=== PATIENT | female | born 1935 | race Caucasian/White ===

== ENCOUNTER → 2020-10-09 12:20 | Outpatient (BNVA) | payer MEDICARE, OTHER, SELFPAY | PROVIDERS: PCP Family Medicine; Visit Provider Family Medicine | DX: I48.0 Paroxysmal atrial fibrillation (principal) | CPT/HCPCS: 85610 ==

== ENCOUNTER → 2020-10-30 08:30 | Outpatient (BNVA) | payer MEDICARE, OTHER, SELFPAY | PROVIDERS: PCP Family Medicine; Visit Provider Family Medicine | DX: I48.0 Paroxysmal atrial fibrillation (principal) | CPT/HCPCS: 85610 ==

== ENCOUNTER → 2020-11-08 11:16 | Outpatient (BNVA) | payer MEDICARE, OTHER, SELFPAY | PROVIDERS: PCP Family Medicine; Visit Provider Family Medicine | DX: Z47.89 Encounter for other orthopedic aftercare (principal); S52.502D Unspecified fracture of the lower end of left radius, subsequent encounter for closed fracture with routine healing; X58.XXXD Exposure to other specified factors, subsequent encounter | CPT/HCPCS: 73110 ==

== ENCOUNTER → 2020-11-13 13:02 | Outpatient (BNVA) | payer MEDICARE, OTHER, SELFPAY | PROVIDERS: PCP Family Medicine; Referring Provider Family Medicine; Visit Provider Orthopaedic Surgery | DX: Z47.89 Encounter for other orthopedic aftercare (principal); Z87.81 Personal history of (healed) traumatic fracture | CPT/HCPCS: 73502 ==

== ENCOUNTER 2021-01-16 10:40 | Inpatient (IN) | payer MEDICARE, SELFPAY ==
[2021-01-16] VITALS (9 sets, daily range): BP systolic 91–119; BP diastolic 51–64; PULSE 60–73; RESP 16–18; TEMP 36.5–37.3; O2SAT 93–97; BMI 24.4
--- NOTE | 2021-01-16 10:59 | XRR_ITS ---
PROCEDURE INFORMATION: Exam: XR Abdomen Exam date and time: 01/16/2021 11:06 AM Age: 85 years old Clinical indication: Abdominal pain; Localized; Right lower quadrant (rlq); Prior surgery; Surgery type: Appendix; Patient HX: Lrq pain x 2.5 days; Additional info: Abd pain TECHNIQUE: Imaging protocol: XR of the abdomen. Views: Frontal supine view of the abdomen. 1 View. COMPARISON: No relevant prior studies available. FINDINGS: Gastrointestinal tract: Normal. No bowel dilation. Organs: Cholecystectomy. Bones/joints: Left hip prosthesis. Scoliosis. XR/XR KUB portable [id number] IMPRESSION: No acute findings.
--- NOTE | 2021-01-16 11:02 | CT_ITS ---
WS: [id number] CT ABDOMEN PELVIS TECHNIQUE: Contrast-enhanced CT of the abdomen and pelvis with coronal and sagittal reformatted image s. CLINICAL INFORMATION: abd pain COMPARISON: None. DLP: 1291.[address] scans at [facility] use at least one of these dose optimization techniques: automat ed exposure control; mA and/or kV adjustment per patient size (includes targeted exams where dose is matched to clinical indication); or iterative reconstruction. FINDINGS:Air-fluid levels in the fluid-filled transverse colon. Peripheral wall enhancement involving the right colon and transverse colon suspicious for colitis. Dilated loops of fluid-filled small bow el in the midabdomen with mucosal enhancement. Mucosal enhancement involving the distal ileum which i s decompressed. Findings suspicious for enterocolitis and/or developing partial small bowel obstructi on. Swirling in the central mesentery which is nonspecific but can be seen with internal hernia or vo lvulus. No free air. Inflammatory stranding and edema within the central mesentery and right upper qu adrant. Fluid and edema about the pancreatic head. Recommend correlation with pancreatic enzymes. Nor mal pancreatic parenchymal enhancement. SMV is patent. Proximal celiac and SMA are patent. Mild diffuse fatty infiltration of the liver. Prior cholecystectomy. Normal portal veins and splenic vein. Dilated common bile duct likely physiologic postcholecystectomy. Subsegmental atelectasis right lower lobe. Trace right pleural fluid. Normal caliber abdominal aorta. Aortic calcification. Adrenal glands are normal. No hydronephrosis. B ilateral renal cysts. Normal renal parenchymal enhancement. Left AMELIA degrades images in the pelvis. S mall amount of free fluid in the pelvis. .. CT/CT abdomen pelvis w con* [id number] IMPRESSION: 1. Findings suspicious for enterocolitis and/or developing partial small bowel obstruction. Persistent air within the colon. 2. Inflammatory stranding and edema central mesentery and right upper quadrant with some swirling in the central mesentery is nonspecific but can be seen wit h volvulus or internal hernia. 3. Fluid and edema about the pancreatic head. Recommend correlation with pancr eatic enzymes to exclude pancreatitis. 4. A few air-fluid levels in the transverse colon and a few loops of distended small bowel in the midabdomen and pelvis 5. Small amount of free fluid in the pelvis. 6. Prior cholecystectomy. Notified Anson Camarillo DO at 01/16/2021 1:09 PM.
[2021-01-16 11:48] LABS: Basophils # 0.1 10^3/uL (0.0-0.1); Basophils % 0.5 %; Hematocrit 41.5 % (37.0-47.0); Hemoglobin 13.7 g/dL (11.5-15.3); Lymphocytes # 1.2 10^3/uL (0.8-4.8); Lymphocytes % 8.2 %; Mean Corpuscular Hemoglobin 29.8 pg (28.0-34.0); Mean Corpuscular Volume 90.2 fL (81-99); Mean Platelet Volume 9.7 fL (7.4-10.4); Monocytes # 0.3 10^3/uL (0.2-0.9); Monocytes % 2.3 %; Neutrophils # 12.69 10^3/uL (1.8-7.7); Neutrophils % 88.5 %; Nucleated Red Blood Cells % 0 %; Platelet Count 325 10^3/cmm (130-400); Red Cell Distribution Width 14.9 % (12.1-15.1); White Blood Count 14.3 10^3/uL (4.0-10.0)
--- NOTE | 2021-01-16 11:52 | ED_ITS ---
HPI - Abdominal Pain General: Chief Complaint: Abdominal Pain Stated Complaint: AB PAIN, SENT FROM URGENT CARE Time Seen by Provider: 01/16/21 10:48 History of Present Illness: HPI narrative: 85-year-old female presents to the emergency room complaining of abdominal discomfort. She had been having significant amount of diarrhea and even noticed a little bit of blood in her stool mostly after she wiped. She took some Imodium to alleviate the diarrhea and now has not been able to have a bowel movement. She denies dysuria but she states she is only been going in very small amounts lately. She has felt very very bloated. She not had any vomiting. She has been able to eat and drink okay. She is on warfarin for atrial fibrillation. She checks her INR weekly with a home monitoring. She did miss a dose earlier this week and doubled up the next day she is supposed to have her INR checked today. Denies any chest pain or shortness of breath or any recent illness. MD elicited complaint: abdominal pain Pertinent past history: constipation Onset (ago): day(s) Pain Consistency: intermittent Location: Diffuse Severity: mild Quality: cramping Radiation: none Exacerbating factors: nothing Relieving factors: nothing Associated Symptoms: Denies anorexia, belching, bloating, change in bowel habits, change in stool character, chills, coffee ground emesis, constipation, GI cramping, diarrhea, dyspepsia, dysuria, excessive flatus, fever(s), heartburn, hematochezia, hematuria, hematemesis, fecal incontinence, loose stoo ls, nausea, poor appetite, syncope and vomiting Review of Systems Const: Denies: fever(s) or chills Card: Denies: syncope GI: Denies: nausea, vomiting, hematemesis, coffee ground emesis, heartburn, diarrhea, constipation, bloating, GI cramping, belching, excessive flatus, fecal incontinence, change in bowel habits, change in stool character or hematochezia : Denies: dysuria or hematuria [facility] ED PFSH: Medical History Hiatal hernia History of 2019 novel coronavirus disease (COVID-19) HTN (hypertension) Paroxysmal A-fib Surgical History H/O cataract extraction H/O knee surgery H/O wrist surgery H/O: hysterectomy History of appendectomy History of bladder suspension procedure History of left hip replacement Family History (Updated 01/16/21 @ 15:13 by Jimime Garcia MD) Brother Cancer Father CAD (coronary artery disease) Mother No problems noted. Social History Smoking and tobacco status: former smoker Alcohol intake: former Former alcohol use details: socially Physical Exam Const: COMMON NORMALS: no acute distress GENERAL APPEARANCE: cooperative and comfortable HENMT: COMMON NORMALS: normocephalic, atraumatic and hearing grossly normal bilaterally HEAD & SCALP: normocephalic and atraumatic Neck/C-Spine: COMMON NORMALS: no JVD Resp: COMMON NORMALS: normal respiratory effort, No retractions, No use of accessory muscles and clear to auscultation bilaterally AUSCULTATION: clear to auscultation bilaterally Cardio: COMMON NORMALS: no JVD, regular rate, regular rhythm and No murmurs present (Cardio) RATE: regular rate RHYTHM: regular rhythm GI: COMMON NORMALS: No hepatosplenomegaly present AUSCULTATION: Yes Hypoactive bowel sounds present PALPATION: Yes Tenderness to palpation present (GI) (diffuse), No Guarding due to palpation present (GI) and Yes No hepatosplenomegaly present Extremity: COMMON NORMALS: normal to inspection, capillary refill normal, no clubbing, cyanosis or edema, no calf tenderness and no pedal edema Skin: COMMON NORMALS: no rashes or lesions noted GENERAL SKIN EXAM: no rashes or lesions noted Course Vital Signs: Vital signs: Vital Signs Temperature 99.1 F 01/17/21 07:05 Pulse Rate 60 01/17/21 07:05 Respiratory Rate 15 01/17/21 07:05 Blood Pressure 104/62 01/17/21 07:05 Pulse Oximetry 96 01/17/21 07:05 MDM - Abdominal Pain MDM Narrative: Medical decision making narrative: Lipase elevated there is evidence of colitis and early bowel obstruction on advanced imaging. Given her age and the fact that she has diminished bowel sounds hyponatremia recommend admission for bowel rest antibiotics antiemetics. She will also need correction of her electrolytes. Discussed with Dr. Garcia. Additionally her over anticoagulation warrants close observation if her colitis is not improved in short order she could have significant bleeding issues. Lab Data: Labs: Lab Results 01/16/21 01/16/21 01/16/21 Range/Units 11:15 11:42 11:42 WBC 14.3 H (4.0-10.0) 10^3/ uL RBC 4.60 (4.1-5.3) 10^6/u L Hgb 13.7 (11.5-15.3) g/dL Hct 41.5 (37.0-47.0) % MCV 90.2 (81-99) fL MCH 29.8 (28.0-34.0) pg MCHC 33.0 (30.0-36.0) g/dL RDW 14.9 (12.1-15.1) % Plt Count 325 (130-400) 10^3/c mm MPV 9.7 (7.4-10.4) fL Neut % (Auto) 88.5 % Lymph % (Auto) 8.2 % Calloway % (Auto) 2.3 % Eos % (Auto) 0.0 % Baso % (Auto) 0.5 % Neut # (Auto) 12.69 H (1.8-7.7) 10^3/u L Lymph # (Auto) 1.2 (0.8-4.8) 10^3/u L Calloway # (Auto) 0.3 (0.2-0.9) 10^3/u L Eos # (Auto) 0.0 (0.0-0.8) 10^3/u L Baso # (Auto) 0.1 (0.0-0.1) 10^3/u L Nucleated RBC % (a uto) 0 % Nucleated RBCs # 0.0 /100WBC PT 44.60 H (12.1-14.9) SECO NDS INR 4.51 H (0.8-1.2) Sodium (136-145) mmol/L Potassium (3.5-5.1) mmol/L Chloride (98-107) mmol/L Carbon Dioxide (22-29) mmol/L Anion Gap (5-19) BUN (8-23) mg/dL Creatinine (0.5-0.9) mg/dL GFR Calculation Glucose (65-115) mg/dL Calculated Osmolal ity (285-295) mOsm/k g Lactic Acid (0.5-2.2) mmol/L Calcium (8.5-10.5) mg/dL Total Bilirubin (0.15-1.2) mg/dL AST (0-32) U/L ALT (0-33) U/L Alkaline Phosphata se (35-105) IU/L Total Protein (6.6-8.7) g/dL Albumin (3.5-5.2) g/dL Globulin (1.3-4.6) g/dL Lipase (13-60) U/L Urine Color Yellow (Yellow) Urine Appearance Clear (CLEAR) Urine pH 5 (5-7) Ur Specific Gravit y 1.020 (1.005-1.030) Urine Protein Neg (Negative) Urine Glucose (UA) Norm (Normal) Urine Ketones Negative (Negative) Urine Blood 2+ H (Negative) Urine Nitrate Negative (Negative) Urine Bilirubin 1+ H (Negative) Urine Urobilinogen Norm (Negative) mg/dL Ur Leukocyte Carmelita ase Negative (Negative) Urine RBC 5-10 H (0-2) /hpf Urine WBC 0-4 H (0-5) /hpf Ur Squamous Epith Cells 0-4 H (0-5) /hpf Ur Transition Epit h Cell 0-4 /hpf Amorphous Sediment 1+ /hpf Urine Bacteria 3+ H (NONE) /hpf Hyaline Casts 25-40 H /lpf Urine Mucus 1+ /hpf 01/16/21 01/16/21 01/16/21 Range/Units 11:42 11:42 13:51 WBC (4.0-10.0) 10^3/ uL RBC (4.1-5.3) 10^6/u L Hgb (11.5-15.3) g/dL Hct (37.0-47.0) % MCV (81-99) fL MCH (28.0-34.0) pg MCHC (30.0-36.0) g/dL RDW (12.1-15.1) % Plt Count (130-400) 10^3/c mm MPV (7.4-10.4) fL Neut % (Auto) % Lymph % (Auto) % Calloway % (Auto) % Eos % (Auto) % Baso % (Auto) % Neut # (Auto) (1.8-7.7) 10^3/u L Lymph # (Auto) (0.8-4.8) 10^3/u L Calloway # (Auto) (0.2-0.9) 10^3/u L Eos # (Auto) (0.0-0.8) 10^3/u L Baso # (Auto) (0.0-0.1) 10^3/u L Nucleated RBC % (a uto) % Nucleated RBCs # /100WBC PT (12.1-14.9) SECO NDS INR (0.8-1.2) Sodium 123 L (136-145) mmol/L Potassium 4.1 (3.5-5.1) mmol/L Chloride 86 L (98-107) mmol/L Carbon Dioxide 25 (22-29) mmol/L Anion Gap 16.1 (5-19) BUN 30 H (8-23) mg/dL Creatinine 1.3 H (0.5-0.9) mg/dL GFR Calculation Not Reportable Glucose 73 (65-115) mg/dL Calculated Osmolal ity 261 L (285-295) mOsm/k g Lactic Acid 1.7 (0.5-2.2) mmol/L Calcium 8.9 (8.5-10.5) mg/dL Total Bilirubin 0.8 (0.15-1.2) mg/dL AST 15 (0-32) U/L ALT 10 (0-33) U/L Alkaline Phosphata se 37 (35-105) IU/L Total Protein 6.5 L (6.6-8.7) g/dL Albumin 3.5 (3.5-5.2) g/dL Globulin 3.0 (1.3-4.6) g/dL Lipase 333 H (13-60) U/L Urine Color (Yellow) Urine Appearance (CLEAR) Urine pH (5-7) Ur Specific Gravit y (1.005-1.030) Urine Protein (Negative) Urine Glucose (UA) (Normal) Urine Ketones (Negative) Urine Blood (Negative) Urine Nitrate (Negative) Urine Bilirubin (Negative) Urine Urobilinogen (Negative) mg/dL Ur Leukocyte Carmelita ase (Negative) Urine RBC (0-2) /hpf Urine WBC (0-5) /hpf Ur Squamous Epith Cells (0-5) /hpf Ur Transition Epit h Cell /hpf Amorphous Sediment /hpf Urine Bacteria (NONE) /hpf Hyaline Casts /lpf Urine Mucus /hpf Discharge Plan Discharge Patient Disposition: Admitted As Inpatient Admit Provider: Jimmie Garcia Clinical Impression: Small bowel obstruction, Dehydration with hyponatremia, Warfarin-induced coagulopathy, Paroxysmal A-fib, HTN (hypertension), Acute kidney injury, Enterocolitis, Mild aortic regurgitation Condition: Stable Coding Level of Care Code ED Product Safety Compliance Leader for Callie [facility]ue[facility]
[2021-01-16 12:10] LABS: INR 4.51 (0.8-1.2)
[2021-01-16 12:16] LABS: Alanine Aminotransferase 10 U/L (0-33); Albumin Level 3.5 g/dL (3.5-5.2); Alkaline Phosphatase 37 IU/L (35-105); Anion Gap 16.1 (5-19); Aspartate Amino Transferase 15 U/L (0-32); Blood Urea Nitrogen 30 mg/dL (8-23); Calcium 8.9 mg/dL (8.5-10.5); Carbon Dioxide 25 mmol/L (22-29); Chloride 86 mmol/L (98-107); Glucose 73 mg/dL (65-115); Osmolality Calculated 261 mOsm/kg (285-295); Potassium 4.1 mmol/L (3.5-5.1); Sodium 123 mmol/L (136-145); Total Bilirubin 0.8 mg/dL (0.15-1.2); Total Protein 6.5 g/dL (6.6-8.7)
[2021-01-16 12:18] LABS: Slide Review Slide Review Perform
[2021-01-16] MEDS: iodixanol 320 mg/mL 100mL Btl IV (12:44)
[2021-01-16 13:44] LABS: Lipase 333 U/L (13-60)
--- NOTE | 2021-01-16 13:54 | ECG_ITS ---
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 Measurements Intervals [place] Rate: 66 P: -89 [place]: 224 QRS: 34 QRSD: 86 T: 52 QT: 377 QTc: 396 Interpretive Statements ELECTRONIC ATRIAL PACEMAKER LOW QRS VOLTAGE IN PRECORDIAL LEADS [QRS DEFLECTION < 1.0 mV IN CHEST LEADS] ABNORMAL RHYTHM ECG No previous ECG available for comparison Electronically Signed On 01-17-2021 0:01:05 BRICK LOADER by Tracey Meza M.D. [id number]
[2021-01-16] MEDS: metroNIDAZOLE IV 500 MG/100 ML PREMIX 100 MG IV ×2 (14:06→21:10)
[2021-01-16] MEDS: ciprofloxacin 400 MG/200 ML PREMIX 200 MG IV (14:07)
[2021-01-16 14:08] LABS: Glucose Urine UA Norm (Normal); Ketones Urine Negative (Negative); Protein Urine Neg (Negative); Urine Appearance Clear (CLEAR); Urine Color Yellow (Yellow); pH Urine 5 (5-7)
[2021-01-16 14:09] LABS: Add Urine Microscopic? YES; Bilirubin Urine 1+ (Negative); Blood Urine 2+ (Negative); Leukocyte Esterase Urine Negative (Negative); Nitrate Urine Negative (Negative); Urobilinogen Urine Norm (Negative)
[2021-01-16 14:25] LABS: Lactic Sepsis W/Reflex 1.7 mmol/L (0.5-2.2)
--- NOTE | 2021-01-16 15:04 | P.HP_ITS ---
Providers/Chief Complaint Primary Care Provider: Rosemary Joshua DO Chief Complaint: AB PAIN, SENT FROM URGENT CARE History of Present Illness Esthela Billings is a 85 year old female presents to emergency department with gradually worsening periumbilical abdominal pain which initially started somewhere in epigastric area and then down to her right and lower quadrants but more on the right side. Reports that pain is 6 out of 10 and laying straight on her back alleviates her pain and moving to either side exacerbates. She did pa ss gas yesterday but not today. Reports that she has IBS constipation type for long period of time. Reports that approximately 3 weeks ago when her abdominal pain started she noticed several diarrheal bowel movements. She took Imodium multiple times and apparently had no good bowel movement in the last several days. Had minimal diarrhea yesterday. Denies any melena or hematochezia but does report occasionally bright red blood on toilet paper secondary to hemorrhoids. Reports that she vomited several times in the last 3 weeks with last 1 was yesterday. She describes it as white-colored vomitus. 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 She moved to the area from [place] in October. Reports that September she had left hip surgery and possibly received antibiotic at that time but denies any antibiotic use since then. They just moved into a new house in November and patient reports drinking well water. No one else in the family ill. She had previous abdominal surgeries. She had laparoscopic cholecystectomy and open appendectomy. She had bladder prolapse surgery and had hysterectomy at that time. She denies being diabetic and denies having coronary stents. She does have previous history of atrial fibrillation. She has a pacemaker and anticoagulated with warfarin. Her INR was supratherapeutic. She denies previous history of stroke and on her baseline reports being very active up until last September when she had her hip surgery and after that she has been not as active as she used to. On review of systems she was trying to describe some discoloration on her foot and described as light-colored blood . She could not really elaborate and her daughter at bedside also could not understand what she meant by that. She l ooked at her feet and says that is not there anymore. Denies lower extremity swelling. In emergency department patient was found to be very dehydrated. CT scan of the abdomen pelvis showed findings suspicious for small bowel obstruction. There was also concern for possible volvulus but patient's lactic acid within normal limits. Review of Systems Const: Denies: fever(s) or chills Eyes: Denies: change in vision ENMT: Denies: throat pain or change in hearing Card: Denies: chest pain, edema or lightheadedness Resp: Reports: productive cough (Reports clear productive cough for many years which is unchanged.. Quit sm); Denies: dyspnea GI: Reports: abdominal pain, nausea, vomiting, diarrhea and constipation; Denies: dysphagia, hematochezia or melena : Denies: difficulty voiding (But reports that she did not urinate much.) Musc: Denies: joint pain or joint swelling Skin/Breast: Denies: rash or erythema Neuro: Denies: headache(s) or weakness in extremities Psych: Denies: depression Endo: Denies: excessive sweating Darryn/Lymph: Denies: easy bleeding or tender lymph nodes All/Imm: Denies: throat swelling Medications/Allergies Home Medications Medication Instructions Recorded Confirmed Last Taken Type dronedarone 400 mg tablet 400 mg PO BID #180 tab 11/22/20 01/16/21 01/16/21 07:00 Rx Vitamin C 1 tab PO DAILY 01/16/21 01/16/21 Unknown History magnesium oxide 1,200 mg PO BID 01/16/21 01/16/21 Unknown History metoprolol tartrate 12.5 mg PO BID 01/16/21 01/16/21 01/16/21 07:00 History warfarin See Rx Instructions .ROUTE .COMPLEX 01/16/21 01/16/21 Unknown History Allergies Allergy/AdvReac Type Severity Reaction Status Date / Time No Known Allergies Allergy Verified 01/16/21 11:12 PFSH Acute PFSH: Medical History Hiatal hernia History of 2019 novel coronavirus disease (COVID-19) HTN (hypertension) Paroxysmal A-fib Surgical History H/O cataract extraction H/O knee surgery H/O wrist surgery H/O: hysterectomy History of appendectomy History of bladder suspension procedure History of left hip replacement Family History Brother Cancer Father CAD (coronary artery disease) Mother No problems noted. Social History Smoking and tobacco status: former smoker Alcohol intake: former Former alcohol use details: socially Vitals/I&O/Wt Last Vital Signs Temp 97.7 F 01/16/21 10:51 Pulse 60 01/16/21 14:36 Resp 18 01/16/21 14:36 BP 91/51 01/16/21 14:36 Pulse Ox 94 01/16/21 14:36 Weight last 48 hrs Weight 66.678 kg Physical Exam Const: COMMON NORMALS: no acute distress, patient oriented x3 and alert HENMT: COMMON NORMALS: normocephalic and atraumatic HEAD & SCALP: normocephalic and atraumatic Eye: COMMON NORMALS: EOMs intact bilaterally, conjunctivae normal and no scl eral icterus CONJUNCTIVA: Yes conjunctivae normal Neck/C-Spine: COMMON NORMALS: no lymphadenopathy and no meningeal signs Lymph: LYMPHATIC: no lymphadenopathy noted Chest: COMMONS NORMALS: normal palpation of entire chest wall Resp: COMMON NORMALS: No use of accessory muscles and clear to auscultation bilaterally AUSCULTATION: clear to auscultation bilaterally Cardio: COMMON NORMALS: regular rate, regular rhythm and No murmurs present (Cardio) RATE: regular rate RHYTHM: regular rhythm OTHER: No lower extremity edema GI: COMMON NORMALS: Soft to palpation PALPATION: Yes Soft to palpation RECTAL EXAM: deferred OTHER: Nondistended but tender to palpation mostly at the right lower quadrant. No guarding or rebound tenderness. : COMMON NORMALS: Yes no CVA tenderness BLADDER/KIDNEY EXAM: Yes no CVA tenderness Back/Pelvis: COMMON NORMALS: no CVA tenderness and thoracic and lumbar spine normal to inspection Extremity: COMMON NORMALS: normal to inspection and capillary refill normal Neuro: COMMON NORMALS: patient oriented x3 and no focal motor deficits S ENSORIUM/ORIENTATION: Yes alert MENINGEAL SIGNS: Yes no meningeal signs Psych: COMMON NORMALS: mental status grossly normal, Normal thought process present and cooperative THOUGHT PROCESS: Normal thought process present Skin: COMMON NORMALS: no rashes or lesions noted GENERAL SKIN EXAM: no rashes or lesions noted Data : 01/16/21 11:42 01/16/21 11:42 A&P Assessment and plan (1) Small bowel obstruction: Most likely secondary to adhesions Status: Acute (2) Dehydration with hyponatremia: Status: Acute (3) Acute kidney injury: Status: Acute (4) Hypotension due to hypovolemia: Status: Acute (5) History of atrial fibrillation: Status: Acute (6) Warfarin-induced coagulopathy: Status: Acute (7) Enterocolitis: Status: Acute Additional A&P Information PLAN: We will treat patient with fluids and closely monitor urine output and cardiorespiratory status. I will request NG tube placement as patient is at risk for vomiting. Low intermittent wall suction. We will treat patient with MiraLAX and give one enema. Hopefully patient will improve with time but if not better will consult surgery. Hold warfarin and monitor INR. I will continue ciprofloxacin and Flagyl to cover intra-abdominal esperanza given the findings somewhat suggestive of enterocolitis. Check stool for C. difficile infection and for enteric pathogens although clinically this does not appear to be C. difficile colitis. Consider placing Garcias catheter. Frequent ambulation's. Patient's lipase appears to be intestinal in origin. Doubt true pancreatitis. Attestations Medical Necessity Statement*: With small bowel obstruction requires close inpatient monitoring and treatment. I expect patient will require more than 2 midnights. Time Spent in Patient Care: Greater than 35 minutes Coding Level of Care Code Acute Continuing Education Director for [facility] Diagnoses Small bowel obstruction K56.609 Dehydration with hyponatremia E86.0; E87.1 Acute kidney injury N17.9 Hypotension due to hypovolemia I95.89; E86.1 History of atrial fibrillation Z86.79 Warfarin-induced coagulopathy D68.32; T45.515A Enterocolitis K52.9
[2021-01-16 15:11] LABS: Hyaline Casts Urine 25-40 /lpf
[2021-01-16 15:13] LABS: Add Urine Culture? Yes; Amorphous Sediment Urine 1+ /hpf; Bacteria Urine 3+ /hpf; Mucus Urine 1+ /hpf; Squamous Epithelial Cell Urine 0-4 /hpf (0-5); Transitional Epi Cells Urine 0-4 /hpf; WBC Urine 0-4 /hpf (0-5)
[2021-01-16] MEDS: sodium chloride 0.9% 1,000 ML 999 ML IV (15:15)
[2021-01-16] MEDS: mineral oil ENEMA 133 mL PR (17:13)
[2021-01-16] MEDS: lactated ringers 1,000 ML 100 ML IV (17:14)
[2021-01-16] MEDS: metoprolol tartrate 25 mg Tablet 12.5 MG PO ×2 (17:15→21:09)
[2021-01-16] MEDS: polyethylene glycol 3350 Pkt 17 gm PO (17:19)
[2021-01-16] MEDS: sodium chloride 0.9% 1,000 ML 125 ML IV ×2 (18:49→21:13)
[2021-01-16] MEDS: famotidine 20 mg/2 mL INJ IVP (21:09)
[2021-01-17] VITALS (9 sets, daily range): BP systolic 103–113; BP diastolic 50–82; PULSE 59–126; RESP 15–18; TEMP 36.3–37.3; O2SAT 93–96
[2021-01-17] MEDS: ciprofloxacin 400 MG/200 ML PREMIX 200 MG IV ×2 (01:51→12:50)
[2021-01-17] MEDS: lactated ringers 1,000 ML 100 ML IV ×2 (02:33→16:57)
[2021-01-17 05:05] LABS: Basophils # 0.1 10^3/uL (0.0-0.1); Basophils % 0.4 %; Eosinophils % 0.1 %; Hematocrit 36.4 % (37.0-47.0); Lymphocytes # 0.7 10^3/uL (0.8-4.8); Lymphocytes % 6.1 %; Mean Corpuscular Hemoglobin 30.2 pg (28.0-34.0); Mean Corpuscular Volume 91.7 fL (81-99); Monocytes # 0.3 10^3/uL (0.2-0.9); Monocytes % 2.3 %; Neutrophils # 10.46 10^3/uL (1.8-7.7); Neutrophils % 90.8 %; Nucleated Red Blood Cells % 0 %; Platelet Count 272 10^3/cmm (130-400); Red Blood Count 3.97 10^6/uL (4.1-5.3); Red Cell Distribution Width 14.9 % (12.1-15.1); White Blood Count 11.5 10^3/uL (4.0-10.0)
[2021-01-17] MEDS: metroNIDAZOLE IV 500 MG/100 ML PREMIX 100 MG IV ×3 (05:44→21:28)
[2021-01-17 05:47] LABS: Alanine Aminotransferase 7 U/L (0-33); Albumin Level 2.7 g/dL (3.5-5.2); Alkaline Phosphatase 36 IU/L (35-105); Anion Gap 11.9 (5-19); Aspartate Amino Transferase 11 U/L (0-32); Blood Urea Nitrogen 23 mg/dL (8-23); Calcium 8.6 mg/dL (8.5-10.5); Carbon Dioxide 26 mmol/L (22-29); Chloride 93 mmol/L (98-107); Globulin 2.8 g/dL (1.3-4.6); Glucose 68 mg/dL (65-115); Lipase 83 U/L (13-60); Osmolality Calculated 266 mOsm/kg (285-295); Potassium 3.9 mmol/L (3.5-5.1); Sodium 127 mmol/L (136-145); Total Bilirubin 0.7 mg/dL (0.15-1.2); Total Protein 5.5 g/dL (6.6-8.7)
[2021-01-17 05:53] LABS: Slide Review Slide Review Perform
[2021-01-17 05:56] LABS: Procalcitonin 4.15 ng/mL (0-0.5)
[2021-01-17 05:57] LABS: Thyroid Stimulating Hormone 0.95 uIU/mL (0.27-4.20)
[2021-01-17 06:32] LABS: INR 4.84 (0.8-1.2)
[2021-01-17] MEDS: famotidine 20 mg/2 mL INJ IVP ×2 (08:11→21:28)
[2021-01-17] MEDS: polyethylene glycol 3350 Pkt 17 gm PO ×2 (08:11→16:58)
--- NOTE | 2021-01-17 08:24 | PM.PN ---
Subjective Subjective: Interval history: Patient reports feeling much better. Reports that she had explosive bowel movement yesterday and felt much better after that. Denies chest pain. Reports minimal generalized abdominal discomfort but otherwise much better compared to her initial presentation. She denies being nauseous but reports that her appetite is poor. She did not want to have NG tube placed yesterday. Vitals/I&O/Wt Last Vital Signs Temp 99.1 F 01/17/21 07:05 Pulse 60 01/17/21 07:05 Resp 15 01/17/21 07:05 BP 104/62 01/17/21 07:05 Pulse Ox 96 01/17/21 07:05 01/16/21 01/17/21 01/17/21 22:59 06:59 14:59 Intake Total 2400 / 2400 2300.000 / 4700.000 Output Total 600 / 600 Balance 2400 / 2400 1700.000 / 4100.000 Weight last 48 hrs Weight 66.678 kg Physical Exam Narrative: EXAM NARRATIVE: Heart is regular and lungs are clear. Abdomen is soft and slightly tender throughout. No lower extremity edema. Data : 01/17/21 04:15 01/17/21 04:15 Micro: Microbiology 01/16/21 17:48 C.difficile Toxin B Gene (PCR) - Final Stool A&P Assessment and plan (1) Small bowel obstruction: Most likely secondary to adhesions Status: Acute (2) Dehydration with hyponatremia: Status: Acute (3) Acute kidney injury: Status: Acute (4) Hypotension due to hypovolemia: Status: Acute (5) History of atrial fibrillation: Status: Acute (6) Warfarin-induced coagulopathy: Status: Acute (7) Enterocolitis: Status: Acute Additional A&P Information PLAN: Continue holding warfarin. Continue antibiotics. Decrease IV fluids to 50 mL/h and start patient on clear liquid diet Encouraged ambulation. Consider adding senna/Colace if patient continues to improve. Attestations Medical Necessity Statement*: Patient with small bowel obstruction requires close inpatient monitoring and treatment. Coding Level of Care Code Acute Musculoskeletal Physiotherapist for [facility] Fwd Diagnoses Small bowel obstruction K56.609 Dehydration with hyponatremia E86.0; E87.1 Acute kidney injury N17.9 Hypotension due to hypovolemia I95.89; E86.1 History of atrial fibrillation Z86.79 Warfarin-induced coagulopathy D68.32; T45.515A Enterocolitis K52.9
--- NOTE | 2021-01-17 09:32 | PC.CHAP ---
Pastoral Care Encounter/Spiritual Assessment Type of Contact [] Declined strategic advisor visit [] Patient/Family/Request visit [] Outpatient visit [] Follow-up visit [] Physician referral [] Code/Alert [x] Routine visit [] Staff referral [] Actively dying [x] Patient sleeping [] Family support [] [] Out of room [] Palliative care [] [] Receiving care in room [] Pre-surgical visit [] Trauma [] Long length of stay [] ICU visit [] Other: Relational/Emotional Strength [] Patient feels connected with others/family/visitors/staff [] Distress [] Loneliness/isolation [] Abandonment Spirituality of Patient [] Person of Sarah [] Attends Congregational of their Sarah [] Believes in Prayer [] Reads Bible or Worship materials [] There are Spiritual issues to be addressed Fixed Capital Clerk Interventions [] Prayer [] Active listening [] Non-anxious presence [] Spiritual/emotional support [] Crisis/trauma care [] Spiritual counseling [] Bereavement support [] Provided bereavement packet [] Provided Bible/devotional materials [] Provided toy/stuffed animal, coloring book to patient or family member [] Provided Communion [] Anointing/Spangle [] Salvation [] Completed spiritual assessment [] Other: Impact on Illness or Injury [] Angry [] Fearful [] Anxious [] Often cries [] Exhaustion [] Unable to work [] Unable to attend nondenominational [] Unable to walk/stand [] Unable to read [] Unable to drive [] Unable to eat/drink [] Unable to sleep [] Unable to be with family [] Patient intubated [] Other: Summary Time spent with patient
--- NOTE | 2021-01-17 14:04 | PC.NURSE ---
TELEMETRY NOTED PT TO HAVE RUN OF V-TACH - PT DENIES NO CHEST PAIN OR SHORTNESS OF BREATH AT PRESENT TIME - CURRENT RN CHARGE AT SR 65 - WILL MONITOR - DR FISH NOTIFIED PER BK FRAGA
--- NOTE | 2021-01-17 16:01 | PC.NURSE ---
PHYSICAL THERAPY PT REFUSED PHYSICAL THERAPY - STATED SHE WANTED TO SLEEP
--- NOTE | 2021-01-17 17:19 | PC.PT ---
Patient declined attempted PT evaluation, stated has been walking with her daughters, was later viewed walking with daughter, provided walker for increased gait stability, patient has one at home as well, patient states she will continue to walk 4 times a day with nursing staff or her daughters; no further PT attempts to be made, unless new orders received; did provide written home exercise program for patient use as well.
--- NOTE | 2021-01-17 18:37 | PC.NURSE ---
V TACH PT HAD 21 BEAT RUN OF V TACH - ASYMPOTAMTIC - BP 111/63 - DR FISH NOTIFIED - WILL REVIEW MEDICATIONS - PT IS TO REMAIN ON TELE MONITOR
[2021-01-17] MEDS: metoprolol tartrate 25 mg Tablet 12.5 MG PO (19:33)
[2021-01-17] MEDS: cefTRIAXone 1,000 MG in sodium chloride 0.9% (plus) 50 ML 100 MG IV (19:33)
[2021-01-17] MEDS: dilTIAZem 30 mg Tablet PO (22:57)
[2021-01-18 02:40] LABS: Basophils % 0.3 %; Eosinophils # 0.1 10^3/uL (0.0-0.8); Eosinophils % 0.6 %; Hematocrit 36.8 % (37.0-47.0); Lymphocytes # 0.7 10^3/uL (0.8-4.8); Lymphocytes % 5.8 %; Mean Corpuscular HGB Conc 32.6 g/dL (30.0-36.0); Mean Corpuscular Hemoglobin 29.6 pg (28.0-34.0); Mean Corpuscular Volume 90.6 fL (81-99); Monocytes # 0.4 10^3/uL (0.2-0.9); Monocytes % 3.4 %; Neutrophils # 10.41 10^3/uL (1.8-7.7); Neutrophils % 89.5 %; Nucleated Red Blood Cells % 0 %; Platelet Count 281 10^3/cmm (130-400); Red Blood Count 4.06 10^6/uL (4.1-5.3); Red Cell Distribution Width 14.8 % (12.1-15.1); White Blood Count 11.6 10^3/uL (4.0-10.0)
[2021-01-18 03:01] LABS: Alanine Aminotransferase 8 U/L (0-33); Albumin Level 2.7 g/dL (3.5-5.2); Alkaline Phosphatase 59 IU/L (35-105); Anion Gap 12.4 (5-19); Aspartate Amino Transferase 12 U/L (0-32); Blood Urea Nitrogen 13 mg/dL (8-23); Calcium 8.3 mg/dL (8.5-10.5); Carbon Dioxide 23 mmol/L (22-29); Chloride 97 mmol/L (98-107); Creatinine Clr Calc Pharmacy 50.3033; Globulin 2.8 g/dL (1.3-4.6); Glucose 75 mg/dL (65-115); Magnesium 1.8 mg/dL (1.7-2.3); Osmolality Calculated 267 mOsm/kg (285-295); Potassium 3.4 mmol/L (3.5-5.1); Sodium 129 mmol/L (136-145); Total Bilirubin 0.5 mg/dL (0.15-1.2); Total Protein 5.5 g/dL (6.6-8.7)
[2021-01-18 03:07] LABS: Slide Review Slide Review Perform
[2021-01-18 04:00] VITALS: BP 98/66; PULSE 104; RESP 18; TEMP 36.6; O2SAT 92
[2021-01-18] MEDS: metroNIDAZOLE IV 500 MG/100 ML PREMIX 100 MG IV (05:26)
[2021-01-18 06:00] VITALS: PULSE 117
[2021-01-18] MEDS: metoprolol tartrate 25 mg Tablet PO (06:35)
--- NOTE | 2021-01-18 06:59 | PC.NURSE ---
Report to Laverne BOURGEOIS at this time.
--- NOTE | 2021-01-18 07:00 | XR_ITS ---
WS: [id number] KUB, AP view, 01/18/2021 Clinical Data: Small bowel obstruction Comparison: KUB, 01/16/2021 Findings: No abnormal intraabdominal masses or calcifications are seen. There is no dilatated small bowel or ev idence of obstruction. There are clips in the right upper quadrant from a cholecystectomy. There is air in the small bowel a nd the colon with no dilatation. There is a levoscoliosis. There is calcification in the wall of the abdominal aorta but no aneurysm. The bladder is full. There is a left femoral head prosthesis in good position. Pacemaker wires are visualized. XR/XR KUB [id number] Impression: 1. Mild generalized ileus. 2. Levoscoliosis.
[2021-01-18 07:24] VITALS: BP 100/67; PULSE 102; RESP 16; TEMP 36.7; O2SAT 95
[2021-01-18] MEDS: famotidine 20 mg/2 mL INJ IVP (08:37)
[2021-01-18 10:38] VITALS: PULSE 70; O2SAT 95
--- NOTE | 2021-01-18 10:39 | P.DS_ITS ---
Discharge Providers Date of Admission: 01/16/21 16:01 Date of Discharge: January 18, 2021 Attending Provider at Admission: Jimmie Garcia MD Attending Provider at Discharge: Jimmie Garcia MD Primary Care Provider: Rosemary Joshua DO Diagnoses at Discharge Discharge Diagnosis (1) Small bowel obstruction: Status: Acute (2) Dehydration with hyponatremia: Status: Acute (3) Acute kidney injury: Status: Acute (4) Hypotension due to hypovolemia: Status: Acute (5) History of atrial fibrillation: Status: Acute (6) Warfarin-induced coagulopathy: Status: Acute (7) Enterocolitis: Status: Acute Reason for Visit Reason for Visit: AB PAIN, SENT FROM URGENT CARE Hospital Course Hospital Course Patient presented with signs and symptoms of small bowel obstruction which appears to be related to adhesions. There was a concern for enterocolitis and patient was treated with antibiotics. She was treated with bowel regimen and had good bowel movements. She has IBS of constipation type. She was taking very large amount of magnesium and end up having diarrhea followed by Imodium. This resulted in significant constipation and functional obstruction. She was given enema as well as MiraLAX and this morning reports feeling much better and strong enough to be dismissed home. She passes gas and denies any nausea. She is tolerating oral intake well. Her dronabinol was not started as we do not arango ve it on formulary. Her heart rate increased 200s and patient had short run of nonsustained V. tach. Dronedarone was restarted this morning and patient's heart rate is back to 70. Given clinical improvement we will go ahead and dismiss patient home. I will request outpatient follow-up with surgery. This morning patient denies shortness of breath or chest pain. She has very minimal abdominal discomfort but it does not change with food intake. Patient will benefit from outpatient colonoscopy. I will decrease magnesium to 400 twice daily. We will add senna/Colace to be used as needed in addition to MiraLAX. Patient will continue with warfarin. She checks it at home and send report to her physician for medication adjustment. At this point I will not continue antibiotics. Physical Exam Narrative: EXAM NARRATIVE: Lungs are clear and the heart is regular. No lower extremity edema. Abdomen is soft minimally tender to palpation. Discharge Data Data Completed and Pending: Completed Studies During Hospitalization Category Date Time Status CT abdomen pelvis w con* [id number] Stat Cat Scan 01/16/21 11:02 Completed XR KUB [id number] Rout ine Exams 01/18/21 07:00 Completed XR KUB portable [id number] Stat Exams 01/16/21 10:59 Completed Pending at discharge Category Date Time Status Complete Blood Co unt w/Auto AM LABS Lab 01/19/21 04:00 Ordered Complete Blood Co unt w/Auto AM LABS Lab 01/20/21 04:00 Ordered Comprehensive Met abolic Panel AM LA BS Lab 01/19/21 04:00 Ordered Comprehensive Met abolic Panel AM LA BS Lab 01/20/21 04:00 Ordered Magnesium AM LABS Lab 01/19/21 04:00 Ordered Magnesium AM LABS Lab 01/20/21 04:00 Ordered Prothrombin Time INR AM LABS Lab 01/19/21 04:00 Ordered Urine Culture Sta t Lab 01/16/21 11:15 Results Labs from last 24 hours 01/18/21 01/18/21 01/18/21 02:08 02:08 02:08 WBC 11.6 H RBC 4.06 L Hgb 12.0 Hct 36.8 L MCV 90.6 MCH 29.6 MCHC 32.6 RDW 14.8 Plt Count 281 MPV 10.0 Neut % (Auto) 89.5 Lymph % (Auto) 5.8 [place] % (Auto) 3.4 Eos % (Auto) 0.6 Baso % (Auto) 0.3 Neut # (Auto) 10.41 H Lymph # (Auto) 0.7 L [place] # (Auto) 0.4 Eos # (Auto) 0.1 Baso # (Auto) 0.0 Nucleated RBC % (a uto) 0 Nucleated RBCs # 0.0 PT 36.50 H INR 3.50 H Sodium 129 L Potassium 3.4 L Chloride 97 L Carbon Dioxide 23 Anion Gap 12.4 BUN 13 Creatinine 0.7 GFR Calculation Not Reportable Glucose 75 Calculated Osmolal ity 267 L Calcium 8.3 L Magnesium 1.8 Total Bilirubin 0.5 AST 12 ALT 8 Alkaline Phosphata se 59 Total Protein 5.5 L Albumin 2.7 L Globulin 2.8 Vitals: Last Vital Signs Temp 98.1 F 01/18/21 07:24 Pulse 70 01/18/21 10:38 Resp 16 01/18/21 07:24 BP 100/67 01/18/21 07:24 Pulse Ox 95 01/18/21 10:38 Discharge Plan Discharge Patient Disposition: Home Condition: Stable Prescriptions: New polyethylene glycol 3350 17 gram Powder In Packet 17 g PO DAILY PRN (Reason: Constipation) Qty: 14 RF: 0 sennosides-docusate sodium [Senna with Docusate Sodium] 8.6-50 mg tablet 1 tab-cap PO DAILY PRN (Reason: constipation) Qty: 30 RF: 0 Continued Multaq 400 mg tablet 400 mg PO BID Qty: 180 RF: 3 metoprolol tartrate 25 mg tablet 12.5 mg PO BID RF: 0 warfarin 5 mg tablet See Rx Instructions mg .ROUTE .COMPLEX RF: 0 Changed magnesium oxide 400 mg magnesium Tablet 400 mg PO BID Qty: 60 RF: 0 Discontinued Vitamin C 1 tab PO DAILY RF: 0 Discharge Orders: Discharge Order (Routine); Ordered 01/18/21 Ordered By: Jimmie Garcia Referrals: Olvin Dixon MD [Physician] - 1 week Rosemary Joshua DO [Primary Care Provider] - 4-7 days Discharge Diet: Advance as tolerated Discharge Activity: Increase activity as tolerated Activity Restrictions/Additional Instructions: Please call your doctor or present to emergency department if your condition worsens or you develop diarrhea, lightheadedness, fatigue or see blood in your stool or black stool. Please keep blood pressure and heart rate log 3 times daily to present to Dr. Mendoza in the next visit for medication adjustment. Discharge Attestations Time Spent in Discharge Care*: greater than 30 min Quality Metrics Clinical Quality Measures During this hospital stay, did patient experience: None
[2021-01-18 11:07] VITALS: BP 103/57; PULSE 116; RESP 16; TEMP 36.7; O2SAT 95
[2021-01-18 13:56] VITALS: BP 103/57; PULSE 116; RESP 16; TEMP 36.7; O2SAT 95
== END 2021-01-18 13:57 | disposition home or self-care (01) | DRG 389 ==
LOC: ER 11:55 → MEDSURG 01-17 07:14
PROVIDERS: Admitting Provider Internal Medicine; Emergency Provider Family Medicine; PCP Family Medicine; Visit Provider Internal Medicine
DX: K56.50 Intestinal adhesions [bands], unspecified as to partial versus complete obstruction (principal); E87.1 Hypo-osmolality and hyponatremia; N17.9 Acute kidney failure, unspecified; D68.318 Other hemorrhagic disorder due to intrinsic circulating anticoagulants, antibodies, or inhibitors; I47.2 Ventricular tachycardia; K52.9 Noninfective gastroenteritis and colitis, unspecified; K58.1 Irritable bowel syndrome with constipation; F03.90 Unspecified dementia, unspecified severity, without behavioral disturbance, psychotic disturbance, mood disturbance, and anxiety; Z95.0 Presence of cardiac pacemaker; K44.9 Diaphragmatic hernia without obstruction or gangrene; Z86.16 Personal history of COVID-19; I10 Essential (primary) hypertension; I48.0 Paroxysmal atrial fibrillation; Z96.642 Presence of left artificial hip joint; Z87.891 Personal history of nicotine dependence; E86.0 Dehydration; I95.9 Hypotension, unspecified; E86.1 Hypovolemia; T45.515A Adverse effect of anticoagulants, initial encounter
CPT/HCPCS: 36415; 74018; 74177; 80053; 81001; 83605; 83690; 83735; 84145; 84443; 85025; 85610; 87086; 87493; 87506; 93005; 96365; 96367; 99285; J0696; J0744; J3490; J7030; Q9967; S0030

== ENCOUNTER → 2021-02-08 09:03 | Outpatient (BNVA) | payer MEDICARE, SELFPAY | PROVIDERS: PCP Family Medicine; Visit Provider Surgery | DX: Z20.822 Contact with and (suspected) exposure to COVID-19 (principal); Z11.52 Encounter for screening for COVID-19; Z86.010 Personal history of colon polyps | CPT/HCPCS: 87635 ==

== ENCOUNTER 2021-02-13 08:13 | Day surgery (SDC) | payer MEDICARE, SELFPAY ==
[2021-02-12 11:29] VITALS: BMI 22.1
--- NOTE | 2021-02-13 08:35 | ANES.PREANE2 ---
Pre-Anesthetic Assessment Pre-Anesthetic Assessment: Height/Weight: Height 1.65 m Weight 60.328 kg Preop Diagnosis: Screening Proposed Procedure: Operation Date: 02/13/21 10:00 Proposed Procedures p Colonoscopy 29773 Z86.010(Not Applicable) - Olvin Dixon MD Familial anesthetic complications: None Was Beta Kemal taken within 24 hours: Yes Was Clonidine taken within 24 hours: N/A Last intake: npo > 8 hrs Social: Social History: No alcohol and No tobacco Exam: Pre-Anes Outpt Exam: alert, oriented x 3, clear to auscultation bilaterally and regular rate & rhythm Airway: Cervical ROM: WNL MP: 3 Dentition: False CV/HEM: CV/HEM: Afib (pacemaker on warfarin - holding warfarin) and HTN GI: GI: GERD Anesthetic Plan: ASA status: 3 Anesthesia: MAC Risk of > 500 ml blood loss (7ml/kg in children): No PFSH Anesthesia PFSH: Medical History (Updated 01/29/21 @ 16:56 by Olvin Dixon MD) Chronic constipation Hiatal hernia History of 2019 novel coronavirus disease (COVID-19) History of colon polyps HTN (hypertension) Paroxysmal A-fib Surgical History (Updated 01/29/21 @ 16:56 by Olvin Dixon MD) H/O cataract extraction H/O knee surgery H/O wrist surgery H/O: hysterectomy History of amputation of finger History of appendectomy History of bladder suspension procedure History of colonoscopy with polypectomy (~2018) History of left hip replacement History of tonsillectomy and adenoidectomy Family History Brother Cancer Father CAD (coronary artery disease) Mother No problems noted. Social History Smoking and tobacco status: former smoker Alcohol intake: former Former alcohol use details: socially Data Anesthesia Cardiac Studies: No Data to Display
[2021-02-13 09:17] VITALS: BP 121/71; PULSE 75; RESP 16; TEMP 37.3; O2SAT 97
[2021-02-13] MEDS: sodium chloride 0.9% 1,000 ML 30 ML IV (09:43)
[2021-02-13 10:50] VITALS: BP 98/57; PULSE 66; RESP 16; TEMP 36.7; O2SAT 98
--- NOTE | 2021-02-13 10:51 | W.PM.OPSUD ---
Surgery/Procedure H&P Update DATE OF PROCEDURE: February 13, 2021 DATE H&P PERFORMED: 01/29/21 H&P UPDATE INFORMATION: I have reviewed H&P completed within last 30 days, I have examined patient prior to procedure and No changes to prior documentation PREOP DIAGNOSIS: Screening PLANNED PROCEDURE: Operation Date: 02/13/21 10:00 Proposed Procedures p Colonoscopy 88929 Z86.010(Not Applicable) - Olvin Dixon MD
[2021-02-13 11:15] VITALS: BP 105/66; PULSE 64; RESP 16; TEMP 36.8; O2SAT 99
--- NOTE | 2021-02-13 12:26 | ANE.PACU2 ---
Inpatient post-anesthesia follow up: Airway intact: Yes Vital signs: Temperature 98.3 F Pulse Rate 64 Respiratory Rate 16 Blood Pressure 105/66 Pulse Oximetry 99 Oxygen Delivery Me thod Room Air Oxygen Flow Rate 2 Fraction of Inspir ed Oxygen Hydration adequate: Yes Nausea and vomiting: No Pain level: 2 Mental status: Baseline
== END 2021-02-13 11:25 | disposition home or self-care (01) ==
PROVIDERS: PCP Family Medicine; Visit Provider Surgery
PROC: 0DJD8ZZ Inspection of Lower Intestinal Tract, Via Natural or Artificial Opening Endoscopic (ICD-10-PCS; CPT 45378; principal; 2021-02-13 10:00)
DX: Z12.11 Encounter for screening for malignant neoplasm of colon (principal); Z86.010 Personal history of colon polyps; K57.30 Diverticulosis of large intestine without perforation or abscess without bleeding; K64.8 Other hemorrhoids; I48.91 Unspecified atrial fibrillation; Z95.0 Presence of cardiac pacemaker; Z79.01 Long term (current) use of anticoagulants; I10 Essential (primary) hypertension; I48.0 Paroxysmal atrial fibrillation; Z87.891 Personal history of nicotine dependence
CPT/HCPCS: 45378; 96360; 96361; J2704; J7030

== ENCOUNTER → 2021-03-16 11:15 | Outpatient (BNVA) | payer MEDICARE, SELFPAY | PROVIDERS: PCP Family Medicine; Visit Provider Family Medicine | DX: R25.2 Cramp and spasm (principal); I73.9 Peripheral vascular disease, unspecified | CPT/HCPCS: 80048 ==

== ENCOUNTER → 2021-03-28 13:33 | Outpatient (BNVA) | payer MEDICARE, SELFPAY | PROVIDERS: PCP Family Medicine; Visit Provider Thoracic Surgery (Cardiothoracic Vascular Surgery) | DX: Z86.79 Personal history of other diseases of the circulatory system (principal) | CPT/HCPCS: 87635 ==

== ENCOUNTER 2021-04-02 08:23 | Day surgery (SDC) | payer MEDICARE, SELFPAY ==
[2021-03-28 12:29] VITALS: BMI 23.1
[2021-03-28 12:56] LABS: Add Urine Microscopic? NO; Charge for UA Resulting for Rev
[2021-03-28 12:57] LABS: Basophils # 0.1 10^3/uL (0.0-0.1); Basophils % 0.8 %; Eosinophils # 0.2 10^3/uL (0.0-0.8); Eosinophils % 2.4 %; Hematocrit 36.9 % (37.0-47.0); Hemoglobin 11.7 g/dL (11.5-15.3); Lymphocytes # 2.1 10^3/uL (0.8-4.8); Lymphocytes % 28.8 %; Mean Corpuscular HGB Conc 31.7 g/dL (30.0-36.0); Mean Corpuscular Hemoglobin 30.2 pg (28.0-34.0); Mean Corpuscular Volume 95.3 fL (81-99); Mean Platelet Volume 9.7 fL (7.4-10.4); Monocytes # 0.6 10^3/uL (0.2-0.9); Monocytes % 7.6 %; Neutrophils # 4.43 10^3/uL (1.8-7.7); Neutrophils % 60.1 %; Nucleated Red Blood Cells % 0 %; Platelet Count 315 10^3/cmm (130-400); Red Blood Count 3.87 10^6/uL (4.1-5.3); Red Cell Distribution Width 16.1 % (12.1-15.1); White Blood Count 7.4 10^3/uL (4.0-10.0)
[2021-03-28 13:01] LABS: Bilirubin Urine Neg (Negative); Blood Urine Neg (Negative); Glucose Urine UA Norm (Normal); Ketones Urine Negative (Negative); Leukocyte Esterase Urine Negative (Negative); Nitrate Urine Negative (Negative); Protein Urine Neg (Negative); Specific Gravity, Urine 1.005 (1.005-1.030); Urine Appearance Clear (CLEAR); Urine Color Yellow (Yellow); Urobilinogen Urine Norm (Negative); pH Urine 7 (5-7)
--- NOTE | 2021-03-28 13:14 | ANES.PREANE2 ---
Pre-Anesthetic Assessment Pre-Anesthetic Assessment: Height/Weight: Height 1.65 m Weight 63.049 kg Preop Diagnosis: Screening Proposed Procedure: Operation Date: 04/02/21 09:40 Proposed Procedures p Pacemaker Exchange(Not Applicable) - Krish Macias MD Was Beta Kemal taken within 24 hours: N/A Was Clonidine taken within 24 hours: N/A Social: Social History: No alcohol and No tobacco Exam: Pre-Anes Outpt Exam: alert, oriented x 3, clear to auscultation bilaterally and regular rate & rhythm Airway: Submandibular: WNL Cervical ROM: WNL MP: 2 Dentition: False CV/HEM: CV/HEM: Afib, HTN, Murmur (mild AI) and PVD Comments: Pacemaker Anesthetic Plan: ASA status: 3 Anesthesia: MAC Risk of > 500 ml blood loss (7ml/kg in children): No PFSH Anesthesia PFSH: Medical History Chronic constipation Hiatal hernia History of 2019 novel coronavirus disease (COVID-19) History of colon polyps HTN (hypertension) Paroxysmal A-fib Surgical History H/O cataract extraction H/O knee surgery H/O wrist surgery H/O: hysterectomy History of amputation of finger History of appendectomy History of bladder suspension procedure History of colonoscopy with polypectomy (02/13/21) diverticulosis History of left hip replacement History of tonsillectomy and adenoidectomy Family History Brother Cancer Father CAD (coronary artery disease) Mother No problems noted. Social History Smoking and tobacco status: former smoker Alcohol intake: former Former alcohol use details: socially Data Anesthesia CBC & Chem 7: 03/28/21 12:45 03/28/21 12:45 Other Labs: Laboratory Results - last 48 hr 03/28/21 03/28/21 12:45 12:45 WBC 7.4 RBC 3.87 L Hgb 11.7 Hct 36.9 L MCV 95.3 MCH 30.2 MCHC 31.7 RDW 16.1 H Plt Count 315 MPV 9.7 Neut % (Auto) 60.1 Lymph % (Auto) 28.8 [place] % (Auto) 7.6 Eos % (Auto) 2.4 Baso % (Auto) 0.8 Neut # (Auto) 4.43 Lymph # (Auto) 2.1 [place] # (Auto) 0.6 Eos # (Auto) 0.2 Baso # (Auto) 0.1 Nucleated RBC % (auto) 0 Nucleated RBCs # 0.0 Urine Color Yellow Urine Appearance Clear Urine pH 7 Ur Specific [place] 1.005 Urine Protein Neg Urine Glucose (UA) Norm Urine Ketones Negative Urine Blood Neg Urine Nitrate Negative Urine Bilirubin Neg Urine Urobilinogen Norm Ur Leukocyte Esterase Negative Cardiac Studies: No Data to Display
[2021-03-28 13:25] LABS: Anion Gap 13.1 (5-19); Blood Urea Nitrogen 19 mg/dL (8-23); Calcium 8.7 mg/dL (8.5-10.5); Carbon Dioxide 28 mmol/L (22-29); Chloride 102 mmol/L (98-107); Glucose 88 mg/dL (65-115); Osmolality Calculated 288 mOsm/kg (285-295); Potassium 5.1 mmol/L (3.5-5.1); Sodium 138 mmol/L (136-145)
[2021-04-02] VITALS (8 sets, daily range): BP systolic 82–172; BP diastolic 47–145; PULSE 60–68; RESP 16–21; TEMP 36.3–36.8; O2SAT 94–98
[2021-04-02] MEDS: sodium chloride 0.9% 1,000 ML 30 ML IV (08:46)
--- NOTE | 2021-04-02 08:55 | PM.HP ---
Providers/Chief Complaint Primary Care Provider: Rosemary Joshua DO Chief Complaint: pacemaker generator change History of Present Illness Esthela Billings is an 85 year old female who presents today for planned dual-chamber pacemaker generator exchange with the generator now at end of service. 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 She has recently moved to the [facility] and currently being followed by Dr. Rosemary Joshua from [facility]. She has been evaluated by Dr. Weinstein back on January 29. She has paroxysmal atrial fibrillation and takes Coumadin. Her last dose was 5 days ago. Review of Systems Const: Denies: fever(s), chills, change in appetite, change in weight, fatigue or night sweats Eyes: Denies: change in vision or blurry vision ENMT: Denies: odynophagia or hoarseness Card: Denies: chest pain, palpitations, irregular heart rhythm or edema Resp: Denies: dyspnea or productive cough GI: Denies: abdominal pain, nausea, vomiting, dysphagia, heartburn or change in bowel habits : Denies: dysuria, urinary frequency, urinary urgency or urinary hesitancy Musc: Denies: extremity pain or extremity swelling Skin/Breast: Denies: rash Neuro: Denies: headache(s), numbness in extremities, weakness in extremities or sensory changes Psych: Denies: anxiety, depression or change in appetite Endo: Denies: polyuria, polydipsia or cold intolerance Darryn/Lymph: Denies: easy bruising, easy bleeding, petechiae or enlarged lymph nodes Medications/Allergies Home Medications Medication Instructions Recorded Confirmed Last Taken Type metoprolol tartrate 12.5 mg PO BID 01/16/21 04/02/21 04/02/21 06:00 History magnesium oxide 400 mg PO BID #60 tab 01/18/21 04/02/21 04/01/21 Rx dronedarone 400 mg tablet 400 mg PO BID #180 tab 01/29/21 04/02/21 04/01/21 Rx warfarin 5 mg PO DAILY 02/12/21 03/28/21 03/28/21 History Allergies Allergy/AdvReac Type Severity Reaction Status Date / Time No Known Allergies Allergy Verified 03/28/21 12:26 PFSH Acute PFSH: Medical History (Updated 04/02/21 @ 08:59 by Krish Macias MD) Chronic constipation Encounter for servicing of pacemaker at end of battery life Hiatal hernia History of 2019 novel coronavirus disease (COVID-19) History of colon polyps HTN (hypertension) Paroxysmal A-fib Surgical History H/O cataract extraction H/O knee surgery H/O wrist surgery H/O: hysterectomy History of amputation of finger History of appendectomy History of bladder suspension procedure History of colonoscopy with polypectomy (02/13/21) diverticulosis History of left hip replacement History of tonsillectomy and adenoidectomy Family History Brother Cancer Father CAD (coronary artery disease) Mother No problems noted. Social History Smoking and tobacco status: former smoker Alcohol intake: former Former alcohol use details: socially Vitals/I&O/Wt Last Vital Signs Temp 97.4 F L 04/02/21 08:29 Pulse 63 04/02/21 08:29 Resp 18 04/02/21 08:29 BP 118/78 04/02/21 08:29 Pulse Ox 98 04/02/21 08:29 Physical Exam Const: COMMON NORMALS: patient oriented x3 and alert ORIENTATION/CONSCIOUSNESS: Yes oriented to person, Yes oriented to place and Yes oriented to time HENMT: COMMON NORMALS: normocephalic HEAD & SCALP: normocephalic; no cranial bruits Neck/C-Spine: COMMON NORMALS: full ROM, supple, no JVD and No carotid bruits GENERAL: Yes trachea midline CERVICAL SPINE: Yes cervical ROM normal Chest: COMMONS NORMALS: normal inspection of the chest and normal palpation of entire chest wall OTHER: Easily palpable pacemaker generator in left subclavicular region. Resp: COMMON NORMALS: normal respiratory effort, No use of accessory muscles, clear to auscultation bilaterally and percussion normal EFFORT & INSPECTION: Yes able to speak in complete sentences and Yes symmetric chest movement AUSCULTATION: clear to auscultation bilaterally PERCUSSION: percussion normal Cardio: COMMON NORMALS: no JVD, regular rate, regular rhythm, S1 normal heart sound present, S2 normal heart sound present, No gallops present (Cardio), No rub (Cardio) and Peripheral pulses 2+ throughout JUGULAR VENOUS DISTENTION: no JVD RATE: regular rate RHYTHM: regular rhythm HEART SOUNDS: S1 normal heart sound present, S2 normal heart sound present and Murmur heart sound present systolic Location: right sternal border Intensity: II/ Timing: mid PERIPHERAL PULSES: radial pulses present positive bilateral 2+ Neuro: COMMON NORMALS: patient oriented x3, no focal motor deficits and no sensory deficits noted SENSORIUM/ORIENTATION: Yes alert, Yes oriented to person, Yes oriented to place and Yes oriented to time GAIT: Yes Normal gait present Data : 03/28/21 12:45 03/28/21 12:45 A&P Assessment and plan (1) Encounter for servicing of pacemaker at end of battery life: We will plan for pacemaker generator exchange. Rationale for this was carefully discussed with Ms. Billings and her daughter. Potential risk for injury to the leads, infection, bleeding, postop pain, and continued need for long-term surveillance were frankly discussed. Appropriate consents have been provided for review and signature. Status: Acute Attestations Medical Necessity Statement*: Pacemaker generator end of service Time Spent in Patient Care: 16 - 35 minutes Coding Level of Care Code Acute Yard Assistant for Chg Fwd Diagnoses Encounter for servicing of pacemaker at end of battery life Z45.010
--- NOTE | 2021-04-02 08:56 | P.ANESUD_ITS ---
Pre-Anesthetic Update Pre-Anesthetic Assessment: Date of Surgery/Procedure: 04/02/21 Preop Jacinta gnosis: Screening Proposed Procedure: Operation Date: 04/02/21 09:40 Proposed Procedures p Pacemaker Exchange(Not Applicable) - Krish Macias MD Any changes to Pre-Anesthetic Assessment?: No Last Intake: Intake Last Liquid Date 04/01/21 Last Liquid Time 17:00 Last Solid Date 04/01/21 Last Solid Time 16:30 Vitals: Temperature 97.4 F L 04/02/21 08:29 Temperature Source Temporal Artery S can 04/02/21 08:29 Pulse Rate 63 04/02/21 08:29 Respiratory Rate 18 04/02/21 08:29 Blood Pressure 118/78 04/02/21 08:29 Blood Pressure Gila n 91 04/02/21 08:29 Pulse Oximetry 98 04/02/21 08:29 Oxygen Delivery Me thod 04/02/21 08:43 Exam: Pre-Anes Outpt Exam: alert, oriented x 3, clear to auscultation bilaterally and regular rate & rhythm Cardiac Studies: No Data to Display
[2021-04-02] MEDS: lidocaine 1% INJ 20 mL INJECTION (09:22)
[2021-04-02] MEDS: ceFAZolin 1,000 mg SDV 1000 MG IRRIGATION (09:29)
--- NOTE | 2021-04-02 09:51 | PM.OP ---
Operative Report Date of procedure: April 02, 2021 Pre-op Diagnosis: Pacemaker generator end of service Post-op diagnosis: same Procedure Done: Pacemaker generator exchange Specimens removed/disposition: Old pacemaker generator returned to [employer] technical account representative Pathology: none sent Surgeon: Krish Macias Anesthesia: MAC and Local Complications: None Condition: stable Disposition: same day Brief History: 85-year-old female presents for planned pacemaker generator exchange with current pacemaker now at end of service. 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 She does have paroxysmal atrial fibrillation and her Coumadin dosing was discontinued 5 days previously. Preop interrogation reveals current atrial and ventricular leads are functioning appropriately. Details risk of surgery were carefully and frankly discussed. Proper consents have been reviewed and signed. Procedure: Ms. Billings was appropriately positioned and sterilely prepped and draped. IV consicious sedation was given with anesthesia monitoring. 1% lidocaine was infiltrated through the prior insertion incision site. # 15 scalpel blade was used to incise the skin down to subcutaneous layer. Subsequently, using sharp and blunt dissection the pseudocapsule to the old generator was reached and opened with a scalpel blade. This area was then enhanced utilizing Metzenbaum scissors with care taken not to injure the pacing leads. Once the pocket was adequate opened, hemostats were utilized to deliver the old generator. Set screws were released and the leads were removed and inserted properly into the new generator with set screws then secured. The old generator was removed from the field. The incision was irrigated with antibiotic solution. Hemostasis was confirmed. The new generator was placed back into the old subcutaneous pocket. The wound was then closed in 2 layers of 3-0 Vicryl suture. Skin was closed in a subcuticular manner with 4-0 undyed Vicryl suture. A 2 layer pressure dressing was then applied. The entire system was interrogated and appropriate parameters obtained. Patient tolerated procedure well and was taken to the recovery room in stable condition. I did spiritual counselor with her daughter at the completion of the procedure. [employer] generator model number [id number] Serial number:[id number] Right atrial sensing 1.0 mV with an impedance of 361 ohms and a threshold of 0.75 V Right ventricular sensing 5.9 mV with an impedance of 499 ohms and a threshold of 1.5 V.
--- NOTE | 2021-04-02 17:46 | ANE.PACU2 ---
Inpatient post-anesthesia follow up: Airway intact: Yes Vital signs: Temperature 98 F Pulse Rate 60 Respiratory Rate 18 Blood Pressure 103/62 Pulse Oximetry 98 Oxygen Delivery Me thod Room Air Oxygen Flow Rate Fraction of Inspir ed Oxygen Hydration adequate: Yes Nausea and vomiting: No Pain level: 2 Mental status: Baseline
== END 2021-04-02 11:02 | disposition home or self-care (01) ==
LOC: CCL 08:24 → OPS 08:24
PROVIDERS: PCP Family Medicine; Visit Provider Thoracic Surgery (Cardiothoracic Vascular Surgery)
PROC: 0JPT0PZ Removal of Cardiac Rhythm Related Device from Trunk Subcutaneous Tissue and Fascia, Open Approach (ICD-10-PCS; CPT 33228; principal; 2021-04-02 09:30)
DX: Z45.010 Encounter for checking and testing of cardiac pacemaker pulse generator [battery] (principal); I48.91 Unspecified atrial fibrillation; I10 Essential (primary) hypertension; I48.0 Paroxysmal atrial fibrillation; Z87.891 Personal history of nicotine dependence; Z86.16 Personal history of COVID-19
CPT/HCPCS: 33228; 36415; 80048; 81003; 85025; 96361; 96365; C1786; J0690; J2704; J7030

== ENCOUNTER 2021-04-13 14:00 | Outpatient (CLI) | payer MEDICARE, SELFPAY ==
--- NOTE | 2021-04-13 14:14 | USCV_ITS ---
Manuelito Esthela Age: 85 Gender: F : 1935 Exam Date: 04/13/2021 14:08 Ordering Phys: Rosemary Joshua DO Technologist: Exam [place] [facility] [place] Indication: PAD RIGHT LEFT Brachial 138.00 mmHg Brachial 127.00 mmHg Pressure (mmHg) Waveform Pressure (mmHg) Waveform 150.00 Above Knee 159.00 172.00 Below Knee 164.00 148.00 AOC AADC OPERATIONS STAFF OFFICER 131.00 161.00 DPA 147.00 1.17 Ankle/Brachial Index 1.07 113.00 Pre-Exercise Toe Pressure 125.00 0.82 Pre-Exercise Toe/Brachial Index 0.91 FINDINGS Normal resting ABIs bilaterally Normal resting TBIs bilaterally. Near normal PVR waveforms CONCLUSIONS No significant arterial obstruction, based on the above findings Dr Tracey Meza MD [facility] (Electronically Signed) Final Date: 16 April 2021 09:32 S
== END 2021-04-13 14:01 | disposition home or self-care (01) ==
LOC: RAD 14:08
PROVIDERS: PCP Family Medicine; Visit Provider Family Medicine
DX: I73.9 Peripheral vascular disease, unspecified (principal)
CPT/HCPCS: 93923

== ENCOUNTER → 2021-07-31 10:54 | Outpatient (BNVA) | payer MEDICARE, SELFPAY | PROVIDERS: PCP Family Medicine; Visit Provider Internal Medicine Cardiovascular Disease | DX: I48.0 Paroxysmal atrial fibrillation (principal); Z79.01 Long term (current) use of anticoagulants; T45.515A Adverse effect of anticoagulants, initial encounter | CPT/HCPCS: 85610 ==

== ENCOUNTER → 2021-09-04 09:38 | Outpatient (BNVA) | payer MEDICARE, SELFPAY | PROVIDERS: PCP Family Medicine; Visit Provider Internal Medicine Cardiovascular Disease | DX: I48.0 Paroxysmal atrial fibrillation (principal); I49.5 Sick sinus syndrome; I73.9 Peripheral vascular disease, unspecified; R60.0 Localized edema; D68.32 Hemorrhagic disorder due to extrinsic circulating anticoagulants; T45.515A Adverse effect of anticoagulants, initial encounter | CPT/HCPCS: 80048; 84443; 85025; 85610 ==

== ENCOUNTER → 2022-01-02 10:15 | Outpatient (BNVA) | payer MEDICARE, SELFPAY | PROVIDERS: PCP Family Medicine; Visit Provider Registered Nurse Neonatal Intensive Care | DX: N39.0 Urinary tract infection, site not specified (principal) | CPT/HCPCS: 81000 ==

== ENCOUNTER → 2022-02-01 09:29 | Outpatient (BNVA) | payer MEDICARE, SELFPAY | PROVIDERS: PCP Family Medicine; Visit Provider Internal Medicine Cardiovascular Disease | DX: Z79.01 Long term (current) use of anticoagulants (principal) ==

== ENCOUNTER → 2022-02-06 10:15 | Outpatient (BNVA) | payer MEDICARE, SELFPAY | PROVIDERS: PCP Family Medicine; Visit Provider Internal Medicine Cardiovascular Disease | DX: I48.0 Paroxysmal atrial fibrillation (principal); Z79.01 Long term (current) use of anticoagulants ==

== ENCOUNTER → 2022-02-15 12:26 | Outpatient (BNVA) | payer MEDICARE, SELFPAY | PROVIDERS: PCP Family Medicine; Visit Provider Internal Medicine Cardiovascular Disease | DX: Z79.01 Long term (current) use of anticoagulants (principal) ==

== ENCOUNTER → 2022-02-22 10:48 | Outpatient (BNVA) | payer MEDICARE, SELFPAY | PROVIDERS: PCP Family Medicine; Visit Provider Internal Medicine Cardiovascular Disease | DX: Z79.01 Long term (current) use of anticoagulants (principal) ==

== ENCOUNTER → 2022-02-27 10:29 | Outpatient (BNVA) | payer MEDICARE, SELFPAY | PROVIDERS: PCP Family Medicine; Visit Provider Internal Medicine Cardiovascular Disease | DX: Z79.01 Long term (current) use of anticoagulants (principal) ==

== ENCOUNTER → 2022-03-05 12:31 | Outpatient (BNVA) | payer MEDICARE, SELFPAY | PROVIDERS: PCP Family Medicine; Visit Provider Internal Medicine Cardiovascular Disease | DX: Z79.01 Long term (current) use of anticoagulants (principal) ==

== ENCOUNTER → 2022-03-15 09:34 | Outpatient (BNVA) | payer MEDICARE, SELFPAY | PROVIDERS: PCP Family Medicine; Visit Provider Internal Medicine Cardiovascular Disease | DX: Z79.01 Long term (current) use of anticoagulants (principal) ==

== ENCOUNTER → 2022-03-22 08:44 | Outpatient (BNVA) | payer MEDICARE, SELFPAY | PROVIDERS: PCP Family Medicine; Visit Provider Internal Medicine Cardiovascular Disease | DX: Z79.01 Long term (current) use of anticoagulants (principal) ==

== ENCOUNTER → 2022-03-26 12:41 | Outpatient (BNVA) | payer MEDICARE, SELFPAY | PROVIDERS: PCP Family Medicine; Visit Provider Internal Medicine Cardiovascular Disease | DX: Z79.01 Long term (current) use of anticoagulants (principal) ==

== ENCOUNTER → 2022-04-04 10:08 | Outpatient (BNVA) | payer MEDICARE, SELFPAY | PROVIDERS: PCP Family Medicine; Visit Provider Internal Medicine Cardiovascular Disease | DX: Z79.01 Long term (current) use of anticoagulants (principal) ==

== ENCOUNTER → 2022-04-09 12:08 | Outpatient (BNVA) | payer MEDICARE, SELFPAY | PROVIDERS: PCP Family Medicine; Visit Provider Internal Medicine Cardiovascular Disease | DX: I48.0 Paroxysmal atrial fibrillation (principal); Z87.891 Personal history of nicotine dependence; I10 Essential (primary) hypertension; I49.5 Sick sinus syndrome; Z95.0 Presence of cardiac pacemaker | CPT/HCPCS: 99213; 99214 ==

== ENCOUNTER → 2022-04-12 10:15 | Outpatient (BNVA) | payer MEDICARE, SELFPAY | PROVIDERS: PCP Family Medicine; Visit Provider Internal Medicine Cardiovascular Disease | DX: Z79.01 Long term (current) use of anticoagulants (principal) ==

== ENCOUNTER → 2022-04-17 10:58 | Outpatient (BNVA) | payer MEDICARE, SELFPAY | PROVIDERS: PCP Family Medicine; Visit Provider Internal Medicine Cardiovascular Disease | DX: Z79.01 Long term (current) use of anticoagulants (principal) ==

== ENCOUNTER → 2022-04-25 08:11 | Outpatient (BNVA) | payer MEDICARE, SELFPAY | PROVIDERS: PCP Family Medicine; Visit Provider Internal Medicine Cardiovascular Disease | DX: Z79.01 Long term (current) use of anticoagulants (principal) ==

== ENCOUNTER → 2022-05-01 16:58 | Outpatient (BNVA) | payer MEDICARE, SELFPAY | PROVIDERS: PCP Family Medicine; Visit Provider Internal Medicine Cardiovascular Disease | DX: Z79.01 Long term (current) use of anticoagulants (principal) ==

== ENCOUNTER → 2022-05-10 10:20 | Outpatient (BNVA) | payer MEDICARE, SELFPAY | PROVIDERS: PCP Family Medicine; Visit Provider Internal Medicine Cardiovascular Disease | DX: Z45.010 Encounter for checking and testing of cardiac pacemaker pulse generator [battery] (principal) ==

== ENCOUNTER → 2022-05-16 08:21 | Outpatient (BNVA) | payer MEDICARE, SELFPAY | PROVIDERS: PCP Family Medicine; Visit Provider Internal Medicine Cardiovascular Disease | DX: Z79.01 Long term (current) use of anticoagulants (principal) ==

== ENCOUNTER → 2022-05-24 09:11 | Outpatient (BNVA) | payer MEDICARE, SELFPAY | PROVIDERS: PCP Family Medicine; Visit Provider Internal Medicine Cardiovascular Disease | DX: Z79.01 Long term (current) use of anticoagulants (principal) ==

== ENCOUNTER → 2022-05-29 09:48 | Outpatient (BNVA) | payer MEDICARE, SELFPAY | PROVIDERS: PCP Family Medicine; Visit Provider Internal Medicine Cardiovascular Disease | DX: Z79.01 Long term (current) use of anticoagulants (principal) ==

== ENCOUNTER → 2022-06-04 11:21 | Outpatient (BNVA) | payer MEDICARE, SELFPAY | PROVIDERS: PCP Family Medicine; Visit Provider Internal Medicine Cardiovascular Disease | DX: Z79.01 Long term (current) use of anticoagulants (principal) ==

== ENCOUNTER → 2022-06-28 08:22 | Outpatient (BNVA) | payer MEDICARE, SELFPAY | PROVIDERS: PCP Family Medicine; Visit Provider Internal Medicine Cardiovascular Disease | DX: Z45.010 Encounter for checking and testing of cardiac pacemaker pulse generator [battery] (principal) | CPT/HCPCS: 93280 ==

== ENCOUNTER → 2022-10-21 12:03 | Outpatient (BNVA) | payer MEDICARE, SELFPAY | PROVIDERS: PCP Family Medicine; Visit Provider Internal Medicine Cardiovascular Disease | DX: I73.9 Peripheral vascular disease, unspecified (principal); I10 Essential (primary) hypertension; I35.1 Nonrheumatic aortic (valve) insufficiency; I48.0 Paroxysmal atrial fibrillation; Z95.0 Presence of cardiac pacemaker; I49.5 Sick sinus syndrome; Z87.891 Personal history of nicotine dependence | CPT/HCPCS: 36415; 80053; 84443; 85025; 99214 ==

== ENCOUNTER → 2022-12-24 13:52 | Outpatient (BNVA) | payer MEDICARE, SELFPAY | PROVIDERS: PCP Family Medicine; Visit Provider Internal Medicine Cardiovascular Disease | DX: Z45.010 Encounter for checking and testing of cardiac pacemaker pulse generator [battery] (principal) | CPT/HCPCS: 93296 ==

== ENCOUNTER → 2023-01-14 08:45 | Outpatient (BNVA) | payer MEDICARE, SELFPAY | PROVIDERS: PCP Family Medicine; Visit Provider Internal Medicine Cardiovascular Disease | DX: I48.0 Paroxysmal atrial fibrillation (principal) | CPT/HCPCS: 85610 ==

== ENCOUNTER → 2023-06-13 10:47 | Outpatient (BNVA) | payer MEDICARE, SELFPAY | PROVIDERS: Visit Provider Internal Medicine Cardiovascular Disease | DX: Z95.0 Presence of cardiac pacemaker (principal); I48.0 Paroxysmal atrial fibrillation; I73.9 Peripheral vascular disease, unspecified | CPT/HCPCS: 36415; 80053; 84443; 85025; 93005; 99214 ==

== ENCOUNTER 2023-06-17 12:15 | Outpatient (RCR) | payer MEDICARE, SELFPAY | END 2023-07-10 23:59 | disposition home or self-care (01) | LOC: SPT 12:15 | PROVIDERS: Visit Provider Family Medicine | DX: K62.3 Rectal prolapse (principal); R32 Unspecified urinary incontinence | CPT/HCPCS: 97110; 97161; 97530 ==

== ENCOUNTER 2023-07-11 06:00 | Outpatient (RCR) | payer MEDICARE, SELFPAY | END 2023-08-09 23:59 | disposition home or self-care (01) | LOC: SPT 06:00 | PROVIDERS: Visit Provider Family Medicine | DX: K62.3 Rectal prolapse (principal); R32 Unspecified urinary incontinence | CPT/HCPCS: 97110; 97530 ==

== ENCOUNTER 2023-08-10 06:00 | Outpatient (RCR) | payer MEDICARE, SELFPAY | END 2023-09-09 23:59 | disposition home or self-care (01) | LOC: SPT 06:00 | PROVIDERS: PCP Family Medicine; Visit Provider Family Medicine | DX: K62.3 Rectal prolapse (principal); R32 Unspecified urinary incontinence | CPT/HCPCS: 97110; 97530 ==

== ENCOUNTER 2023-10-15 18:58 | Emergency (ER) | payer MEDICARE, SELFPAY ==
[2023-10-15 19:05] VITALS: BP 157/95; PULSE 90; RESP 16; TEMP 36.7; O2SAT 98; BMI 24.8
--- NOTE | 2023-10-15 20:03 | W.ED.WOUNDLC ---
HPI - Wound/Laceration General: Chief Complaint: Wound/Laceration Stated Complaint: Left hand injury, bleeding wont stop Time Seen by Provider: 10/15/23 19:01 History of Present Illness: 87-year-old female presents emergency department with complaints of left hand injury that occurred earlier this morning. She states she was seen by her primary care provider because of a skin tear and continued bleeding. She states that she was seen at approximately 2:00 today at the primary care provider's office and was treated. She states the bleeding is continued since that time which prompted her to come to the emergency department. She states she accidentally hit her hand and had a skin tear as her skin is extremely thin. She denies numbness or tingling to the extremity. She states there is no significant pain at present. She states she is on anticoagulation and has not been able to slow her bleeding of her skin tear of the dorsal aspect of her left hand as well as lateral left dorsal wrist area. She denies dizziness or lightheaded feeling. She denies nausea or vomiting. 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 History of amputation of finger History of appendectomy History of bladder suspension procedure History of colonoscopy with polypectomy (02/13/21) diverticulosis History of left hip replacement History of tonsillectomy and adenoidectomy Family History Brother Cancer Father CAD (coronary artery disease) Mother No problems noted. Social History Smoking and tobacco/nicotine status: former use of tobacco/nicotine Alcohol intake: former Former alcohol use details: socially Substance/Drug Use: never Physical Exam Narrative: EXAM NARRATIVE: Constitutional: the patient appears well nourished and of normal development. Vital signs as documented. No acute distress at present. Alert and oriented-to person, place, time and situation. Head, eyes, ears, nose, mouth, throat: Normocephalic, atraumatic. Pupils-equal, round, reactive to light. No scleral icterus. Normal-appearing external ears. Normal appearing nasal turbinates, no drainage. No obvious oral lesions, Neck: Supple, trachea is midline, no lymphadenopathy, no jugular venous distension, thyromegaly, or carotid bruits. Carotid upstrokes are brisk bilaterally. Lungs: clear to auscultation to all lung aguila. Symmetrical rise and fall of chest, no obvious signs of increased work of breathing at present. Cardiac: Regular rate and rhythm, positive S1, S2. No murmurs, rubs or gallops that I can appreciate Abdomen: Soft, non-tender to palpation, normal active bowel sounds to all quadrants. No palpable masses, no organomegaly and abdominal bruits. Extremities: 2+ pulses in the upper extremities that are equal bilaterally, 2+ pulses in the lower extremities that are equal bilaterally. Non-edematous. Moves all extremities well, sensation to all extremities are noted. Skin: Warm, dry, intact. 5 cm superficial dorsal aspect of the left hand skin avulsion with active bleeding. Procedures Laceration Laceration 1: Site: upper extremity (Dorsal aspect left hand) Side (If applicable): left Size (cm): 5 Description: clean and other (Skin avulsion) Depth: simple, single layer Pre-repair: irrigated extensively Skin layer closed with: other (Surgical skin adhesive) Course Vital Signs: Vital signs: Vital Signs Temperature 98.0 F 10/15/23 19:05 Pulse Rate 90 10/15/23 19:05 Respiratory Rate 16 10/15/23 19:05 Blood Pressure 157/95 10/15/23 19:05 Pulse Oximetry 98 10/15/23 19:05 MDM - Wound/Laceration Medical Decision Making Physical exam completed and documented I reviewed the patient's previous medical record and documentation from her office visit at her primary care provider's office. We did clean the wound and apply direct pressure as well as surgical skin adhesive as noted. The bleeding was well-controlled. Patient had full use of her hand at the time of discharge. I did recommend precautions as well as return precautions and she verbalized understanding all information provided was discharged home in stable condition in no acute distress Medical Records I reviewed the patient's medical records. No radiology studies performed this visit Discharge Plan Discharge Patient Disposition: Home Clinical Impression: Avulsion of skin of left hand Condition: Stable Prescriptions: No Action ascorbic acid (vitamin C) 1,000 mg tablet 1,000 mg PO DAILY vitamin B complex [B Complex-Vitamin B12] Tablet 1 tab PO DAILY warfarin 5 mg tablet 5 mg PO DAILY Qty: 90 3RF Protocol: Dose Management Condition: Friday Dose/Route: 4 mg Instruction: 1 x 4 mg tablet Condition: Friday Dose/Route: 3 mg Instruction: 1 x 3 mg tablet Condition: Friday Dose/Route: 4 mg Instruction: 1 x 4 mg tablet Condition: Friday Dose/Route: 3 mg Instruction: 1 x 3 mg tablet Condition: Dose/Route: 4 mg Instruction: 1 x 4 mg tablet Condition: Friday Dose/Route: 3 mg Instruction: 1 x 3 mg tablet Condition: Friday Dose/Route: 4 mg Instruction: 1 x 4 mg tablet Protocol Text: Adjustment Start Date: Friday10/13/23 INR Value: 2.8 INR Date: 10/13/23 Recheck Date: 10/20/23 amiodarone 200 mg tablet 200 mg PO DAILY Qty: 90 3RF warfarin 4 mg tablet 4 mg PO DIRECTED Qty: 90 3RF Protocol: Dose Management Condition: Friday Dose/Route: 4 mg Instruction: 1 x 4 mg tablet Condition: Friday Dose/Route: 3 mg Instruction: 1 x 3 mg tablet Condition: Friday Dose/Route: 4 mg Instruction: 1 x 4 mg tablet Condition: Friday Dose/Route: 3 mg Instruction: 1 x 3 mg tablet Condition: Dose/Route: 4 mg Instruction: 1 x 4 mg tablet Condition: Friday Dose/Route: 3 mg Instruction: 1 x 3 mg tablet Condition: Friday Dose/Route: 4 mg Instruction: 1 x 4 mg tablet Protocol Text: Adjustment Start Date: Friday10/13/23 INR Value: 2.8 INR Date: 10/13/23 Recheck Date: 10/20/23 warfarin 3 mg tablet 3 mg PO DIRECTED Qty: 90 2RF Protocol: Dose Management Condition: Friday Dose/Route: 4 mg Instruction: 1 x 4 mg tablet Condition: Friday Dose/Route: 3 mg Instruction: 1 x 3 mg tablet Condition: Friday Dose/Route: 4 mg Instruction: 1 x 4 mg tablet Condition: Friday Dose/Route: 3 mg Instruction: 1 x 3 mg tablet Condition: Dose/Route: 4 mg Instruction: 1 x 4 mg tablet Condition: Friday Dose/Route: 3 mg Instruction: 1 x 3 mg tablet Condition: Friday Dose/Route: 4 mg Instruction: 1 x 4 mg tablet Protocol Text: Adjustment Start Date: Friday10/13/23 INR Value: 2.8 INR Date: 10/13/23 Recheck Date: 10/20/23 metoprolol tartrate 50 mg tablet 50 mg PO BID Qty: 180 3RF Discharge Orders: Discharge ED (Routine); Ordered 10/15/23 Ordered By: Charles Lewis Referrals: Rosemary Joshua DO [Primary Care Provider] - Discharge Diet: Advance as tolerated Discharge Activity: Resume usual activity Patient Instructions: Opioid Safety, Pain Management Activity Restrictions/Additional Instructions: Activity Restrictions/Additional Instructions: Thank you for choosing [facility] for your healthcare needs today. Please realize that you were seen in the Emergency Department and that we are providing you with an emergency medical screening exam and this may not be a complete and all inclusive of all the testing and or medical work-up that you may need to determine your ailment or severity of your illness. It is very important that you follow-up as instructed with your Primary care provider or Specialist for additional evaluation and to discuss your medical treatment plan. You may return to the Emergency Department should you have concerns or if your condition changes or worsens in any way. Coding Level of Care Code ED National Investigative Producer for Callie Guevara
== END 2023-10-15 20:58 | disposition home or self-care (01) ==
PROVIDERS: Emergency Provider Internal Medicine; PCP Family Medicine
DX: S61.402A Unspecified open wound of left hand, initial encounter (principal); Z79.01 Long term (current) use of anticoagulants; Z87.891 Personal history of nicotine dependence; I10 Essential (primary) hypertension; X58.XXXA Exposure to other specified factors, initial encounter
CPT/HCPCS: 99282

== ENCOUNTER → 2023-10-24 15:32 | Outpatient (BNVA) | payer MEDICARE, SELFPAY | PROVIDERS: PCP Family Medicine; Visit Provider Family Medicine | DX: E53.8 Deficiency of other specified B group vitamins (principal); R41.3 Other amnesia | CPT/HCPCS: 82607; 84443 ==

== ENCOUNTER 2023-11-07 09:42 | Outpatient (CLI) | payer MEDICARE, SELFPAY ==
[2023-11-07 10:19] LABS: INR 2.03 (0.8-1.2)
== END 2023-11-07 09:43 | disposition home or self-care (01) ==
LOC: LAB 09:44
PROVIDERS: PCP Family Medicine; Visit Provider Nurse Practitioner Family
DX: I48.0 Paroxysmal atrial fibrillation (principal)
CPT/HCPCS: 36415; 85610

== ENCOUNTER 2023-11-11 16:03 | Outpatient (CLI) | payer MEDICARE, SELFPAY ==
--- NOTE | 2023-11-11 16:30 | CT_ITS ---
WS: [id number] CT HEAD TECHNIQUE: Noncontrast CT of the head obtained from the skullbase to the vertex. CLINICAL INFORMATION: short term memory loss COMPARISON: None. DLP: 1024.[address] scans at [facility] use at least one of these dose optimization techniques: automated e xposure control; mA and/or kV adjustment per patient size (includes targeted exams where dose is matc hed to clinical indication); or iterative reconstruction. FINDINGS: No evidence of intracranial hemorrhage or mass effect. Ventricular system and basal cisterns are fernando nt. Moderate small vessel changes with mild to moderate parenchymal volume loss. No extra-axial fluid collections. No evidence of mass or mass effect. Intracranial vascular calcification. 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 Paranasal sinuses and mastoid air cells are well aerated. .Normal visualized soft tissues. Incidental slightly low-lying cerebellar tonsils. Postoperative changes LEFT globe. IMPRESSION: 1. No evidence of intracranial hemorrhage or mass effect. 2. Moderate small vessel changes. Mild to moderate parenchymal volume loss. 3. Intracranial vascular calcification. 4. No acute intracranial findings.
== END 2023-11-11 16:04 | disposition home or self-care (01) ==
LOC: RAD 16:05
PROVIDERS: PCP Family Medicine; Visit Provider Family Medicine
DX: R41.3 Other amnesia (principal); I67.89 Other cerebrovascular disease; I67.2 Cerebral atherosclerosis
CPT/HCPCS: 70450

== ENCOUNTER → 2023-12-12 09:51 | Outpatient (BNVA) | payer MEDICARE, SELFPAY | PROVIDERS: PCP Family Medicine; Visit Provider Nurse Practitioner Family | DX: I48.0 Paroxysmal atrial fibrillation (principal); Z95.0 Presence of cardiac pacemaker; I10 Essential (primary) hypertension; Z87.891 Personal history of nicotine dependence; Z79.01 Long term (current) use of anticoagulants | CPT/HCPCS: 99214 ==

== ENCOUNTER → 2024-02-19 17:08 | Outpatient (BNVA) | payer MEDICARE, SELFPAY | PROVIDERS: PCP Family Medicine; Visit Provider Internal Medicine Cardiovascular Disease | DX: Z45.010 Encounter for checking and testing of cardiac pacemaker pulse generator [battery] (principal) | CPT/HCPCS: 93296 ==

== ENCOUNTER 2024-02-26 09:56 | Emergency (ER) | payer MEDICARE, SELFPAY ==
--- NOTE | 2024-02-26 10:01 | XR_ITS ---
WS: [id number] Exam: XR hip LT 2-3V wo/w pel* [id number] Date/Time of Exam: 02/26/2024 10:26 AM Reason For Exam: pain Comparison 11/13/2020. LEFT hip prosthesis is in place in satisfactory position. No fracture noted. Normal soft tissues. Evangelista ent interface noted about the femoral component of the prosthesis that might indicate loosening. IMPRESSION: 1. No fracture or positional change noted. 2. Lucent interface seen along the femoral component of the prosthesis that could be seen with loosen ing.
[2024-02-26 10:07] VITALS: BP 156/88; PULSE 84; RESP 17; TEMP 36.7; O2SAT 99; BMI 22.8
--- NOTE | 2024-02-26 10:30 | ED_ITS ---
HPI - Extremity Problem General: Chief complaint: Extremity Injury, Lower Stated complaint: L hip pain Time Seen by Provider: 02/26/24 10:26 Source: patient Mode of arrival: ambulatory Limitations: no limitations History of Present Illness: 88-year-old female states been having le ft hip pain for the last 3 days she states that she is had some intermittent pain for years she had a hip replacement roughly 5 years ago. She states the pain now is sharp in that hip some radiation feels electric states it is worse with movement time denies any injury she is able to ambulate. Associated symptoms: Deny chest pain, fever(s) or rash Review of Systems Const: Denies: fever(s), chills, body aches or change in appetite ENMT: Denies: throat pain or dental pain Card: Denies: chest pain Resp: Denies: dyspnea GI: Denies: abdominal pain, nausea, vomiting or diarrhea Musc: Reports: extremity pain; Denies: neck pain or back pain Skin/Breast: Denies: rash Neuro: Denies: headache(s) PFSH ED PFSH: Medical History Encounter for servicing of pacemaker at end of battery life Chronic constipation History of colon polyps HTN (hypertension) Paroxysmal A-fib Hiatal hernia History of 2019 novel coronavirus disease (COVID-19) Surgical History History of amputation of finger History of tonsillectomy and adenoidectomy History of colonoscopy with polypectomy (02/13/21) diverticulosis History of left hip replacement H/O wrist surgery H/O knee surgery H/O cataract extraction History of appendectomy H/O: hysterectomy 20 years ago. History of bladder suspension procedure Family History Brother Cancer Father CAD (coronary artery disease) Mother No problems noted. Social History Smoking and tobacco/nicotine status: former use of tobacco/nicotine Alcohol intake: former Former alcohol use details: socially Substance/Drug Use: never Physical Exam Const: COMMON NORMALS: no acute distress, patient oriented x3 and healthy appearing HENMT: COMMON NORMALS: normocephalic and atraumatic HEAD & SCALP: normocephalic and atraumatic Eye: COMMON NORMALS: conjunctivae normal CONJUNCTIVA: Yes conjunctivae normal Neck/C-Spine: COMMON NORMALS: full ROM and supple Chest: COMMONS NORMALS: normal inspection of the chest Resp: COMMON NORMALS: normal respiratory effort Extremity: COMMON NORMALS: normal to inspection and full ROM NARRATIVE EXTREMITY EXAM: Minimal tenderness to left hip she has full range of motion able ambulate distal pulses sensation intact Neuro: COMMON NORMALS: patient oriented x3, moves all extremities and no focal motor deficits Psych: COMMON NORMALS: mental status grossly normal, Normal thought process present and cooperative THOUGHT PROCESS: Normal thought process present Skin: COMMON NORMALS: no rashes or lesions noted and no wounds GENERAL SKIN EXAM: no rashes or lesions noted Course Vital Signs: Vital signs: Vital Signs Temperature 98.0 F 02/26/24 10:07 Pulse Rate 84 02/26/24 10:07 Respiratory Rate 17 02/26/24 10:07 Blood Pressure 156/88 02/26/24 10:07 Pulse Oximetry 99 02/26/24 10:07 Oxygen Delivery Me thod Room Air 02/26/24 10:07 MDM - Extremity (Nontraumatic) Medical Decision Making Patient presents for left hip pain x-ray shows no fracture she has no signs of septic joint we will place her on Naprosyn we will get her follow-up orthopedics she is return if worsening she understands agrees to plan. Medical Records I reviewed the patient's medical records. XR interpretation done by ED provider, pending radiology final review ED provider radiology interpretation(s): xr l hip: no acute abnormality Discharge Plan Discharge Patient Disposition: Home Clinical Impression: Hip pain, left Condition: Stable Prescriptions: New Naprosyn 500 mg tablet 500 mg PO BID PRN (Reason: pain) Qty: 20 0RF No Action ascorbic acid (vitamin C) 1,000 mg tablet 1,000 mg PO DAILY amiodarone 200 mg tablet 200 mg PO DAILY mupirocin 2 % ointment 1 applic topical TID Qty: 22 0RF metoprolol tartrate 50 mg tablet 50 mg PO BID Qty: 180 3RF warfarin 3 mg tablet 3 mg PO DAILY Protocol: Dose Management Condition: Friday Dose/Route: 3 mg Instruction: 1 x 3 mg tablet Condition: Friday Dose/Route: 3 mg Instruction: 1 x 3 mg tablet Condition: Friday Dose/Route: 3 mg Instruction: 1 x 3 mg tablet Condition: Friday Dose/Route: 3 mg Instruction: 1 x 3 mg tablet Condition: Dose/Route: 3 mg Instruction: 1 x 3 mg tablet Condition: Friday Dose/Route: 3 mg Instruction: 1 x 3 mg tablet Condition: Friday Dose/Route: 3 mg Instruction: 1 x 3 mg tablet Protocol Text: Adjustment Start Date: Friday02/20/24 INR Value: 3.0 INR Date: 02/16/24 Recheck Date: 02/27/24 Discharge Orders: Discharge ED (Routine); Ordered 02/26/24 Ordered By: Dwaine Vargas Referrals: Poonam Aldana MD [Physician] - 1-3 days Rosemary Joshua DO [Primary Care Provider] - Discharge Diet: Advance as tolerated Discharge Activity: Resume usual activity Patient Instructions: Hip Pain (ED) Coding Level of Care Code ED Seismograph Operator for Callie Guevara
[2024-02-26] MEDS: naproxen 500 mg Tablet PO (10:44)
[2024-02-26] MEDS: dexamethasone 10 mg/mL INJ IM (10:45)
== END 2024-02-26 11:02 | disposition home or self-care (01) ==
PROVIDERS: Emergency Provider Emergency Medicine; PCP Family Medicine
DX: M25.552 Pain in left hip (principal); Z79.01 Long term (current) use of anticoagulants; Z87.891 Personal history of nicotine dependence; I10 Essential (primary) hypertension; Z96.642 Presence of left artificial hip joint
CPT/HCPCS: 73502; 96372; 99284; J1100

== ENCOUNTER → 2024-05-19 15:58 | Outpatient (BNVA) | payer MEDICARE, SELFPAY | PROVIDERS: PCP Family Medicine; Visit Provider Internal Medicine Cardiovascular Disease | DX: E78.5 Hyperlipidemia, unspecified (principal); Z79.899 Other long term (current) drug therapy; N18.9 Chronic kidney disease, unspecified | CPT/HCPCS: 36415; 80076; 84443 ==

== ENCOUNTER 2024-06-02 06:45 | Emergency (ER) | payer MEDICARE, SELFPAY ==
[2024-06-02 06:46] VITALS: BP 158/125; PULSE 86; RESP 18; TEMP 36.7; O2SAT 98; BMI 22.3
[2024-06-02 07:20] VITALS: BP 158/122; PULSE 90; RESP 22; O2SAT 91
[2024-06-02 07:51] LABS: Basophils # 0.1 10^3/uL (0.0-0.1); Basophils % 0.7 %; Eosinophils # 0.2 10^3/uL (0.0-0.8); Eosinophils % 1.7 %; Hematocrit 38.2 % (36-47); Lymphocytes # 2.5 10^3/uL (0.8-4.8); Lymphocytes % 26.1 %; Mean Corpuscular HGB Conc 32.5 g/dL (30-55); Mean Corpuscular Hemoglobin 31.2 pg (27-33); Mean Corpuscular Volume 96.2 fl (85-98); Mean Platelet Volume 10.3 fL (7.4-10.4); Monocytes # 0.6 10^3/uL (0.2-0.9); Monocytes % 6.6 %; Neutrophils # 6.18 10^3/uL (1.8-7.7); Neutrophils % 64.4 %; Nucleated Red Blood Cells % 0 %; Platelet Count 332 10^3/cmm (157-399); Red Blood Count 3.97 10^6/uL (3.85-5.65)
[2024-06-02 08:01] LABS: INR 4.46 (0.8-1.2); Partial Thromboplastin Time 48.9 SECONDS (23.9-36.7)
[2024-06-02 08:02] LABS: Anion Gap 14.4 (5-19); Blood Urea Nitrogen 16 mg/dL (8-23); Calcium 8.8 mg/dL (8.5-10.5); Carbon Dioxide 25 mmol/L (22-29); Chloride 102 mmol/L (98-107); Creatinine Clr Calc Pharmacy 35.2934; Glucose 127 mg/dL (65-115); Osmolality Calculated 287 mOsm/kg (285-295); Potassium 4.4 mmol/L (3.5-5.1); Sodium 137 mmol/L (136-145)
--- NOTE | 2024-06-02 08:14 | ED_ITS ---
HPI - Wound/Laceration 2 General: Chief Complaint: Wound/Laceration Stated Complaint: fall, left hand lac Time Seen by Provider: 06/02/24 06:49 History of Present Illness: 88-year-old female with a history of atr ial fibrillation who is on Coumadin who presents the emergency room after she fell this morning. She lost her balance and was holding a cup in her left hand. She has multiple lacerations on her left hand. Apparently she has copious bleeding on the scene. And has a tourniquet applied to her arm upon arrival with controlled bleeding. Upon my removing bandage and the tourniquet she began to bleed copiously. She did not hit her head. No loss of consciousness. No altered mental status. No focal motor deficits. No chest pain. No shortness of breath. No abdominal pain. No nausea or vomiting. She says she did hold her Coumadin last night because her INR was measured at over 4 yesterday. Review of Systems 2 Narrative: Constitutional symptoms: Negative except as documented in HPI. Skin symptoms: Negative except as documented in HPI. Eye symptoms: Negative except as documented in HPI. ENMT symptoms: Negative except as documented in HPI. Respiratory symptoms: Negative except as documented in HPI. Cardiovascular symptoms: Negative except as documented in HPI. Gastrointestinal symptoms: Negative except as documented in HPI. Genitourinary symptoms: Negative except as documented in HPI. Musculoskeletal symptoms: Negative except as documented in HPI. Neurologic symptoms: Negative except as documented in HPI. Psychiatric symptoms: Negative except as documented in HPI. Endocrine symptoms: Negative except as documented in HPI. PFSH ED 2 PFSH: Medical History Encounter for servicing of pacemaker at end of battery life Chronic constipation History of colon polyps HTN (hypertension) Paroxysmal A-fib Hiatal hernia History of 2019 novel coronavirus disease (COVID-19) Surgical History History of amputation of finger History of tonsillectomy and adenoidectomy History of colonoscopy with polypectomy (02/13/21) diverticulosis History of left hip replacement H/O wrist surgery H/O knee surgery H/O cataract extraction History of appendectomy H/O: hysterectomy 20 years ago. History of bladder suspension procedure Family History Brother Cancer Father CAD (coronary artery disease) Mother No problems noted. Social History Smoking and tobacco/nicotine status: never used tobacco/nicotine Alcohol intake: former Former alcohol use details: socially Substance/Drug Use: never Physical Exam 2 Narrative: EXAM NARRATIVE: General: Alert, no acute distress. Skin: Warm, dry. There are multiple lacerations to her left hand. 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 At the stump of her fourth digit there are two 1 cm lacerations on the posterior of the hand. Between the third and fourth digit there is a laceration running from the dorsum to the palmar aspect of the hand at the base of the fingers. On the hypothenar area of her palm there are two 7 to 8 cm linear lacerations running about 2 to 3 mm apart from each other. The medial laceration is much larger and has exposed fascia below Head: Normocephalic, atraumatic. Neck: Supple, trachea midline. Eye: Extraocular movements are intact. Ears, nose, mouth and throat: mucosa moist. Cardiovascular: Regular, Normal peripheral perfusion. Respiratory: Lungs are clear to auscultation, respirations are non-labored, breath sounds are equal, Symmetrical chest wall expansion. Gastrointestinal: Soft, Nontender, Non distended Musculoskeletal: Normal ROM, no deformity. Neurological: Alert and oriented, No focal neurological deficit observed. Psychiatric: Cooperative, appropriate mood & affect. Course 2 Vital Signs: Vital signs: Vital Signs Temperature 98.0 F 06/02/24 06:46 Pulse Rate 90 06/02/24 07:20 Respiratory Rate 22 H 06/02/24 07:20 Blood Pressure 158/122 06/02/24 07:20 Pulse Oximetry 91 06/02/24 07:20 Oxygen Delivery Me thod Room Air 06/02/24 06:46 MDM - Wound/Laceration Medical Decision Making Medical decision making: Differential diagnosis including but not limited to and based on the above HPI, review of systems and physical exam: Would have concern for anemia given the amount of blood loss so a CBC and a BMP were ordered. Also coags were ordered as she is on Coumadin and reports coagulopathy recently. Orders placed to evaluate differential diagnosis based on the above differential, HPI and physical exam Lab Review: Laboratory results were reviewed and interpreted by myself the emergency room physician. Patient has a hemoglobin 12. No renal failure. INR is up to 4.8 today. We discussed holding her Coumadin. I reviewed the patient's medical record. Laceration repair procedure: Time: 7:30 AM Confirmed patient, procedure, side, and site. Time out performed prior to procedure. Verbal consent was obtained by patient and/or responsible democrat. Indication: Laceration Laceration #1: Location stump of fourth digit. Length of 1 cm. Description: Linear subcutaneous. #2 , 4-0 sutures were utilized, simple, interrupted technique. Laceration #2: Location dorsal base of the fourth digit. Length of 1 cm. Description: Linear subcutaneous. #2 , 4-0 sutures were utilized, simple, interrupted technique. Laceration #3: Stretching from the dorsum to the palmar side of the hand going between the third and fourth digits. Length of 3 cm. Description: Linear subcutaneous. #6 , 4-0 sutures were utilized, simple, interrupted technique. There was some brief arterial bleeding that after suturing and pressure has stopped. Laceration #4: Location hypothenar palm. Length of 8 cm. Description: Linear subcutaneous. #8 , 4-0 sutures were utilized, simple, interrupted technique. Laceration #5: Location hypothenar palm running next to laceration #4. Length of 8 cm. Description: Linear subcutaneous. #7 , 4-0 sutures were utilized, simple, interrupted technique. Anesthesia: 10 mL 1% lidocaine with epinephrine Area prepared by sterile field with Betadine. A total of 25 sutures were applied to the left hand. Post procedure examination: Circulation, motor, sensory intact. Patient tolerated the procedure well. No complications, bleeding. Total time: 15 min. Pt advised to keep the area clean and dry, wash twice per day with antibacterial soap and water. Return to the ED or PCP in 7-10 days for suture removal. Reexamination: Pressure dressing was applied to the hand. She has minimal oozing at this point. She has good feeling in her thumb and 2 remaining fingers. No altered mental status. No focal motor deficits. No increased work of breathing. Assessment and plan: Hand laceration Hypercoagulability on Coumadin -Life-saving tetanus was administered ? IV Ancef was administered ? Discharged home - Discussed plan with patient. Answered any questions. - Evaluation and treatment of this problem were appropriate in the emergency setting. Lab Data 06/02/24 07:08 06/02/24 07:08 Laboratory Results WBC 9.60 10^3/uL (3.29-11.43) 06/02/24 07:08 RBC 3.97 10^6/uL (3.85-5.65) 06/02/24 07:08 Hgb 12.40 g/dL (11.27-16.99) 06/02/24 07:08 Hct 38.2 % (36-47) 06/02/24 07:08 MCV 96.2 fl (85-98) 06/02/24 07:08 MCH 31.2 pg (27-33) 06/02/24 07:08 MCHC 32.5 g/dL (30-55) 06/02/24 07:08 RDW 14.0 % (12.1-15.1) 06/02/24 07:08 Plt Count 332 10^3/cmm (157-399) 06/02/24 07:08 Plt Count 332 10^3/cmm (157-399) 06/02/24 07:08 MPV 10.3 fL (7.4-10.4) 06/02/24 07:08 Neut % (Auto) 64.4 % 06/02/24 07:08 Lymph % (Auto) 26.1 % 06/02/24 07:08 Gonzales % (Auto) 6.6 % 06/02/24 07:08 Eos % (Auto) 1.7 % 06/02/24 07:08 Baso % (Auto) 0.7 % 06/02/24 07:08 Neut # (Auto) 6.18 10^3/uL (1.8-7.7) 06/02/24 07:08 Lymph # (Auto) 2.5 10^3/uL (0.8-4.8) 06/02/24 07:08 Gonzales # (Auto) 0.6 10^3/uL (0.2-0.9) 06/02/24 07:08 Eos # (Auto) 0.2 10^3/uL (0.0-0.8) 06/02/24 07:08 Baso # (Auto) 0.1 10^3/uL (0.0-0.1) 06/02/24 07:08 Nucleated RBC % (auto) 0 % 06/02/24 07:08 Nucleated RBCs # 0.0 /100WBC 06/02/24 07:08 PT 44.30 SECONDS (12.1-14.9) H 06/02/24 07:08 INR 4.46 (0.8-1.2) H 06/02/24 07:08 APTT 48.9 SECONDS (23.9-36.7) H 06/02/24 07:08 Fibrinogen 320 mg/dL (174-498) 06/02/24 07:08 Sodium 137 mmol/L (136-145) 06/02/24 07:08 Potassium 4.4 mmol/L (3.5-5.1) 06/02/24 07:08 Chloride 102 mmol/L (98-107) 06/02/24 07:08 Carbon Dioxide 25 mmol/L (22-29) 06/02/24 07:08 Anion Gap 14.4 (5-19) 06/02/24 07:08 BUN 16 mg/dL (8-23) 06/02/24 07:08 Creatinine 1.0 mg/dL (0.5-0.9) H 06/02/24 07:08 GFR Calculation Not Reportable 06/02/24 07:08 Glucose 127 mg/dL (65-115) H 06/02/24 07:08 Calculated Osmolality 287 mOsm/kg (285-295) 06/02/24 07:08 Calcium 8.8 mg/dL (8.5-10.5) 06/02/24 07:08 No radiology studies performed this visit Discharge Plan Discharge Patient Disposition: Home Clinical Impression: Laceration, Coumadin toxicity Condition: Stable Prescriptions: New cephalexin 500 mg capsule 500 mg PO BID 7 Days Qty: 14 0RF No Action ascorbic acid (vitamin C) 1,000 mg tablet 1,000 mg PO DAILY warfarin 4 mg tablet 4 mg PO DAILY Qty: 90 0RF Protocol: Dose Management Condition: Friday Dose/Route: 4 mg Instruction: 1 x 4 mg tablet Condition: Friday Dose/Route: 0 mg Instruction: 0 tablets Condition: Friday Dose/Route: 3 mg Instruction: 1 x 3 mg tablet Condition: Friday Dose/Route: 4 mg Instruction: 1 x 4 mg tablet Condition: Dose/Route: 3 mg Instruction: 1 x 3 mg tablet Condition: Friday Dose/Route: 4 mg Instruction: 1 x 4 mg tablet Condition: Friday Dose/Route: 4 mg Instruction: 1 x 4 mg tablet Protocol Text: Adjustment Start Date: Friday06/01/24 INR Value: 4.4 INR Date: 05/31/24 Recheck Date: 06/08/24 mupirocin 2 % ointment 1 applic topical TID Qty: 22 0RF amiodarone 200 mg tablet 200 mg PO DAILY Qty: 90 3RF metoprolol tartrate 50 mg tablet 50 mg PO BID Qty: 180 3RF warfarin 3 mg tablet 3 mg PO DAILY Protocol: Dose Management Condition: Friday Dose/Route: 4 mg Instruction: 1 x 4 mg tablet Condition: Friday Dose/Route: 0 mg Instruction: 0 tablets Condition: Friday Dose/Route: 3 mg Instruction: 1 x 3 mg tablet Condition: Friday Dose/Route: 4 mg Instruction: 1 x 4 mg tablet Condition: Dose/Route: 3 mg Instruction: 1 x 3 mg tablet Condition: Friday Dose/Route: 4 mg Instruction: 1 x 4 mg tablet Condition: Friday Dose/Route: 4 mg Instruction: 1 x 4 mg tablet Protocol Text: Adjustment Start Date: Friday06/01/24 INR Value: 4.4 INR Date: 05/31/24 Recheck Date: 06/08/24 Naprosyn 500 mg tablet 500 mg PO BID PRN (Reason: pain) Qty: 20 0RF Discharge Orders: Discharge ED (Routine); Ordered 06/02/24 Ordered By: Kesha Deal Referrals: Rosemary Joshua DO [Primary Care Provider] - Discharge Diet: Usual diet Discharge Activity: Increase activity as tolerated Patient Instructions: Care For Your Stitches (ED), Laceration (ED) Activity Restrictions/Additional Instructions: Hold your Coumadin for at least the next 3 days. To the best if you have your levels checked prior to resumption. Please discuss this with your primary care Keep the area clean and dry, wash twice per day with antibacterial soap and water. Return to the ED or PCP in 10 days for suture removal. No submersion in water. No ponds. No lakes. No Creeks. Thank you for choosing [facility] for your healthcare needs today. Please realize this is an emergency room and that we are providing you with a medical screening exam and this may not be complete and all inclusive of all the testing and or work up that you may need to determine your ailment or severity of your illness. You have been screened and evaluated and felt safe for discharge. Health conditions do change or evolve sometimes and as such it is important that you follow up with your Primary Doctor to be re checked, 3-5 days is a general good time frame for follow up. You are always welcome to return to the ED for re assessment if your symptoms are worsening or you have new concerns Coding Level of Care Code ED Panel Machine Tender for Callie Guevara
[2024-06-02] MEDS: lidocaine-epi 1% 20 mL INJ INJECTION (08:17)
[2024-06-02 08:29] LABS: Fibrinogen 320 mg/dL (174-498)
[2024-06-02 08:51] LABS: Platelet Count 332 10^3/cmm (157-399)
[2024-06-02] MEDS: ceFAZolin 2,000 mg SDV 2000 MG IVP (08:58)
[2024-06-02] MEDS: tetanus-dipt-pertussis 0.5 mL SDV IM (08:58)
[2024-06-02 09:03] VITALS: BP 125/105; PULSE 88; O2SAT 91
[2024-06-02 09:32] VITALS: BP 112/79; O2SAT 98
== END 2024-06-02 09:53 | disposition home or self-care (01) ==
PROVIDERS: Emergency Provider Emergency Medicine; PCP Family Medicine
DX: S61.412A Laceration without foreign body of left hand, initial encounter (principal); W01.0XXA Fall on same level from slipping, tripping and stumbling without subsequent striking against object, initial encounter; T45.515A Adverse effect of anticoagulants, initial encounter; Z79.01 Long term (current) use of anticoagulants; I10 Essential (primary) hypertension; Z89.022 Acquired absence of left finger(s); Z23 Encounter for immunization
CPT/HCPCS: 12006; 80048; 85025; 85049; 85384; 85610; 85730; 90715; 96374; 99284; 99291; J0690

== ENCOUNTER 2024-06-02 16:12 | Emergency (ER) | payer MEDICARE, SELFPAY ==
[2024-06-02] VITALS (15 sets, daily range): BP systolic 77–114; BP diastolic 43–73; PULSE 59–119; RESP 15–27; O2SAT 89–100
[2024-06-02] MEDS: tranexamic acid 1,000 MG/100 ML PREMIX 600 MG IV (16:38)
[2024-06-02] MEDS: sodium chloride 0.9% 1,000 ML 999 ML IV (16:38)
--- NOTE | 2024-06-02 16:45 | ED_ITS ---
HPI - Weakness 2 General: Chief complaint: Weakness Stated complaint: hand lac Time Seen by Provider: 06/02/24 16:12 History of Present Illness: 88-year-old female whom I saw in the [facility] room earlier today. She had fallen while holding a glass and had very complex laceration to her left hand. She had a small arterial bleed. She is on Coumadin and her INR was almost 5. We had to very tightly wrapped her hand to achieve hemostasis. However this had become painful and one of her fingers look like it was not getting good circulation so she came back to the emergency room. I initially was just going to change the dressing to a looser dressing but when I undressed her hand initially there was no bleeding whatsoever but within about 30 to 60 seconds she started pouring blood. Soon after this she said she had developed a little bit of headache and then became very lightheaded. We rechecked her blood pressure and she was hypotensive. Initially I was not going to check her in it which is can change the dressing but since she become hypotensive I was concerned she might be having worsening anemia so we checked her in and repeated lab work. Review of Systems 2 Narrative: Constitutional symptoms: Negative except as documented in HPI. Skin symptoms: Negative except as documented in HPI. Eye symptoms: Negative except as documented in HPI. ENMT symptoms: Negative except as documented in HPI. Respiratory symptoms: Negative except as documented in HPI. Cardiovascular symptoms: Negative except as documented in HPI. Gastrointestinal symptoms: Negative except as documented in HPI. Genitourinary symptoms: Negative except as documented in HPI. Musculoskeletal symptoms: Negative except as documented in HPI. Neurologic symptoms: Negative except as documented in HPI. Psychiatric symptoms: Negative except as documented in HPI. Endocrine symptoms: Negative except as documented in HPI. PFSH ED 2 PFSH: Medical History Encounter for servicing of pacemaker at end of battery life Chronic constipation History of colon polyps HTN (hypertension) Paroxysmal A-fib Hiatal hernia History of 2019 novel coronavirus disease (COVID-19) Surgical History History of amputation of finger History of tonsillectomy and adenoidectomy History of colonoscopy with polypectomy (02/13/21) diverticulosis History of left hip replacement H/O wrist surgery H/O knee surgery H/O cataract extraction History of appendectomy H/O: hysterectomy 20 years ago. History of bladder suspension procedure Family History Brother Cancer Father CAD (coronary artery disease) Mother No problems noted. Social History Smoking and tobacco/nicotine status: never used tobacco/nicotine Alcohol intake: former Former alcohol use details: socially Substance/Drug Use: never Physical Exam 2 Narrative: EXAM NARRATIVE: General: Alert, no acute distress. Patient has become very pale and lightheaded not unresponsive but did appear ill. Blood pressure was low. She was checked in and brought back to the trauma bay. Skin: warm and dry. On the palmar hand there was an avulsion of the top layer of skin. This continues to bleed. Also she starts having bleeding again from the wound that is in between her third and fourth digit. No arterial bleeding at this time but very brisk oozing. Head: Normocephalic Neck: Trachea midline Eye: Extraocular movements are intact. Ears, nose, mouth and throat: Oral mucosa moist Respiratory: Respirations are non-labored Musculoskeletal: Normal ROM Neurological: Alert and oriented, No focal neurological deficit observed. Psychiatric: Cooperative, appropriate mood & affect. Course 2 Vital Signs: Vital signs: Vital Signs Pulse Rate 71 06/02/24 16:50 Respiratory Rate 27 H 06/02/24 16:50 Blood Pressure 77/43 06/02/24 16:50 Pulse Oximetry 98 06/02/24 16:50 Oxygen Delivery Me thod Room Air 06/02/24 16:50 MDM - Weakness Medical Decision Making CBC and a BMP were repeated. Her hemoglobin has dropped slightly but likely not enough to have caused her symptoms. She had had a bit of a headache and a family member was rubbing her neck when this happened. Also she was having some bleeding. Perhaps she had some sort of vagal response. However given her continued bleeding without extreme pressure to wounds I have reversed her Coumadin. Have given 10 of IV vitamin K. And at 1000 mg of TXA. Also gave a liter of fluids for her hypotension. On discharge her blood pressure has improved. Bleeding is stopped. A dressing is being placed again. With much less pressure. Color feeling of return to her third digit. The second digit is now less red and puffy and less painful. Assessment and plan: Hand laceration Coumadin toxicity Continue bleeding Near syncope Hypotension ?Normal saline bolus, TXA and IV vitamin K given - Discharged home - Discussed plan with patient. Answered any questions. - Evaluation and treatment of this problem were appropriate in the emergency setting. Lab Data 06/02/24 16:28 06/02/24 16: Laboratory Results WBC 14.96 10^3/uL (3.29-11.43) H 06/02/24 16: RBC 3.52 10^6/uL (3.85-5.65) L 06/02/24 16: Hgb 11.10 g/dL (11.27-16.99) L 06/02/24 16: Hct 33.7 % (36-47) L 06/02/24 16: MCV 95.7 fl (85-98) 06/02/24 16: MCH 31.5 pg (27-33) 06/02/24 16: MCHC 32.9 g/dL (30-55) 06/02/24 16: RDW 14.5 % (12.1-15.1) 06/02/24 16: Plt Count 334 10^3/cmm (157-399) 06/02/24 16:28 MPV 10.1 fL (7.4-10.4) 06/02/24 16: Neut % (Auto) 76.5 % 06/02/24 16: Lymph % (Auto) 17.1 % 06/02/24 16:28 Hartley % (Auto) 5.4 % 06/02/24 16:28 Eos % (Auto) 0.1 % 06/02/24 16: Baso % (Auto) 0.4 % 06/02/24 16: Neut # (Auto) 11.44 10^3/uL (1.8-7.7) H 06/02/24 16:28 Lymph # (Auto) 2.6 10^3/uL (0.8-4.8) 06/02/24 16:28 Hartley # (Auto) 0.8 10^3/uL (0.2-0.9) 06/02/24 16:28 Eos # (Auto) 0.0 10^3/uL (0.0-0.8) 06/02/24 16:28 Baso # (Auto) 0.1 10^3/uL (0.0-0.1) 06/02/24 16:28 Nucleated RBC % (auto) 0 % 06/02/24 16:28 Nucleated RBCs # 0.0 /100WBC 06/02/24 16:28 Sodium 136 mmol/L (136-145) 06/02/24 16:28 Potassium 4.2 mmol/L (3.5-5.1) 06/02/24 16:28 Chloride 99 mmol/L (98-107) 06/02/24 16:28 Carbon Dioxide 26 mmol/L (22-29) 06/02/24 16:28 Anion Gap 15.2 (5-19) 06/02/24 16:28 BUN 17 mg/dL (8-23) 06/02/24 16:28 GFR Calculation Not Reportable 06/02/24 16:28 Calculated Osmolality 287 mOsm/kg (285-295) 06/02/24 16:28 Calcium 8.7 mg/dL (8.5-10.5) 06/02/24 16:28 No radiology studies performed this visit Discharge Plan Discharge Patient Disposition: Home Clinical Impression: Encounter for assessment of wound, Hand laceration, Near syncope, Acute hypotension Condition: Stable Prescriptions: No Action ascorbic acid (vitamin C) 1,000 mg tablet 1,000 mg PO DAILY warfarin 4 mg tablet 4 mg PO DAILY Qty: 90 0RF Protocol: Dose Management Condition: Friday Dose/Route: 4 mg Instruction: 1 x 4 mg tablet Condition: Friday Dose/Route: 0 mg Instruction: 0 tablets Condition: Friday Dose/Route: 3 mg Instruction: 1 x 3 mg tablet Condition: Friday Dose/Route: 4 mg Instruction: 1 x 4 mg tablet Condition: Dose/Route: 3 mg Instruction: 1 x 3 mg tablet Condition: Friday Dose/Route: 4 mg Instruction: 1 x 4 mg tablet Condition: Friday Dose/Route: 4 mg Instruction: 1 x 4 mg tablet Protocol Text: Adjustment Start Date: Friday06/01/24 INR Value: 4.4 INR Date: 05/31/24 Recheck Date: 06/08/24 mupirocin 2 % ointment 1 applic topical TID Qty: 22 0RF amiodarone 200 mg tablet 200 mg PO DAILY Qty: 90 3RF metoprolol tartrate 50 mg tablet 50 mg PO BID Qty: 180 3RF cephalexin 500 mg capsule 500 mg PO BID 7 Days Qty: 14 0RF warfarin 3 mg tablet 3 mg PO DAILY Protocol: Dose Management Condition: Friday Dose/Route: 4 mg Instruction: 1 x 4 mg tablet Condition: Friday Dose/Route: 0 mg Instruction: 0 tablets Condition: Friday Dose/Route: 3 mg Instruction: 1 x 3 mg tablet Condition: Friday Dose/Route: 4 mg Instruction: 1 x 4 mg tablet Condition: Dose/Route: 3 mg Instruction: 1 x 3 mg tablet Condition: Friday Dose/Route: 4 mg Instruction: 1 x 4 mg tablet Condition: Friday Dose/Route: 4 mg Instruction: 1 x 4 mg tablet Protocol Text: Adjustment Start Date: Friday06/01/24 INR Value: 4.4 INR Date: 05/31/24 Recheck Date: 06/08/24 Naprosyn 500 mg tablet 500 mg PO BID PRN (Reason: pain) Qty: 20 0RF Discharge Orders: Discharge ED (Routine); Ordered 06/02/24 Ordered By: Kesha Deal Referrals: Rosemary Joshua DO [Primary Care Provider] - Discharge Diet: Usual diet Discharge Activity: Increase activity as tolerated Patient Instructions: Care For Your Stitches (ED) Activity Restrictions/Additional Instructions: Please do not resume Coumadin for at least 3 days. If you can follow with your primary provider in the next 3 to 5 days or just get an INR check that would be preferable. If not I think 3 days would be okay to restart. Keep the area clean and dry, wash twice per day with antibacterial soap and water. Return to the ED or PCP in 7-10 days for suture removal. Thank you for choosing [facility] for your healthcare needs today. Please realize this is an emergency room and that we are providing you with a medical screening exam and this may not be complete and all inclusive of all the testing and or work up that you may need to determine your ailment or severity of your illness. You have been screened and evaluated and felt safe for discharge. Health conditions do change or evolve sometimes and as such it is important that you follow up with your Primary Doctor to be re checked, 3-5 days is a general good time frame for follow up. You are always welcome to return to the ED for re assessment if your symptoms are worsening or you have new concerns Coding Level of Care Code ED Research Anthropologist for Callie Guevara
[2024-06-02] MEDS: phytonadione (ADULT) 10 MG in sodium chloride 0.9% 50 ML 153 MG IV (16:48)
[2024-06-02 17:17] LABS: Basophils # 0.1 10^3/uL (0.0-0.1); Basophils % 0.4 %; Eosinophils % 0.1 %; Hematocrit 33.7 % (36-47); Lymphocytes # 2.6 10^3/uL (0.8-4.8); Lymphocytes % 17.1 %; Mean Corpuscular HGB Conc 32.9 g/dL (30-55); Mean Corpuscular Hemoglobin 31.5 pg (27-33); Mean Corpuscular Volume 95.7 fl (85-98); Mean Platelet Volume 10.1 fL (7.4-10.4); Monocytes # 0.8 10^3/uL (0.2-0.9); Monocytes % 5.4 %; Neutrophils # 11.44 10^3/uL (1.8-7.7); Neutrophils % 76.5 %; Nucleated Red Blood Cells % 0 %; Platelet Count 334 10^3/cmm (157-399); Red Blood Count 3.52 10^6/uL (3.85-5.65); Red Cell Distribution Width 14.5 % (12.1-15.1); White Blood Count 14.96 10^3/uL (3.29-11.43)
[2024-06-02 17:30] LABS: Anion Gap 15.2 (5-19); Blood Urea Nitrogen 17 mg/dL (8-23); Calcium 8.7 mg/dL (8.5-10.5); Carbon Dioxide 26 mmol/L (22-29); Chloride 99 mmol/L (98-107); Glucose 166 mg/dL (65-115); Osmolality Calculated 287 mOsm/kg (285-295); Potassium 4.2 mmol/L (3.5-5.1); Sodium 136 mmol/L (136-145)
== END 2024-06-02 18:16 | disposition home or self-care (01) ==
PROVIDERS: Emergency Provider Emergency Medicine; PCP Family Medicine
DX: R55 Syncope and collapse (principal); I95.9 Hypotension, unspecified; S61.412A Laceration without foreign body of left hand, initial encounter; W01.110A Fall on same level from slipping, tripping and stumbling with subsequent striking against sharp glass, initial encounter; I10 Essential (primary) hypertension; Z79.01 Long term (current) use of anticoagulants
CPT/HCPCS: 80048; 85025; 86850; 86900; 96374; 96375; 99284; J3430; J7030

== ENCOUNTER 2024-07-22 09:18 | Outpatient (CLI) | payer MEDICARE, SELFPAY ==
--- NOTE | 2024-07-22 09:23 | XR_ITS ---
WS: [id number] XR chest 2V* [id number] REASON FOR EXAM: Check lead placement FINDINGS: No previous examination for comparison. Cardiac device over the left chest with trans left subclavian vein leads to the region of the right a trium and right ventricular apex. The heart is at the upper limits of normal in size. Moderate tortuosity and ectasia of the thoracic aorta. Calcified granulomatous disease in both hemithoraces. No acute pulmonary parenchymal or pleural abnormality. Flattening of the left hemidiaphragm and blunting of the costophrenic angle which could be scarring h owever a small left pleural effusion cannot be excluded. XR/XR chest 2V* [id number] IMPRESSION: Possible left pleural effusion otherwise no acute or subacute abnormality. Pacemaker lead positions appear appropriate. The presumed right ventricular ape x lead is somewhat distal and inferior. Comparison with the previous examination would be helpful.
== END 2024-07-22 09:19 | disposition home or self-care (01) ==
LOC: RAD 09:18
PROVIDERS: PCP Family Medicine Adult Medicine; Visit Provider Internal Medicine Cardiovascular Disease
DX: Z95.0 Presence of cardiac pacemaker (principal); I77.810 Thoracic aortic ectasia; I77.1 Stricture of artery; D71 Functional disorders of polymorphonuclear neutrophils
CPT/HCPCS: 71046

== ENCOUNTER 2024-10-27 10:38 | Outpatient (CLI) | payer MEDICARE, SELFPAY ==
[2024-10-27 11:33] LABS: Prothrombin Time > 120.00 SECONDS (12.1-14.9)
[2024-10-27 13:15] LABS: INR > 20.00 (0.8-1.2)
== END 2024-10-27 10:39 | disposition home or self-care (01) ==
LOC: LAB 10:39
PROVIDERS: PCP Family Medicine Adult Medicine; Visit Provider Emergency Medicine
DX: I48.0 Paroxysmal atrial fibrillation (principal)
CPT/HCPCS: 36415; 85610

== ENCOUNTER 2024-10-27 13:46 | Observation (INO) | payer MEDICARE, SELFPAY ==
[2024-10-27] VITALS (21 sets, daily range): BP systolic 98–169; BP diastolic 67–115; PULSE 72–104; RESP 16–25; TEMP 36.3–37.1; O2SAT 92–100; BMI 21.6; BMI 21.9
[2024-10-27 15:27] LABS: Basophils % 0.4 %; Eosinophils # 0.1 10^3/uL (0.0-0.8); Eosinophils % 0.5 %; Hematocrit 45.1 % (36-47); Lymphocytes # 1.7 10^3/uL (0.8-4.8); Lymphocytes % 17.4 %; Mean Corpuscular HGB Conc 32.4 g/dL (30-55); Mean Corpuscular Volume 92.6 fl (85-98); Mean Platelet Volume 9.4 fL (7.4-10.4); Monocytes # 0.7 10^3/uL (0.2-0.9); Monocytes % 7.8 %; Neutrophils # 6.95 10^3/uL (1.8-7.7); Neutrophils % 73.5 %; Nucleated Red Blood Cells % 0 %; Platelet Count 375 10^3/cmm (157-399); Red Blood Count 4.87 10^6/uL (3.85-5.65); White Blood Count 9.47 10^3/uL (3.29-11.43)
--- NOTE | 2024-10-27 15:36 | ED_ITS ---
Documented by User: Anson Camarillo DO 10/29/24 21:48 HPI - Recheck/Abnormal Lab/Rx 2 General: Chief Complaint: Recheck/Abnormal Lab/Rx Stated Complaint: blood levels are high(walk in client reff) Time Seen by Provider: 10/27/24 15:22 History of Present Illness: 88-year-old female presents to the emerg ency room from urgent care. Had an INR done today was reported at greater than 20. Was directed to the emergency room. No obvious sources of bleeding no recent trauma. Patient has a history of atrial fibrillation and is on warfarin as well as amiodarone. Related Data Home Medications Medication Instructions Recorded Confirmed ascorbic acid (vitamin C) 1,000 mg 1,000 mg PO DAILY 10/21/22 10/28/24 tablet Previous Rx's Medication Instructions Recorded naproxen 500 mg tablet (Naprosyn) 500 mg PO BID PRN pain #20 tabs 02/26/24 amiodarone 200 mg tablet 200 mg PO DAILY #90 tabs 04/06/24 metoprolol tartrate 50 mg tablet 50 mg PO BID #180 tabs 09/01/24 Allergies Allergy/AdvReac Type Severity Reaction Status Date / Time adhesive tape Allergy Unknown Verified 10/27/24 14:04 Review of Systems 2 Const: Denies: fever(s) or chills Card: Denies: chest pain Resp: Denies: dyspnea GI: Denies: abdominal pain : Denies: dysuria, urinary frequency or urinary urgency Musc: Denies: neck pain or back pain Skin/Breast: Denies: rash PFSH ED 2 PFSH: Medical History History of colon polyps colonoscopy 01/29/2021 Dr. Dixon Encounter for servicing of pacemaker at end of battery life HTN (hypertension) Paroxysmal A-fib Hiatal hernia History of 2019 novel coronavirus disease (COVID-19) Surgical History H/O wrist surgery History of amputation of finger History of tonsillectomy and adenoidectomy History of colonoscopy with polypectomy (02/13/21) diverticulosis, last colonoscopy 02/13/2021 and there was no polyps and so no future colonoscopy scheduled unless additional problems History of left hip replacement H/O knee surgery H/O cataract extraction History of appendectomy H/O: hysterectomy 20 years ago. History of bladder suspension procedure Family History Brother Cancer Father CAD (coronary artery disease) Mother No problems noted. Social History Smoking and tobacco/nicotine status: unknown if used tobacco/nicotine Alcohol intake: former Former alcohol use details: socially Substance/Drug Use: never Physical Exam 2 Const: GENERAL APPEARANCE: cooperative ORIENTATION/CONSCIOUSNESS: Yes awake HENMT: COMMON NORMALS: normocephalic, atraumatic and hearing grossly normal bilaterally HEAD & SCALP: normocephalic and atraumatic Resp: COMMON NORMALS: normal respiratory effort, No retractions, No use of accessory muscles and clear to auscultation bilaterally AUSCULTATION: clear to auscultation bilaterally Cardio: COMMON NORMALS: regular rate, regular rhythm and No murmurs present (Cardio) RATE: regular rate RHYTHM: regular rhythm GI: COMMON NORMALS: Soft to palpation and No hepatosplenomegaly present A USCULTATION: Yes normoactive bowel sounds PALPATION: Yes Soft to palpation, No Tenderness to palpation present (GI), No Guarding due to palpation present (GI) and Yes No hepatosplenomegaly present Extremity: COMMON NORMALS: normal to inspection, capillary refill normal, no clubbing, cyanosis or edema, no calf tenderness and no pedal edema Skin: COMMON NORMALS: no rashes or lesions noted GENERAL SKIN EXAM: no rashes or lesions noted Course 2 Vital Signs: Vital signs: Vital Signs Temperature 98.3 F 10/28/24 13:57 Pulse Rate 90 10/28/24 13:57 Respiratory Rate 15 10/28/24 13:57 Blood Pressure 136/88 10/28/24 13:57 Pulse Oximetry 98 10/28/24 13:57 Oxygen Delivery Or thod Room Air 10/28/24 11:38 [facility] - Recheck/Abnormal Lab/Rx Medical Decision Making Care signed out to Dr. Deal at change of shift. See final notes for diagnosis and disposition. Patient care transitioned to mt at shift change. Being observed for Coumadin toxicity. Lab Data 10/28/24 05:52 10/28/24 05:[address] 10/27/24 15:56 IMPRESSION: No acute intracranial abnormality. Laboratory Results WBC 9.47 10^3/uL (3.29-11.43) 10/27/24 15:15 RBC 4.87 10^6/uL (3.85-5.65) 10/27/24 15:15 Hgb 14.60 g/dL (11.27-16.99) 10/27/24 15:15 Hct 45.1 % (36-47) 10/27/24 15:15 MCV 92.6 fl (85-98) 10/27/24 15:15 MCH 30.0 pg (27-33) 10/27/24 15:15 MCHC 32.4 g/dL (30-55) 10/27/24 15:15 RDW 16.0 % (12.1-15.1) H 10/27/24 15:15 Plt Count 375 10^3/cmm (157-399) 10/27/24 15:15 MPV 9.4 fL (7.4-10.4) 10/27/24 15:15 Neut % (Auto) 73.5 % 10/27/24 15:15 Lymph % (Auto) 17.4 % 10/27/24 15:15 [place] % (Auto) 7.8 % 10/27/24 15:15 Eos % (Auto) 0.5 % 10/27/24 15:15 Baso % (Auto) 0.4 % 10/27/24 15:15 Neut # (Auto) 6.95 10^3/uL (1.8-7.7) 10/27/24 15:15 Lymph # (Auto) 1.7 10^3/uL (0.8-4.8) 10/27/24 15:15 [place] # (Auto) 0.7 10^3/uL (0.2-0.9) 10/27/24 15:15 Eos # (Auto) 0.1 10^3/uL (0.0-0.8) 10/27/24 15:15 Baso # (Auto) 0.0 10^3/uL (0.0-0.1) 10/27/24 15:15 Nucleated RBC % (auto) 0 % 10/27/24 15:15 Nucleated RBCs # 0.0 /100WBC 10/27/24 15:15 PT > 120.00 SECONDS (12.1-14.9) H 10/27/24 15:15 INR > 20.00 (0.8-1.2) H* 10/27/24 15:15 Sodium 136 mmol/L (136-145) 10/27/24 15:15 Potassium 4.6 mmol/L (3.5-5.1) 10/27/24 15:15 Chloride 98 mmol/L (98-107) 10/27/24 15:15 Carbon Dioxide 27 mmol/L (22-29) 10/27/24 15:15 Anion Gap 15.6 (5-19) 10/27/24 15:15 BUN 17 mg/dL (8-23) 10/27/24 15:15 Creatinine 0.9 mg/dL (0.5-0.9) 10/27/24 15:15 GFR Calculation Not Reportable 10/27/24 15:15 Glucose 106 mg/dL (65-115) 10/27/24 15:15 Calculated Osmolality 284 mOsm/kg (285-295) L 10/27/24 15:15 Calcium 9.5 mg/dL (8.5-10.5) 10/27/24 15:15 Total Bilirubin 0.3 mg/dL (0.15-1.2) 10/27/24 15:15 AST 26 U/L (0-32) 10/27/24 15:15 ALT 21 U/L (0-33) 10/27/24 15:15 Alkaline Phosphatase 71 U/L (35-105) 10/27/24 15:15 Total Protein 7.0 g/dL (6.6-8.7) 10/27/24 15:15 Albumin 4.2 g/dL (3.5-5.2) 10/27/24 15:15 Globulin 2.8 g/dL (1.3-4.6) 10/27/24 15:15 TSH 1.64 uIU/mL (0.27-4.20) 10/27/24 15:15 Blood Type O Positive 10/27/24 15:15 Rho(D) Type Rh positive 10/27/24 15:15 Discharge Plan Discharge Patient Disposition: Placed in Observation Admit Provider: Arlyn,Javan Clinical Impression: Warfarin-induced coagulopathy Coding Level of Care Code ED Manager Secondary for Chg Fwd Documented by User: Kesha Deal MD 10/27/24 19:24 HPI - Recheck/Abnormal Lab/Rx 2 General: Chief Complaint: Recheck/Abnormal Lab/Rx Stated Complaint: blood levels are high(walk in client reff) Time Seen by Provider: 10/27/24 15:22 Related Data Home Medications Medication Instructions Recorded Confirmed ascorbic acid (vitamin C) 1,000 mg 1,000 mg PO DAILY 10/21/22 10/28/24 tablet Previous Rx's Medication Instructions Recorded naproxen 500 mg tablet (Naprosyn) 500 mg PO BID PRN pain #20 tabs 02/26/24 amiodarone 200 mg tablet 200 mg PO DAILY #90 tabs 04/06/24 metoprolol tartrate 50 mg tablet 50 mg PO BID #180 tabs 09/01/24 Allergies Allergy/AdvReac Type Severity Reaction Status Date / Time adhesive tape Allergy Unknown Verified 10/27/24 14:04 PFSH ED 2 PFSH: Medical History History of colon polyps colonoscopy 01/29/2021 Dr. Dixon Encounter for servicing of pacemaker at end of battery life HTN (hypertension) Paroxysmal A-fib Hiatal hernia History of 2019 novel coronavirus disease (COVID-19) Surgical History H/O wrist surgery History of amputation of finger History of tonsillectomy and adenoidectomy History of colonoscopy with polypectomy (02/13/21) diverticulosis, last colonoscopy 02/13/2021 and there was no polyps and so no future colonoscopy scheduled unless additional problems History of left hip replacement H/O knee surgery H/O cataract extraction History of appendectomy H/O: hysterectomy 20 years ago. History of bladder suspension procedure Family History Brother Cancer Father CAD (coronary artery disease) Mother No problems noted. Social History Smoking and tobacco/nicotine status: unknown if used tobacco/nicotine Alcohol intake: former Former alcohol use details: socially Substance/Drug Use: never Course 2 Vital Signs: Vital signs: Vital Signs Temperature 98.3 F 10/28/24 13:57 Pulse Rate 90 10/28/24 13:57 Respiratory Rate 15 10/28/24 13:57 Blood Pressure 136/88 10/28/24 13:57 Pulse Oximetry 98 10/28/24 13:57 Oxygen Delivery Or thod Room Air 10/28/24 11:38 MDM - Recheck/Abnormal Lab/Rx Medical Decision Making Patient care transitioned to mt at shift change. Being observed for Coumadin toxicity. Lab Data 10/28/24 05:52 10/28/24 05:[address] 10/27/24 15:56 IMPRESSION: No acute intracranial abnormality. Laboratory Results WBC 9.47 10^3/uL (3.29-11.43) 10/27/24 15:15 RBC 4.87 10^6/uL (3.85-5.65) 10/27/24 15:15 Hgb 14.60 g/dL (11.27-16.99) 10/27/24 15:15 Hct 45.1 % (36-47) 10/27/24 15:15 MCV 92.6 fl (85-98) 10/27/24 15:15 MCH 30.0 pg (27-33) 10/27/24 15:15 MCHC 32.4 g/dL (30-55) 10/27/24 15:15 RDW 16.0 % (12.1-15.1) H 10/27/24 15:15 Plt Count 375 10^3/cmm (157-399) 10/27/24 15:15 MPV 9.4 fL (7.4-10.4) 10/27/24 15:15 Neut % (Auto) 73.5 % 10/27/24 15:15 Lymph % (Auto) 17.4 % 10/27/24 15:15 [place] % (Auto) 7.8 % 10/27/24 15:15 Eos % (Auto) 0.5 % 10/27/24 15:15 Baso % (Auto) 0.4 % 10/27/24 15:15 Neut # (Auto) 6.95 10^3/uL (1.8-7.7) 10/27/24 15:15 Lymph # (Auto) 1.7 10^3/uL (0.8-4.8) 10/27/24 15:15 [place] # (Auto) 0.7 10^3/uL (0.2-0.9) 10/27/24 15:15 Eos # (Auto) 0.1 10^3/uL (0.0-0.8) 10/27/24 15:15 Baso # (Auto) 0.0 10^3/uL (0.0-0.1) 10/27/24 15:15 Nucleated RBC % (auto) 0 % 10/27/24 15:15 Nucleated RBCs # 0.0 /100WBC 10/27/24 15:15 PT > 120.00 SECONDS (12.1-14.9) H 10/27/24 15:15 INR > 20.00 (0.8-1.2) H* 10/27/24 15:15 Sodium 136 mmol/L (136-145) 10/27/24 15:15 Potassium 4.6 mmol/L (3.5-5.1) 10/27/24 15:15 Chloride 98 mmol/L (98-107) 10/27/24 15:15 Carbon Dioxide 27 mmol/L (22-29) 10/27/24 15:15 Anion Gap 15.6 (5-19) 10/27/24 15:15 BUN 17 mg/dL (8-23) 10/27/24 15:15 Creatinine 0.9 mg/dL (0.5-0.9) 10/27/24 15:15 GFR Calculation Not Reportable 10/27/24 15:15 Glucose 106 mg/dL (65-115) 10/27/24 15:15 Calculated Osmolality 284 mOsm/kg (285-295) L 10/27/24 15:15 Calcium 9.5 mg/dL (8.5-10.5) 10/27/24 15:15 Total Bilirubin 0.3 mg/dL (0.15-1.2) 10/27/24 15:15 AST 26 U/L (0-32) 10/27/24 15:15 ALT 21 U/L (0-33) 10/27/24 15:15 Alkaline Phosphatase 71 U/L (35-105) 10/27/24 15:15 Total Protein 7.0 g/dL (6.6-8.7) 10/27/24 15:15 Albumin 4.2 g/dL (3.5-5.2) 10/27/24 15:15 Globulin 2.8 g/dL (1.3-4.6) 10/27/24 15:15 TSH 1.64 uIU/mL (0.27-4.20) 10/27/24 15:15 Blood Type O Positive 10/27/24 15:15 Rho(D) Type Rh positive 10/27/24 15:15 All radiology interpretation(s) finalized by discharge Discharge Plan Discharge Patient Disposition: Placed in Observation Admit Provider: Javan Stoddard Clinical Impression: Warfarin-induced coagulopathy Coding Level of Care Code ED Manager Secondary for Callie Guevara
[2024-10-27 15:47] LABS: Alanine Aminotransferase 21 U/L (0-33); Albumin Level 4.2 g/dL (3.5-5.2); Alkaline Phosphatase 71 U/L (35-105); Anion Gap 15.6 (5-19); Aspartate Amino Transferase 26 U/L (0-32); Blood Urea Nitrogen 17 mg/dL (8-23); Calcium 9.5 mg/dL (8.5-10.5); Carbon Dioxide 27 mmol/L (22-29); Chloride 98 mmol/L (98-107); Creatinine Clr Calc Pharmacy 38.7105; Globulin 2.8 g/dL (1.3-4.6); Glucose 106 mg/dL (65-115); Osmolality Calculated 284 mOsm/kg (285-295); Potassium 4.6 mmol/L (3.5-5.1); Prothrombin Time > 120.00 SECONDS (12.1-14.9); Sodium 136 mmol/L (136-145); Total Bilirubin 0.3 mg/dL (0.15-1.2)
[2024-10-27 15:53] LABS: INR > 20.00 (0.8-1.2)
--- NOTE | 2024-10-27 15:56 | CTR_ITS ---
PROCEDURE INFORMATION: Exam: CT Head Without Contrast Exam date and time: 10/27/2024 4:54 PM Age: 88 years old Clinical indication: Altered mental status/memory loss; Confusion or disorientation; Additional info: Altered mental status elevated inr TECHNIQUE: Imaging protocol: Computed tomography of the head without contrast. Radiation optimization: All CT scans at this facility use at least one of these dose optimization techniques: automated exposure control; mA and/or kV adjustment per patient size (includes targeted exams where dose is matched to clinical indication); or iterative reconstruction. COMPARISON: CT head wo con* [id number] 11/11/2023 4:18 PM RADIATION DOSE METRICS: Total DLP (mGy-cm): 1032.58 FINDINGS: Brain: No hemorrhage. No edema. Moderate diffuse cerebral atrophy and sequela of chronic small vessel ischemic disease. No mass effect. Cerebral ventricles: No ventriculomegaly. Paranasal sinuses: Visualized sinuses are unremarkable. No fluid levels. Mastoid air cells: Visualized mastoid air cells are well aerated. Bones: Unremarkable. No acute fracture. Soft tissues: Unremarkable. CT/CT head wo con* [id number] IMPRESSION: No acute intracranial abnormality.
[2024-10-27] MEDS: phytonadione (ADULT) 10 mg/mL Ampule 1 mL PO (16:39)
[2024-10-27] MEDS: amiodarone 200 mg Tablet PO (16:43)
[2024-10-27] MEDS: metoprolol tartrate 50 mg Tablet PO (16:43)
[2024-10-27] MEDS: hyDRALAzine 20 mg/mL INJ 1 mL 10 MG IVP (16:44)
--- NOTE | 2024-10-27 19:59 | PM.HP ---
Providers/Chief Complaint Primary Care Provider: Michele Sanchez MD Chief Complaint: blood levels are high(walk in client reff) History of Present Illness Esthela Billings is a 88 year old female with a past medical history of atrial fibrillation, on Coumadin, history of memory loss, peripheral arterial disease, hypertension, who presents to [facility] from her primary care physician's office due to supratherapeutic INR. Patient denies any bleeding, no headache, no blurry vision, no nausea, no vomiting, no hematuria, no bloody or black stools, no bloody cough, no bloody vomit. She does tell me that she fell a few days ago, she does not really have any bruising, but she fell on her left shoulder and is not really bothering her. She takes Coumadin, she did not take Coumadin today but took she thinks 4 mg for the last 2 days, but she has forgotten how much Coumadin she is supposed to take, she had written down but somehow misplaced her Coumadin dosing, she thinks it is possible that she accidentally took too much Coumadin. She tells me that [facility] cardiology manages her Coumadin, and doses of her Coumadin based on her INR, her INR was checked about a week ago, does not remember her INR. She lives at home, with her daughter, Review of Systems Const: Denies: fever(s) Card: Denies: chest pain Resp: Denies: dyspnea GI: Denies: abdominal pain Medications/Allergies Home Medications Medication Instructions Recorded Confirmed Last Taken Type ascorbic acid (vitamin C) 1,000 mg 1,000 mg PO DAILY 10/21/22 10/27/24 02/25/24 History tablet naproxen 500 mg tablet (Naprosyn) 500 mg PO BID PRN pain #20 tabs 02/26/24 10/27/24 Unknown Rx warfarin 3 mg tablet 3 mg PO DAILY 02/26/24 10/27/24 02/25/24 History amiodarone 200 mg tablet 200 mg PO DAILY #90 tabs 04/06/24 10/27/24 Unknown Rx metoprolol tartrate 50 mg tablet 50 mg PO BID #180 tabs 09/01/24 10/27/24 Unknown Rx warfarin 4 mg tablet 4 mg PO DAILY #90 tabs 10/22/24 10/27/24 Unknown Rx Allergies Allergy/AdvReac Type Severity Reaction Status Date / Time adhesive tape Allergy Unknown Verified 10/27/24 14:04 PFSH Acute PFSH: Medical History History of colon polyps colonoscopy 01/29/2021 Dr. Zack Hood for servicing of pacemaker at end of battery life HTN (hypertension) Paroxysmal A-fib Hiatal hernia History of 2019 novel coronavirus disease (COVID-19) Surgical History H/O wrist surgery History of amputation of finger History of tonsillectomy and adenoidectomy History of colonoscopy with polypectomy (02/13/21) diverticulosis, last colonoscopy 02/13/2021 and there was no polyps and so no future colonoscopy scheduled unless additional problems History of left hip replacement H/O knee surgery H/O cataract extraction History of appendectomy H/O: hysterectomy 20 years ago. History of bladder suspension procedure Family History Brother Cancer Father CAD (coronary artery disease) Mother No problems noted. Social History Smoking and tobacco/nicotine status: unknown if used tobacco/nicotine Alcohol intake: former Former alcohol use details: socially Substance/Drug Use: never Vitals/I&O/Wt Last Vital Signs Temp 97.4 F L 10/27/24 14:03 Pulse 79 10/27/24 19:44 Resp 19 H 10/27/24 19:44 BP 122/90 10/27/24 19:44 Pulse Ox 94 10/27/24 19:44 O2 Del Method Room Air 10/27/24 17:00 10/27/24 10/27/24 10/27/24 06:59 14:59 22:59 Intake Total 0 / 0 Balance 0 / 0 Weight last 48 hrs Weight 57.153 kg Physical Exam Const: COMMON NORMALS: no acute distress and patient oriented x3 HENMT: COMMON NORMALS: normocephalic HEAD & SCALP: normocephalic Neck/C-Spine: COMMON NORMALS: no JVD Resp: COMMON NORMALS: normal respiratory effort, No retractions, No use of accessory muscles and clear to auscultation bilaterally AUSCULTATION: clear to auscultation bilaterally GI: COMMON NORMALS: Normal to inspection, nondistended, normoactive bowel sounds present, Soft to palpation and non-tender Extremity: COMMON NORMALS: no calf tenderness and no pedal edema Neuro: COMMON NORMALS: patient oriented x3, CN's II-XII intact bilaterally and moves all extremities Psych: COMMON NORMALS: mental status grossly normal Data 10/27/24 15:15 10/27/24 15:15 A&P Assessment and plan (1) Supratherapeutic INR: (2) Warfarin-induced coagulopathy: (3) Paroxysmal A-fib: Plan Warfarin induced coagulopathy, supratherapeutic INR -Patient believes that she might have accidentally taken too much Coumadin, as all she remembers is that she took 4 mg of Coumadin for the last 2 days, but might of taken more, does not remember her dosing beyond 2 days, had her dosing written down, but had misplaced it -INR is over 20 -Has received vitamin K -Given her age, her INR, concern for taking too much Coumadin, I am also going to give her 1 unit FFP -Recheck INR in the morning -Monitor overnight -Discussed with her monitoring for bleeding, if so let us know -Ambulate with care, risk of falls -Monitor hemoglobin -Potentially in the near future, we can switch her to Eliquis or Xarelto without be easier for her to take # Patient is DNR/DNI # SCDs for DVT prophylaxis, supratherapeutic INR Attestations Medical Necessity Statement*: Patient requires hospitalization, outpatient with observation, for warfarin induced coagulopathy, supratherapeutic INR Diagnoses Supratherapeutic INR R79.1 Warfarin-induced coagulopathy D68.32; T45.515A Paroxysmal A-fib I48.0
[2024-10-27 22:53] LABS: Thyroid Stimulating Hormone 1.64 uIU/mL (0.27-4.20)
[2024-10-27] MEDS: pantoprazole 40 mg SDV IVP (23:19)
[2024-10-28] VITALS: BP 113/69; PULSE 95; RESP 14; TEMP 36.7; O2SAT 91
[2024-10-28 04:00] VITALS: BP 126/76; PULSE 83; RESP 13; TEMP 36.7; O2SAT 96
[2024-10-28 06:12] LABS: Basophils # 0.1 10^3/uL (0.0-0.1); Basophils % 0.5 %; Eosinophils # 0.1 10^3/uL (0.0-0.8); Eosinophils % 0.9 %; Hematocrit 40.9 % (36-47); Lymphocytes # 1.7 10^3/uL (0.8-4.8); Lymphocytes % 17.1 %; Mean Corpuscular HGB Conc 32.8 g/dL (30-55); Mean Corpuscular Hemoglobin 30.7 pg (27-33); Mean Corpuscular Volume 93.6 fl (85-98); Mean Platelet Volume 9.4 fL (7.4-10.4); Monocytes # 0.9 10^3/uL (0.2-0.9); Monocytes % 8.5 %; Neutrophils # 7.27 10^3/uL (1.8-7.7); Neutrophils % 72.6 %; Nucleated Red Blood Cells % 0 %; Platelet Count 325 10^3/cmm (157-399); Red Blood Count 4.37 10^6/uL (3.85-5.65); Red Cell Distribution Width 15.8 % (12.1-15.1); White Blood Count 10.01 10^3/uL (3.29-11.43)
[2024-10-28 06:28] LABS: INR 4.12 (0.8-1.2)
[2024-10-28 06:36] LABS: Anion Gap 15.1 (5-19); Blood Urea Nitrogen 14 mg/dL (8-23); Calcium 8.9 mg/dL (8.5-10.5); Carbon Dioxide 24 mmol/L (22-29); Chloride 102 mmol/L (98-107); Creatinine Clr Calc Pharmacy 52.7729; Glucose 89 mg/dL (65-115); Osmolality Calculated 284 mOsm/kg (285-295); Potassium 4.1 mmol/L (3.5-5.1); Sodium 137 mmol/L (136-145)
--- NOTE | 2024-10-28 06:38 | PC.NURSE ---
FFP: Unable to give FFP due to scanning error. Says wrong product . Lab notified, first unit was send back to lab. Second unit was issued and it also would not scan saying same error message. Second unit sent back to lab, incident report filed and physician notified. No new orders.
[2024-10-28 07:06] VITALS: BP 129/80; PULSE 89; RESP 16; TEMP 36.5; O2SAT 97
--- NOTE | 2024-10-28 10:41 | PM.DCS ---
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 Patient denies any bleeding, no headache, no blurry vision, no nausea, no vomiting, no hematuria, no bloody or black stools, no bloody cough, no bloody vomit. She does tell me that she fell a few days ago, she does not really have any bruising, but she fell on her left shoulder and is not really bothering her. She takes Coumadin, she did not take Coumadin today but took she thinks 4 mg for the last 2 days, but she has forgotten how much Coumadin she is supposed to take, she had written down but somehow misplaced her Coumadin dosing, she thinks it is possible that she accidentally took too much Coumadin. She tells me that [facility] cardiology manages her Coumadin, and doses of her Coumadin based on her INR, her INR was checked about a week ago, does not remember her INR. She lives at home, with her daughter, Hospital Course Hospital Course After receiving vitamin K, FFP, INR rechecked in the morning, decreased down to 4. She did not experience any bleeding. She is otherwise doing well and would like to proceed with discharge home. She will discontinue warfarin. 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 She will recheck her INR again at home this evening with her machine. Physical Exam Const: COMMON NORMALS: patient oriented x3 and alert GENERAL APPEARANCE: cooperative ORIENTATION/CONSCIOUSNESS: Yes awake HENMT: COMMON NORMALS: oropharynx normal Neck/C-Spine: COMMON NORMALS: no JVD Resp: COMMON NORMALS: normal respiratory effort and clear to auscultation bilaterally AUSCULTATION: clear to auscultation bilaterally Cardio: COMMON NORMALS: no JVD, regular rhythm, S1 normal heart sound present, S2 normal heart sound present and No murmurs present (Cardio) RHYTHM: regular rhythm HEART SOUNDS: S1 normal heart sound present and S2 normal heart sound present GI: COMMON NORMALS: Normal to inspection, nondistended, normoactive bowel sounds present, Soft to palpation and non-tender PALPATION: Yes Soft to palpation Extremity: COMMON NORMALS: no joint enlargement and no pedal edema Neuro: COMMON NORMALS: patient oriented x3 and moves all extremities SENSORIUM/ORIENTATION: Yes alert Skin: COMMON NORMALS: no rashes or lesions noted GENERAL SKIN EXAM: no rashes or lesions noted Discharge Data Studies Completed and Pending Completed Studies During Hospitalization Category Date Time Status CT head wo con* [id number] Stat Cat Scan 10/27/24 15:56 Completed Pending at discharge Category Date Time Status ABO/Rh Type Routine Lab 10/27/24 15:15 Results Complete Crossmatch Routine Lab 10/27/24 15:15 Results FFP [Frozen Plasma FZ <24 1st Cont] Routine Lab 10/27/24 15:15 Results Urinalysis Stat Lab 10/28/24 17:20 Ordered Radiology Impressions Head CT 10/27/24 15:56 IMPRESSION: No acute intracranial abnormality. Laboratory Results WBC 10.01 10^3/uL (3.29-11.43) 10/28/24 05:52 RBC 4.37 10^6/uL (3.85-5.65) 10/28/24 05:52 Hgb 13.40 g/dL (11.27-16.99) 10/28/24 05:52 Hct 40.9 % (36-47) 10/28/24 05:52 MCV 93.6 fl (85-98) 10/28/24 05:52 MCH 30.7 pg (27-33) 10/28/24 05:52 MCHC 32.8 g/dL (30-55) 10/28/24 05:52 RDW 15.8 % (12.1-15.1) H 10/28/24 05:52 Plt Count 325 10^3/cmm (157-399) 10/28/24 05:52 MPV 9.4 fL (7.4-10.4) 10/28/24 05:52 Neut % (Auto) 72.6 % 10/28/24 05:52 Lymph % (Auto) 17.1 % 10/28/24 05:52 [place] % (Auto) 8.5 % 10/28/24 05:52 Eos % (Auto) 0.9 % 10/28/24 05:52 Baso % (Auto) 0.5 % 10/28/24 05:52 Neut # (Auto) 7.27 10^3/uL (1.8-7.7) 10/28/24 05:52 Lymph # (Auto) 1.7 10^3/uL (0.8-4.8) 10/28/24 05:52 [place] # (Auto) 0.9 10^3/uL (0.2-0.9) 10/28/24 05:52 Eos # (Auto) 0.1 10^3/uL (0.0-0.8) 10/28/24 05:52 Baso # (Auto) 0.1 10^3/uL (0.0-0.1) 10/28/24 05:52 Nucleated RBC % (auto) 0 % 10/28/24 05:52 Nucleated RBCs # 0.0 /100WBC 10/28/24 05:52 PT 41.50 SECONDS (12.1-14.9) H D 10/28/24 05:52 INR 4.12 (0.8-1.2) H 10/28/24 05:52 Sodium 137 mmol/L (136-145) 10/28/24 05:52 Potassium 4.1 mmol/L (3.5-5.1) 10/28/24 05:52 Chloride 102 mmol/L (98-107) 10/28/24 05:52 Carbon Dioxide 24 mmol/L (22-29) 10/28/24 05:52 Anion Gap 15.1 (5-19) 10/28/24 05:52 BUN 14 mg/dL (8-23) 10/28/24 05:52 Creatinine 0.8 mg/dL (0.5-0.9) 10/28/24 05:52 GFR Calculation Not Reportable 10/28/24 05:52 Glucose 89 mg/dL (65-115) 10/28/24 05:52 Calculated Osmolality 284 mOsm/kg (285-295) L 10/28/24 05:52 Calcium 8.9 mg/dL (8.5-10.5) 10/28/24 05:52 Total Bilirubin 0.3 mg/dL (0.15-1.2) 10/27/24 15:15 AST 26 U/L (0-32) 10/27/24 15:15 ALT 21 U/L (0-33) 10/27/24 15:15 Alkaline Phosphatase 71 U/L (35-105) 10/27/24 15:15 Total Protein 7.0 g/dL (6.6-8.7) 10/27/24 15:15 Albumin 4.2 g/dL (3.5-5.2) 10/27/24 15:15 Globulin 2.8 g/dL (1.3-4.6) 10/27/24 15:15 TSH 1.64 uIU/mL (0.27-4.20) 10/27/24 15:15 Blood Type O Positive 10/27/24 15:15 Rho(D) Type Rh positive 10/27/24 15:15 Vitals Last Vital Signs Temp 97.7 F 10/28/24 07:06 Pulse 89 10/28/24 07:06 Resp 16 10/28/24 07:06 BP 129/80 10/28/24 07:06 Pulse Ox 97 10/28/24 07:06 O2 Del Method Room Air 10/28/24 07:06 Discharge Plan Discharge Patient Disposition: Home Condition: Stable Prescriptions: Continued ascorbic acid (vitamin C) 1,000 mg tablet 1,000 mg PO DAILY amiodarone 200 mg tablet 200 mg PO DAILY Qty: 90 3RF metoprolol tartrate 50 mg tablet 50 mg PO BID Qty: 180 3RF naproxen [Naprosyn] 500 mg tablet 500 mg PO BID PRN (Reason: pain) Qty: 20 0RF Discontinued warfarin 4 mg tablet 4 mg PO DAILY Qty: 90 0RF Protocol: Dose Management Condition: Friday Dose/Route: 4 mg Instruction: 1 x 4 mg tablet Condition: Friday Dose/Route: 4 mg Instruction: 1 x 4 mg tablet Condition: Friday Dose/Route: 4 mg Instruction: 1 x 4 mg tablet Condition: Friday Dose/Route: 4 mg Instruction: 1 x 4 mg tablet Condition: Dose/Route: 4 mg Instruction: 1 x 4 mg tablet Condition: Friday Dose/Route: 4 mg Instruction: 1 x 4 mg tablet Condition: Friday Dose/Route: 4 mg Instruction: 1 x 4 mg tablet Protocol Text: Adjustment Start Date: 10/21/24 INR Value: 1.8 INR Date: 10/20/24 Recheck Date: 10/28/24 warfarin 3 mg tablet 3 mg PO DAILY Protocol: Dose Management Condition: Friday Dose/Route: 4 mg Instruction: 1 x 4 mg tablet Condition: Friday Dose/Route: 4 mg Instruction: 1 x 4 mg tablet Condition: Friday Dose/Route: 4 mg Instruction: 1 x 4 mg tablet Condition: Friday Dose/Route: 4 mg Instruction: 1 x 4 mg tablet Condition: Dose/Route: 4 mg Instruction: 1 x 4 mg tablet Condition: Friday Dose/Route: 4 mg Instruction: 1 x 4 mg tablet Condition: Friday Dose/Route: 4 mg Instruction: 1 x 4 mg tablet Protocol Text: Adjustment Start Date: 10/21/24 INR Value: 1.8 INR Date: 10/20/24 Recheck Date: 10/28/24 Discharge Orders: Discharge Order (Routine); Ordered 10/28/24 Ordered By: Chinedu Salinas Referrals: Tia Galdamez FNP [Nurse Practitioner] - 11/16/24 1:00 pm (with [facility]) Patient Instructions: Fall Prevention for Older Adults (GEN), Elevated INR (GEN) Activity Restrictions/Additional Instructions: As discussed, your INR has come down from over 20 down to 4. Please discontinue warfarin, follow-up with your primary doctor and with cardiology in office to further revisit regarding change of anticoagulation agent with consideration of Eliquis, Xarelto or other option as per our discussion. Seek medical attention in case of any worsening or new concerning symptoms. Discharge Attestations Time Spent in Discharge Care*: greater than 30 min Quality Metrics Clinical Quality Measures [ No reported AMI, CVA or VTE this stay] Coding Level of Care Code 71724 Total time (in minutes) for Discharge: 40 Diagnoses Supratherapeutic INR R79.1 Warfarin-induced coagulopathy D68.32; T45.515A Paroxysmal A-fib I48.0
[2024-10-28] MEDS: amiodarone 200 mg Tablet PO (11:02)
[2024-10-28] MEDS: metoprolol tartrate 50 mg Tablet PO (11:03)
[2024-10-28 11:38] VITALS: BP 136/88; PULSE 90; RESP 15; TEMP 36.8; O2SAT 98
[2024-10-28 13:57] VITALS: BP 136/88; PULSE 90; RESP 15; TEMP 36.8; O2SAT 98
== END 2024-10-28 13:25 | disposition home or self-care (01) ==
LOC: ER 19:20 → MEDSURG 20:08
PROVIDERS: Emergency Medicine; Admitting Provider Family Medicine; Emergency Provider Emergency Medicine; PCP Family Medicine Adult Medicine; Visit Provider Internal Medicine
DX: R79.1 Abnormal coagulation profile (principal); D68.32 Hemorrhagic disorder due to extrinsic circulating anticoagulants; T45.515A Adverse effect of anticoagulants, initial encounter; I48.0 Paroxysmal atrial fibrillation; Z79.01 Long term (current) use of anticoagulants; I10 Essential (primary) hypertension; R41.3 Other amnesia; Z91.81 History of falling; Z86.16 Personal history of COVID-19
CPT/HCPCS: 36415; 70450; 80048; 80053; 84443; 85025; 85610; 86900; 86927; 94664; 96374; 96375; 99285; G0378; J0360; J2470; J3430

== ENCOUNTER 2024-11-01 13:57 | Outpatient (CLI) | payer MEDICARE, SELFPAY ==
[2024-11-01 14:35] LABS: Prothrombin Time (Patient) 50.6 Seconds (12.0-15.1)
[2024-11-01 17:22] LABS: INR 5.29 (0.83-1.21)
== END 2024-11-01 13:58 | disposition home or self-care (01) ==
LOC: LAB 13:59
PROVIDERS: PCP Family Medicine Adult Medicine; Visit Provider Internal Medicine Cardiovascular Disease
DX: I48.0 Paroxysmal atrial fibrillation (principal)
CPT/HCPCS: 36415; 85610

== ENCOUNTER 2024-11-05 08:07 | Outpatient (CLI) | payer MEDICARE, SELFPAY ==
[2024-11-05 08:43] LABS: INR 3.03 (0.83-1.21); Prothrombin Time (Patient) 32.6 Seconds (12.0-15.1)
[2024-11-05 08:51] LABS: Alanine Aminotransferase 23 U/L (0-33); Albumin Level 3.8 g/dL (3.5-5.2); Alkaline Phosphatase 67 U/L (35-105); Aspartate Amino Transferase 19 U/L (0-32); Globulin 2.7 g/dL (1.3-4.6); Total Bilirubin 0.7 mg/dL (0.15-1.2); Total Protein 6.5 g/dL (6.6-8.7)
== END 2024-11-05 08:08 | disposition home or self-care (01) ==
PROVIDERS: Internal Medicine Cardiovascular Disease; PCP Family Medicine Adult Medicine; Visit Provider Family Medicine Adult Medicine
DX: R79.1 Abnormal coagulation profile (principal); I48.0 Paroxysmal atrial fibrillation; I10 Essential (primary) hypertension; I73.9 Peripheral vascular disease, unspecified
CPT/HCPCS: 36415; 80076; 85610

== ENCOUNTER 2024-11-12 07:59 | Outpatient (CLI) | payer MEDICARE, SELFPAY ==
[2024-11-12 08:35] LABS: INR 0.95 (0.8-1.2)
== END 2024-11-12 08:00 | disposition home or self-care (01) ==
LOC: LAB 08:00
PROVIDERS: PCP Family Medicine; Visit Provider Internal Medicine Cardiovascular Disease
DX: I48.0 Paroxysmal atrial fibrillation (principal)
CPT/HCPCS: 36415; 85610

== ENCOUNTER 2024-11-16 08:18 | Outpatient (CLI) | payer MEDICARE, SELFPAY ==
[2024-11-16 08:55] LABS: INR 1.24 (0.83-1.21); Prothrombin Time (Patient) 16.4 Seconds (12.0-15.1)
== END 2024-11-16 08:19 | disposition home or self-care (01) ==
LOC: LAB 08:19
PROVIDERS: PCP Family Medicine; Visit Provider Internal Medicine Cardiovascular Disease
DX: I48.0 Paroxysmal atrial fibrillation (principal); Z95.0 Presence of cardiac pacemaker; I10 Essential (primary) hypertension; Z87.891 Personal history of nicotine dependence
CPT/HCPCS: 36415; 85610; 99213

== ENCOUNTER 2024-12-23 19:05 | Emergency (ER) | payer MEDICARE, SELFPAY ==
[2024-12-23 19:08] VITALS: BP 177/107; PULSE 97; RESP 16; TEMP 36.4; O2SAT 97; BMI 20.9
--- NOTE | 2024-12-23 19:12 | CTR_ITS ---
PROCEDURE INFORMATION: Exam: CT Head Without Contrast Exam date and time: 12/23/2024 7:50 PM Age: 89 years old Clinical indication: Injury or trauma; Fall; Blunt trauma (contusions or hematomas); Additional info: Fell, hit head, headache, on anticoagulation TECHNIQUE: Imaging protocol: Computed tomography of the head without contrast. Radiation optimization: All CT scans at this facility use at least one of these dose optimization techniques: automated exposure control; mA and/or kV adjustment per patient size (includes targeted exams where dose is matched to clinical indication); or iterative reconstruction. COMPARISON: CT head wo con* [id number] 27/10/2024 16:54 RADIATION DOSE METRICS: Total DLP (mGy-cm): 1039.18 FINDINGS: Brain: There is no evidence of intracranial hemorrhage. No mass effect or midline shift. No territorial edema. There are moderate confluent periventricular hypodensities consistent with chronic microischemic changes of white matter. Cerebral ventricles: The ventricles and sulci are appropriate for the patient's age. Paranasal sinuses: There are no air-fluid levels. Mastoid air cells: The visualized mastoid air cells are well aerated. Orbital cavities: There is a scleral buckle on the left ocular globe. The postoperative changes of the ocular lenses. Bones: Unremarkable. No acute fracture. Soft tissues: A small left forehead scalp hematoma. CT/CT head wo con* [id number] IMPRESSION: 1. No acute intracranial findings. 2. Moderate cerebral small-vessel disease. 3. Age-appropriate involutional changes of brain. 4. A small left forehead scalp hematoma. 5. Postoperative changes of the ocular lenses and a left scleral buckle.
[2024-12-23 21:16] VITALS: BP 162/111; PULSE 92; O2SAT 98
--- NOTE | 2024-12-23 21:29 | CTR_ITS ---
PROCEDURE INFORMATION: Exam: CT Chest Without Contrast; Diagnostic Exam date and time: 12/23/2024 9:52 PM Age: 89 years old Clinical indication: Injury or trauma; Periumbilic; Blunt trauma (contusions or hematomas); Injury details: Fall landing on tailbone and hitting lower back; Additional info: Traumatic chest pain TECHNIQUE: Imaging protocol: Diagnostic computed tomography of the chest without contrast. Radiation optimization: All CT scans at this facility use at least one of these dose optimization techniques: automated exposure control; mA and/or kV adjustment per patient size (includes targeted exams where dose is matched to clinical indication); or iterative reconstruction. COMPARISON: CR XR chest 2V* [id number] 07/22/2024 9:56 AM RADIATION DOSE METRICS: Total DLP (mGy-cm): 0.01 FINDINGS: Lungs: Unremarkable. No consolidation. No masses. Pleural spaces: Unremarkable. No pneumothorax. No pleural effusion. Heart: Unremarkable. No cardiomegaly. No pericardial effusion. Coronary arteries: Coronary arterial atherosclerotic calcifications are present. Lymph nodes: Unremarkable. No enlarged lymph nodes. Vasculature: There is dilatation of the ascending thoracic aorta measuring to 4.1 cm from the 2 o'clock to 8 o'clock position on the axial plane at the level of the main pulmonary artery. Bones/joints: Dextroscoliosis of the thoracic spine. Moderate to severe anterior wedging of the T11 vertebral body. Soft tissues: Unremarkable. PROCEDURE INFORMATION: Exam: CT Abdomen And Pelvis Without Contrast Exam date and time: 12/23/2024 9:52 PM Age: 89 years old Clinical indication: Injury or trauma; Periumbilic; Blunt trauma (contusions or hematomas); Injury details: Fall landing on tailbone and hitting lower back; Additional info: Traumatic chest pain TECHNIQUE: Imaging protocol: Computed tomography of the abdomen and pelvis without contrast. Radiation optimization: All CT scans at this facility use at least one of these dose optimization techniques: automated exposure control; mA and/or kV adjustment per patient size (includes targeted exams where dose is matched to clinical indication); or iterative reconstruction. COMPARISON: CT abdomen pelvis w con* [id number] 01/16/2021 12:51 PM RADIATION DOSE METRICS: Total DLP (mGy-cm): 598.35 FINDINGS: Liver: Normal. No mass. Gallbladder and biliary ducts: The gallbladder is absent. Pancreas: Normal. No ductal dilation. Spleen: Normal. No splenomegaly. Adrenal glands: Normal. No mass. Kidneys and ureters: Bilateral simple appearing renal cysts are present which do not need further follow-up. Stomach and bowel: Small bowel feces sign which can be seen in the setting small intestinal bacterial overgrowth (SIBO). Appendix: The appendix is not visualized but there are no secondary signs of acute appendicitis. Intraperitoneal space: Unremarkable. No free air. No significant fluid collection. Vasculature: Severe atherosclerotic disease of the abdominal aorta and iliac arteries. Lymph nodes: Unremarkable. No enlarged lymph nodes. Urinary bladder: Unremarkable as visualized. Reproductive: Unremarkable as visualized. Bones/joints: Left hip arthroplasty. Severe multilevel degenerative disc disease throughout the lower thoracic and lumbar spine. Levoscoliosis of the lumbar spine. Partial sacralization of L5 on the left. Soft tissues: Unremarkable. CT/CT chest abdpel [id number] IMPRESSION: 1. No focal consolidation, pleural effusion or pneumothorax. 2. No traumatic injury to the thoracic aorta. 3. No acute fracture identified. 4. Old healed bilateral rib fractures. IMPRESSION: 1. Small bowel feces sign which can be seen in the setting small intestinal bacterial overgrowth (SIBO). 2. No solid organ injury in the abdomen or pelvis. 3. No secondary signs of bowel injury. No free air or significant free fluid in the abdomen or pelvis. 4. No acute fractures. COMMENTS: Consistent with the [employer]'s Incidental Findings Committee white paper (J Am Lyla Radiol 2018): Any incidental renal lesion less than 1 cm or classified as too small to characterize, or any incidental cystic renal lesion characterized as simple-appearing, is likely benign. No follow-up imaging is recommended for these lesions per consensus recommendations based on imaging criteria.
--- NOTE | 2024-12-23 21:29 | CTR_ITS ---
PROCEDURE INFORMATION: Exam: CT Maxillofacial Without Contrast Exam date and time: 12/23/2024 9:48 PM Age: 89 years old Clinical indication: Injury or trauma; Blunt trauma (contusions or hematomas); Eyelid and forehead and nose and maxilla; Upper left; Injury details: Fall hitting RT cheek, left eye, and nose; Additional info: Trauamatic facial pain TECHNIQUE: Imaging protocol: Computed tomography of the face without contrast. Radiation optimization: All CT scans at this facility use at least one of these dose optimization techniques: automated exposure control; mA and/or kV adjustment per patient size (includes targeted exams where dose is matched to clinical indication); or iterative reconstruction. COMPARISON: CT head wo con* [id number] 23/12/2024 19:50 RADIATION DOSE METRICS: Total DLP (mGy-cm): 559.08 FINDINGS: Paranasal sinuses: No air-fluid levels. Orbital cavities: Orbits are normal. Postoperative changes of the ocular lenses. A scleral buckle is present on the left ocular globe. Teeth: The patient is edentulous. Bones: No acute fracture. Soft tissues: Small left frontal scalp hematoma extending to the upper eyelid. CT/CT facial bones wo con* [id number] IMPRESSION: 1. No acute fracture. 2. Postoperative changes of the ocular lenses. 3. A scleral buckle is present on the left ocular globe. 4. Small left frontal scalp hematoma extending to the upper eyelid.
--- NOTE | 2024-12-23 22:05 | W.ED.FALL ---
HPI - Fall General: Chief Complaint: Fall Stated Complaint: Fell,really bad headache,hit head Time Seen by Provider: 12/23/24 20:26 History of Present Illness: 89-year-old female with a history of hypertension and atrial fibrillation with chronic anticoagulation on Xarelto who presents the emergency room after a fall. She had tripped and fell and ran into a wall and fell on the ground. She has some bruising around the left eye. No loss of consciousness. No altered mental status. No nausea or vomiting. She is alert and oriented. She is also complaining of some posterior rib pain, some flank pain and some right hip pain Related Data Previous Rx's ?Medication ?Instructions ?Recorded naproxen 500 mg tablet (Naprosyn) 500 mg PO BID PRN pain #20 tabs 02/26/24 amiodarone 200 mg tablet 200 mg PO DAILY #90 tabs 04/06/24 metoprolol tartrate 50 mg tablet 50 mg PO BID #180 tabs 09/01/24 rivaroxaban 15 mg tablet (Xarelto) 15 mg PO DAILY #90 tabs 11/16/24 Allergies Allergy/AdvReac Type Severity Reaction Status Date / Time adhesive tape Allergy Unknown Verified 12/23/24 10:25 Review of Systems Narrative: Constitutional symptoms: Negative except as documented in HPI. Skin symptoms: Negative except as documented in HPI. Eye symptoms: Negative except as documented in HPI. ENMT symptoms: Negative except as documented in HPI. Respiratory symptoms: Negative except as documented in HPI. Cardiovascular symptoms: Negative except as documented in HPI. Gastrointestinal symptoms: Negative except as documented in HPI. Genitourinary symptoms: Negative except as documented in HPI. Musculoskeletal symptoms: Negative except as documented in HPI. Neurologic symptoms: Negative except as documented in HPI. Psychiatric symptoms: Negative except as documented in HPI. Endocrine symptoms: Negative except as documented in HPI. PFS ED PFSH: Medical History History of colon polyps colonoscopy 01/29/2021 Dr. 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 Skin: Warm, dry. Head: Normocephalic, some bruising around the left eye. Neck: Supple, trachea midline. Eye: Extraocular movements are intact. Ears, nose, mouth and throat: mucosa moist. Cardiovascular: Regular, Normal peripheral perfusion. Respiratory: Lungs are clear to auscultation, respirations are non-labored, breath sounds are equal, Symmetrical chest wall expansion. Pain in right posterior ribs mild. Gastrointestinal: Soft, Nontender, Non distended Musculoskeletal: Normal ROM, no deformity. Some pain in the right posterior pelvic area. Neurological: Alert and oriented, No focal neurological deficit observed. Psychiatric: Cooperative, appropriate mood & affect. Course Vital Signs: Vital signs: Vital Signs Temperature 97.5 F L 12/23/24 19:08 Pulse Rate 92 12/23/24 21:16 Respiratory Rate 16 12/23/24 19:08 Blood Pressure 162/111 12/23/24 21:16 Pulse Oximetry 98 12/23/24 21:16 Oxygen Delivery Me thod Room Air 12/23/24 19:08 MDM - Fall Medical Decision Making CT head: No acute intracranial process. no intracranial hemorrhage, no evidence of infarct. no evidence of acute fracture.This was reviewed and interpreted by myself the ER physician. CT of the facial bones: No acute fractures. This was reviewed and interpreted by myself the emergency room physician. I also reviewed the radiology report. CT of the chest abdomen pelvis: No acute process. Multiple age-related changes. This was reviewed and interpreted by myself the emergency room physician. I also reviewed the radiology report. Assessment and plan: Fall Facial injury Periocular bruising Rib contusion Hip injury - Discharged home - Discussed plan with patient. Answered any questions. - Evaluation and treatment of this problem were appropriate in the emergency setting. Lab Data Radiology Impressions Head CT 12/23/24 19:12 IMPRESSION: 1. No acute intracranial findings. 2. Moderate cerebral small-vessel disease. 3. Age-appropriate involutional changes of brain. 4. A small left forehead scalp hematoma. 5. Postoperative changes of the ocular lenses and a left scleral buckle. Chest/Abdomen/Pelvis CT 12/23/24 21:29 IMPRESSION: 1. No focal consolidation, pleural effusion or pneumothorax. 2. No traumatic injury to the thoracic aorta. 3. No acute fracture identified. 4. Old healed bilateral rib fractures. IMPRESSION: 1. Small bowel feces sign which can be seen in the setting small intestinal bacterial overgrowth (SIBO). 2. No solid organ injury in the abdomen or pelvis. 3. No secondary signs of bowel injury. No free air or significant free fluid in the abdomen or pelvis. 4. No acute fractures. COMMENTS: Consistent with the [employer]'s Incidental Findings Committee white paper (J Am Lyla Radiol 2018): Any incidental renal lesion less than 1 cm or classified as too small to characterize, or any incidental cystic renal lesion characterized as simple-appearing, is likely benign. No follow-up imaging is recommended for these lesions per consensus recommendations based on imaging criteria. Face CT 12/23/24 21:29 IMPRESSION: 1. No acute fracture. 2. Postoperative changes of the ocular lenses. 3. A scleral buckle is present on the left ocular globe. 4. Small left frontal scalp hematoma extending to the upper eyelid. All radiology interpretation(s) finalized by discharge Discharge Plan Discharge Patient Disposition: Home Clinical Impression: Fall, Facial injury, Bruise of left periocular tissue, Contusion of rib, Hip injury Condition: Stable Prescriptions: No Action Xarelto 15 mg tablet 15 mg PO DAILY Qty: 90 0RF Rx Instructions: must administer with evening meal amiodarone 200 mg tablet 200 mg PO DAILY Qty: 90 3RF metoprolol tartrate 50 mg tablet 50 mg PO BID Qty: 180 3RF naproxen [Naprosyn] 500 mg tablet 500 mg PO BID PRN (Reason: pain) Qty: 20 0RF Discharge Orders: Discharge ED (Routine); Ordered 12/23/24 Ordered By: Kesha Deal Referrals: Nelly Robertson MD [Primary Care Provider] - Discharge Activity: Increase activity as tolerated Patient Instructions: Fall Prevention for Older Adults (ED), Opioid Safety, Pain Management Activity Restrictions/Additional Instructions: Thank you for choosing [facility] for your healthcare needs today. Please realize this is an emergency room and that we are providing you with a medical screening exam and this may not be complete and all inclusive of all the testing and or work up that you may need to determine your ailment or severity of your illness. You have been screened and evaluated and felt safe for discharge. Health conditions do change or evolve sometimes and as such it is important that you follow up with your Primary Doctor to be re checked, 3-5 days is a general good time frame for follow up. You are always welcome to return to the ED for re assessment if your symptoms are worsening or you have new concerns Print Language: Irish Coding Level of Care Code ED Director Credit Risk for Callie Guevara
[2024-12-23 23:40] VITALS: BP 150/94; PULSE 87; O2SAT 97
[2024-12-23 23:41] VITALS: BP 150/94; PULSE 87; O2SAT 97
== END 2024-12-23 23:42 | disposition home or self-care (01) ==
PROVIDERS: Emergency Provider Emergency Medicine; PCP Family Medicine
DX: S00.12XA Contusion of left eyelid and periocular area, initial encounter (principal); S20.20XA Contusion of thorax, unspecified, initial encounter; I10 Essential (primary) hypertension; Z87.891 Personal history of nicotine dependence; W19.XXXA Unspecified fall, initial encounter; S79.911A Unspecified injury of right hip, initial encounter
CPT/HCPCS: 70450; 70486; 71250; 74176; 99284

== ENCOUNTER → 2025-01-03 08:44 | Outpatient (BNVA) | payer MEDICARE, SELFPAY | PROVIDERS: PCP Family Medicine; Visit Provider Family Medicine Adult Medicine | DX: R39.9 Unspecified symptoms and signs involving the genitourinary system (principal) | CPT/HCPCS: 81000 ==

== ENCOUNTER 2025-01-13 07:21 | Outpatient (CLI) | payer MEDICARE, SELFPAY ==
--- NOTE | 2025-01-13 07:15 | US_ITS ---
WS: [id number] US pelvis lmt w transvag HISTORY: 1 wk postmenopausal bleeding COMPARISON: None available. No uterus identified. Patient did provide history of prior hysterectomy. There is no midline mass. No free fluid. Neither ovary is identified. Adnexa are visualized. Patient was unable to empty her urinary bladder. There is a large fluid collection in the pelvis which does appear to be the urinary bladder. The bladder is markedly distended. US/US pelvis lmt w transvag IMPRESSION: 1. Status post hysterectomy. 2. Neither uterus or ovaries are identified. 3. Mandan distended urinary bladder. Patient was unable to void prior to trans vaginal imaging. 4. Cause of patient's postmenopausal bleeding has not been identified.
== END 2025-01-13 07:22 | disposition home or self-care (01) ==
PROVIDERS: PCP Family Medicine; Visit Provider Family Medicine
DX: N95.0 Postmenopausal bleeding (principal); Z90.710 Acquired absence of both cervix and uterus; N32.89 Other specified disorders of bladder
CPT/HCPCS: 76830; 76857

== ENCOUNTER 2025-01-15 06:56 | Emergency (ER) | payer MEDICARE, SELFPAY ==
[2025-01-15 07:40] VITALS: BP 132/83; PULSE 109; RESP 18; TEMP 36.6; O2SAT 100; BMI 20.5
[2025-01-15 08:15] VITALS: BP 127/82; PULSE 95; RESP 17; O2SAT 96
[2025-01-15 08:17] LABS: Basophils % 0.2 %; Eosinophils % 0.3 %; Hematocrit 43.1 % (36-47); Lymphocytes # 0.9 10^3/uL (0.8-4.8); Lymphocytes % 7.4 %; Mean Corpuscular HGB Conc 32.5 g/dL (30-55); Mean Corpuscular Volume 95.6 fl (85-98); Mean Platelet Volume 9.3 fL (7.4-10.4); Monocytes # 0.9 10^3/uL (0.2-0.9); Monocytes % 7.1 %; Neutrophils # 10.13 10^3/uL (1.8-7.7); Neutrophils % 84.2 %; Nucleated Red Blood Cells % 0 %; Platelet Count 405 10^3/cmm (157-399); Red Blood Count 4.51 10^6/uL (3.85-5.65); Red Cell Distribution Width 14.2 % (12.1-15.1); White Blood Count 12.03 10^3/uL (3.29-11.43)
--- NOTE | 2025-01-15 08:22 | W.ED.WEAKNES ---
HPI - Weakness General: Chief complaint: Weakness Stated complaint: pain in lower back Time Seen by Provider: 01/15/25 07:25 History of Present Illness: 89-year-old female presents emergency room complaining of mild abdominal cramping pain in her lower back difficult time ambulating she can progressively weaker she has a history of small Gregg dementia. She fell about 3-4 weeks ago since then she has had a hard time getting up and around. Her symptoms began progressively worse over the last year she had no fractures at the time of the last fall. She has been having incontinence and discussing with her sounds like is overflow incontinence she does have a known cystocele.. Associated symptoms: Denies chest pain, chills, dysuria or fever(s) Review of Systems Const: Denies: fever(s) or chills Card: Denies: chest pain Resp: Denies: dyspnea GI: Denies: abdominal pain : Reports: difficulty voiding, urinary hesitancy and urinary incontinence; Denies: dysuria, urinary frequency or urinary urgency Musc: Reports: back pain; Denies: neck pain Skin/Breast: Denies: rash PFSH ED PFSH: Medical History Abnormal vaginal bleeding in postmenopausal patient History of colon polyps colonoscopy 01/29/2021 Dr. 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 Exam Const: GENERAL APPEARANCE: cooperative ORIENTATION/CONSCIOUSNESS: Yes awake HENMT: COMMON NORMALS: normocephalic, atraumatic and hearing grossly normal bilaterally HEAD & SCALP: normocephalic and atraumatic Resp: COMMON NORMALS: normal respiratory effort, No retractions, No use of accessory muscles and clear to auscultation bilaterally AUSCULTATION: clear to auscultation bilaterally Cardio: COMMON NORMALS: regular rate, regular rhythm and No murmurs present (Cardio) RATE: regular rate RHYTHM: regular rhythm GI: COMMON NORMALS: Soft to palpation and No hepatosplenomegaly present AUSCULTATION: Yes normoactive bowel sounds PALPATION: Yes Soft to palpation, No Tenderness to palpation present (GI), No Guarding due to palpation present (GI) and Yes No hepatosplenomegaly present Extremity: COMMON NORMALS: normal to inspection, capillary refill normal, no clubbing, cyanosis or edema, no calf tenderness and no pedal edema Skin: COMMON NORMALS: no rashes or lesions noted GENERAL SKIN EXAM: no rashes or lesions noted Course Vital Signs: Vital signs: Vital Signs Temperature 97.9 F 01/15/25 07:40 Pulse Rate 101 H 01/15/25 10:04 Respiratory Rate 15 01/15/25 09:54 Blood Pressure 127/87 01/15/25 10:04 Pulse Oximetry 98 01/15/25 10:04 Oxygen Delivery Me thod Room Air 01/15/25 07:40 MDM - Weakness Medical Decision Making CT did not show anything acute. We were able to get urine from her urine is normal is no sign infection there is some mild constipation on the CT. This likely worsened her incontinence issues particularly her cystocele recommend she use mag citrate to relieve the initial constipation and MiraLAX half a capful twice a day to prevent problems. She has follow-up with gynecology to look at treatment options for cystocele. As to her back pain suspect that is likely persistent from her fall she can talk to her primary care doctor about doing PT. She certainly could qualify for home health as she is essentially homebound except for doctors visits and yarsanism services. Medical Records I reviewed the patient's medical records. Lab Data I reviewed the patient's lab results. 01/15/25 08:03 01/15/25 08:03 Radiology Impressions Abdomen/Pelvis CT 01/15/25 08:36 IMPRESSION: 1. No acute findings within the abdomen or pelvis. 2. Large amount of stool throughout the colon likely reflecting some degree of constipation. 3. Moderate bladder distension presumed transient in nature. 4. Prior cholecystectomy with mild associated dilatation of the common bile duct redemonstrated. Likely reflecting some degree of constipation. Laboratory Results WBC 12.03 10^3/uL (3.29-11.43) H 01/15/25 08:03 RBC 4.51 10^6/uL (3.85-5.65) 01/15/25 08:03 Hgb 14.00 g/dL (11.27-16.99) 01/15/25 08:03 Hct 43.1 % (36-47) 01/15/25 08:03 MCV 95.6 fl (85-98) 01/15/25 08:03 MCH 31.0 pg (27-33) 01/15/25 08:03 MCHC 32.5 g/dL (30-55) 01/15/25 08:03 RDW 14.2 % (12.1-15.1) 01/15/25 08:03 Plt Count 405 10^3/cmm (157-399) H 01/15/25 08:03 MPV 9.3 fL (7.4-10.4) 01/15/25 08:03 Neut % (Auto) 84.2 % 01/15/25 08:03 Lymph % (Auto) 7.4 % 01/15/25 08:03 Greene % (Auto) 7.1 % 01/15/25 08:03 Eos % (Auto) 0.3 % 01/15/25 08:03 Baso % (Auto) 0.2 % 01/15/25 08:03 Neut # (Auto) 10.13 10^3/uL (1.8-7.7) H 01/15/25 08:03 Lymph # (Auto) 0.9 10^3/uL (0.8-4.8) 01/15/25 08:03 Greene # (Auto) 0.9 10^3/uL (0.2-0.9) 01/15/25 08:03 Eos # (Auto) 0.0 10^3/uL (0.0-0.8) 01/15/25 08:03 Baso # (Auto) 0.0 10^3/uL (0.0-0.1) 01/15/25 08:03 Nucleated RBC % (auto) 0 % 01/15/25 08:03 Nucleated RBCs # 0.0 /100WBC 01/15/25 08:03 Sodium 135 mmol/L (136-145) L 01/15/25 08:03 Potassium 3.5 mmol/L (3.5-5.1) 01/15/25 08:03 Chloride 97 mmol/L (98-107) L 01/15/25 08:03 Carbon Dioxide 27 mmol/L (22-29) 01/15/25 08:03 Anion Gap 14.5 (5-19) 01/15/25 08:03 BUN 17 mg/dL (8-23) 01/15/25 08:03 Creatinine 0.9 mg/dL (0.5-0.9) 01/15/25 08:03 GFR Calculation Not Reportable 01/15/25 08:03 Glucose 109 mg/dL (65-115) 01/15/25 08:03 Calculated Osmolality 282 mOsm/kg (285-295) L 01/15/25 08:03 Calcium 8.9 mg/dL (8.5-10.5) 01/15/25 08:03 Total Bilirubin 0.8 mg/dL (0.15-1.2) 01/15/25 08:03 AST 14 U/L (0-32) 01/15/25 08:03 ALT 16 U/L (0-33) 01/15/25 08:03 Alkaline Phosphatase 139 U/L (35-105) H 01/15/25 08:03 Total Protein 6.3 g/dL (6.6-8.7) L 01/15/25 08:03 Albumin 3.5 g/dL (3.5-5.2) 01/15/25 08:03 Globulin 2.8 g/dL (1.3-4.6) 01/15/25 08:03 Urine Color Yellow (Yellow) 01/15/25 09:32 Urine Appearance Clear (CLEAR) 01/15/25 09:32 Urine pH 6.0 (5-7) 01/15/25 09:32 Ur Specific Hayes 1.012 (1.005-1.030) 01/15/25 09:32 Urine Protein Negative (Negative) 01/15/25 09:32 Urine Glucose (UA) Negative (Normal) 01/15/25 09:32 Urine Ketones Negative (Negative) 01/15/25 09:32 Urine Blood Negative (Negative) 01/15/25 09:32 Urine Nitrate Negative (Negative) 01/15/25 09:32 Urine Bilirubin Negative (Negative) 01/15/25 09:32 Urine Urobilinogen 1.0 mg/dL (Negative) 01/15/25 09:32 Ur Leukocyte Esterase Negative (Negative) 01/15/25 09:32 Urine RBC 0-2 /hpf (0-2) 01/15/25 09:32 Urine WBC 0-5 /hpf (0-5) 01/15/25 09:32 Ur Squamous Epith Cells 0-5 /hpf (0-5) 01/15/25 09:32 Amorphous Sediment Not Reportable 01/15/25 09:32 Urine Bacteria None seen /hpf (NONE) 01/15/25 09:32 Hyaline Casts 0.40 /lpf 01/15/25 09:32 All radiology interpretation(s) finalized by discharge Discharge Plan Discharge Patient Disposition: Home Clinical Impression: Back pain, lumbosacral, Short-term memory loss, Constipation, Bladder cystocele Urinary incontinence Qualifiers: Urinary Incontinence type: urge incontinence Qualified Code(s): N39.41 - Urge incontinence Condition: Stable Prescriptions: New polyethylene glycol 3350 [Miralax] 17 gram/dose powder 8.5 g PO BID Qty: 850 0RF No Action amiodarone 200 mg tablet 200 mg PO DAILY Qty: 90 3RF metoprolol tartrate 50 mg tablet 50 mg PO BID Qty: 180 3RF Xarelto 15 mg tablet 15 mg PO QPM Rx Instructions: must administer with evening meal Discharge Orders: Discharge ED (Routine); Ordered 03/08/25 Ordered By: Anson Camarillo Referrals: Nelly Robertson MD [Primary Care Provider] - Discharge Diet: Usual diet Discharge Activity: Resume usual activity Patient Instructions: Opioid Safety, Pain Management Activity Restrictions/Additional Instructions: Thank you for choosing [facility] for your healthcare needs today. It is very important that you follow up as instructed or that you return to the Emergency Department should you have concerns or if your condition changes or worsens in any way. You were seen in the emergency room with complaints of back pain and urinary incontinence. CT scan and laboratory test did not show any acute problems there was some moderate constipation which will make emptying bladder more difficult. Recommend you start MiraLAX to improve the constipation. There is no sign of bladder infection kidney function was normal. There are no signs of any new compression fractures in the low back. Recommend following up with your primary care doctor regarding the chronic back pain. Recommend following up with the human resources associate regarding cystocele (bladder drop) for treatment options. Continue your other medications as previously prescribed. Print Language: Maltese Coding Level of Care Code ED Travelers' Aid Worker for Chg Fwd Related Data Home Medications ?Medication ?Instructions ?Recorded ?Confirmed rivaroxaban 15 mg tablet (Xarelto) 15 mg PO QPM 01/15/25 01/15/25 Previous Rx's ?Medication ?Instructions ?Recorded amiodarone 200 mg tablet 200 mg PO DAILY #90 tabs 04/06/24 metoprolol tartrate 50 mg tablet 50 mg PO BID #180 tabs 09/01/24 polyethylene glycol 3350 17 8.5 g PO BID #850 grams 01/15/25 gram/dose oral powder (Miralax) Allergies Allergy/AdvReac Type Severity Reaction Status Date / Time adhesive tape Allergy Unknown Verified 01/15/25 07:57
[2025-01-15 08:34] LABS: Alanine Aminotransferase 16 U/L (0-33); Albumin Level 3.5 g/dL (3.5-5.2); Alkaline Phosphatase 139 U/L (35-105); Anion Gap 14.5 (5-19); Aspartate Amino Transferase 14 U/L (0-32); Blood Urea Nitrogen 17 mg/dL (8-23); Calcium 8.9 mg/dL (8.5-10.5); Carbon Dioxide 27 mmol/L (22-29); Chloride 97 mmol/L (98-107); Creatinine Clr Calc Pharmacy 37.2374; Globulin 2.8 g/dL (1.3-4.6); Glucose 109 mg/dL (65-115); Osmolality Calculated 282 mOsm/kg (285-295); Potassium 3.5 mmol/L (3.5-5.1); Sodium 135 mmol/L (136-145); Total Bilirubin 0.8 mg/dL (0.15-1.2); Total Protein 6.3 g/dL (6.6-8.7)
--- NOTE | 2025-01-15 08:36 | CTR_ITS ---
PROCEDURE INFORMATION: Exam: CT Abdomen And Pelvis Without Contrast Exam date and time: 01/15/2025 8:44 AM Age: 89 years old Clinical indication: Abdominal pain and other: Back; Generalized; Additional info: Back pain abdominal pain TECHNIQUE: Imaging protocol: Computed tomography of the abdomen and pelvis without contrast. Radiation optimization: All CT scans at this facility use at least one of these dose optimization techniques: automated exposure control; mA and/or kV adjustment per patient size (includes targeted exams where dose is matched to clinical indication); or iterative reconstruction. COMPARISON: [place] [id number] 12/23/2024 9:52 PM RADIATION DOSE METRICS: Total DLP (mGy-cm): 401.81 FINDINGS: Lungs: Small left basilar pleural effusion developed from prior study. Liver: Normal. No mass. Gallbladder and biliary ducts: Gallbladder has been removed. Mild dilatation common bile duct unchanged. Pancreas: Normal. No ductal dilation. Spleen: Normal. No splenomegaly. Adrenal glands: Normal. No mass. Kidneys and ureters: Bilateral renal cysts redemonstrated. No calculi or hydronephrosis. Stomach and bowel: Large amount of stool throughout the colon increased in extent from prior study in Appendix: No evidence of appendicitis. Intraperitoneal space: Unremarkable. No free air. No significant fluid collection. Vasculature: Abdominal aorta and iliac vessels are diffusely calcified. There is no aortic aneurysm. Lymph nodes: Unremarkable. No enlarged lymph nodes. Urinary bladder: Urinary bladder is moderately distended which may be transient. There is mild prolapse of the bladder floor unchanged. Reproductive: Uterus has been removed. Bones/joints: Mild scoliosis with advanced asymmetric degenerative changes throughout the lumbar spine. Chronic wedge-shaped compression fractures of the thoracic spine, stable. Prior left hip replacement. No acute bony abnormalities. Soft tissues: Unremarkable. CT/CT abdomen pelvis wo con [id number] IMPRESSION: 1. No acute findings within the abdomen or pelvis. 2. Large amount of stool throughout the colon likely reflecting some degree of constipation. 3. Moderate bladder distension presumed transient in nature. 4. Prior cholecystectomy with mild associated dilatation of the common bile duct redemonstrated. Likely reflecting some degree of constipation.
[2025-01-15 09:43] LABS: Bilirubin Urine Negative (Negative); Blood Urine Negative (Negative); Glucose Urine UA Negative (Normal); Ketones Urine Negative (Negative); Leukocyte Esterase Urine Negative (Negative); Nitrate Urine Negative (Negative); Protein Urine Negative (Negative); Specific Gravity, Urine 1.012 (1.005-1.030); Urine Appearance Clear (CLEAR); Urine Color Yellow (Yellow)
[2025-01-15 09:48] LABS: Add Urine Microscopic? YES; Bacteria Urine None Seen /hpf; RBC Urine 0-2 /hpf (0-2); Squamous Epithelial Cell Urine 0-5 /hpf (0-5); WBC Urine 0-5 /hpf (0-5)
[2025-01-15 09:54] VITALS: BP 121/78; PULSE 90; RESP 15; O2SAT 96
[2025-01-15 10:04] VITALS: BP 127/87; PULSE 101; O2SAT 98
== END 2025-01-15 10:04 | disposition home or self-care (01) ==
PROVIDERS: Emergency Provider Family Medicine; PCP Family Medicine
DX: M54.50 Low back pain, unspecified (principal); R41.3 Other amnesia; K59.00 Constipation, unspecified; N81.10 Cystocele, unspecified; N39.41 Urge incontinence; Z87.891 Personal history of nicotine dependence; I10 Essential (primary) hypertension
CPT/HCPCS: 74176; 80053; 81001; 85025; 99284

== ENCOUNTER 2025-01-18 13:46 | Emergency (ER) | payer MEDICARE, SELFPAY ==
[2025-01-18 13:54] VITALS: BP 152/99; PULSE 91; RESP 16; TEMP 36.8; O2SAT 97; BMI 20.5
[2025-01-18 14:58] LABS: Basophils % 0.3 %; Eosinophils % 0.3 %; Hematocrit 42.7 % (36-47); Lymphocytes # 0.9 10^3/uL (0.8-4.8); Lymphocytes % 7.6 %; Mean Corpuscular HGB Conc 31.9 g/dL (30-55); Mean Corpuscular Hemoglobin 31.6 pg (27-33); Mean Corpuscular Volume 99.1 fl (85-98); Mean Platelet Volume 9.5 fL (7.4-10.4); Monocytes # 0.9 10^3/uL (0.2-0.9); Neutrophils # 9.35 10^3/uL (1.8-7.7); Neutrophils % 83.4 %; Nucleated Red Blood Cells % 0 %; Platelet Count 377 10^3/cmm (157-399); Red Blood Count 4.31 10^6/uL (3.85-5.65); Red Cell Distribution Width 14.1 % (12.1-15.1); White Blood Count 11.19 10^3/uL (3.29-11.43)
[2025-01-18 15:16] LABS: INR 2.37 (0.8-1.2)
[2025-01-18 15:20] LABS: Alanine Aminotransferase 14 U/L (0-33); Alkaline Phosphatase 137 U/L (35-105); Anion Gap 15.9 (5-19); Aspartate Amino Transferase 13 U/L (0-32); Blood Urea Nitrogen 17 mg/dL (8-23); Calcium 8.5 mg/dL (8.5-10.5); Carbon Dioxide 22 mmol/L (22-29); Chloride 98 mmol/L (98-107); Creatinine Clr Calc Pharmacy 41.8921; Globulin 2.8 g/dL (1.3-4.6); Glucose 103 mg/dL (65-115); Lipase 23 U/L (13-60); Osmolality Calculated 276 mOsm/kg (285-295); Potassium 3.9 mmol/L (3.5-5.1); Sodium 132 mmol/L (136-145); Total Bilirubin 0.7 mg/dL (0.15-1.2); Total Protein 5.8 g/dL (6.6-8.7)
[2025-01-18 15:27] VITALS: BP 129/88; PULSE 96; O2SAT 97
--- NOTE | 2025-01-18 15:36 | W.ED.GIBLEED ---
HPI - GI Bleed General: Chief complaint: GI Bleed Stated complaint: pain and bleeding from bottom, lower back pain Time Seen by Provider: 01/18/25 14:34 History of Present Illness: 89-year-old female presents emergency room with complaint of rectal bleeding we have seen her before she reported she had a cystocele that bulges when she went to urinate. At that time CT shows evidence of urinary retention but no significant residual was noted when cath was placed so she was discharged home without a Garcias. Patient has had some cognitive and physical decline over the last few months. Then ongoing she is in bed with her depends show COVID cognitive there was you go she stand up she will have significant loss of urine. Mom also noticed tissue protruding from the rectum. She is having some irritation and bleeding from there. She is on Xarelto for her A-fib. She denies any fever sweats chills or abdominal pain. Associated symptoms: Denies abdominal pain, chills, fever(s) or rash Related Data Home Medications ?Medication ?Instructions ?Recorded ?Confirmed rivaroxaban 15 mg tablet (Xarelto) 15 mg PO QPM 01/15/25 01/18/25 naproxen sodium 220 mg tablet 220 mg PO Q12H PRN Fever Or Pain 01/18/25 01/18/25 (Aleve) Previous Rx's ?Medication ?Instructions ?Recorded amiodarone 200 mg tablet 200 mg PO DAILY #90 tabs 04/06/24 metoprolol tartrate 50 mg tablet 50 mg PO BID #180 tabs 09/01/24 polyethylene glycol 3350 17 8.5 g PO BID #850 grams 01/15/25 gram/dose oral powder (Miralax) aspirin 325 mg tablet 325 mg PO DAILY #30 tabs 01/18/25 cephalexin 500 mg tablet 500 mg PO TID 7 days #21 tabs 01/18/25 tamsulosin 0.4 mg capsule (Flomax) 0.4 mg PO DAILY #30 caps 01/18/25 Allergies Allergy/AdvReac Type Severity Reaction Status Date / Time adhesive tape Allergy Unknown Verified 01/15/25 07:57 Review of Systems Const: Denies: fever(s) or chills Card: Denies: chest pain Resp: Denies: dyspnea GI: Reports: hematochezia; Denies: abdominal pain : Denies: dysuria, urinary frequency or urinary urgency Musc: Denies: neck pain or back pain Skin/Breast: Denies: rash PFSH ED PFSH: Medical History Abnormal vaginal bleeding in postmenopausal patient History of colon polyps colonoscopy 01/29/2021 Dr. 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 Exam Const: COMMON NORMALS: no acute distress GENERAL APPEARANCE: cooperative and comfortable ORIENTATION/CONSCIOUSNESS: Yes awake, Yes oriented to person, Yes oriented to place and Yes oriented to time HENMT: COMMON NORMALS: normocephalic, atraumatic and hearing grossly normal bilaterally HEAD & SCALP: normocephalic and atraumatic Resp: COMMON NORMALS: normal respiratory effort, No retractions, No use of accessory muscles and clear to auscultation bilaterally AUSCULTATION: clear to auscultation bilaterally Cardio: COMMON NORMALS: regular rate, regular rhythm and No murmurs present (Cardio) RATE: regular rate RHYTHM: regular rhythm GI: COMMON NORMALS: Soft to palpation and No hepatosplenomegaly present AUSCULTATION: Yes normoactive bowel sounds PALPATION: Yes Soft to palpation, No Tenderness to palpation present (GI), No Guarding due to palpation present (GI) and Yes No hepatosplenomegaly present OTHER: Examination rectal area with nurse present patient has a chronic rectal prolapse. There is no active bleeding there is some oozing from the rectal tissue that is prolapsing. It is not ischemic. Extremity: COMMON NORMALS: normal to inspection, capillary refill normal, no clubbing, cyanosis or edema, no calf tenderness and no pedal edema Neuro: SENSORIUM/ORIENTATION: Yes oriented to person, Yes oriented to place and Yes oriented to time Skin: COMMON NORMALS: no rashes or lesions noted GENERAL SKIN EXAM: no rashes or lesions noted Course Vital Signs: Vital signs: Vital Signs Temperature 98.2 F 01/18/25 13:54 Pulse Rate 97 01/18/25 17:34 Respiratory Rate 16 01/18/25 17:34 Blood Pressure 139/94 01/18/25 17:34 Pulse Oximetry 96 01/18/25 17:34 Oxygen Delivery Me thod Room Air 01/18/25 16:58 MDM - GI Bleed Medical Decision Making Hemoglobin stable. Patient does have pretty significant rectal prolapse it is nonischemic has been present for some time. It is reducible at home but then recurs almost immediately. Recommend having her hold her Xarelto we discussed risks versus benefits, and lieu of Xarelto take full-size aspirin. She did previously have hemorrhoids noted on a colonoscopy concerned that her INR today is 2.37 on Xarelto. If she begins to have more aggressive bleeding from rectal prolapse could be significant. At this point her hemoglobin is stable she does not have signs of active or significant bleeding. Will refer her to colorectal surgery. She can apply topical water-based lubricants to the prolapse to keep the tissue moist. Avoid straining. Last visit we would recommend starting her on MiraLAX she should continue that. Patient does have significant postvoid residual Garcias placed discharged with leg bag. Follow-up with her primary care. Case management to make arrangements for follow-up with colorectal surgery Medical Records I reviewed the patient's medical records. Lab Data I reviewed the patient's lab results. 01/18/25 14:50 01/18/25 14:50 Laboratory Results WBC 11.19 10^3/uL (3.29-11.43) 01/18/25 14:50 RBC 4.31 10^6/uL (3.85-5.65) 01/18/25 14:50 Hgb 13.60 g/dL (11.27-16.99) 01/18/25 14:50 Hct 42.7 % (36-47) 01/18/25 14:50 MCV 99.1 fl (85-98) H 01/18/25 14:50 MCH 31.6 pg (27-33) 01/18/25 14:50 MCHC 31.9 g/dL (30-55) 01/18/25 14:50 RDW 14.1 % (12.1-15.1) 01/18/25 14:50 Plt Count 377 10^3/cmm (157-399) 01/18/25 14:50 MPV 9.5 fL (7.4-10.4) 01/18/25 14:50 Neut % (Auto) 83.4 % 01/18/25 14:50 Lymph % (Auto) 7.6 % 01/18/25 14:50 [place] % (Auto) 8.0 % 01/18/25 14:50 Eos % (Auto) 0.3 % 01/18/25 14:50 Baso % (Auto) 0.3 % 01/18/25 14:50 Neut # (Auto) 9.35 10^3/uL (1.8-7.7) H 01/18/25 14:50 Lymph # (Auto) 0.9 10^3/uL (0.8-4.8) 01/18/25 14:50 [place] # (Auto) 0.9 10^3/uL (0.2-0.9) 01/18/25 14:50 Eos # (Auto) 0.0 10^3/uL (0.0-0.8) 01/18/25 14:50 Baso # (Auto) 0.0 10^3/uL (0.0-0.1) 01/18/25 14:50 Nucleated RBC % (auto) 0 % 01/18/25 14:50 Nucleated RBCs # 0.0 /100WBC 01/18/25 14:50 PT 27.30 SECONDS (12.1-14.9) H 01/18/25 14:50 INR 2.37 (0.8-1.2) H 01/18/25 14:50 Sodium 132 mmol/L (136-145) L 01/18/25 14:50 Potassium 3.9 mmol/L (3.5-5.1) 01/18/25 14:50 Chloride 98 mmol/L (98-107) 01/18/25 14:50 Carbon Dioxide 22 mmol/L (22-29) 01/18/25 14:50 Anion Gap 15.9 (5-19) 01/18/25 14:50 BUN 17 mg/dL (8-23) 01/18/25 14:50 Creatinine 0.7 mg/dL (0.5-0.9) 01/18/25 14:50 GFR Calculation Not Reportable 01/18/25 14:50 Glucose 103 mg/dL (65-115) 01/18/25 14:50 Calculated Osmolality 276 mOsm/kg (285-295) L 01/18/25 14:50 Calcium 8.5 mg/dL (8.5-10.5) 01/18/25 14:50 Total Bilirubin 0.7 mg/dL (0.15-1.2) 01/18/25 14:50 AST 13 U/L (0-32) 01/18/25 14:50 ALT 14 U/L (0-33) 01/18/25 14:50 Alkaline Phosphatase 137 U/L (35-105) H 01/18/25 14:50 Total Protein 5.8 g/dL (6.6-8.7) L 01/18/25 14:50 Albumin 3.0 g/dL (3.5-5.2) L 01/18/25 14:50 Globulin 2.8 g/dL (1.3-4.6) 01/18/25 14:50 Lipase 23 U/L (13-60) 01/18/25 14:50 Urine Color Yellow (Yellow) 01/18/25 16:56 Urine Appearance Clear (CLEAR) 01/18/25 16:56 Urine pH 5.5 (5-7) 01/18/25 16:56 Ur Specific [place] 1.018 (1.005-1.030) 01/18/25 16:56 Urine Protein Trace (Negative) A 01/18/25 16:56 Urine Glucose (UA) Negative (Normal) 01/18/25 16:56 Urine Ketones Trace (Negative) 01/18/25 16:56 Urine Blood Negative (Negative) 01/18/25 16:56 Urine Nitrate Negative (Negative) 01/18/25 16:56 Urine Bilirubin Negative (Negative) 01/18/25 16:56 Urine Urobilinogen 1.0 mg/dL (Negative) 01/18/25 16:56 Ur Leukocyte Esterase Negative (Negative) 01/18/25 16:56 Urine RBC 6-10 /hpf (0-2) 01/18/25 16:56 Urine WBC 0-5 /hpf (0-5) 01/18/25 16:56 Ur Squamous Epith Cells 0-5 /hpf (0-5) 01/18/25 16:56 Calcium Oxalate Crystal 5-10 /hpf H 01/18/25 16:56 Amorphous Sediment 1+ /hpf 01/18/25 16:56 Urine Bacteria 1+ /hpf (NONE) H 01/18/25 16:56 Hyaline Casts 0.81 /lpf 01/18/25 16:56 No radiology studies performed this visit Discharge Plan Discharge Patient Disposition: Home Clinical Impression: Rectal prolapse, Paroxysmal A-fib, Urinary retention Condition: Stable Prescriptions: New aspirin 325 mg tablet 325 mg PO DAILY Qty: 30 0RF tamsulosin [Flomax] 0.4 mg capsule 0.4 mg PO DAILY Qty: 30 0RF cephalexin 500 mg tablet 500 mg PO TID 7 Days Qty: 21 0RF No Action amiodarone 200 mg tablet 200 mg PO DAILY Qty: 90 3RF metoprolol tartrate 50 mg tablet 50 mg PO BID Qty: 180 3RF Xarelto 15 mg tablet 15 mg PO QPM Rx Instructions: must administer with evening meal polyethylene glycol 3350 [Miralax] 17 gram/dose powder 8.5 g PO BID Qty: 850 0RF naproxen sodium [Aleve] 220 mg Tablet 220 mg PO Q12H PRN (Reason: Fever Or Pain) Discharge Orders: Discharge ED (Routine); Ordered 01/18/25 Ordered By: Anson Camarillo Referrals: Nelly Robertson MD [Primary Care Provider] - Discharge Diet: Usual diet Discharge Activity: Increase activity as tolerated Patient Instructions: Garcias Catheter Placement and Care (ED), Rectocele (ED), Rectal Prolapse (ED), How to Change a Catheter Drainage Bag (DC), Opioid Safety, Pain Management Activity Restrictions/Additional Instructions: Thank you for choosing [facility] for your healthcare needs today. It is very important that you follow up as instructed or that you return to the Emergency Department should you have concerns or if your condition changes or worsens in any way. You are seen emergency room with complaints of bleeding from the rectum and protruding tissue from the rectum. This called a rectal prolapse. Will have case management make a referral to colorectal surgery. Do recommend that you consider stopping your Xarelto. There is a risk of stroke with your history of A-fib however since you are having bleeding from the rectal prolapse now and your INR is somewhat elevated for patient on Xarelto and it is recommended to hold the Xarelto for now. Apply Vaseline or topical water-based lubricants to the rectal prolapse for comfort. Print Language: Hong Konger Coding Level of Care Code ED Security And Compliance Analyst for Callie Guevara
--- NOTE | 2025-01-18 15:52 | ECG_ITS ---
[facility]: 2025-[facility]18 Pat Name: Esthela Billings Department: Room: Gender: Female Strategic Account Director: : 1935 Requested By: Anson Escoto Order Number: [id number] Marcy MD: Mahesh Scott M.D. Measurements Intervals [place] Rate: 83 P: 0 UT: 0 QRS: -23 QRSD: 105 T: 47 QT: 364 QTc: 429 Interpretive Statements ATRIAL FIBRILLATION ANTEROSEPTAL MYOCARDIAL INFARCTION , OF INDETERMINATE AGE [40+ ms Q WAVE IN V1-V4] Compared to ECG 06/13/2023 10:54:48 Atrial-paced complex(es) or rhythm no longer present Myocardial infarct finding still present Electronically Signed On 01-21-2025 19:14:51 CDT by Mahesh Scott M.D. [email or web address]
[2025-01-18 16:17] VITALS: BP 131/94; PULSE 97; RESP 16; O2SAT 96
--- NOTE | 2025-01-18 16:17 | PC.NURSE ---
this nurse assumed pt care at 1615 from [place] BOURGEOIS.
[2025-01-18 16:58] VITALS: BP 133/80; PULSE 107; RESP 16; O2SAT 96
[2025-01-18 17:15] LABS: Bilirubin Urine Negative (Negative); Blood Urine Negative (Negative); Glucose Urine UA Negative (Normal); Ketones Urine Trace (Negative); Leukocyte Esterase Urine Negative (Negative); Nitrate Urine Negative (Negative); Protein Urine Trace (Negative); Specific Gravity, Urine 1.018 (1.005-1.030); Urine Appearance Clear (CLEAR); Urine Color Yellow (Yellow); pH Urine 5.5 (5-7)
[2025-01-18 17:23] LABS: Add Urine Microscopic? YES; Hyaline Casts Urine 0.81 /lpf; Squamous Epithelial Cell Urine 0-5 /hpf (0-5); WBC Urine 0-5 /hpf (0-5)
[2025-01-18 17:34] VITALS: BP 139/94; PULSE 97; RESP 16; O2SAT 96
[2025-01-18 17:40] LABS: UA Slide Review UA Slide Review Perf
[2025-01-18 17:44] LABS: Add Urine Culture? No; Amorphous Sediment Urine 1+ /hpf; Bacteria Urine 1+ /hpf
[2025-01-18] MEDS: cefTRIAXone 1,000 MG in water for injection-sterile 2.1 ML 2.1 MG IM (18:25)
--- NOTE | 2025-01-20 10:19 | DCPLANNER ---
faxed referral packet to [facility] colon [facility] rectal (f)[phone]. (ph)[phone].
== END 2025-01-18 18:50 | disposition home or self-care (01) ==
PROVIDERS: Emergency Medicine; Family Medicine; Emergency Provider Emergency Medicine; PCP Family Medicine
DX: K62.3 Rectal prolapse (principal); I48.0 Paroxysmal atrial fibrillation; R33.9 Retention of urine, unspecified; Z87.891 Personal history of nicotine dependence; I10 Essential (primary) hypertension
CPT/HCPCS: 36415; 80053; 81001; 83690; 85025; 85610; 93005; 96372; 99284; J0696

== ENCOUNTER 2025-02-14 09:34 | Emergency (ER) | payer MEDICARE, SELFPAY ==
[2025-02-14 09:40] VITALS: BP 145/102; PULSE 101; RESP 16; TEMP 36.9; O2SAT 97
[2025-02-14 10:28] LABS: Basophils % 0.3 %; Eosinophils % 0.4 %; Hematocrit 39.9 % (36-47); Lymphocytes # 0.9 10^3/uL (0.8-4.8); Lymphocytes % 7.9 %; Mean Corpuscular HGB Conc 31.6 g/dL (30-55); Mean Corpuscular Hemoglobin 30.7 pg (27-33); Mean Corpuscular Volume 97.1 fl (85-98); Mean Platelet Volume 9.2 fL (7.4-10.4); Monocytes # 0.7 10^3/uL (0.2-0.9); Monocytes % 6.6 %; Neutrophils # 9.36 10^3/uL (1.8-7.7); Neutrophils % 84.4 %; Nucleated Red Blood Cells % 0 %; Platelet Count 405 10^3/cmm (157-399); Red Blood Count 4.11 10^6/uL (3.85-5.65); Red Cell Distribution Width 14.8 % (12.1-15.1); White Blood Count 11.07 10^3/uL (3.29-11.43)
[2025-02-14 10:52] LABS: Alanine Aminotransferase 14 U/L (0-33); Albumin Level 3.7 g/dL (3.5-5.2); Alkaline Phosphatase 226 U/L (35-105); Anion Gap 13.6 (5-19); Aspartate Amino Transferase 14 U/L (0-32); Blood Urea Nitrogen 21 mg/dL (8-23); Carbon Dioxide 24 mmol/L (22-29); Chloride 100 mmol/L (98-107); Creatinine Clr Calc Pharmacy 37.9801; Globulin 2.9 g/dL (1.3-4.6); Glucose 109 mg/dL (65-115); Osmolality Calculated 282 mOsm/kg (285-295); Potassium 3.6 mmol/L (3.5-5.1); Sodium 134 mmol/L (136-145); Total Bilirubin 0.6 mg/dL (0.15-1.2); Total Protein 6.6 g/dL (6.6-8.7)
--- NOTE | 2025-02-14 12:38 | PC.PHAR ---
patient states she stopped taking xarelto 15mg for just the aspirin 325
--- NOTE | 2025-02-14 12:48 | ED_ITS ---
HPI - Female Genitourinary 2 General: Chief complaint: Urogenital-Female Stated complaint: santoro come out Time Seen by Provider: 02/14/25 09:39 History of Present Illness: 89-year-old female presents to the emerg ency room after Santoro came out a few days ago. Patient has a known rectocele she is going to see colorectal surgery the rectocele is resulted in urinary overflow incontinence and urinary retention so she had a Santoro in place she has a little bit of cognitive decline a few days ago came out family decided to just observe and she was he was able to manage on her own however she is having uncontrollable overflow incontinence and would like to have it replaced. She not had any fever sweats or chills no dysuria urgency or frequency Associated symptoms: Deny abdominal pain Related Data Home Medications ?Medication ?Instructions ?Recorded ?Confirmed naproxen sodium 220 mg tablet 220 mg PO Q12H PRN Fever Or Pain 01/18/25 02/14/25 (Aleve) Previous Rx's ?Medication ?Instructions ?Recorded amiodarone 200 mg tablet 200 mg PO DAILY #90 tabs metoprolol tartrate 50 mg tablet 50 mg PO BID #180 tab s 09/01/24 aspirin 325 mg tablet 325 mg PO DAILY #30 tabs 10/04 tamsulosin 0.4 mg capsule (Flomax) 0.4 mg PO DAILY #30 caps 01/18/25 cefdinir 300 mg capsule 300 mg PO BID 5 days #10 cap s 02/14/25 Allergies Allergy/AdvReac Type Severity Reaction Status Date / Time adhesive tape Allergy Unknown Verified 02/14/25 09:45 Review of Systems 2 Const: Denies: fever(s) or chills Card: Denies: chest pain Resp: Denies: dyspnea GI: Denies: abdominal pain : Denies: dysuria, urinary frequency or urinary urgency Musc: Denies: neck pain or back pain Skin/Breast: Denies: rash PFSH ED 2 PFSH: Medical History Abnormal vaginal bleeding in postmenopausal patient History of colon polyps colonoscopy 01/29/2021 Dr. 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 Exam 2 Const: COMMON NORMALS: no acute distress GENERAL APPEARANCE: cooperative and comfortable ORIENTATION/CONSCIOUSNESS: Yes awake HENMT: COMMON NORMALS: normocephalic, atraumatic and hearing grossly normal bilaterally HEAD & SCALP: normocephalic and atraumatic Resp: COMMON NORMALS: normal respiratory effort, No retractions, No use of accessory muscles and clear to auscultation bilaterally AUSCULTATION: clear to auscultation bilaterally Cardio: COMMON NORMALS: regular rate, regular rhythm and No murmurs present (Cardio) RATE: regular rate RHYTHM: regular rhythm GI: COMMON NORMALS: Soft to palpation and No hepatosplenomegaly present A USCULTATION: Yes normoactive bowel sounds PALPATION: Yes Soft to palpation, No Tenderness to palpation present (GI), No Guarding due to palpation present (GI) and Yes No hepatosplenomegaly present Extremity: COMMON NORMALS: normal to inspection, capillary refill normal, no clubbing, cyanosis or edema, no calf tenderness and no pedal edema Skin: COMMON NORMALS: no rashes or lesions noted GENERAL SKIN EXAM: no rashes or lesions noted Course 2 Vital Signs: Vital signs: Vital Signs Temperature 98.5 F 02/14/25 09:40 Pulse Rate 96 02/14/25 14:22 Respiratory Rate 18 02/14/25 13:40 Blood Pressure 139/95 02/14/25 14:22 Pulse Oximetry 98 02/14/25 14:22 Oxygen Delivery Me thod Room Air 02/14/25 13:40 MDM - Female Medical Decision Making Santoro replaced patient significant retention of urine over 600 mL out immediately after was placed. Discharged home with a Santoro leg bag continued routine care follow-up with colorectal surgery as planned to repair her rectocele. Medical Records I reviewed the patient's medical records. Lab Data I reviewed the patient's lab results. 02/14/25 10:20 02/14/25 10:20 Laboratory Results WBC 11.07 10^3/uL (3.29-11.43) 02/14/25 10:20 RBC 4.11 10^6/uL (3.85-5.65) 02/14/25 10:20 Hgb 12.60 g/dL (11.27-16.99) 02/14/25 10:20 Hct 39.9 % (36-47) 02/14/25 10:20 MCV 97.1 fl (85-98) 02/14/25 10:20 MCH 30.7 pg (27-33) 02/14/25 10:20 MCHC 31.6 g/dL (30-55) 02/14/25 10:20 RDW 14.8 % (12.1-15.1) 02/14/25 10:20 Plt Count 405 10^3/cmm (157-399) H 02/14/25 10:20 MPV 9.2 fL (7.4-10.4) 02/14/25 10:20 Neut % (Auto) 84.4 % 02/14/25 10:20 Lymph % (Auto) 7.9 % 02/14/25 10:20 [place] % (Auto) 6.6 % 02/14/25 10:20 Eos % (Auto) 0.4 % 02/14/25 10:20 Baso % (Auto) 0.3 % 02/14/25 10:20 Neut # (Auto) 9.36 10^3/uL (1.8-7.7) H 02/14/25 10:20 Lymph # (Auto) 0.9 10^3/uL (0.8-4.8) 02/14/25 10:20 [place] # (Auto) 0.7 10^3/uL (0.2-0.9) 02/14/25 10:20 Eos # (Auto) 0.0 10^3/uL (0.0-0.8) 02/14/25 10:20 Baso # (Auto) 0.0 10^3/uL (0.0-0.1) 02/14/25 10:20 Nucleated RBC % (auto) 0 % 02/14/25 10:20 Nucleated RBCs # 0.0 /100WBC 02/14/25 10:20 Sodium 134 mmol/L (136-145) L 02/14/25 10:20 Potassium 3.6 mmol/L (3.5-5.1) 02/14/25 10:20 Chloride 100 mmol/L (98-107) 02/14/25 10:20 Carbon Dioxide 24 mmol/L (22-29) 02/14/25 10:20 Anion Gap 13.6 (5-19) 02/14/25 10:20 BUN 21 mg/dL (8-23) 02/14/25 10:20 Creatinine 0.9 mg/dL (0.5-0.9) 02/14/25 10:20 GFR Calculation Not Reportable 02/14/25 10:20 Glucose 109 mg/dL (65-115) 02/14/25 10:20 Calculated Osmolality 282 mOsm/kg (285-295) L 02/14/25 10:20 Calcium 9.0 mg/dL (8.5-10.5) 02/14/25 10:20 Total Bilirubin 0.6 mg/dL (0.15-1.2) 02/14/25 10:20 AST 14 U/L (0-32) 02/14/25 10:20 ALT 14 U/L (0-33) 02/14/25 10:20 Alkaline Phosphatase 226 U/L (35-105) H 02/14/25 10:20 Total Protein 6.6 g/dL (6.6-8.7) 02/14/25 10:20 Albumin 3.7 g/dL (3.5-5.2) 02/14/25 10:20 Globulin 2.9 g/dL (1.3-4.6) 02/14/25 10:20 Urine Color Yellow (Yellow) 02/14/25 13:34 Urine Appearance Cloudy (CLEAR) A 02/14/25 13:34 Urine pH 5 (5-7) 02/14/25 13:34 Ur Specific [place] 1.015 (1.005-1.030) 02/14/25 13:34 Urine Protein Neg (Negative) 02/14/25 13:34 Urine Glucose (UA) Norm (Normal) 02/14/25 13:34 Urine Ketones Negative (Negative) 02/14/25 13:34 Urine Blood Neg (Negative) 02/14/25 13:34 Urine Nitrate Positive (Negative) A 02/14/25 13:34 Urine Bilirubin Neg (Negative) 02/14/25 13:34 Urine Urobilinogen Neg mg/dL (Negative) 02/14/25 13:34 Ur Leukocyte Esterase Trace (Negative) H 02/14/25 13:34 Urine RBC 0-2 /hpf (0-2) 02/14/25 13:34 Urine WBC 6-10 /hpf (0-5) 02/14/25 13:34 Ur Squamous Epith Cells 0-5 /hpf (0-5) 02/14/25 13:34 Amorphous Sediment Not Reportable 02/14/25 13:34 Urine Bacteria 4+ /hpf (NONE) H 02/14/25 13:34 Hyaline Casts 2.87 /lpf 02/14/25 13:34 No radiology studies performed this visit Discharge Plan Discharge Patient Disposition: Home Clinical Impression: Rectal prolapse, Dislodged Santoro catheter Urinary incontinence Qualifiers: Urinary Incontinence type: urge incontinence Qualified Code(s): N39.41 - Urge incontinence Condition: Stable Prescriptions: New cefdinir 300 mg capsule 300 mg PO BID 5 Days Qty: 10 0RF No Action amiodarone 200 mg tablet 200 mg PO DAILY Qty: 90 3RF metoprolol tartrate 50 mg tablet 50 mg PO BID Qty: 180 3RF naproxen sodium [Aleve] 220 mg Tablet 220 mg PO Q12H PRN (Reason: Fever Or Pain) aspirin 325 mg tablet 325 mg PO DAILY Qty: 30 0RF tamsulosin [Flomax] 0.4 mg capsule 0.4 mg PO DAILY Qty: 30 0RF Discharge Orders: Discharge ED (Routine); Ordered 02/14/25 Ordered By: Anson Camarillo Referrals: Nelly Robertson MD [Primary Care Provider] - Discharge Diet: Usual diet Discharge Activity: Increase activity as tolerated Patient Instructions: Opioid Safety, Pain Management Activity Restrictions/Additional Instructions: Thank you for choosing [facility] for your healthcare needs today. It is very important that you follow up as instructed or that you return to the Emergency Department should you have concerns or if your condition changes or worsens in any way. You were seen in the emergency room for accidentally dislodging your catheter. Catheter was replaced. You had over 600 mL fluid in your bladder. You are still retaining urine. A Santoro leg bag was placed to make it easier for you to manage at home. Recommend that you follow-up with your outpatient primary care provider and colorectal surgery as planned. Urinalysis showed mild signs of urinary tract infection you are started on an antibiotic 1 pill twice a day for 5 days. Will follow-up with your culture results when they are available Print Language: Cameroonian Coding Level of Care Code ED Button Cutting Machine Operator for Callie Guevara
[2025-02-14 13:40] VITALS: PULSE 103; RESP 18; O2SAT 98
[2025-02-14 13:49] LABS: Bacteria Urine 4+ /hpf; Hyaline Casts Urine 2.87 /lpf; RBC Urine 0-2 /hpf (0-2); Squamous Epithelial Cell Urine 0-5 /hpf (0-5)
[2025-02-14 13:56] LABS: Add Urine Microscopic? YES; Bilirubin Urine Neg (Negative); Blood Urine Neg (Negative); Glucose Urine UA Norm (Normal); Ketones Urine Negative (Negative); Leukocyte Esterase Urine Trace (Negative); Nitrate Urine Positive (Negative); Protein Urine Neg (Negative); Specific Gravity, Urine 1.015 (1.005-1.030); Urine Appearance Cloudy (CLEAR); Urine Color Yellow (Yellow); Urobilinogen Urine Neg (Negative); pH Urine 5 (5-7)
[2025-02-14 13:57] LABS: Add Urine Culture? Yes
[2025-02-14 14:22] VITALS: BP 139/95; PULSE 96; O2SAT 98
== END 2025-02-14 14:23 | disposition home or self-care (01) ==
PROVIDERS: Emergency Provider Family Medicine; PCP Family Medicine
DX: K62.3 Rectal prolapse (principal); N39.41 Urge incontinence; T83.021A Displacement of indwelling urethral catheter, initial encounter; Z79.82 Long term (current) use of aspirin; Z87.891 Personal history of nicotine dependence; I10 Essential (primary) hypertension; X58.XXXA Exposure to other specified factors, initial encounter
CPT/HCPCS: 36415; 51702; 80053; 81001; 85025; 87086; 87186; 99283

== ENCOUNTER 2025-03-03 09:10 | Emergency (ER) | payer MEDICARE, SELFPAY ==
[2025-03-03 09:19] VITALS: BP 154/88; PULSE 105; RESP 16; TEMP 36.6; O2SAT 97
--- NOTE | 2025-03-03 10:09 | CT_ITS ---
WS: [id number] CT PELVIS NONCONTRAST HISTORY: retained santoro catheter TECHNIQUE: Contiguous imaging is performed of the pelvis without contrast. Coronal and sagittal reformats are reviewed. All CT scans at [facility] use at least one of these dose optimization techniques: automated exposure control; mA and/or kV adjustment per patient size (includes targeted exams where dose is matched to clinical indication); or iterative reconstruction. DLP: 279.73 mGy.cm COMPARISON: 01/15/2025 Urinary bladder is well distended. No filling defects or foreign body noted within the urinary bladder. There is some artifact from patient's LEFT hip prosthesis through the bladder. There is a small amount of air along the urethra which is probably due to recent catheterization. Recent postsurgical changes at the rectum. There is no complication evident. No abscess. No obstruction. Moderate fecal retention and constipation. Atherosclerotic plaque throughout the aorta and iliac arteries. Soft tissue edema. New since 01/15/2025 is a LEFT pubic body fracture with a small amount of adjacent air. Bilateral sacral insufficiency fracture. Osteopenia. New nondisplaced RIGHT L5 transverse process fracture. CT/CT pelvis w con* [id number] IMPRESSION: 1. No foreign body is evident in the urinary bladder. 2. Multiple new fractures since 01/15/2025. 3. Nondisplaced new fracture LEFT pubic body. 4. New bilateral sacral insufficiency fractures. 5. New nondisplaced RIGHT L5 transverse process fracture. Notified Anson Camarillo DO at 03/03/2025 10:47 AM.
--- NOTE | 2025-03-03 10:11 | PC.PHAR ---
Pt states no longer takes Warfarin. Pt does have a Xarelto 15mg qpm filled 11/16/24 90ds-pt states she does not take it either, just the aspirin 325mg.
[2025-03-03 10:12] LABS: Basophils % 0.3 %; Eosinophils % 0.1 %; Hematocrit 37.1 % (36-47); Lymphocytes # 1.1 10^3/uL (0.8-4.8); Lymphocytes % 10.7 %; Mean Corpuscular HGB Conc 31.8 g/dL (30-55); Mean Corpuscular Hemoglobin 30.1 pg (27-33); Mean Corpuscular Volume 94.6 fl (85-98); Mean Platelet Volume 8.9 fL (7.4-10.4); Monocytes # 0.6 10^3/uL (0.2-0.9); Monocytes % 6.4 %; Neutrophils # 8.27 10^3/uL (1.8-7.7); Neutrophils % 82.1 %; Nucleated Red Blood Cells % 0 %; Platelet Count 518 10^3/cmm (157-399); Red Blood Count 3.92 10^6/uL (3.85-5.65); Red Cell Distribution Width 14.2 % (12.1-15.1); White Blood Count 10.07 10^3/uL (3.29-11.43)
[2025-03-03] MEDS: iohexol 350 mg/mL 500 mL Btl (per mL) IV (10:34)
[2025-03-03 10:41] LABS: Alanine Aminotransferase 10 U/L (0-33); Albumin Level 3.5 g/dL (3.5-5.2); Alkaline Phosphatase 179 U/L (35-105); Anion Gap 14.3 (5-19); Aspartate Amino Transferase 14 U/L (0-32); Blood Urea Nitrogen 21 mg/dL (8-23); Calcium 8.7 mg/dL (8.5-10.5); Carbon Dioxide 24 mmol/L (22-29); Chloride 101 mmol/L (98-107); Creatinine Clr Calc Pharmacy 37.8562; Globulin 2.8 g/dL (1.3-4.6); Glucose 82 mg/dL (65-115); Osmolality Calculated 282 mOsm/kg (285-295); Potassium 4.3 mmol/L (3.5-5.1); Sodium 135 mmol/L (136-145); Total Bilirubin 0.5 mg/dL (0.15-1.2); Total Protein 6.3 g/dL (6.6-8.7)
--- NOTE | 2025-03-03 11:20 | W.ED.FEMALGU ---
HPI - Female Genitourinary General: Chief complaint: Urogenital-Female Stated complaint: cath problems Time Seen by Provider: 03/03/25 09:14 History of Present Illness: 89-year-old female recently had a rectocele repair. She had had a Garcias in because she was having urinary retention she has some dementia as well. She wanted the Garcias out so she cut the catheter and removed it herself family is concerned there may be remnant of the catheter within the bladder. She has had a lot of what sounds like overflow incontinence at home she has increasing swelling of her legs we have seen her previously chief complaint of lower extremity edema was worse during the day and resolved with her legs elevated we held off on giving her any Lasix concerned that it would worsen her potential fall for fall by creating orthostatic hypotension. She has developed a skin tear on her right upper arm that happened when she fell after rectocele surgery well at [facility] in [place] and she has ulcer on her left heel. No dysuria. Associated symptoms: Deny abdominal pain Related Data Home Medications ?Medication ?Instructions ?Recorded ?Confirmed naproxen sodium 220 mg tablet 220 mg PO Q12H PRN Fever Or Pain 01/18/25 03/03/25 (Aleve) aspirin 325 mg tablet 325 mg PO QAM 03/03/25 03/03/25 oxycodone-acetaminophen 5 mg-325 1 tab PO .Q4-6H PRN Pain 03/03/25 03/03/25 mg tablet Previous Rx's ?Medication ?Instructions ?Recorded amiodarone 200 mg tablet 200 mg PO DAILY #90 tabs 04/06/24 metoprolol tartrate 50 mg tablet 50 mg PO BID #180 tabs 09/01/24 mupirocin 2 % topical ointment 1 applic topical BID #50 grams 03/03/25 (Centany) Allergies Allergy/AdvReac Type Severity Reaction Status Date / Time adhesive tape Allergy Unknown Verified 02/14/25 09:45 Review of Systems Const: Denies: fever(s) or chills Card: Denies: chest pain Resp: Denies: dyspnea GI: Denies: abdominal pain : Reports: urinary incontinence; Denies: dysuria, urinary frequency, urinary urgency or hematuria Musc: Denies: neck pain or back pain Skin/Breast: Denies: rash PFSH ED PFSH: Medical History Abnormal vaginal bleeding in postmenopausal patient History of colon polyps colonoscopy 01/29/2021 Dr. 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 Exam Const: GENERAL APPEARANCE: cooperative ORIENTATION/CONSCIOUSNESS: Yes awake, Yes oriented to person, Yes oriented to place and Yes oriented to time HENMT: COMMON NORMALS: normocephalic, atraumatic and hearing grossly normal bilaterally HEAD & SCALP: normocephalic and atraumatic Resp: COMMON NORMALS: normal respiratory effort, No retractions, No use of accessory muscles and clear to auscultation bilaterally AUSCULTATION: clear to auscultation bilaterally Cardio: COMMON NORMALS: regular rate, regular rhythm and No murmurs present (Cardio) RATE: regular rate RHYTHM: regular rhythm GI: COMMON NORMALS: Soft to palpation and No hepatosplenomegaly present AUSCULTATION: Yes normoactive bowel sounds PALPATION: Yes Soft to palpation, No Tenderness to palpation present (GI), No Guarding due to palpation present (GI) and Yes No hepatosplenomegaly present Extremity: COMMON NORMALS: normal to inspection, capillary refill normal, no clubbing, cyanosis or edema, no calf tenderness and no pedal edema Neuro: SENSORIUM/ORIENTATION: Yes oriented to person, Yes oriented to place and Yes oriented to time Skin: COMMON NORMALS: no rashes or lesions noted GENERAL SKIN EXAM: no rashes or lesions noted Course Vital Signs: Vital signs: Vital Signs Temperature 97.9 F 03/03/25 09:19 Pulse Rate 91 03/03/25 12:12 Respiratory Rate 16 03/03/25 09:19 Blood Pressure 154/89 03/03/25 12:12 Pulse Oximetry 97 03/03/25 12:12 Oxygen Delivery Me thod Room Air 03/03/25 12:12 MDM - Female Medical Decision Making On CT there is no evidence for retained Garcias material within the bladder. She does have several new insufficiency fractures bilateral sacral insufficiency fracture and left pubic body fracture as well as a right L5 transverse process fracture. Reviewed with the family. We did do a postvoid residual and her she had only about 100 left at this point we will not replace the Garcias catheter. She is ambulating without difficulty or significant pain with her walker at this point I will think there is any else through the fracture other than she should monitor closely with her primary care physician. Would be concerned about these fractures worsening if she were to fall again family is aware of this. Edema in her lower extremities is likely due to dependent. Some little concerned with starting her on Lasix family relates it still improves when she elevates her feet concerned that with Lasix may increase her potential for fall. Patient will follow-up with her primary care doctor. Medical Records I reviewed the patient's medical records. Lab Data I reviewed the patient's lab results. 03/03/25 09:57 03/03/25 09:[address] 03/03/25 10:09 IMPRESSION: 1. No foreign body is evident in the urinary bladder. 2. Multiple new fractures since 01/15/2025. 3. Nondisplaced new fracture LEFT pubic body. 4. New bilateral sacral insufficiency fractures. 5. New nondisplaced RIGHT L5 transverse process fracture. Notified Anson Camarillo DO at 03/03/2025 10:47 AM. Laboratory Results WBC 10.07 10^3/uL (3.29-11.43) 03/03/25 09:57 RBC 3.92 10^6/uL (3.85-5.65) 03/03/25 09:57 Hgb 11.80 g/dL (11.27-16.99) 03/03/25 09:57 Hct 37.1 % (36-47) 03/03/25 09:57 MCV 94.6 fl (85-98) 03/03/25 09:57 MCH 30.1 pg (27-33) 03/03/25 09:57 MCHC 31.8 g/dL (30-55) 03/03/25 09:57 RDW 14.2 % (12.1-15.1) 03/03/25 09:57 Plt Count 518 10^3/cmm (157-399) H 03/03/25 09:57 MPV 8.9 fL (7.4-10.4) 03/03/25 09:57 Neut % (Auto) 82.1 % 03/03/25 09:57 Lymph % (Auto) 10.7 % 03/03/25 09:57 [place] % (Auto) 6.4 % 03/03/25 09:57 Eos % (Auto) 0.1 % 03/03/25 09:57 Baso % (Auto) 0.3 % 03/03/25 09:57 Neut # (Auto) 8.27 10^3/uL (1.8-7.7) H 03/03/25 09:57 Lymph # (Auto) 1.1 10^3/uL (0.8-4.8) 03/03/25 09:57 [place] # (Auto) 0.6 10^3/uL (0.2-0.9) 03/03/25 09:57 Eos # (Auto) 0.0 10^3/uL (0.0-0.8) 03/03/25 09:57 Baso # (Auto) 0.0 10^3/uL (0.0-0.1) 03/03/25 09:57 Nucleated RBC % (auto) 0 % 03/03/25 09:57 Nucleated RBCs # 0.0 /100WBC 03/03/25 09:57 Sodium 135 mmol/L (136-145) L 03/03/25 09:57 Potassium 4.3 mmol/L (3.5-5.1) 03/03/25 09:57 Chloride 101 mmol/L (98-107) 03/03/25 09:57 Carbon Dioxide 24 mmol/L (22-29) 03/03/25 09:57 Anion Gap 14.3 (5-19) 03/03/25 09:57 BUN 21 mg/dL (8-23) 03/03/25 09:57 Creatinine 0.9 mg/dL (0.5-0.9) 03/03/25 09:57 GFR Calculation Not Reportable 03/03/25 09:57 Glucose 82 mg/dL (65-115) 03/03/25 09:57 Calculated Osmolality 282 mOsm/kg (285-295) L 03/03/25 09:57 Calcium 8.7 mg/dL (8.5-10.5) 03/03/25 09:57 Total Bilirubin 0.5 mg/dL (0.15-1.2) 03/03/25 09:57 AST 14 U/L (0-32) 03/03/25 09:57 ALT 10 U/L (0-33) 03/03/25 09:57 Alkaline Phosphatase 179 U/L (35-105) H 03/03/25 09:57 Total Protein 6.3 g/dL (6.6-8.7) L 03/03/25 09:57 Albumin 3.5 g/dL (3.5-5.2) 03/03/25 09:57 Globulin 2.8 g/dL (1.3-4.6) 03/03/25 09:57 All radiology interpretation(s) finalized by discharge Discharge Plan Discharge Patient Disposition: Home Clinical Impression: Bilateral sacral insufficiency fracture, Pubic ramus fracture, Fracture of transverse process of lumbar vertebra, Garcias catheter problem, Cellulitis of foot without toes, left, Skin tear of elbow without complication Condition: Stable Prescriptions: New mupirocin [Centany] 2 % ointment 1 applic topical BID Qty: 50 0RF No Action amiodarone 200 mg tablet 200 mg PO DAILY Qty: 90 3RF metoprolol tartrate 50 mg tablet 50 mg PO BID Qty: 180 3RF naproxen sodium [Aleve] 220 mg Tablet 220 mg PO Q12H PRN (Reason: Fever Or Pain) oxycodone-acetaminophen 5-325 mg tablet 1 tab PO .Q4-6H PRN (Reason: Pain) aspirin 325 mg tablet 325 mg PO QAM Discharge Orders: Discharge ED (Routine); Ordered 03/03/25 Ordered By: Anson Camarillo Referrals: Nelly Robertson MD [Primary Care Provider] - Discharge Diet: Usual diet Discharge Activity: Increase activity as tolerated Patient Instructions: Opioid Safety, Pain Management Activity Restrictions/Additional Instructions: Thank you for choosing [facility] for your healthcare needs today. It is very important that you follow up as instructed or that you return to the Emergency Department should you have concerns or if your condition changes or worsens in any way. You were seen in the emergency room with complaints of problems with your Garcias catheter. Scan shows there is no evidence of retained portions of the catheter in your bladder. After voiding you had mostly emptied your bladder and did not require catheter at this time. CT of your pelvis showed bilateral sacral insufficiency fractures a lumbar spinous process fracture and a left pubic fracture since you are still ambulating without significant difficulties can just be monitored. Follow-up with your primary care doctor. Print Language: Vietnamese Coding Level of Care Code ED Engine Installer for Callie Guevara
[2025-03-03 12:12] VITALS: BP 154/89; PULSE 91; O2SAT 97
== END 2025-03-03 12:52 | disposition home or self-care (01) ==
PROVIDERS: Emergency Provider Family Medicine; PCP Family Medicine
DX: S32.19XA Other fracture of sacrum, initial encounter for closed fracture (principal); S32.592A Other specified fracture of left pubis, initial encounter for closed fracture; S32.059A Unspecified fracture of fifth lumbar vertebra, initial encounter for closed fracture; T83.091A Other mechanical complication of indwelling urethral catheter, initial encounter; L03.116 Cellulitis of left lower limb; S51.019A Laceration without foreign body of unspecified elbow, initial encounter; X58.XXXA Exposure to other specified factors, initial encounter; Z87.891 Personal history of nicotine dependence; I10 Essential (primary) hypertension; Z79.82 Long term (current) use of aspirin
CPT/HCPCS: 72193; 80053; 85025; 99285

== ENCOUNTER → 2025-03-10 15:59 | Outpatient (BNVA) | payer MEDICARE, SELFPAY | PROVIDERS: PCP Family Medicine; Visit Provider Family Medicine | DX: R60.0 Localized edema (principal); R06.02 Shortness of breath | CPT/HCPCS: 80048; 83880 ==

== ENCOUNTER → 2025-03-23 09:51 | Outpatient (BNVA) | payer MEDICARE, SELFPAY | PROVIDERS: PCP Family Medicine; Visit Provider Internal Medicine Cardiovascular Disease | DX: Z45.018 Encounter for adjustment and management of other part of cardiac pacemaker (principal) | CPT/HCPCS: 93296 ==

== ENCOUNTER 2025-03-31 07:05 | Outpatient (CLI) | payer MEDICARE, SELFPAY ==
--- NOTE | 2025-03-31 07:15 | USCV_ITS ---
Esthela Billings Age: 89 Gender: F : 1935 Exam Date: 03/31/2025 07:32 Ordering Phys: Nelly Robertson MD Technologist: Rene Jackson [place] [facility] [place]: cp murmur BP: 125 / 75 HR: 110 Rhythm: Sinus Technical Quality: Adequate MEASUREMENTS (Male / Female) Normal Values 2D ECHO LV Diastolic Diameter PLAX 3.9 cm 4.2 - 5.9 / 3.9 - 5.3 cm IVS Diastolic Thickness 1.2 cm 0.6 - 1.0 / 0.6 - 0.9 cm IVS Systolic Thickness 1.5 cm LVPW Diastolic Thickness 1.1 cm 0.6 - 1.0 / 0.6 - 0.9 cm LVPW Systolic Thickness 1.8 cm LVOT Diameter 2.1 cm LV Ejection Fraction 2D Teich 74.0 % LV Ejection Fraction MOD 4C 69.8 % LV Ejection Fraction MOD 2C 60.2 % LV Ejection Fraction 2C AL 62.0 % LA Diameter 4.7 cm RA Systolic Volume 4C AL 102.5 ml RA Systolic Volume 4C MOD 98.6 ml Aorta at Sinotubular Diameter 2.9 cm M-MODE LA Ao Ratio MM 1.7 AV Cusp Separation MM 0.7 cm DOPPLER AV Peak Velocity 193.3 cm/s LVOT Peak Velocity 70.0 cm/s AV Area Cont Eq vti 1.4 cm squared AV Area Cont Eq pk 1.3 cm squared MV Peak Velocity 126.0 cm/s MV Area PHT 6.5 cm squared Mitral E to A Ratio 3.4 TV Peak Velocity 327.5 cm/s TR Peak Velocity 367.0 cm/s TR Peak Gradient 53.9 mmHg TV Peak E Velocity 106.0 cm/s PV Peak Velocity 88.0 cm/s FINDINGS Left Ventricle Normal left ventricular size and systolic function, EF 70%. No regional wall motion abnormalities. Mild concentric left ventricular hypertrophy Right Ventricle Catheter/pacemaker wire in the right ventricular cavity. Right Atrium Catheter/pacemaker wire in the right atrial cavity. Moderately increased right atrial size. Left Atrium Moderately increased left atrial size. Mitral Valve Moderate mitral valve regurgitation. Mild mitral valve regurgitation. Aortic Valve Trace aortic valve regurgitation. Features of aortic valve sclerosis Tricuspid Valve [id number] tricuspid valve regurgitation. Moderate pulmonary hypertension with estimated pulmonary artery peak systolic pressure of 62 mmHg Pulmonic Valve Pulmonic valve not well visualized. Pericardium No pericardial effusion. Aorta Normal descending aorta size. IVC Inferior vena cava not visualized. CONCLUSIONS Normal left ventricular size and systolic function, EF 70%. No regional wall motion abnormalities. Mild concentric left ventricular hypertrophy. Catheter/pacemaker wire in the right ventricular cavity. Moderately increased left atrial size. Moderate mitral valve regurgitation. Mild mitral valve regurgitation. Trace aortic valve regurgitation. [id number] tricuspid valve regurgitation. Moderate pulmonary hypertension with estimated pulmonary artery peak systolic pressure of 62 mmHg. Features of aortic valve sclerosis There is no pericardial effusion. There are no intracardiac masses. Dr Tracey Meza MD FACC (Electronically Signed) Final Date: 04 Apr 2025 19:54 S
== END 2025-03-31 07:06 | disposition home or self-care (01) ==
PROVIDERS: PCP Family Medicine; Visit Provider Family Medicine
DX: I35.1 Nonrheumatic aortic (valve) insufficiency (principal); I10 Essential (primary) hypertension; R06.02 Shortness of breath; R60.0 Localized edema; Z96.89 Presence of other specified functional implants; I34.0 Nonrheumatic mitral (valve) insufficiency; R93.1 Abnormal findings on diagnostic imaging of heart and coronary circulation; I07.1 Rheumatic tricuspid insufficiency; I27.20 Pulmonary hypertension, unspecified
CPT/HCPCS: 93306

== ENCOUNTER 2025-04-14 13:52 | Emergency (ER) | payer MEDICARE, SELFPAY ==
[2025-04-14 13:57] VITALS: BP 105/51; PULSE 78; RESP 16; TEMP 36.6; O2SAT 98; BMI 20.9
--- NOTE | 2025-04-14 14:03 | USCV_ITS ---
Esthela Billings Age: 89 Gender: F : 1935 Exam Date: 04/14/2025 15:12 Ordering Phys: Anson Camarillo DO Technologist: MARIELY Exam Location: [facility] [place] Indication: LLE Swelling HISTORY: Lower extremity swelling. PROCEDURES: Venous duplex imaging was performed in only the left lower extremity. The following venous structures were evaluated: common femoral vein, profunda vein, proximal portion of the greater saphenous vein, superficial femoral vein, and the popliteal vein. In addition, the posterior tibial and peroneal trunk were evaluated. Serial compression, augmentation maneuvers, and spectral Doppler flow evaluation were performed. FINDINGS: No evidence of DVT seen in any vessel visualized at this time. CONCLUSIONS No evidence of left lower extremity DVT. Mandeep Schmitz MD (Electronically Signed) Final Date: 14 April 2025 15:37 S
--- NOTE | 2025-04-14 14:03 | XRR_ITS ---
PROCEDURE INFORMATION: Exam: XR Chest Exam date and time: 04/14/2025 2:24 PM Age: 89 years old Clinical indication: Cough and dyspnea; Additional info: Dyspnea/cough TECHNIQUE: Imaging protocol: Radiologic exam of the chest. Views: 1 view. COMPARISON: [place] [id number] 12/23/2024 9:52 PM FINDINGS: Tubes, catheters and devices: Stable left subclavian pacer with right atrial appendage and right ventricular leads. Lungs: Mild left basilar opacities. Pleural spaces: Small left pleural effusion. Heart/Mediastinum: Unremarkable. No cardiomegaly. Vasculature: Atherosclerotic aortic calcifications. Bones/joints: Similar levoscoliosis of the thoracolumbar spine with multilevel degenerative changes. XR/XR chest 1V portable [id number] IMPRESSION: Small left pleural effusion with adjacent atelectasis. Superimposed infiltrate not excluded.
[2025-04-14 14:20] LABS: Basophils % 0.4 %; Eosinophils # 0.2 10^3/uL (0.0-0.8); Eosinophils % 1.5 %; Hematocrit 38.8 % (36-47); Lymphocytes # 2.5 10^3/uL (0.8-4.8); Lymphocytes % 25.2 %; Mean Corpuscular HGB Conc 32.7 g/dL (30-55); Mean Corpuscular Hemoglobin 30.8 pg (27-33); Mean Corpuscular Volume 93.9 fl (85-98); Mean Platelet Volume 9.3 fL (7.4-10.4); Monocytes # 0.7 10^3/uL (0.2-0.9); Monocytes % 7.4 %; Neutrophils # 6.54 10^3/uL (1.8-7.7); Neutrophils % 65.1 %; Nucleated Red Blood Cells % 0 %; Platelet Count 369 10^3/cmm (157-399); Red Blood Count 4.13 10^6/uL (3.85-5.65); Red Cell Distribution Width 14.9 % (12.1-15.1); White Blood Count 10.04 10^3/uL (3.29-11.43)
--- NOTE | 2025-04-14 14:21 | W.ED.EXTPRO ---
HPI - Extremity Problem General: Chief complaint: Extremity Injury, Lower Stated complaint: Left Leg pain sent from dr Mcdaniels Seen by Provider: 04/14/25 14:03 History of Present Illness: 89-year-old female brought to the emergency room with left lower leg pain and swelling difficulty walking no chest pain no shortness of breath. Her primary care directed her here she been taking Lasix for several weeks without relief. Her primary is concerned that she may need to be restarted on anticoagulants. She has a history of atrial fibrillation she was previously on oral anticoagulants but these were stopped because of frequent falls. No other complaints or difficulties. Associated symptoms: Deny chest pain, fever(s) or rash Related Data Home Medications ?Medication ?Instructions ?Recorded ?Confirmed naproxen sodium 220 mg tablet 220 mg PO Q12H PRN Fever Or Pain 01/18/25 04/14/25 (Aleve) aspirin 325 mg tablet 325 mg PO QAM 03/03/25 04/14/25 Previous Rx's ?Medication ?Instructions ?Recorded metoprolol tartrate 50 mg tablet 50 mg PO BID #180 tabs 09/01/24 mupirocin 2 % topical ointment 1 applic topical BID #50 grams 03/03/25 (Centany) furosemide 20 mg tablet 20 mg PO QAM #90 tabs 03/10/25 amiodarone 200 mg tablet 200 mg PO DAILY #90 tabs 03/22/25 potassium chloride 20 mEq 20 meq PO DAILY #7 tabs 04/14/25 tablet,extended release(part/cryst) (Klor-Con M) Allergies Allergy/AdvReac Type Severity Reaction Status Date / Time adhesive tape Allergy Unknown Verified 04/14/25 13:09 Review of Systems Const: Denies: fever(s) or chills Card: Denies: chest pain Resp: Denies: dyspnea GI: Denies: abdominal pain : Denies: dysuria, urinary frequency or urinary urgency Musc: Denies: neck pain or back pain Skin/Breast: Denies: rash PFSH ED PFSH: Medical History Mitral valve regurgitation Bilateral edema of lower extremity History of colon polyps colonoscopy 01/29/2021 Dr. 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 Exam Const: GENERAL APPEARANCE: cooperative ORIENTATION/CONSCIOUSNESS: Yes awake HENMT: COMMON NORMALS: normocephalic, atraumatic and hearing grossly normal bilaterally HEAD & SCALP: normocephalic and atraumatic Resp: COMMON NORMALS: normal respiratory effort, No retractions, No use of accessory muscles and clear to auscultation bilaterally AUSCULTATION: clear to auscultation bilaterally Cardio: COMMON NORMALS: regular rate, regular rhythm and No murmurs present (Cardio) RATE: regular rate RHYTHM: regular rhythm GI: COMMON NORMALS: Soft to palpation and No hepatosplenomegaly present AUSCULTATION: Yes normoactive bowel sounds PALPATION: Yes Soft to palpation, No Tenderness to palpation present (GI), No Guarding due to palpation present (GI) and Yes No hepatosplenomegaly present Extremity: OTHER: Moderate swelling lower extremities right greater than left mild tenderness to the right calf Skin: COMMON NORMALS: no rashes or lesions noted GENERAL SKIN EXAM: no rashes or lesions noted Course Vital Signs: Vital signs: Vital Signs Temperature 97.8 F 04/14/25 13:57 Pulse Rate 78 04/14/25 15:31 Respiratory Rate 16 04/14/25 13:57 Blood Pressure 124/78 04/14/25 15:31 Pulse Oximetry 97 04/14/25 15:31 Oxygen Delivery Me thod Room Air 04/14/25 15:31 MDM - Extremity (Nontraumatic) Medical Decision Making No DVT. Mild bilateral leg swelling more prominent on the right compared to the left. Venous duplex negative. Elevate leg continue diuretics follow-up with primary care Medical Records I reviewed the patient's medical records. Lab Data I reviewed the patient's lab results. 04/14/25 14:13 04/14/25 14:13 Radiology Impressions Chest X-Ray 04/14/25 14:03 IMPRESSION: Small left pleural effusion with adjacent atelectasis. Superimposed infiltrate not excluded. Laboratory Results WBC 10.04 10^3/uL (3.29-11.43) 04/14/25 14:13 RBC 4.13 10^6/uL (3.85-5.65) 04/14/25 14:13 Hgb 12.70 g/dL (11.27-16.99) 04/14/25 14:13 Hct 38.8 % (36-47) 04/14/25 14:13 MCV 93.9 fl (85-98) 04/14/25 14:13 MCH 30.8 pg (27-33) 04/14/25 14:13 MCHC 32.7 g/dL (30-55) 04/14/25 14:13 RDW 14.9 % (12.1-15.1) 04/14/25 14:13 Plt Count 369 10^3/cmm (157-399) 04/14/25 14:13 MPV 9.3 fL (7.4-10.4) 04/14/25 14:13 Neut % (Auto) 65.1 % 04/14/25 14:13 Lymph % (Auto) 25.2 % 04/14/25 14:13 [place] % (Auto) 7.4 % 04/14/25 14:13 Eos % (Auto) 1.5 % 04/14/25 14:13 Baso % (Auto) 0.4 % 04/14/25 14:13 Neut # (Auto) 6.54 10^3/uL (1.8-7.7) 04/14/25 14:13 Lymph # (Auto) 2.5 10^3/uL (0.8-4.8) 04/14/25 14:13 [place] # (Auto) 0.7 10^3/uL (0.2-0.9) 04/14/25 14:13 Eos # (Auto) 0.2 10^3/uL (0.0-0.8) 04/14/25 14:13 Baso # (Auto) 0.0 10^3/uL (0.0-0.1) 04/14/25 14:13 Nucleated RBC % (auto) 0 % 04/14/25 14:13 Nucleated RBCs # 0.0 /100WBC 04/14/25 14:13 Sodium 133 mmol/L (136-145) L 04/14/25 14:13 Potassium 3.6 mmol/L (3.5-5.1) 04/14/25 14:13 Chloride 98 mmol/L (98-107) 04/14/25 14:13 Carbon Dioxide 24 mmol/L (22-29) 04/14/25 14:13 Anion Gap 14.6 (5-19) 04/14/25 14:13 BUN 23 mg/dL (8-23) 04/14/25 14:13 Creatinine 1.0 mg/dL (0.5-0.9) H 04/14/25 14:13 GFR Calculation Not Reportable 04/14/25 14:13 Glucose 91 mg/dL (65-115) 04/14/25 14:13 Calculated Osmolality 279 mOsm/kg (285-295) L 04/14/25 14:13 Calcium 8.7 mg/dL (8.5-10.5) 04/14/25 14:13 Total Bilirubin 0.4 mg/dL (0.15-1.2) 04/14/25 14:13 AST 15 U/L (0-32) 04/14/25 14:13 ALT 12 U/L (0-33) 04/14/25 14:13 Alkaline Phosphatase 151 U/L (35-105) H 04/14/25 14:13 Total Protein 6.1 g/dL (6.6-8.7) L 04/14/25 14:13 Albumin 3.5 g/dL (3.5-5.2) 04/14/25 14:13 Globulin 2.6 g/dL (1.3-4.6) 04/14/25 14:13 All radiology interpretation(s) finalized by discharge Discharge Plan Discharge Patient Disposition: Home Clinical Impression: Bilateral edema of lower extremity Condition: Stable Prescriptions: New potassium chloride [Klor-Con M20] 20 mEq tablet,ER particles/crystals 20 meq PO DAILY Qty: 7 0RF No Action furosemide 20 mg tablet 20 mg PO QAM Qty: 90 0RF metoprolol tartrate 50 mg tablet 50 mg PO BID Qty: 180 3RF amiodarone 200 mg tablet 200 mg PO DAILY Qty: 90 3RF naproxen sodium [Aleve] 220 mg Tablet 220 mg PO Q12H PRN (Reason: Fever Or Pain) aspirin 325 mg tablet 325 mg PO QAM mupirocin [Centany] 2 % ointment 1 applic topical BID Qty: 50 0RF Discharge Orders: Discharge ED (Routine); Ordered 04/14/25 Ordered By: Anson Camarillo Referrals: Nelly Robertson MD [Primary Care Provider, Family Practice] Discharge Diet: Usual diet Discharge Activity: Resume usual activity Patient Instructions: Opioid Safety, Pain Management Activity Restrictions/Additional Instructions: Thank you for choosing [facility] for your healthcare needs today. It is very important that you follow up as instructed or that you return to the Emergency Department should you have concerns or if your condition changes or worsens in any way. You are seen in the emergency room with swelling like there is no sign of blood clot on the imaging that was done. Recommend you increase your Lasix to 40 mg daily for 5 days. Also recommend you take potassium supplement during that time. Follow-up with your primary care doctor at the end of 5 days to reevaluate Print Language: Belarusian Coding Level of Care Code ED Gang Ripsaw Operator for Callie Guevara
[2025-04-14 14:37] LABS: Alanine Aminotransferase 12 U/L (0-33); Albumin Level 3.5 g/dL (3.5-5.2); Alkaline Phosphatase 151 U/L (35-105); Anion Gap 14.6 (5-19); Aspartate Amino Transferase 15 U/L (0-32); Blood Urea Nitrogen 23 mg/dL (8-23); Calcium 8.7 mg/dL (8.5-10.5); Carbon Dioxide 24 mmol/L (22-29); Chloride 98 mmol/L (98-107); Creatinine Clr Calc Pharmacy 33.7364; Globulin 2.6 g/dL (1.3-4.6); Glucose 91 mg/dL (65-115); Osmolality Calculated 279 mOsm/kg (285-295); Potassium 3.6 mmol/L (3.5-5.1); Sodium 133 mmol/L (136-145); Total Bilirubin 0.4 mg/dL (0.15-1.2); Total Protein 6.1 g/dL (6.6-8.7)
[2025-04-14 15:31] VITALS: BP 124/78; PULSE 78; O2SAT 97
== END 2025-04-14 16:15 | disposition home or self-care (01) ==
PROVIDERS: Emergency Provider Family Medicine; PCP Family Medicine
DX: R60.0 Localized edema (principal); Z79.82 Long term (current) use of aspirin; Z79.891 Long term (current) use of opiate analgesic; I10 Essential (primary) hypertension
CPT/HCPCS: 36415; 71045; 80053; 85025; 93971; 99284

== ENCOUNTER → 2025-04-21 13:01 | Outpatient (BNVA) | payer MEDICARE, SELFPAY | PROVIDERS: PCP Family Medicine; Visit Provider Family Medicine | DX: I10 Essential (primary) hypertension (principal); I48.0 Paroxysmal atrial fibrillation; R60.0 Localized edema | CPT/HCPCS: 80048 ==

== ENCOUNTER 2025-04-22 08:32 | Outpatient (CLI) | payer MEDICARE, SELFPAY ==
--- NOTE | 2025-04-22 08:39 | XR_ITS ---
WS: [id number] Right forearm, AP and lateral views, 04/22/2025 Clinical Data: fall, injured R wrist, forearm Comparison: None. Findings: There is a comminuted impacted distal right radial fracture. The shaft of the radius is normal. The ulna is unremarkable. The visualized elbow and soft tissues are normal. XR/XR forearm RT 2V [id number] Impression: Comminuted impacted distal right radial fracture.
--- NOTE | 2025-04-22 08:39 | XR_ITS ---
WS: [id number] Right wrist, 3 views, 04/22/2025 Clinical Data: fall, injured R wrist, forearm Comparison: None. Findings: There is a comminuted impacted fracture of the distal right radius. The distal ulna and carpal bones are intact. There is vascular calcification. XR/XR wrist RT min 3V* [id number] Impression: Comminuted impacted fracture of distal right radius.
== END 2025-04-22 08:33 | disposition home or self-care (01) ==
PROVIDERS: PCP Family Medicine; Visit Provider Family Medicine
DX: S52.591A Other fractures of lower end of right radius, initial encounter for closed fracture (principal); W19.XXXA Unspecified fall, initial encounter
CPT/HCPCS: 73090; 73110

== ENCOUNTER → 2025-04-27 08:22 | Outpatient (BNVA) | payer MEDICARE, SELFPAY | PROVIDERS: PCP Family Medicine; Referring Provider Family Medicine; Visit Provider Specialist | DX: S52.91XA Unspecified fracture of right forearm, initial encounter for closed fracture (principal); W19.XXXA Unspecified fall, initial encounter; Z46.89 Encounter for fitting and adjustment of other specified devices | CPT/HCPCS: 73110 ==

== ENCOUNTER 2025-04-27 11:45 | Outpatient (CLI) | payer MEDICARE, SELFPAY | END 2025-04-27 11:46 | disposition home or self-care (01) | LOC: SPT 11:46 | PROVIDERS: PCP Family Medicine; Visit Provider Specialist | DX: Z46.89 Encounter for fitting and adjustment of other specified devices (principal); S52.501D Unspecified fracture of the lower end of right radius, subsequent encounter for closed fracture with routine healing; X58.XXXD Exposure to other specified factors, subsequent encounter | CPT/HCPCS: 97760; L3982 ==

== ENCOUNTER → 2025-04-28 16:18 | Outpatient (BNVA) | payer MEDICARE, SELFPAY | PROVIDERS: PCP Family Medicine; Visit Provider Family Medicine | DX: R60.0 Localized edema (principal); I10 Essential (primary) hypertension | CPT/HCPCS: 80048 ==

== ENCOUNTER 2025-05-10 20:02 | Emergency (ER) | payer MEDICARE, SELFPAY ==
[2025-05-10 20:03] VITALS: BP 159/94; PULSE 80; RESP 16; TEMP 36.6; O2SAT 95; BMI 17.8
--- OUTSIDE RECORDS SUMMARY | 2025-05-10 20:11 | XMS_ITS | Patient Health Record ---
Author Organization [facility] Fernandez [facility] Address [address] [place] [id number] Care Team Providers Care Hot Tar Roofer Name Role Phone Melva Bo DO Primary Care Provider Tatiana e Mike Johnson Unavailable [phone] Reason For Referral No Information Medications Medication SIG (Take, Route, Frequency, Duration) Notes Start Date End Date Status Vitamin B-12 1000 MCG 1 tablet Orally On ce a day; Duration: 30 day(s) Active Vitamin D3 1000 UNIT 1 tablet Orally Onc e a day; Duration: 30 day(s) Active Efudex 5 % 1 application to aff ected area Externally Twice a day; Duration: 30 days 02/28/2014 Active Lisinopril-hydroCHLOROthia zide 20-12.5 MG 1 tablet Orally Once a day; Duration: 30 day(s) Active Metoprolol Tartrate 50 MG 1 tablet Orall y Twice a day; Duration: 30 day(s) Active Problems Problem Type SNOMED Code ICD Code Onset Dates Problem Status W/U Status Risk Notes Problem Benign neoplasm of skin of face (86435181) Benign neoplasm of skin of other and unspecified parts of face (216.3) Active confirmed Problem Benign neoplasm of scalp and skin of neck (216.4) Active confirmed Problem Benign neoplasm of skin of trunk, except scrotum (216.5) Active confirmed Problem Benign neoplasm of skin of upper limb (disorder) (61342714) Benign neoplasm of skin of upper limb, including shoulder (216.6) Active confirmed Problem Actinic keratosis (901698) Actinic keratosis (702.0) Active confirmed Problem Seborrheic keratosis (03334073) Other seborrheic keratosis (702.19) Active confirmed Problem Sebaceous cyst (853092918) Sebaceous cyst (706.2) Active confirmed Plan Of Treatment No Information Insurance Providers Payer Name Payer Address Payer Phone Subscriber Number Group Number Insured Name Patient Relationship to Insured Coverage Start Date Coverage End Date Medicare Attn Part B Claims [address] [place] [address] [id number] Esthela Billings Self - patient is the insured [employer] [address] [address] [place], [place] [phone] [id number] Esthela Billings Self - patient is the insured Medical (General) History Medical History History ICD Code HTN pacemaker sinus arrhythmia Surgical History Surgery Date(Month/Year) broken right knee broken left knee fractured left shoulder hysterectomy with bladder reposition gallbladder removed appendectomy tonsillectomy fractured left wrist pacemaker
--- OUTSIDE RECORDS SUMMARY | 2025-05-10 20:11 | XMS_ITS | Clinical Summary ---
Author Organization [facility] Address [address] [place] [address] Care Team Providers Care Import Coordination And Production Head Name Role Phone Unavailable Primary Care Provider Unavailabl e Allergies Active Allergy Reactions Criticality Noted Date Comments Adhesive Tape-Silicones Other (See Comments) 09/14/2020 Skin torn easily Medications amiodarone (CORDARONE) 200 mg tablet Take 1 Tablet by mouth daily. 12/24/2024 Active ascorbic acid, vitamin C, (VITAMIN C) 1,000 mg Tablet Take 1,000 mg by mouth daily. Active magnesium oxide 400 mg magnesium Capsule Take 400 mg by mouth daily. Active metoprolol tartrate (LOPRESSOR) 50 mg tablet Take 1 Tablet by mouth 2 times daily. 12/24/2024 Active cyanocobalamin 1,000 mcg Tablet Take 1,500 mcg by mouth. Active Xarelto 15 mg Tablet take 1 tablet by mouth every day with evening meal 11/16/2024 Active aspirin (ECOTRIN EC) 81 mg Tablet, Delayed Release (E.C.) Take 81 mg by mouth daily. Hold 5 days to surgery Active oxyCODONE-aceta minophen (Percocet) 5-325 mg tabletIndicatio ns:Rectal prolapse Take 1 Tablet by mouth every 4 hours as needed for Pain, Moderate. Max Daily Amount: 6 Tablets 30 Tablet 02/22/2025 2:41 PM CDT 02/21/2025 Active Active Problems Problem Noted Date Diagnosed Date s/p perineal procetectomy 02/21/2025 for rectal p rolapse 02/22/2025 Encounters Date Type Department Care Team Description 05/03/2025 External Device Data ST[facility] ABSTRACTION Provider, Abstract 04/26/2025 External Device Data [facility] ABSTRACTION Provider, Abstract 03/31/2025 External Device Data [facility] ABSTRACTION Provider, Abstract 03/31/2025 External Device Data [facility] ABSTRACTION Provider, Abstract 03/30/2025 External Device Data [facility] ABSTRACTION Provider, Abstract 03/30/2025 External Device Data [facility] ABSTRACTION Provider, Abstract 03/29/2025 External Device Data [facility] ABSTRACTION Provider, Abstract 03/15/2025 9:00 AM CDT Office Visit [facility] Gen Spec Surg [address] [phone] Kenna Spencer NP Rectal prolapse (Primary Dx) 03/15/2025 External Device Data STL ABSTRACTION Provider, Abstract 03/08/[address] Surgical [address] [place] [phone] Vinnie Moore MD Nurse Navigation 02/28/2025 Telephone [facility] 3A Surgical [address] [place] [phone] Vinnie Moore MD Nurse Navigation 02/23/2025 Results Follow-Up [facility] Spec Surg [address] [phone] Vinnie Moore MD PATHOLOGY 02/22/2025 External Device Data ST[facility] ABSTRACTION Provider, Abstract 02/22/2025 External Device Data ST[facility] ABSTRACTION Provider, Abstract 02/22/2025 External Device Data [facility] ABSTRACTION Provider, Abstract 02/21/2025 1:26 PM CDT Anesthesia Event [facility] Operating Room [address] [place] [phone] Shaji Nolen MD Bokov, Denis, BRICKLAYER SUPERVISOR 02/21/2025 12:45 PM CDT - 02/21/2025 2:28 PM CDT Surgery [facility] Operating Room [address] [place] [phone] Vinnie Moore MD PERINEAL ALTEMEIER PROCTECTOMY 02/21/2025 9:00 AM CDT - 02/22/2025 3:31 PM CDT Hospital Encounter [facility] 3B Surgical [address] [place] [phone] Vinnie Moore MD Complete rectal prolapse Discharge Disposition: Home or Self Care 02/21/2025 Travel 02/18/2025 Telephone [facility] Gen Spec Surg [address] [place] [phone] Vinnie Moore MD Surgery 02/18/2025 Telephone [facility] 3A Surgical [address] [place] [phone] Vinnie Moore MD Nurse Navigation 02/18/2025 Telephone [facility] Gen Spec Surg [address] [place] [phone] Vinnie Moore MD Surgery (Arrival time) 02/14/2025 Telephone [facility] Gen Spec Surg [address] [place] [phone] Vinnie Moore MD Surgery 02/08/2025 External Device Data STL ABSTRACTION Provider, Abstract 02/08/2025 External Device Data ST[facility] ABSTRACTION Provider, Abstract 02/08/2025 External Device Data [facility] ABSTRACTION Provider, Abstract from Last 3 Months Social History Tobacco Use Types Packs/Day Years Used Date Smoking Tobacco: Never Tobacco Cessation:Counseling Given: Not Answered Alcohol Use Standard Drinks/Week Comments Never 0 (1 standard drink = 0.6 oz pur e alcohol) Feeling Safe Answer Date Recorded Are you in a relationship wi th someone who hurts you emotionally and/or physically? No 02/21/2025 Food Insecurity Answer Date Recorded Patient needs follow up regardin 03/03/2025 Transportation Needs Answer Date Record ed Patient needs follow up regardin 03/03/2025 Housing Stability Answer Date Recorded Social/Environmental Concerns No concerns Utility Needs Answer Date Recorded Patient needs follow up regardin 03/03/2025 Comments Unknown Sex and Gender Information Value Date Recorded Sex Assigned at Not on file Legal Sex Female 1:55 PM CDT Gender Identity Not on file Sexual Orientation Not on file Last Filed Vital Signs Vital Sign Reading Time Taken Comments Blood Pressure 144/88 03/15/2025 8:57 AM CDT Pulse 97 03/15/2025 8:57 AM CDT Temperature 36.7 C (98.1 F) 03/15/2025 8:57 AM CDT Respiratory Rate 18 02/22/2025 11:10 AM CDT Oxygen Saturation 99% 03/15/2025 8:57 AM CDT Inhaled Oxygen Concentration - - Weight 49.4 kg (109 lb) 03/15/2025 8:57 AM CDT Height 165.1 cm (5' 5 ) 03/15/2025 8:57 AM CDT Body Mass Index 18.14 03/15/2025 8:57 AM CDT Plan of Treatment Health Maintenance Due Date Last Done Comments DTAP/TDAP/TD VACCINES (1 - Tdap) 1955 PNEUMOCOCCAL VACCINE 50+ YEA RS (1 of 1 - PCV) 1986 ZOSTER VACCINE (1 of 2) 1986 RSV VACCINE (60+ or ) (1 - 1-dose 75+ series) 2011 INFLUENZA VACCINE (#1) 2024 OSTEOPOROSIS SCREENING 05/01/2025 05/01/2020, 2017 Medical Devices Implanted Type Area Electrical Installation Supervisor Device Identifier Shelf Expiration Date Model / Serial / Lot Pacemaker Pacemaker [employer] Procedures Procedure Name Priority Date/Time Associated Diagnosis Comments TELEMETRY REPORT 02/23/2025 1:59 AM CDT POC GLUCOSE Routine 02/22/2025 7:57 AM CDT BASIC METABOLIC PANEL Routine 02/22/2025 6:39 AM CDT CBC WITH DIFFERENTIAL Routine 02/22/2025 6:39 AM CDT XR HUMERUS 2+ VW RIGHT Stat 02/22/2025 2:38 AM CDT POC GLUCOSE Routine 02/21/2025 2:55 PM CDT PATHOLOGY Pathology 02/21/2025 2:16 PM CDT Rectal prolapse MS EXC RCT PROCIDENTIA W/ANAST PERINEAL APPROACH 02/21/2025 12:45 PM CDT Rectal prolapse EKG 12-LEAD Pending Discharge 02/21/2025 11:04 AM CDT CBC WITHOUT DIFFERENTIAL Stat 02/21/2025 10:24 AM CDT from Last 3 Months Results * TELEMETRY REPORT (02/23/2025 1:59 AM CDT) us Provider Scanning ECG ORDERABLES Final Result * POC GLUCOSE (02/22/2025 7:57 AM CDT) Only the most recent of2 resultswithin the time period is included. Pathologist [facility] GLUCOSE POC 82 74 - 99 mg/dL 02/22/2025 7:57 AM CDT [facility] SPECIMEN SOURCE, GLUCOSE POC Capillary 02/22/2025 7:57 AM CDT [facility] Blood, whole 02/22/2025 7:57 AM CDT 02/22/2025 8:08 AM CDT Vinnie Moore MD POINT OF CARE TESTING Final Res ult [facility] CLIA # [id number] [address] [place] [address] * (ABNORMAL) CBC WITH DIFFERENTIAL (02/22/2025 6:39 AM CDT) WBC 15.6(H) 4.8 - 10.8 K/uL 02/22/2025 6:52 AM CDT [facility] RBC 3.64(L) 4.20 - 5.40 M/uL 02/22/2025 6:52 AM CDT [facility] HEMOGLOBIN 11.4(L) 12.0 - 16.0 g/dL 02/22/2025 6:52 AM [facility] HEMATOCRIT 36.1 36.0 - 46.0 % 02/22/2025 6:52 AM [facility] MCV 99.2 84.0 - 103.0 fL 02/22/2025 6:52 AM [facility] MCH 31.3 27.0 - 34.0 pg 02/22/2025 6:52 AM [facility] MCHC 31.6 30.0 - 35.0 g/dL 02/22/2025 6:52 AM [facility] PLATELETS 386 140 - 440 K/uL 02/22/2025 6:52 AM [facility] MPV 9.4 8.9 - 12.8 fL 02/22/2025 6:52 AM [facility] RDW 14.8(H) 11.0 - 14.5 % 02/22/2025 6:52 AM [facility] RDW-STDEV 54.5(H) 37.0 - 54.0 fL 02/22/2025 6:52 AM [facility] NEUTROPHILS 88(H) 42 - 75 % 02/22/2025 6:52 AM [facility] LYMPHOCYTES 6(L) 24 - 44 % 02/22/2025 6:52 AM [facility] MONOCYTES 6 2 - 10 % 02/22/2025 6:52 AM [facility] EOSINOPHILS 0 0 - 7 % 02/22/2025 6:52 AM [facility] BASOPHILS 0 0 - 1 % 02/22/2025 6:52 AM [facility] IMMATURE GRANULOCYTES 1 0 - 2 % 02/22/2025 6:52 AM [facility] NEUTROPHIL ABSOLUTE 13.68(H) 2.00 - 8.00 K/uL 02/22/2025 6:52 AM [facility] LYMPHOCYTE ABSOLUTE 0.86(L) 1.20 - 4.00 K/uL 02/22/2025 6:52 AM CDT [facility] MONOCYTE ABSOLUTE 0.92(H) 0.10 - 0.60 K/uL 02/22/2025 6:52 AM CDT [facility] EOSINOPHIL ABSOLUTE 0.00 0.00 - 0.70 K/uL 02/22/2025 6:52 AM CDT [facility] BASOPHILS ABSOLUTE 0.01 0.00 - 0.20 K/uL 02/22/2025 6:52 AM CDT [facility] IMMATURE GRANULOCYTES ABSOLUTE 0.09 0.00 - 0.10 K/uL 02/22/2025 6:52 AM CDT [facility] SMEAR REVIEWED: NA - Not Applicable 02/22/2025 6:52 AM T [facility] Blood Venipuncture / Unknown 02/22/2025 6:39 AM CDT 02/22/2025 6:48 AM CDT us Vinnie Moore MD HEMATOLOGY ORDERABLES Final Res ult [facility] CLIA # [id number] [address] [place] [address] * (ABNORMAL) BASIC METABOLIC PANEL (02/22/2025 6:39 AM CDT) Pathologist [facility] SODIUM 138 136 - 145 mmol/L 02/22/2025 7:17 AM CDT [facility] POTASSIUM 3.8 3.5 - 5.1 mmol/L 02/22/2025 7:17 AM CDT [facility] CHLORIDE 103 98 - 107 mmol/L 02/22/2025 7:17 AM CDT [facility] CO2 25 22 - 29 mmol/L 02/22/2025 7:17 AM CDT [facility] CALCIUM 8.5(L) 8.8 - 10.2 mg/dL 02/22/2025 7:17 AM CDT [facility] BUN 21 8 - 23 mg/dL 02/22/2025 7:17 AM CDT [facility] CREATININE 0.89 0.51 - 0.95 mg/dL 02/22/2025 7:17 AM CDT [facility] Comment:The GFR result is no t clinically significant on patients <18 or >70 years of age. GLUCOSE 122(H) 74 - 99 mg/dL 02/22/2025 7:17 AM CDT [facility] GFR >60 mL/min/1.7 3 sq meter 02/22/2025 7:17 AM CDT [facility] Comment:eGFR calculated with 2020 CKD-EPI equation. Vegetarian diet, extremely high or low muscle mass, and may affect results. Cystatin C with Glomerular Filtration Rate is a suitable alternative for these patients. ANION GAP 10 9 - 20 mmol/L 02/22/2025 7:17 AM CDT [facility] Blood Venipuncture / Unknown 02/22/2025 6:39 AM CDT 02/22/2025 6:48 AM CDT us Vinnie Moore MD CHEMISTRY ORDERABLES Final Resu lt [facility] CLIA # [id number] [address] [place] [address] * XR HUMERUS 2+ VW RIGHT (02/22/2025 2:38 AM CDT) Anatomical Region Laterality Modality Upper Extremity Computed Radiogr aphy 02/22/2025 2:02 AM CDT Impressions 02/22/2025 2:03 PM CDT IMPRESSION: 1. No identified fracture or dislocation. 2. Diffuse bone demineralization suggestive of osteopenia or osteoporosis. 3. Narrowing of the right subacromial space is suggestive of a possible rotator cuff injury. Clinical correlation is recommended. Narrative 02/22/2025 2:03 PM CDT EXAM: XR HUMERUS 2+ VW RIGHT DIAGNOSIS/REASON FOR EXAM: Injury. DATE AND TIME: 02/22/2025, 2:38 AM. COMPARISON: None. TECHNIQUE: AP and lateral views of the right humerus. FINDINGS: The bones appear diffusely demineralized. No fracture or dislocation is identified. No osteoblastic or dislocations are seen. The right subacromial space is markedly narrowed. No radiodense foreign bodies identified. Procedure Note Saleem Syed MD - 02/22/2025 EXAM: XR HUMERUS 2+ VW RIGHT DIAGNOSIS/REASON FOR EXAM: Injury. DATE AND TIME: 02/22/2025, 2:38 AM. COMPARISON: None. TECHNIQUE: AP and lateral views of the right humerus. FINDINGS: The bones appear diffusely demineralized. No fracture or dislocation is identified. No osteoblastic or dislocations are seen. The right subacromial space is markedly narrowed. No radiodense foreign bodies identified. IMPRESSION: 1. No identified fracture or dislocation. 2. Diffuse bone demineralization suggestive of osteopenia or osteoporosis. 3. Narrowing of the right subacromial space is suggestive of a possible rotator cuff injury. Clinical correlation is recommended. Freddy Becerra PA-C DIAGNOSTIC IMAGING ORD ERABLES Final Result * PATHOLOGY (02/21/2025 2:16 PM CDT) CASE REPORT Surgical Pathology Report Case: [id number] Authorizing Provider: Vinnie Moore MD Collected: 02/21/2025 02:16 PM Ordering Location: [facility] Received: 02/21/2025 04:09 PM Operating Room Pathologist: Rylee Hines MD Specimen: Colon, sigmoid, and rectum 5 2:00 PM CDT [facility] FINAL DIAGNOSIS A. Colon, sigmoid and rectum, proctectomy - Segment of colon (clinically rectum and sigmoid) showing mucosal changes consistent with prolapse including mild chronic inflammation, reactive hyperplasia, and subepithelial edema - Grossly identified diverticuli; no acute diverticulitis identified - Viable resection margins - No dysplasia or malignancy Rylee Hines MD [id number] 5 2:00 PM CDT [facility] at 1400 CDT GROSS DESCRIPTION A. Received in a container of formalin labeled Perez -sigmoid colon and rectum is a 17.8 cm in length segment of sigmoid colon and rectum that is open at both ends. There is a 1.5 cm in length segment of prolapsed, dilated mucosa at the distal aspect that is 10.2 cm in circumference. Opening reveals a ramirez-pink mucosa with intermittent simple diverticuli. No other masses or lesions are grossly identified. Renal Dialysis Rn sections are submitted as follows: A1: Possible margin, en face A2: Distal margin with prolapse mucosa, perpendicular A3: Renal Dialysis Rn diverticulum A4: Renal Dialysis Rn uninvolved mucosa Valerie Rogel 5 2:00 PM CDT [facility] OPERATIVE PROCEDURE 1: PERINEAL ALTEMEIER PROCTECTOMY 5 2:00 PM CDT [facility] CLINICAL INFORMATION K62.3-Rectal prolapse 5 2:00 PM CDT [facility] COMMENT The Rating[employer] voice-activated dictation system may have been used in the creation of this report. Inherent to this system is the possibility of errors in syntax, grammar, punctuation, or other areas that could impact interpretation. If there are interpretive questions about the report, please contact the performing pathologist. Unless gross only is specified in the diagnosis, the microscopic examination substantiates the above cited diagnosis. The performance characteristics of all immunohistochemical stains cited in this report (if any) were determined by the [facility] of [facility] in compliance with CLIA'88 regulations. Some of these tests rely on the use of analyte specific reagents and are subject to specific labeling requirements by the FDA. All controls show appropriate reactivity. This testing was developed by the [facility] of [facility]. It has not been cleared or approved by the FDA. The FDA has determined that such clearance or approval is not necessary. 5 2:00 PM CDT [facility] Tissue SIGMOID COLON STRUCTURE / Unknown Collection / Unknown 02/21/2025 2:16 PM CDT 02/21/2025 4:09 PM CDT us Vinnie Moore MD PATHOLOGY/CYTOLOGY ORDERABLES F inal Result [facility]SE CLIA # [id number] [address] [place] [address] * EKG 12-LEAD (02/21/2025 11:04 AM CDT) 02/21/2025 11:0 4 AM CDT Narrative INTERFACE SYSTEM - 02/21/2025 9:58 PM CDT [address] [address] Test Date: 2025-02-21 Pat Name: OMAIRA PEREZ Department: 12 Room: PREOP PHAS PREOP PHAS Gender: Female Firer Retort: [id number] : 1935 Requested By: Order Number: [id number] Reading MD: Mark Hill Measurements Intervals Kyle Rate: 92 P: 0 MS: 0 QRS: -38 QRSD: 102 T: 132 QT: 374 QTc: 462 Interpretive Statements Atrial fibrillation Left axis deviation Low voltage QRS Septal infarct, age undetermined Possible Lateral infarct, age undetermined Abnormal ECG Electronically Signed On 02-21-2025 21:58:09 CDT by Mark Hill Procedure Note Mark Hill MD - 02/21/[address] [address] Test Date: 2025-02-21 Pat Name: OMAIRA BILLINGS Department: 12 Room: PREOP PHAS PREOP PHAS Gender: Female Firer Retort: [id number] : 1935 Requested By: Order Number: [id number] Reading MD: Mark Hill Measurements Intervals Kyle Rate: 92 P: 0 MS: 0 QRS: -38 QRSD: 102 T: 132 QT: 374 QTc: 462 Interpretive Statements Atrial fibrillation Left axis deviation Low voltage QRS Septal infarct, age undetermined Possible Lateral infarct, age undetermined Abnormal ECG Electronically Signed On 02-21-2025 21:58:09 CDT by Mark Hill Vinnie Moore MD ECG ORDERABLES Final Result INTERFACE SYSTEM Refer to clinic/hospital department * (ABNORMAL) CBC WITHOUT DIFFERENTIAL (02/21/2025 10:24 AM CDT) WBC 13.4(H) 4.8 - 10.8 K/uL 02/21/2025 10:44 AM CDT [facility] RBC 4.04(L) 4.20 - 5.40 M/uL 02/21/2025 10:44 AM CDT [facility] HEMOGLOBIN 12.7 12.0 - 16.0 g/dL 02/21/2025 10:44 AM CDT [facility] HEMATOCRIT 40.2 36.0 - 46.0 % 02/21/2025 10:44 AM CDT [facility] MCV 99.5 84.0 - 103.0 fL 02/21/2025 10:44 AM CDT [facility] MCH 31.4 27.0 - 34.0 pg 02/21/2025 10:44 AM CDT [facility] MCHC 31.6 30.0 - 35.0 g/dL 02/21/2025 10:44 AM CDT [facility] PLATELETS 439 140 - 440 K/uL 02/21/2025 10:44 AM CDT [facility] MPV 9.6 8.9 - 12.8 fL 02/21/2025 10:44 AM CDT [facility] RDW 14.9(H) 11.0 - 14.5 % 02/21/2025 10:44 AM CDT [facility] RDW-STDEV 55.3(H) 37.0 - 54.0 fL 02/21/2025 10:44 AM [facility] Blood Venipuncture / Unknown 02/21/2025 10:24 AM CDT 02/21/2025 10:36 AM CDT Vinnie Moore MD HEMATOLOGY ORDERABLES Final Res ult [facility] # [id number] [address] [place] [address] from Last 3 Months Insurance [employer] [place] PLUS [facility] RX Shout Medicare Part D Advance Directives For more information, please contact: [phone] * Full Code (Latest Code Status on File) Date Activated Date Inactivated Comments 02/21/2025 3:05 PM 02/22/2025 5:31 PM * Full Code Date Activated Date Inactivated Comments 02/21/2025 9:37 AM 02/21/2025 3:05 PM
--- OUTSIDE RECORDS SUMMARY | 2025-05-10 20:11 | XMS_ITS | Encounter Summary ---
Author Organization [facility] Address [address] [place] [address] Care Team Providers Care Harness Inspector Name Role Phone Unavailable Primary Care Provider Unavailabl e Encounter Details Date Type Department Care Team (Late st Contact Info) Description 05/03/2025 External Device Data [facility] ABSTRACTION Provider, Abstract NO ADDRESS ON FILE Social History Tobacco Use Types Packs/Day Years Used Date Smoking Tobacco: Never Alcohol Use Standard Drinks/Week Comments Never 0 [...] on file Sexual Orientation Not on file documented as of this encounter Plan of Treatment Not on file documented as of this encounter Visit Diagnoses Not on filedocumented in this encounter
--- NOTE | 2025-05-10 20:19 | XRR_ITS ---
PROCEDURE INFORMATION: Exam: XR Pelvis Exam date and time: 05/10/2025 8:24 PM Age: 89 years old Clinical indication: Pelvic pain; Additional info: Fall, pain TECHNIQUE: Imaging protocol: Radiologic exam of the pelvis. Views: 1 or 2 view. COMPARISON: CT pelvis w con* [id number] 03/03/2025 10:15 AM FINDINGS: Bones/joints: Left total hip arthroplasty appears intact within the field of view. No dislocation. [id number] degenerative changes of the right hip. Healing left pubic body fracture. Possible nondisplaced left inferior pubic ramus fracture. Previously seen sacral insufficiency fractures better assessed on prior CT. Soft tissues: Unremarkable. Vasculature: Calcified pelvic phleboliths. XR/XR pelvis 1-2V* [id number] IMPRESSION: 1. Possible nondisplaced left inferior pubic ramus fracture. 2. Additional chronic findings as above.
--- NOTE | 2025-05-10 20:19 | XRR_ITS ---
PROCEDURE INFORMATION: Exam: XR Left Femur Exam date and time: 05/10/2025 8:27 PM Age: 89 years old Clinical indication: Injury or trauma; Fall; Blunt trauma; Thigh or upper leg; Left; Additional info: Injury, suspect FX TECHNIQUE: Imaging protocol: Radiologic exam of the left femur. Views: 2 views. COMPARISON: CR (PELVIS, ) 05/10/2025 8:24 PM FINDINGS: Bones/joints: Left total hip arthroplasty. Acute moderately displaced oblique fracture through the mid femoral diaphysis with about 1/2 shaft width lateral displacement of the distal fragment and apex medial/posterior angulation. About 2.5 cm foreshortening is also seen. The knee joint appears grossly intact. Soft tissues: Unremarkable. XR/XR femur LT min 2V* [id number] IMPRESSION: Acute moderately displaced oblique fracture through the mid femoral diaphysis.
--- NOTE | 2025-05-10 20:19 | XRR_ITS ---
PROCEDURE INFORMATION: Exam: XR Chest Exam date and time: 05/10/2025 8:22 PM Age: 89 years old Clinical indication: Injury or trauma; Fall; Blunt trauma (contusions or hematomas); Additional info: Fall, pre op TECHNIQUE: Imaging protocol: Radiologic exam of the chest. Views: 1 view. COMPARISON: CR XR chest 1V portable [id number] 04/14/2025 2:24 PM FINDINGS: Tubes, catheters and devices: Stable left subclavian pacer with right atrial appendage and right ventricular leads. Lungs: Curvilinear density along the periphery of the right lung is favored to represent a skin fold, particularly as there are pulmonary markings lateral to this line. Similar left basilar opacities. No new airspace disease. Pleural spaces: Similar small left pleural effusion. Heart/Mediastinum: Stable cardiomediastinal silhouette. Vasculature: Atherosclerotic aortic calcifications. Bones/joints: Unremarkable. XR/XR chest 1V portable [id number] IMPRESSION: 1. Similar left basilar opacities likely representing atelectasis with a small left pleural effusion. 2. Curvilinear density along the periphery of the right lung is favored to represent a skin fold with pneumothorax considered less likely.
--- NOTE | 2025-05-10 20:19 | ECG_ITS ---
[facility] Test Date: 2025-05-10 Pat Name: Esthela Billings Department: Room: Gender: Female Contact Lens Technician: : [id number] Requested By: Zack Francis Order Number: [id number] Marcy MD: Mahesh Scott M.D. Measurements Intervals [place] Rate: 75 P: 0 WY: 0 QRS: -12 QRSD: 119 T: 25 QT: 415 QTc: 465 Interpretive Statements ATRIAL FIBRILLATION MODERATE INTRAVENTRICULAR CONDUCTION DELAY [105+ ms QRS DURATION, 80+ ms Q/S IN V1/V2, NO Q AND 60+ ms R IN I/aVL/V5/V6] NONSPECIFIC T-WAVE ABNORMALITY Compared to ECG 01/18/2025 15:52:25 Intraventricular conduction delay now present T-wave abnormality now present Myocardial infarct finding no longer present Electronically Signed On 05-12-2025 08:58:42 CDT by Mahesh Scott M.D. [id number]
[2025-05-10 20:24] VITALS: BP 159/94; PULSE 88; O2SAT 94
--- NOTE | 2025-05-10 20:28 | W.ED.FALL ---
HPI - Fall General: Chief Complaint: Fall Stated Complaint: FALL Time Seen by Provider: 05/10/25 20:12 History of Present Illness: Patient is a generally well-appearing 81-year-old female from home by EMS accompanied by her daughter with whom she lives seen for a ground-level fall resulting in left upper leg pain. She has a history. They report pain located ?in between? the knee and hip along the left thigh. The patient can wiggle toes and feels light touch distally. They deny head trauma or neck pain. Caregivers note the patient has fallen frequently over the past 8?9 months and usually uses a walker. Zofran and 150 ?g of fentanyl were administered for nausea and analgesia, respectively. The team plans radiographic imaging to determine the extent of injury. She denies recent sickness, fever, cough, abdominal pain, nausea, vomiting, dysuria, frequency, diarrhea, constipation. She has no headache, no visual disturbance, no lateralizing deficits of strength or sensation of note. Related Data Home Medications ?Medication ?Instructions ?Recorded ?Confirmed naproxen sodium 220 mg tablet 220 mg PO Q12H PRN Fever Or Pain 01/18/25 04/28/25 (Aleve) aspirin 325 mg tablet 325 mg PO QAM 03/03/25 04/28/25 Previous Rx's ?Medication ?Instructions ?Recorded mupirocin 2 % topical ointment 1 applic topical BID #50 grams 03/03/25 (Centany) amiodarone 200 mg tablet 200 mg PO DAILY #90 tabs 03/22/25 furosemide 20 mg tablet 20 mg PO BID #180 tabs 04/21/25 metoprolol tartrate 25 mg tablet 25 mg PO BID #180 tabs 04/21/25 potassium chloride 20 mEq 20 meq PO DAILY #90 tabs 04/21/25 tablet,extended release(part/cryst) (Klor-Con M) Fast form splint, right wrist #1 ea 04/27/25 wheelchair #1 ea 04/29/25 Allergies Allergy/AdvReac Type Severity Reaction Status Date / Time adhesive tape Allergy Unknown Verified 04/28/25 15:48 [facility] PFS: Medical History Unsteady gait Mitral valve regurgitation Bilateral edema of lower extremity History of colon polyps colonoscopy 01/29/2021 Dr. Zack Encounter for servicing of pacemaker at end of battery life HTN (hypertension) Paroxysmal A-fib Hiatal hernia History of 2019 novel coronavirus disease (COVID-19) Surgical History History of rectal surgery 03/[address] 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 Exam Const: COMMON NORMALS: no acute distress, patient oriented x3 and alert HENMT: COMMON NORMALS: normocephalic and atraumatic HEAD & SCALP: normocephalic and atraumatic Eye: COMMON NORMALS: Equal, round and reactive pupils present, EOMs intact bilaterally and no scleral icterus PUPIL: Yes Equal, round and reactive pupils present Resp: COMMON NORMALS: normal respiratory effort and No retractions Cardio: COMMON NORMALS: regular rate, regular rhythm and No murmurs present (Cardio) RATE: regular rate RHYTHM: regular rhythm GI: COMMON NORMALS: Normal to inspection, nondistended, normoactive bowel sounds present, Soft to palpation and non-tender PALPATION: Yes Soft to palpation Extremity: NARRATIVE EXTREMITY EXAM: Left lower extremity is rotated externally and somewhat shortened. There appears to be an abnormality of the shaft of the left femur at the junction of the middle and distal third. Strong pulses and sensation intact distal to this abnormality. No obvious deformity of the left hip or tenderness with palpation of the hip. Hip can be rotated without increase in pain. 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 Neuro: COMMON NORMALS: patient oriented x3 SENSORIUM/ORIENTATION: Yes alert Skin: COMMON NORMALS: no rashes or lesions noted GENERAL SKIN EXAM: no rashes or lesions noted Course Vital Signs: Vital signs: Vital Signs Temperature 97.8 F 05/10/25 20:03 Pulse Rate 73 05/10/25 21:12 Respiratory Rate 16 05/10/25 20:03 Blood Pressure 88/60 05/10/25 21:12 Pulse Oximetry 97 05/10/25 21:12 Oxygen Delivery Me thod Room Air 05/10/25 21:12 MDM - Fall Medical Decision Making In summary, patient is a generally well-appearing 89-year-old female from home seen for unwitnessed fall and fracture of her left femur. She has prior total hip arthroscopy hardware and spiral fracture appears to abut the inferior aspect of the femoral component. I spoke with local orthopedist Dr. Bergeron, who recommends the patient would benefit from higher level of care as the repair can be complicated and may necessitate removal of current hardware. I spoke with Dr. Quiñones at [facility] who accepts the patient in transfer as soon as a bed is available for the patient. She will remain in our emergency department until then. Pain is well-controlled. She will be placed in a knee immobilizer to follow-up minimize motion of the fracture during transport by ground ambulance. She will be made n.p.o. at midnight. Remainder of workup is noncontributory and there is no evidence of other injury. Vital signs remained stable. Lab Data 05/10/25 20:19 05/10/25 20:19 Radiology Impressions Chest X-Ray 05/10/25 20:19 IMPRESSION: 1. Similar left basilar opacities likely representing atelectasis with a small left pleural effusion. 2. Curvilinear density along the periphery of the right lung is favored to represent a skin fold with pneumothorax considered less likely. Femur X-Ray 05/10/25 20:19 IMPRESSION: Acute moderately displaced oblique fracture through the mid femoral diaphysis. Pelvis X-Ray 05/10/25 20:19 IMPRESSION: 1. Possible nondisplaced left inferior pubic ramus fracture. 2. Additional chronic findings as above. Laboratory Results WBC 10.38 10^3/uL (3.29-11.43) 05/10/25 20:19 RBC 4.03 10^6/uL (3.85-5.65) 05/10/25 20:19 Hgb 12.00 g/dL (11.27-16.99) 05/10/25 20:19 Hct 37.6 % (36-47) 05/10/25 20:19 MCV 93.3 fl (85-98) 05/10/25 20:19 MCH 29.8 pg (27-33) 05/10/25 20:19 MCHC 31.9 g/dL (30-55) 05/10/25 20:19 RDW 15.5 % (12.1-15.1) H 05/10/25 20:19 Plt Count 444 10^3/cmm (157-399) H 05/10/25 20:19 MPV 9.2 fL (7.4-10.4) 05/10/25 20:19 Neut % (Auto) 63.9 % 05/10/25 20:19 Lymph % (Auto) 26.0 % 05/10/25 20:19 Beauregard % (Auto) 7.7 % 05/10/25 20:19 Eos % (Auto) 1.5 % 05/10/25 20:19 Baso % (Auto) 0.5 % 05/10/25 20:19 Neut # (Auto) 6.63 10^3/uL (1.8-7.7) 05/10/25 20:19 Lymph # (Auto) 2.7 10^3/uL (0.8-4.8) 05/10/25 20:19 Beauregard # (Auto) 0.8 10^3/uL (0.2-0.9) 05/10/25 20:19 Eos # (Auto) 0.2 10^3/uL (0.0-0.8) 05/10/25 20:19 Baso # (Auto) 0.1 10^3/uL (0.0-0.1) 05/10/25 20:19 Nucleated RBC % (auto) 0 % 05/10/25 20:19 Nucleated RBCs # 0.0 /100WBC 05/10/25 20:19 PT 13.10 SECONDS (12.1-14.9) 05/10/25 20:19 INR 0.93 (0.8-1.2) 05/10/25 20:19 APTT 25.9 SECONDS (23.9-36.7) 05/10/25 20:19 Sodium 133 mmol/L (136-145) L 05/10/25 20:19 Potassium 4.3 mmol/L (3.5-5.1) 05/10/25 20:19 Chloride 95 mmol/L (98-107) L 05/10/25 20:19 Carbon Dioxide 27 mmol/L (22-29) 05/10/25 20:19 Anion Gap 15.3 (5-19) 05/10/25 20:19 BUN 26 mg/dL (8-23) H 05/10/25 20:19 Creatinine 1.1 mg/dL (0.5-0.9) H 05/10/25 20:19 GFR Calculation Not Reportable 05/10/25 20:19 Glucose 132 mg/dL (65-115) H 05/10/25 20:19 Calculated Osmolality 283 mOsm/kg (285-295) L 05/10/25 20:19 Calcium 8.8 mg/dL (8.5-10.5) 05/10/25 20:19 Total Bilirubin 0.3 mg/dL (0.15-1.2) 05/10/25 20:19 AST 16 U/L (0-32) 05/10/25 20:19 ALT 14 U/L (0-33) 05/10/25 20:19 Alkaline Phosphatase 162 U/L (35-105) H 05/10/25 20:19 Total Protein 6.2 g/dL (6.6-8.7) L 05/10/25 20:19 Albumin 3.3 g/dL (3.5-5.2) L 05/10/25 20:19 Globulin 2.9 g/dL (1.3-4.6) 05/10/25 20:19 Urine Color Yellow (Yellow) 05/10/25 21:10 Urine Appearance Clear (CLEAR) 05/10/25 21:10 Urine pH 5.5 (5-7) 05/10/25 21:10 Ur Specific Clarissa 1.015 (1.005-1.030) 05/10/25 21:10 Urine Protein Negative (Negative) 05/10/25 21:10 Urine Glucose (UA) Negative (Normal) 05/10/25 21:10 Urine Ketones Negative (Negative) 05/10/25 21:10 Urine Blood Negative (Negative) 05/10/25 21:10 Urine Nitrate Positive (Negative) A 05/10/25 21:10 Urine Bilirubin Negative (Negative) 05/10/25 21:10 Urine Urobilinogen 1.0 mg/dL (Negative) 05/10/25 21:10 Ur Leukocyte Esterase Negative (Negative) 05/10/25 21:10 Urine RBC 6-10 /hpf (0-2) 05/10/25 21:10 Urine WBC 0-5 /hpf (0-5) 05/10/25 21:10 Ur Squamous Epith Cells 0-5 /hpf (0-5) 05/10/25 21:10 Amorphous Sediment Not Reportable 05/10/25 21:10 Urine Bacteria 4+ /hpf (NONE) H 05/10/25 21:10 Hyaline Casts 4.52 /lpf 05/10/25 21:10 All radiology interpretation(s) finalized by discharge EKG Data EKG 1: Interpretation: Time?2042?intermittently paced rhythm, rate of 75, irregular rhythm, possibly atrial fibrillation, no ST segment elevation or depression, no T wave inversions, QTc = 444. Patient has history of atrial fibrillation. Prior study from 01/18/2025 shows atrial fibrillation with rate of 83. Discharge Plan Discharge Condition: Stable Prescriptions: No Action metoprolol tartrate 25 mg tablet 25 mg PO BID Qty: 180 1RF furosemide 20 mg tablet 20 mg PO BID Qty: 180 0RF potassium chloride [Klor-Con M20] 20 mEq tablet,ER particles/crystals 20 meq PO DAILY Qty: 90 0RF (DME) Fast form splint, right wrist See Rx Instructions .Route .MEDSUPPLY Qty: 1 0RF Rx Instructions: As directed amiodarone 200 mg tablet 200 mg PO DAILY Qty: 90 3RF (DME) wheelchair See Rx Instructions .Route .MEDSUPPLY Qty: 1 0RF Rx Instructions: As directed naproxen sodium [Aleve] 220 mg Tablet 220 mg PO Q12H PRN (Reason: Fever Or Pain) aspirin 325 mg tablet 325 mg PO QAM mupirocin [Centany] 2 % ointment 1 applic topical BID Qty: 50 0RF Referrals: Nelly Robertson MD [Primary Care Provider, Family Practice] Print Language: Bahraini Coding Level of Care Code ED Lumite Injector for Callie Guevara
[2025-05-10 20:29] LABS: Hematocrit 37.6 % (36-47); Hemoglobin 12.00 g/dL (11.27-16.99); Mean Corpuscular HGB Conc 31.9 g/dL (30-55); Mean Corpuscular Hemoglobin 29.8 pg (27-33); Mean Corpuscular Volume 93.3 fl (85-98); Nucleated Red Blood Cells % 0 %; Platelet Count 444 10^3/cmm (157-399); Red Blood Count 4.03 10^6/uL (3.85-5.65); White Blood Count 10.38 10^3/uL (3.29-11.43)
[2025-05-10 20:35] LABS: INR 0.93 (0.8-1.2); Partial Thromboplastin Time 25.9 SECONDS (23.9-36.7); Prothrombin Time 13.10 SECONDS (12.1-14.9)
[2025-05-10 20:41] LABS: Alanine Aminotransferase 14 U/L (0-33); Albumin Level 3.3 g/dL (3.5-5.2); Alkaline Phosphatase 162 U/L (35-105); Anion Gap 15.3 (5-19); Aspartate Amino Transferase 16 U/L (0-32); Blood Urea Nitrogen 26 mg/dL (8-23); Calcium 8.8 mg/dL (8.5-10.5); Carbon Dioxide 27 mmol/L (22-29); Chloride 95 mmol/L (98-107); Creatinine Clr Calc Pharmacy 28.8470; Globulin 2.9 g/dL (1.3-4.6); Glucose 132 mg/dL (65-115); Osmolality Calculated 283 mOsm/kg (285-295); Potassium 4.3 mmol/L (3.5-5.1); Sodium 133 mmol/L (136-145); Total Protein 6.2 g/dL (6.6-8.7)
[2025-05-10 20:46] VITALS: BP 107/71; PULSE 90; O2SAT 90
[2025-05-10 21:12] VITALS: BP 88/60; PULSE 73; O2SAT 97
[2025-05-10 21:20] LABS: Glucose Urine UA Negative (Normal); Nitrate Urine Positive (Negative); Specific Gravity, Urine 1.015 (1.005-1.030)
[2025-05-10 21:25] LABS: Add Urine Microscopic? YES
[2025-05-10 23:01] VITALS: BP 114/60; PULSE 87; O2SAT 95
[2025-05-10] MEDS: morphine 4 mg/mL SDV 1 mL IVP (23:33)
[2025-05-10 23:39] VITALS: BP 99/59; PULSE 70; RESP 16; O2SAT 97
== END 2025-05-10 23:57 | disposition short-term general hospital (02) ==
PROVIDERS: Emergency Provider Student in an Organized Health Care Education/Training Program; PCP Family Medicine
DX: S72.92XA Unspecified fracture of left femur, initial encounter for closed fracture (principal); I48.91 Unspecified atrial fibrillation; Z96.642 Presence of left artificial hip joint; Z87.891 Personal history of nicotine dependence; X58.XXXA Exposure to other specified factors, initial encounter
CPT/HCPCS: 51702; 71045; 72170; 73552; 80053; 81001; 85025; 85610; 85730; 87077; 87086; 87186; 93005; 96374; 99285; J2270

== ENCOUNTER 2025-05-16 21:16 | Inpatient (IN) | payer MEDICARE, SELFPAY ==
--- OUTSIDE RECORDS SUMMARY | 2025-05-11 01:39 | XMS_ITS | Encounter Summary ---
Author Organization [facility] Address 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 Name Role Phone Unavailable Primary Care Provider Unavailabl e Reason for Visit * Auth/Cert Specialty Diagnoses / Procedures Referred By Gennaro t Referred To Contact Neurology Diagnoses Spiral Fracture to the Left Femur Marlon Quiñones MD [address] [address] Phone: tel: fax: [facility] 3C Ortho Neuro [address] [place] [address] Phone: tel: fax: Referral ID Status Reason Start Date Expiration Date Visits Re quested Visits Authorized [id number] 1 1 Encounter Details Date Type Department Care Team (Latest Contact Info) Description 05/11/2025 1:39 AM CDT - 05/14/2025 10:29 AM CDT Hospital Encounter [facility] 3C Ortho Neuro [address] [place] [address] Marlon Quiñones MD [address] [address] Myrtle Duncan MD [address] [place] [address] Periprosthetic fracture of shaft of femur Discharge Disposition: [facility](SNF) with Medicare Certification in Anticipation of Skilled Care Social History Tobacco Use Types Packs/Day Years Used Date Smoking Tobacco: Never Alcohol Use Standard Drinks/Week Comments Never 0 (1 standard drink = 0.6 oz pur e alcohol) Feeling Safe Answer Date Recorded Are you in a relationship wi th someone who hurts you emotionally and/or physically? Patient unable to answer 05/11/2025 Food Insecurity Answer Date Recorded Patient needs follow up regardin 05/11/2025 Transportation Needs Answer Date Record ed Patient needs follow up regardin 05/11/2025 Housing Stability Answer Date Recorded Social/Environmental Concerns No concerns Utility Needs Answer Date Recorded Patient needs follow up regardin 05/11/2025 Comments Unknown Sex and Gender Information Value Date Recorded Sex Assigned at Not on file Legal Sex Female 1:55 PM CDT Gender Identity Not on file Sexual Orientation Not on file documented as of this encounter Last Filed Vital Signs Vital Sign Reading Time Taken Comments Blood Pressure 104/81 05/14/2025 7:33 AM CDT Pulse 112 05/14/2025 7:33 AM CDT Temperature 36.8 C (98.3 F) 05/14/2025 7:33 AM CDT Respiratory Rate 34 05/14/2025 7:33 AM CDT Oxygen Saturation 98% 05/14/2025 7:33 AM CDT Inhaled Oxygen Concentration - - Weight 64.1 kg (141 lb 6 oz) 05/14/2025 4:35 AM CDT Height 152.4 cm (5') 05/11/2025 2:40 AM CDT Body Mass Index 27.61 05/11/2025 2:40 AM CDT documented in this encounter Discharge Summaries * Myrtle Duncan MD - 05/14/2025 7:12 AM CDT [facility] ORTHOPEDIC HOSPITALIST- Discharge Summary Esthela Billings 89 y.o. female 1935 CSN: [id number] Date of Admission: 05/11/2025 Date of Discharge: 05/13/2025 Date Leaving Hospital: 05/14/2025 Discharging Physician: Myrtle Gastelum MD PCP: No primary care provider on file. LOS: 3 days Code Status at Discharge: Default Full Code - Needs Discussion Dispo: SNF MEDICINE DISCHARGE INSTRUCTIONS 1. OUTPATIENT follow up in 7 - 10 days with PCP/facility physician team and as per facility protocol. 2. BMP, CBC to be drawn in 7 - 10 days at PCP/facility physician team follow up appointment as outlined above. 3. Other OUTPATIENT follow up: Suspected to have acute UTI on , UA cx pending 05/14/2025 initial treatment with IV Rocephin initiated 05/14 planned transition to PO Fosfomycin to be dosed 05/15/2025 4. Osteoporosis: if felt to be clinically appropriate by PCP/care team members, outpatient ENDOCRINOLOGY referral can be made 5. Malnutrition: NA ORTHOPEDIC TRAUMA DISCHARGE INSTRUCTIONS PLEASE ABSTAIN FROM ALL TOBACCO AND NICOTINE CONTAINING PRODUCTS. THEY WILL INHIBIT BONE AND WOUND HEALING. Dressing Change/Wound Care: Cover left hip/thigh surgical incisions with dry 4x4 guaze and secure with Medipore tape. Change DAILY and/or more frequently if needed for saturation/soiling. *No creams, lotions, ointments, oils on surgical wounds. No tub baths or soaking wound in water. Nodirect water spray on wounds. Wound Care is vitally important to your recovery process. Please adhere to all of the above directions to avoid infections. Sutures/[place]: To be removed at clinic follow up appointment DVT Prophylaxis: Take aspirin 81 mg two times daily for three weeks. When done, on August 10 resume taking aspirin 81 mg daily as before surgery. Weight Bearing Status/Activity Restrictions: No weight bearing left leg. Ok for range of motion as tolerated left knee. Diet: Advance diet as tolerated Follow Up: Follow up with Saleem MARCELO in the [facility] Orth[facility] Trauma office on May 30 at 10:20am . Please arrive 15 minutes early for xrays. Clinic offices located in the [facility] at the [facility] at [address] in [place] [address]. *DO NOT GO TO THE ORTHOPEDIC HOSPITAL* Additional Discharge Information/Follow up/Outpatient testing: NA DIET: Cardiac Diet. Malnutrition: ACTIVITY LEVEL: activity as tolerated. Date of admission: 05/11/2025 Date of discharge: 05/13/2025 Date Leaving Hospital: 05/14/2025 AVOIDABLE DAYS: 1 Discharge disposition: SNF . Discharge Condition: stable CODE STATUS during this hospitalization: Default Full Code - Needs Discussion Primary Discharge Diagnosis: Periprosthetic fracture of shaft of femur, left Procedures: Procedure(s): FEMUR OPEN REDUCTION INTERNAL FIXATION Other Active medical issues also addressed during this admission: Principal Problem: Periprosthetic fracture of shaft of Lt femur Active Problems: Atrial fibrillation, not on chronic anticoagulation, on rivaroxaban/Xarelto in the past Essential hypertension CKD 3 (chronic kidney disease) Cardiac pacemaker in situ SSS (sick sinus syndrome) ([facility]) S/P Lt hip hemiarthroplasty HOSPITAL COURSE: Please see H and P for full details on admission, symptoms and initial care. 05/11/2025 : admitted for further evaluation of left femur periprosthetic fracture due to mechanical fall , no LOC/dizziness associated with event. She denies recent CP, SOB, palpitations. 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 PMH+ Atrial fibrillation/NOT on chronic anticoagulation at this time, + pacemaker/SSS, chronic anemia, HTN 05/11: to OR for repair 05/12: POD#1, hemodynamics/oxygenation adequate, renal indices stable for patient, H/H stable, bowel function progressing/+ flatus, working with therapy teams, suspect stable for D/C from acute care hospital in the next 24 hours, patient/family aware 05/13: no new GI, , CV or PULM sx present, mild rise in serum creatinine due to relative ECVD postop, appropriate UO following IVF support, progressing with therapies as expected, current PO diet advancing towards prior to admission intake as expected without new/increasing difficulty, bladder/bowel function appropriate to current post operative status/PO intake/activity, medically optimized for D/C to SNF with close outpatient follow up. 05/14: hemodynamics remains stable as per the patient baseline, stable oxygenation, mild rise in serum creatinine, urine output remains appropriate, acute UTI suspected, UA/UA cx pending, ADD ceftriaxone with transition to PO fosfomycin while await UA cx results; patient remains medically optimized for discharge as outlined above on 05/13/2025 CONSULTANTS: ORTHOPEDIC TRAUMA SURGERY DISCHARGE MEDICATIONS: Medication List START taking these medications acetaminophen 500 mg tablet Commonly known as: TYLENOL Take 2 Tablets (1,000 mg) by mouth every 8 hours. Signed by: Dr. Tariq Duncan Refills: 0 bethanechol 10 mg tablet Commonly known as: URECHOLINE Take 1 Tablet (10 mg) by mouth 4 times daily before meals and at bedtime. Signed by: Dr. Tariq Duncan Refills: 0 Cholecalciferol (Vitamin D3) 250 mcg (10,000 unit) Capsule Take 5 Capsules (50,000 Units) by mouth every 7 days for 6 doses. Start taking on: May 19, 2025 Signed by: Nurse Practitioner Tariq Duke Quantity: 20 Capsule Refills: 1 fosfomycin tromethamine 3 gram Packet Commonly known as: MONUROL Take 3 Grams by mouth one time only for 1 dose. Start taking on: May 15, 2025 Signed by: Dr. Tariq Duncan Quantity: 3 Gram Refills: 0 OLANZapine 5 mg Tablet, Rapid Dissolve Commonly known as: ZyPREXA ZYDIS Take 1 Tablet (5 mg) by mouth 2 times daily. Signed by: Dr. Tariq Duncan Refills: 0 saccharomyces boulardii 250 mg Capsule Commonly known as: FLORASTOR Take 1 Capsule (250 mg) by mouth 2 times daily. Signed by: Dr. Tariq Duncan Refills: 0 tamsulosin 0.4 mg capsule Commonly known as: FLOMAX Take 1 Capsule (0.4 mg) by mouth daily after supper. Signed by: Dr. Tariq Duncan Refills: 0 CHANGE how you take these medications aspirin 81 mg Tablet, Delayed Release (E.C.) Commonly known as: ECOTRIN EC What changed: additional instructions Take 1 Tablet (81 mg) by mouth daily. Take aspirin 81 mg two times daily for three weeks. When done, on August 10 resume taking aspirin 81 mg daily as before surgery. Signed by: Nurse Niyah Duke Refills: 0 CONTINUE taking these medications amiodarone 200 mg tablet Commonly known as: CORDARONE Take 1 Tablet by mouth daily. Refills: 0 ascorbic acid (vitamin C) 1,000 mg Tablet Commonly known as: VITAMIN C Take 1,000 mg by mouth daily. Refills: 0 cyanocobalamin 1,000 mcg Tablet Take 1,500 mcg by mouth. Refills: 0 magnesium oxide 400 mg magnesium Capsule Take 400 mg by mouth daily. Refills: 0 metoprolol tartrate 50 mg tablet Commonly known as: LOPRESSOR Take 1 Tablet by mouth 2 times daily. Refills: 0 oxyCODONE-acetaminophen 5-325 mg tablet Commonly known as: Percocet Take 1 Tablet by mouth every 4 hours as needed for Pain, Moderate. Max Daily Amount: 6 Tablets Signed by: Dr. Preston Moore Quantity: 30 Tablet Refills: 0 STOP taking these medications Xarelto 15 mg Tablet Generic drug: rivaroxaban Where to Get Your Medications These medications were sent to [facility] [address] [facility] [facility] [facility] [place] [address] Cholecalciferol (Vitamin D3) 250 mcg (10,000 unit) Capsule fosfomycin tromethamine 3 gram Packet Please take the prescriptions given to you during your stay and have them filled at any pharmacy. You don't need a prescription for these medications aspirin 81 mg Tablet, Delayed Release (E.C.) Information about where to get these medications is not yet available Ask your nurse or doctor about these medications acetaminophen 500 mg tablet bethanechol 10 mg tablet OLANZapine 5 mg Tablet, Rapid Dissolve saccharomyces boulardii 250 mg Capsule tamsulosin 0.4 mg capsule DISCHARGE EXAM: Vitals: 05/14/25 0733 BP: 104/81 Pulse: (!) 112 Resp: (!) 34 Temp: 98.3 ??F (36.8 ??C) SpO2: 98% General: alert, in no distress Neurologic: grossly normal HEENT: AT/NC, PERRLA, sclera/conjunctiva clear, EOMiB, MMM, OP clear Lungs: CTA bilaterally, fair air movement, normal respiratory effort Heart: RRR, normal S1, S2, no murmurs, rubs, clicks or gallops Abdomen: soft, NT/NABS, no masses, no organomegaly. Extremities: L LE dressings intact/clean/dry, no cyanosis, intact distal pulses, no edema, no redness, no tenderness in the calves or thighs, normal strength, normal tone Skin: normal color, no acute abnormalities Total spent time with discharge processes including reviewing chart, radiology, laboratory studies,managing and coordinating patient care, discussing and documenting plan of care with patient, family, subspecialists and nursing staff >45 min. Greater than 50% of the visit was spent counseling and /or coordinating ongoing patient care. It has been a privilege to participate in this patient's care. Myrtle Duncan MD 05/14/2025 9:30 AM This documentation was created by an artificial seismic interpreter software. Effort has been done to assure accuracy of seismic interpreter. Any obvious errors or omissions should be clarified with the author of the document. This document is intended for communication between health care team staff and physician author of the document. documented in this encounter Discharge Instructions * Discharge Instructions* Beryl Duke NP - 05/13/2025 9:22 AM CDT ORTHOPEDIC TRAUMA DISCHARGE INSTRUCTIONS: PLEASE ABSTAIN FROM ALL TOBACCO AND NICOTINE CONTAINING PRODUCTS. THEY WILL INHIBIT BONE AND WOUND HEALING. Dressing Change/Wound Care: Cover left hip/thigh surgical incisions with dry 4x4 guaze and secure with Medipore tape. Change DAILY and/or more frequently if needed for saturation/soiling. *No creams, lotions, ointments, oils on surgical wounds. No tub baths or soaking wound in water. Nodirect water spray on wounds. Wound Care is vitally important to your recovery process. Please adhere to all of the above directions to avoid infections. Sutures/[place]: To be removed at clinic follow up appointment DVT Prophylaxis: Take aspirin 81 mg two times daily for three weeks. When done, on August 10 resume taking aspirin 81 mg daily as before surgery. Weight Bearing Status/Activity Restrictions: No weight bearing left leg. Ok for range of motion as tolerated left knee. Diet: Advance diet as tolerated Follow Up: Follow up with Saleem MARCELO in the [facility] office on May 30 at 10:20am . Please arrive 15 minutes early for xrays. Clinic offices located in the [facility] at the [facility] at [address] in [place] [address]. Call office if you have temperature greater than 101.5 or increased redness and/or drainage from wound. If you have any questions or concerns prior to your follow up visit, please do no hesitate to call the Orthopedic Trauma Surgery office at [phone]. MEDICINE DISCHARGE INSTRUCTIONS 1. OUTPATIENT follow up in 7 - 10 days with PCP/facility physician team and as per facility protocol. 2. BMP, CBC to be drawn in 7 - 10 days at PCP/facility physician team follow up appointment as outlined above. 3. Other OUTPATIENT follow up: NA 4. Osteoporosis: if felt to be clinically appropriate by PCP/care team members, outpatient ENDOCRINOLOGY referral can be made 5. Malnutrition: [facility] Discharge Instructions Discharge & Transfer patient to: Name of Facility: [facility] Transfer care to Attending Provider at [facility] Facility Symptoms/Diagnosis: Periprosthetic fracture of shaft of femur Procedures Performed, if any: 05/13 0045 Note By: Gregory Llanes RN 05/11 1301 Note By: Liane Mathis PCA Procedure(s) (LRB): FEMUR OPEN REDUCTION INTERNAL FIXATION (Left) Labs and studies from this hospitalization needing follow up: CBC and Basic Metabolic Panel (BMP) in 1 week Follow up PCP Please schedule follow up appointment with facility physician or PCP/ No primary care provider on file., Please schedule follow up appointment in one week. Additional problems: Active Hospital Problems Diagnosis Periprosthetic fracture of shaft of Lt femur S/P Lt hip hemiarthroplasty SSS (sick sinus syndrome) ([facility]) Atrial fibrillation, not on chronic anticoagulation, on rivaroxaban/Xarelto in the past Essential hypertension Cardiac pacemaker in situ Resolved Hospital Problems No resolved problems to display. Level of Care: [x] Skilled [] Maintenance [] Rehab Rehab potential: good Code Status: Full Code Labs: Recent Labs 05/11/25 0653 05/12/25 0953 05/13/25 0127 WBC 12.3* 7.0 7.7 HGB 10.5* 11.0* 9.8* HCT 32.4* 36.3 30.9* PLT 392 307 296 Recent Labs 05/11/25 0528 05/12/25 0953 05/13/25 0127 NA 135* 137 134* K 4.2 4.3 3.7 CL 100 104 103 CO2 24 21* 20* CA 8.5* 8.8 8.5* BUN 26* 30* 37* CREAT 1.02* 1.08* 1.29* GLUCOSE 157* 72* 64* Recent Labs 05/11/25527 TOTALPROTEIN 5.2* ALBUMIN 3.1* BILITOTAL 0.4 ALKPHOS 133* AST 16 ALT 12 Recent Labs 05/11/25527 INR 1.0 PT 14.1 Finger stick blood glucose: No Clinical Care/Ancillary services: Physical therapy evaluate and treat: Yes Occupational therapy evaluate and treat: Yes DIET: DIET GENERAL Effective Now DIET SUPPLEMENT GEN ADULT BID; Complete Oral Supplement, Follow up in the Emergency Room For any recurrence or worsening of admission concerns, chest pain, palpitations, shortness of breath, coughing blood, nausea, vomiting, diarrhea, pain, fever, chills, bleeding, bloody or tarry stools, change to urine or bowel output, Contact hospitalist office [phone] for questions [facility]. Contact [facility] at [phone] if patient needs a direct admission. Tell us about the patient and how we can help them. If we can provide the service that is needed, we will do the rest of the work. documented in this encounter Medications at Time of Discharge Cholecalciferol, Vitamin D3, 250 mcg (10,000 unit) Capsule Take 5 Capsules (50,000 Units) by mouth every 7 days for 6 doses. 20 Capsule 1 05/19/2025 5 saccharomyces boulardii (FLORASTOR) 250 mg Capsule Take 1 Capsule (250 mg) by mouth 2 times daily. 05/14/2025 aspirin (ECOTRIN EC) 81 mg Tablet, Delayed Release (E.C.) Take 1 Tablet (81 mg) by mouth daily. Take aspirin 81 mg two times daily for three weeks. When done, on August 10 resume taking aspirin 81 mg daily as before surgery. 05/14/2025 acetaminophen (TYLENOL) 500 mg tablet Take 2 Tablets (1,000 mg) by mouth every 8 hours. 05/13/2025 OLANZapine (ZyPREXA ZYDIS) 5 mg Tablet, Rapid Dissolve Take 1 Tablet (5 mg) by mouth 2 times daily. 05/13/2025 bethanechol (URECHOLINE) 10 mg tablet Take 1 Tablet (10 mg) by mouth 4 times daily before meals and at bedtime. 05/13/2025 tamsulosin (FLOMAX) 0.4 mg capsule Take 1 Capsule (0.4 mg) by mouth daily after supper. 05/13/2025 oxyCODONE-acetamin ophen (Percocet) 5-325 mg tabletIndications: Rectal prolapse Take 1 Tablet by mouth every 4 hours as needed for Pain, Moderate. Max Daily Amount: 6 Tablets 30 Tablet 02/22/2025 2:41 PM CDT 02/21/2025 amiodarone (CORDARONE) 200 mg tablet Take 1 Tablet by mouth daily. 12/24/2024 ascorbic acid, vitamin C, (VITAMIN C) 1,000 mg Tablet Take 1,000 mg by mouth daily. magnesium oxide 400 mg magnesium Capsule Take 400 mg by mouth daily. metoprolol tartrate (LOPRESSOR) 50 mg tablet Take 1 Tablet by mouth 2 times daily. 12/24/2024 cyanocobalamin 1,000 mcg Tablet Take 1,500 mcg by mouth. fosfomycin tromethamine (MONUROL) 3 gram Packet Take 3 Grams by mouth one time only for 1 dose. 3 Gram 05/15/2025 5 documented as of this encounter Progress Notes * Jennifer Calderon, Agile Developer - 05/14/2025 8:53 AM CDT Attempted to see patient for OT treatment. Will hold therapy due to pt unable to arose with sternalrubs or to her name, no reaction. Pt was readjusted in bed. Discussed with nursing. Will continue with attempts for evaluation/established plan of care. Thank you, Jennifer Calderon, Agile Developer * Myrtle Duncan MD - 05/14/2025 8:08 AM CDT [facility] ORTHOPEDIC TRAUMA [facility] MEDICINE Progress note Patient name: Esthela Billings Date of : 1935 Room/Bed: 3210/02 LOS: LOS: 3 days HOSPITAL COURSE SUMMARY: 05/11/2025 : admitted for further evaluation of left femur periprosthetic fracture due to mechanical fall , no LOC/dizziness associated with event. She denies recent CP, SOB, palpitations. 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 PMH+ Atrial fibrillation/NOT on chronic anticoagulation at this time, + pacemaker/SSS, chronic anemia, HTN 05/11: to OR for repair 05/12: POD#1, hemodynamics/oxygenation adequate, renal indices stable for patient, H/H stable, bowel function progressing/+ flatus, working with therapy teams, suspect stable for D/C from acute care hospital in the next 24 hours, patient/family aware 05/13: no new GI, , CV or PULM sx present, mild rise in serum creatinine due to relative ECVD postop, appropriate UO following IVF support, progressing with therapies as expected, current PO diet advancing towards prior to admission intake as expected without new/increasing difficulty, bladder/bowel function appropriate to current post operative status/PO intake/activity, medically optimized for D/C to SNF with close outpatient follow up. 05/14: hemodynamics remains stable as per the patient baseline, stable oxygenation, mild rise in serum creatinine, urine output remains appropriate; patient remains medically optimized for discharge asoutlined above on 05/13/2025 CONSULTANTS: ORTHOPEDIC TRAUMA SURGERY PROCEDURES: Procedure(s): FEMUR OPEN REDUCTION INTERNAL FIXATION SUBJECTIVE: looks comfortable, denies other new c/o or concerns, family/staff at bedside at time of my exam Updated patient/family on current treatment care plan/diagnostic testing/results, they voice understanding/agreement with same. ROS: 12 systems reviewed, and are negative except as mentioned in interval history and below. History obtained from the patient. Review of Systems Musculoskeletal: Positive for joint pain. Expected postoperative pain OBJECTIVE: Temp (24hrs), Av.9 ??F (36.6 ??C), Min:97.2 ??F (36.2 ??C), Max:98.7 ??F (37.1 ??C) BP 104/81 (BP Location: Left arm, Patient Position (BP): Supine) Pulse (!) 112 Temp 98.3 ??F (36.8 ??C) (Temporal) Resp (!) 34 Ht 5' (1.524 m) Wt 64.1 kg (141 lb 6 oz) SpO2 98% BMI 27.61 kg/m?? Intake/Output Summary (Last 24 hours) at 05/14/2025 0808 Last data filed at 05/14/2025 0500 Gross per 24 hour Intake -- Output 950 ml Net -950 ml Last documented weight: Weight: 64.1 kg (141 lb 6 oz) (05/14/25 0435) EXAM: General: alert, NAD Neurologic: Grossly normal HEENT: AT/NC, PERRLA, sclera/conjunctiva clear, EOMiB, MMM, OP clear Lungs: CTA bilaterally, fair air movement, normal respiratory effort Heart: RRR, normal S1, S2, no murmurs, rubs, clicks or gallops Abdomen: Soft, NT/NABS, no masses, no organomegaly Skin: normal color, no other new acute abnormalities Extremities: L LE + pain with any movement/manipulation of limb, dressings intact/clean/dry, no cyanosis, intact distal pulses, no edema, no redness/tenderness in the calves or thighs, appropriate strength/tone I have personally reviewed/read the following DIAGNOSTIC TESTING: LABORATORY: Recent Labs 05/12/25 0953 05/13/25 0127 05/13/25 1639 WBC 7.0 7.7 6.5 HGB 11.0* 9.8* 10.1* HCT 36.3 30.9* 30.8* PLT 307 296 288 Recent Labs 05/12/25 0953 05/13/25 0127 05/13/25 1639 05/14/25 0207 NA 137 134* 134* 131* K 4.3 3.7 4.1 4.2 CL 104 103 103 102 CO2 21* 20* 19* 18* CA 8.8 8.5* 8.6* 8.7* BUN 30* 37* 39* 47* CREAT 1.08* 1.29* 1.18* 1.45* GLUCOSE 72* 64* 84 76 No results for input(s): TOTALPROTEIN , ALBUMIN , BILITOTAL , ALKPHOS , AST , ALT in the last 72 hours. No results for input(s): INR , PT in the last 72 hours. Invalid input(s): PTT No results for input(s): CPK , CKMB , TROPONIN in the last 72 hours. Updated MEDICATIONS personally reviewed. Modified Charlson Age Comorbidity Index 4 Total Score 4 Age ASSESSMENT AND PLAN: Principal Problem: Periprosthetic fracture of shaft of Lt femur Active Problems: Atrial fibrillation, not on chronic anticoagulation, on rivaroxaban/Xarelto in the past Essential hypertension CKD 3 (chronic kidney disease) Cardiac pacemaker in situ SSS (sick sinus syndrome) ([facility]) S/P Lt hip hemiarthroplasty HIGH risk of readmission/co-morbidities including transfusion/infection/increased mortality. Left femur fracture, -defer to ORTHO TRAUMA team management -s/p OR repair 05/11 Atrial Fibrillation, remains rate controlled as per baseline -NOT on anticoagulation DEEP SEA DIVER, has been on rivaroxaban in the past -Lovenox bridging if prolonged perioperative course -continue DEEP SEA DIVER rate control Rx: amiodarone, metoprolol CKD, ~stable as per patient baseline, -urine output appropriate for patient -continue DEEP SEA DIVER Rx except ACEi which will be held for the time being -continue current monitoring/Rx -avoid NSAIDS/ACEI/ARB/other known nephrotoxins HTN, currently clinically asx/stable as per patient baseline -continue current monitoring -continue DEEP SEA DIVER Rx: metoprolol + pacemaker/SSS, currently clinically asx/stable as per patient baseline -continue current monitoring -continue DEEP SEA DIVER Rx -further work up to proceed as indicated based on the results of the above. DVT/Gastritis/GIB prevention: as per appropriate protocol TOBACCO COUNSELING She is not a tobacco/nicotine user. Anticipated Disposition AVOIDABLE DAYS: 1 Location: [facility] Timeframe: 05/13/2025, yesterday Criteria: optimized on PO meds/tx, no new acute illness Education/DME/Equipment Needs: Code status: Default Full Code - Needs Discussion Total spent time including reviewing chart, radiology, laboratory studies, managing and coordinating patient care, discussing and documenting plan of care with patient, family, subspecialists and nursing staff > 50 minutes. Greater than 50% of the visit was spent counseling and /or coordinating ongoing patient care. Myrtle Duncan MD 05/14/2025, 8:08 AM This documentation was created by an artificial seismic interpreter software. Effort has been done to assure accuracy of seismic interpreter. Any obvious errors or omissions should be clarified with the author of the document. This document is intended for communication between health care team staff and physician author of the document. * Elisa Franklin RN - 05/13/2025 2:52 PM CDT Entered pt room and found pt alert still confused, audible wheezes, legs and neck appear mottled. Unable to get accurate oxygen sat. O2 placed at 3L/nc. Forehead sat reads 92%. Fluids turned off, pt repositioned. B/p 106/[address] Sherman updated and orders rec'd. Pt has had multiplestools today, Last 2 have been liquid. Will order C-diff. * Beryl Duke NP - 05/13/2025 12:53 PM CDT ORTHOPEDIC TRAUMA PROGRESS NOTE Date: 05/13/2025 Admit Date: 05/11/2025 Hospital Day: LOS: 2 days SUBJECTIVE POD#: 2 Days Post-Op Pt resting in bed, she is pleasantly confused and conversant, able to follow some commands. No family at bedside. Pt only complaint is to be moved in bed. Left leg minimally painful with exam. OBJECTIVE VS BP (!) 92/56 (BP Location: Left arm, Patient Position (BP): Supine) Pulse 91 Temp 97.5 ??F (36.4 ??C) (Temporal) Resp 16 Ht 5' (1.524 m) Wt 63.5 kg (140 lb 0.9 oz) SpO2 91% BMI 27.35 kg/m?? LABS Recent Labs 05/11/25 0528 05/11/25 0653 05/12/25 0953 05/13/25 0127 WBC -- 12.3* 7.0 7.7 HGB -- 10.5* 11.0* 9.8* PLT -- 392 307 296 CREAT 1.02* -- 1.08* 1.29* BUN 26* -- 30* 37* K 4.2 -- 4.3 3.7 INR 1.0 -- -- -- Lab Results Component Value Date/Time VITAMINDTO 21 (L) 05/11/2025 05:28 AM I&O Intake/Output Summary (Last 24 hours) at 05/13/2025 1253 Last data filed at 05/13/2025 1015 Gross per 24 hour Intake -- Output 800 ml Net -800 ml PERTINENT ORTHOPEDIC EXAM LLE distal pulses present, sensation intact, adequate cap refill +DF/PF of the ankle + flexion/extension of the digits Comparments soft, non-tender to palpation SURGICAL SITES/INCISIONS: Dressing(s) clean, dry, and intact left leg orly wrap IMPRESSION Principal Problem: Periprosthetic fracture of shaft of Lt femur Active Problems: Atrial fibrillation, not on chronic anticoagulation, on rivaroxaban/Xarelto in the past Cardiac pacemaker in situ Essential hypertension SSS (sick sinus syndrome) ([facility]) S/P Lt hip hemiarthroplasty Orthopedic Injury Complex/Preoperative Orthopedic Diagnosis: Left spiral femoral shaft fracture below previous total hip arthroplasty Osteoperosis ORTHOPEDIC PROCEDURE: Dr Og 05/11/25 Left femur fracture ORIF with plates and screws PLAN Vit D level 21 - replacement therapy started. Mobilize with therapy Dressing Change: left leg with 4x4 gauze and medipore tape. DVT Prophylaxis: heparin SQ Weight Bearing Status/Activity Restrictions: NWB on LLE, ROM as tolerated left knee Antibiotics: Ancef postop Discharge Plan: with assist from LAKSHMI Duke NP, 05/13/2025 12:53 PM Orthopedic Trauma Surgery Cosigned by El Og MD at 05/16/2025 8:55 AM CDT * Myrtle Duncan MD - 05/13/2025 8:46 AM CDT [facility] ORTHOPEDIC TRAUMA [facility] Progress note Patient name: Esthela Billings Date of : 1935 Room/Bed: [facility]/ LOS: LOS: 2 days HOSPITAL COURSE SUMMARY: 05/11/2025 : admitted for further evaluation of left femur periprosthetic fracture due to mechanical fall , no LOC/dizziness associated with event. She denies recent CP, SOB, palpitations. 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 PMH+ Atrial fibrillation/NOT on chronic anticoagulation at this time, + pacemaker/SSS, chronic anemia, HTN 05/11: to OR for repair 05/12: POD#1, hemodynamics/oxygenation adequate, renal indices stable for patient, H/H stable, bowel function progressing/+ flatus, working with therapy teams, suspect stable for D/C from acute care hospital in the next 24 hours, patient/family aware 05/13: no new GI, , CV or PULM sx present, mild rise in serum creatinine due to relative ECVD postop, appropriate UO following IVF support, progressing with therapies as expected, current PO diet advancing towards prior to admission intake as expected without new/increasing difficulty, bladder/bowel function appropriate to current post operative status/PO intake/activity, medically optimized for D/C to SNF with close outpatient follow up. CONSULTANTS: ORTHOPEDIC TRAUMA SURGERY PROCEDURES: Procedure(s): FEMUR OPEN REDUCTION INTERNAL FIXATION SUBJECTIVE: looks comfortable, denies other new c/o or concerns, family/staff at bedside at time of my exam Updated patient/family on current treatment care plan/diagnostic testing/results, they voice understanding/agreement with same. ROS: 12 systems reviewed, and are negative except as mentioned in interval history and below. History obtained from the patient. Review of Systems Musculoskeletal: Positive for joint pain. Expected postoperative pain OBJECTIVE: Temp (24hrs), Av.6 ??F (36.4 ??C), Min:97.2 ??F (36.2 ??C), Max:98 ??F (36.7 ??C) BP 96/72 (BP Location: Left arm, Patient Position (BP): Supine) Pulse 87 Temp 97.2 ??F (36.2 ??C) (Temporal) Resp 16 Ht 5' (1.524 m) Wt 63.5 kg (140 lb 0.9 oz) SpO2 91% BMI 27.35 kg/m?? Intake/Output Summary (Last 24 hours) at 05/13/2025 0846 Last data filed at 05/13/2025 0233 Gross per 24 hour Intake -- Output 500 ml Net -500 ml Last documented weight: Weight: 63.5 kg (140 lb 0.9 oz) (05/13/25 0402) EXAM: General: alert, NAD Neurologic: Grossly normal HEENT: AT/NC, PERRLA, sclera/conjunctiva clear, EOMiB, MMM, OP clear Lungs: CTA bilaterally, fair air movement, normal respiratory effort Heart: RRR, normal S1, S2, no murmurs, rubs, clicks or gallops Abdomen: Soft, NT/NABS, no masses, no organomegaly Skin: normal color, no other new acute abnormalities Extremities: L LE + pain with any movement/manipulation of limb, dressings intact/clean/dry, no cyanosis, intact distal pulses, no edema, no redness/tenderness in the calves or thighs, appropriate strength/tone I have personally reviewed/read the following DIAGNOSTIC TESTING: LABORATORY: Recent Labs 05/11/25 0653 05/12/25 0953 05/13/25 0127 WBC 12.3* 7.0 7.7 HGB 10.5* 11.0* 9.8* HCT 32.4* 36.3 30.9* PLT 392 307 296 Recent Labs 05/11/25 0528 05/12/25 0953 05/13/25 0127 NA 135* 137 134* K 4.2 4.3 3.7 CL 100 104 103 CO2 24 21* 20* CA 8.5* 8.8 8.5* BUN 26* 30* 37* CREAT 1.02* 1.08* 1.29* GLUCOSE 157* 72* 64* Recent Labs 05/11/25 0528 TOTALPROTEIN 5.2* ALBUMIN 3.1* BILITOTAL 0.4 ALKPHOS 133* AST 16 ALT 12 Recent Labs 05/11/25 0528 INR 1.0 PT 14.1 No results for input(s): CPK , CKMB , TROPONIN in the last 72 hours. Updated MEDICATIONS personally reviewed. Modified Charlson Age Comorbidity Index 4 Total Score 4 Age ASSESSMENT AND PLAN: Principal Problem: Periprosthetic fracture of shaft of Lt femur Active Problems: Atrial fibrillation, not on chronic anticoagulation, on rivaroxaban/Xarelto in the past Essential hypertension Cardiac pacemaker in situ SSS (sick sinus syndrome) ([facility]) S/P Lt hip hemiarthroplasty HIGH risk of readmission/co-morbidities including transfusion/infection/increased mortality. Left femur fracture, -defer to ORTHO TRAUMA team management -s/p OR repair 05/11 Atrial Fibrillation, remains rate controlled as per baseline -NOT on anticoagulation DEEP SEA DIVER, has been on rivaroxaban in the past -Lovenox bridging if prolonged perioperative course -continue DEEP SEA DIVER rate control Rx: amiodarone, metoprolol HTN, currently clinically asx/stable as per patient baseline -continue current monitoring -continue DEEP SEA DIVER Rx: metoprolol + pacemaker/SSS, currently clinically asx/stable as per patient baseline -continue current monitoring -continue DEEP SEA DIVER Rx -further work up to proceed as indicated based on the results of the above. DVT/Gastritis/GIB prevention: as per appropriate protocol TOBACCO COUNSELING She is not a tobacco/nicotine user. Anticipated Disposition AVOIDABLE DAYS: 0 Location: SNF Timeframe: 05/13/2025, today Criteria: optimized on PO meds/tx, no new acute illness Education/DME/Equipment Needs: Code status: Default Full Code - Needs Discussion Total spent time including reviewing chart, radiology, laboratory studies, managing and coordinating patient care, discussing and documenting plan of care with patient, family, subspecialists and nursing staff > 50 minutes. Greater than 50% of the visit was spent counseling and /or coordinating ongoing patient care. Myrtle Duncan MD 05/13/2025, 8:46 AM This documentation was created by an artificial seismic interpreter software. Effort has been done to assure accuracy of seismic interpreter. Any obvious errors or omissions should be clarified with the author of the document. This document is intended for communication between health care team staff and physician author of the document. * Riya Lema - 05/13/2025 8:41 AM CDT 05/13/25 0800 Discharge Plan Plan Discharge To [facility] Facility Care Facility Name [facility] Post-Acute Ins Auth Information Level of Care SNF Submission Type Home & Community Care Transitions ([facility]) Insurance Type Medicare [employer] Date Auth Requested 05/12/25 Time Auth Requested 1630 Date of Initiation 05/13/25 Time of Initiation 0830 Escalation N Date of Initial Detemination 05/13/25 Time of Initial Detemination 0841 Initial determination Approved Pending Insurance Auth#/Ref# [id number] Ins Auth Approval # [id number] Avoidable Days N Comments/Barriers approved 05/13-05/17 * Claudia Becerra, Occupational Therapist - 05/12/2025 3:40 PM CDT [facility] - Therapy Services 3K Ph. Acute Occupational Therapy Evaluation 05/12/2025 Room: [address] [place] [address] Name: Esthela Billings Age: 89 y.o. Patient Class: Inpatient Date of : 1935 Insurance: Payor: [employer] MEDICARE ADVANTAGE / Plan: [employer] GOLD PLUS HMO MCR / Product Type: HMO / Prior to OT session thorough chart review completed, including prior OT notes as applicable. Consent to evaluate provided by patient and nurse Date of admission: 05/11/2025 SUBJECTIVE Occupational Profile Information provided by: limited by cognition & alertness and chart review only; patient is a poor historian without family present Prior Level of Function ADLs: unknown due to patient cognition; no family present IADLs: unknown due to patient cognition; no family present Functional mobility: modified independent uses w/c Falls: multiple in the last 6 months Home Information Employment/daily routine: Unspecified Self-care assist available at home: Daughter/family will stay with her upon return home. Home environment: 1-level home with 2 steps to enter Durable medical equipment already in home: Walkers: 2WW Canes: single point cane Wheelchairs: manual Additional Information Patient/family statement/goal(s): go to a rehab center first to recover Comments: Pt was seated in the chair upon therapist arrival. She was pleasant. Pain: Refer to flowsheet for documentation of pain and interventions. OBJECTIVE Cognition Level of alertness: confused Orientation: oriented to person Command following: good Safety awareness: fair; limited by slow processing and decreased insight into deficits Memory: WFL conversationally Vision: wears glasses at baseline UE Function UE Assessment Right Left ROM Active: WFL Active: WFL Strength Generalized weakness present; ~3/5 Generalized weakness present; ~3/5 Muscle Tone Normal; frail Normal; frail Coordination Decreased dexterity Decreased serial opposition Decreased manipulation Decreased bilateral coordination Decreased dexterity Decreased serial opposition Decreased manipulation Decreased bilateral coordination Sensation Not assessed Not assessed Edema None noted None noted Occupational Performance Activities of Daily Living Feeding: supervision for [id number] excursion Grooming: minimal assistance in bed for face washing. Verbal cue to start task. Upper extremity dressing: moderate assistance donning and doffing garments at EOB Lower extremity dressing: NT; anticipate maximal assistance donning and doffing garments Toileting: NT; anticipate maximal assistance in bed Toilet transfer: maximal assistance sit < > stand from chair All tasks not tested with anticipated assist levels are based on observed tasks and movement patterns. Functional Mobility All mobility completed with gait belt and non-skid socks Bed mobility: maximal assistance sit > supine in bed Sit to stand: maximal assistance from chair Functional ambulation: maximal assistance x 1 feet SPT Sitting balance: supervision for static tasks and dynamic tasks at EOB Standing balance: maximal assistance for static tasks and dynamic tasks in room Patient required verbal and tactile cues for attention to task, safety due to impulsivity, sequencing, proper techniques to maintain weight bearing status, initiation of task, and command following. [facility] Daily Activity How much help from another person does the patient currently need? Score 1. Putting on and taking off regular lower body clothing? 2 - A lot (max to mod assist) 2. Bathing (including washing, rinsing, drying)? 2 - A lot (max to mod assist) 3. Toileting, which includes using toilet, bedpan or urinal? 2 - A lot (max to mod assist) 4. Putting on and taking off regular upper body clothing? 2 - A lot (max to mod assist) 5. Taking care of personal grooming such as brushing teeth? 3 - A little (supervision to min assist) 6. Eating meals? 4 - None (independent) Total score 15/24 0-19 indicates likely facility discharge 19-24 indicates likely community discharge *Scores determined based on patient report, observation or professional expertise* Vitals Current O2 requirement: room air Vital signs stable throughout. Precautions Patient precautions: fall Patient bracing: none Weight bearing: left lower extremity non weight bearing ASSESSMENT & PLAN Evaluation Details Etshela Billings is a 89 y.o. female referred for OT following admission for Periprosthetic fracture of shaft of Lt femur . Additional pertinent diagnoses and past medical history related to thishospital stay are present in physician H&P and physician daily notes. OT evaluation: Low complexity Assessment Patient is currently functioning below her prior level of function. Patient presents with acute functional deficits including: Functional balance Safety awareness Decreased functional strength Decreased endurance Cognitive deficits Pain Motor planning These deficits impact patient ability to complete: Functional mobility Bathing Toileting Dressing Personal hygiene/grooming Patient would benefit from continued skilled OT services in order to increase occupational performance through modification and remediation approaches such as ADL training, balance training, endurance training, strength training, functional transfer training, neuromuscular re-education, home safetyeducation, and patient education Plan During acute hospitalization, recommend high frequency treatment (5-7 times/week). Current plan of care to continue until goals met or patient discharges from facility Anticipate ongoing OT treatment sessions with specific focus on ADL and functional mobility Recommendations Based on OT assessment of patient's ability to complete self care tasks and AM- PAC Daily Activity Score, anticipated discharge disposition, once medically ready: retirement facility (05/12/25 1540). Rationale: Patient needs daily (weekday) skilled OT services. Anticipate tolerance is limited for intensive or adapted intensive rehab program. * The final discharge location is determined through physician, case management, and patient/caregiver input along with insurance authorization of skilled services when appropriate. Plan of care and discharge recommendations shared with patient, care coordinator, and PT OT recommended DME and AE upon discharge: No new DME recommended (05/12/25 1540) No new additional adaptive equipment necessary (05/12/25 154) Education provided to patient regarding OT recommendations and plan of care, Education response: verbalized understanding Nursing Staff Mobility Recommendations Recommended daily activity during admission: toileting on BSC, up to chair for meals, and assist x 2 for safety Disposition At start of session, patient found seated in chair At end of session, patient left in bed, call light in reach, phone in reach, and bed alarm activated Further treatment notes and therapeutic goals can be found in Care Plan Notes. If the patient discharges from facility before another therapy visit, this shall serve as therapy discharge summary. Thank you for this referral, Claudia Becerra, Occupational Therapist * Beryl Duke SMALL BATTERY PLATE ASSEMBLER - 05/12/2025 2:23 PM CDT ORTHOPEDIC TRAUMA PROGRESS NOTE Date: 05/12/2025 Admit Date: 05/11/2025 Hospital Day: LOS: 1 day SUBJECTIVE POD#: 1 Day Post-Op Pt resting in bed, she is pleasantly confused and conversant, able to follow some commands. Daughters at bedside. Discussed plan for WB, dressing care, and dc planning pending progress. They voiced understanding, all questions answered. OBJECTIVE VS BP 107/61 (BP Location: Left arm, Patient Position (BP): Supine) Pulse (!) 104 Temp 97.7 ??F (36.5 ??C) (Temporal) Resp 16 Ht 5' (1.524 m) Wt 51.6 kg (113 lb 12.1 oz) SpO2 90% BMI 22.22kg/m?? LABS Recent Labs 05/11/25 0528 05/11/25 0653 05/12/25 0953 WBC -- 12.3* 7.0 HGB -- 10.5* 11.0* PLT -- 392 307 CREAT 1.02* -- 1.08* BUN 26* -- 30* K 4.2 -- 4.3 INR 1.0 -- -- Lab Results Component Value Date/Time VITAMINDTO 21 (L) 05/11/2025 05:28 AM I&O Intake/Output Summary (Last 24 hours) at 05/12/2025 1423 Last data filed at 05/11/2025 2345 Gross per 24 hour Intake 1430 ml Output 300 ml Net 1130 ml PERTINENT ORTHOPEDIC EXAM LLE distal pulses present, sensation intact, adequate cap refill +DF/PF of the ankle + flexion/extension of the digits Comparments soft, non-tender to palpation SURGICAL SITES/INCISIONS: Dressing(s) clean, dry, and intact left leg orly wrap IMPRESSION Principal Problem: Periprosthetic fracture of shaft of Lt femur Active Problems: Atrial fibrillation, not on chronic anticoagulation, on rivaroxaban/Xarelto in the past Cardiac pacemaker in situ Essential hypertension SSS (sick sinus syndrome) ([facility]) S/P Lt hip hemiarthroplasty Orthopedic Injury Complex/Preoperative Orthopedic Diagnosis: Left spiral femoral shaft fracture below previous total hip arthroplasty Osteoperosis ORTHOPEDIC PROCEDURE: Dr Og 05/11/25 Left femur fracture ORIF with plates and screws PLAN Vit D level 21 - replacement therapy started. Mobilize with therapy Dressing Change: left leg with 4x4 gauze and medipore tape. DVT Prophylaxis: heparin SQ Weight Bearing Status/Activity Restrictions: NWB on LLE, ROM as tolerated left knee Antibiotics: Ancef postop Discharge Plan: with assist from LAKSHMI Duke NP, 05/12/2025 2:23 PM Orthopedic Trauma Surgery Cosigned by El Og MD at 05/12/2025 2:28 PM CDT * [place] Gold, Physical Therapist - 05/12/2025 12:24 PM CDT [facility] - Therapy Services 3K Ph. Acute Physical Therapy Evaluation 05/12/2025 Room: [address] [place] [address] Name: Esthela Billings Age: 89 y.o. Date of : 1935 Insurance: Payor: HU[employer]NA MEDICARE ADVANTAGE / Plan: [employer] PLUS HMO MCR / Product Type: HMO / Patient Class: Inpatient Onset of illness/injury or date of surgery: 05/11/2025 Subjective Information/History Subjective Information Provided By: Patient Prior level of Function: modified independence: Patient DOES have a fall history, several. Recent right wrist fracture with splint Home Environment: 1-Story home Number of Outside Stairs: 2 Available Adaptive Equipment: Cane: single point cane Walkers: 2 wheeled Wheelchair - manual Assistance available: Daughter/family will stay with her upon return home. Patient/Family Goals Statement: go to a rehab center first to recover. Consent To Treatment Given By: Patient Pain: Refer to Doc Flowsheet for documented pain levels. Safety Awareness Orientation: Person Command Following: good Safety Awareness: Fair and slow processing Precautions Patient Precautions: Fall Risk Bracing/Orthotics: none Weight Bearing: left lower extremity non-weight bearing and right upper extremity non-weight bearing (assumed right UE NWB due to no current orders) Objective Information/Examination Muscle Tone: Normal Coordination: Normal Sensation: Intact to light touch ROM/Strength: WFL except right LE, limited by pain. Balance: fair sitting balance and Functional Mobility: supine to sit is minimal assistance and sit to stand/SPT is Maximal assistancewith many verbal cues for safety and balance. Vitals Patient on room air [facility] AM-PAC Basic Mobility How much help from another person does the patient currently need? Score 1. Turning from your back to your side while in a flat bed without using bedrails? 3 - A little (supervision to min assist) 2. Moving from lying on your back to sitting on the side of a flat bed without using bedrails? 3 - A little (supervision to min assist) 3. Moving to and from a bed to a chair (including a wheelchair)? 2 - A lot (max to mod assist) 4. Standing up from a chair using your arms (e.g., wheelchair, or bedside chair)? 2 - A lot (max tomod assist) 5. Walking in hospital room? 1 - Total assist or cannot do at all 6. Climbing 3-5 steps with a railing? 1 - Total assist or cannot do at all Total score 12 0-16 - indicates likely facility discharge 17-24 indicates likely community discharge * scores determined based on patient report, observation or professional expertise Assessment/Plan Esthela Billings is a 89 y.o. female is referred for physical therapy. Based on objective findings above, the patient presents with the following impairments: decreased ability to transfer safely, balance deficits, decreased activity tolerance, decreased range of motion, decreased strength, gait disturbance, pain, risk for falls, and prior right wrist fracture with unknown weight bearing status, which impacts the patient's ability to mobilize safely. Functional Prognosis: Based on prior level of function and deficits, anticipate slow but steady progress. Patient's mentation will be a limiting factor but should still see good recovery. Rationale: The Patient is well below their prior level of function and is in need of further therapies to help regain lost function and to improve safety. Plan will include but is not limited to: Transfer Training and Patient/Family Education. PT Evaluation: low complexity Recommendations During acute hospitalization, recommend high frequency treatment (5-7 times per week). Current planof care to continue until goals met or patient discharges from facility. Anticipated discharge disposition: retirement facility (05/12/25 1200). PT Recommended DME: To be determined (05/12/25 1200). Plan of care and/or discharge recommendations shared with: Patient, Tubing Mill Operator, and Nurse Daily activity recommendations: Up with 2 assist and Use BSC Recommendations for referral to another service: Care Management and Occupational Therapy Education/Training Provided Patient Required Instruction And Training For: proper breathing techniques, proper posture, and useof UE's in transfers Additional Education Provided: discharge planning, edema reduction, functional mobility, home exercise program, and Daily activity with nursing staff Encouraged pt to be out of bed at least 3x/day or up with meals. Also to perform circulatory exercises hourly. Learner, method of education, and response to learning listed in Education tab in Epic. Note: All mobility completed with gait belt and non skid foot wear. Disposition At start of session, patient found lying in bed At completion of session, patient seated in chair, call light in reach, phone in reach, and family present in room and will supervise Current Diagnoses Left Penny-prosthetic Fracture Past Medical History has a past medical history of A-fib ([facility]), Dyspnea on exertion, and Essential hypertension (09/14/2020). She has no past medical history of Anesthesia complication, Asthma, Blood clotting disorder, Clostridium difficile enterocolitis, Congestive heart failure ([facility]), Coronary artery disease, CRI (chronic renal insufficiency), Deep vein thrombosis (DVT) ([facility]),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 using ultrasound guidance in the right, upper Arm Secure port adhesive used Yes 1 attempts 30 minutes required to complete procedure Positive blood return noted Neutral pressure cap applied Catheter Flushed with 5ml of Normal Saline Transparent dressing applied with date, time and initials of cowoker inserting. LDA documentation is contained in EMR flowsheet Patient tolerated well. MARQUISE Sam documented in this encounter Consult Notes * Gregory Llanes RN - 05/13/2025 12:30 AM CDTAssociated Order(s): IP CONSULT TO IV TEAM VASCULAR ACCESS CONSULT PATIENT NAME: Esthela Billings DATE OF : 1935 CSN: [id number] DATE: 05/13/2025 Room: [address] [place] [address] Admit Date: 05/11/2025 Hospital day: LOS: 2 days INDICATION: Poor Access EXCLUSIONS/CONSIDERATIONS: this will be the fifth PIV placed in less than 48 hours LAST RECORDED TEMP: Temp: 97.8 ??F (36.6 ??C) (05/12/25 0131)] Assessment Allergies Allergen Reactions Adhesive Tape-Silicones Other (See Comments) Skin torn easily Lab Results Component Value Date/Time CREAT 1.08 (H) 05/12/2025 09:53 AM BUN 30 (H) 05/12/2025 09:53 AM NA 137 05/12/2025 09:53 AM K 4.3 05/12/2025 09:53 AM CL 104 05/12/2025 09:53 AM CO2 21 (L) 05/12/2025 09:53 AM GFR 49 05/12/2025 09:53 AM Lab Results Component Value Date/Time WBC 7.0 05/12/2025 09:53 AM HGB 11.0 (L) 05/12/2025 09:53 AM HCT 36.3 05/12/2025 09:53 AM PLT 307 05/12/2025 09:53 AM MCV 99.5 05/12/2025 09:53 AM Lab Results Component Value Date/Time INR 1.0 05/11/2025 05:28 AM PT 14.1 05/11/2025 05:28 AM Past Medical History: Diagnosis Date A-fib (CMS/HCC) Dyspnea on exertion Essential hypertension 09/14/2020 Past Surgical History: Procedure Laterality Date IL EXC RCT PROCIDENTIA W/ANAST PERINEAL APPROACH N/A 02/21/2025 PERINEAL ALTEMEIER PROCTECTOMY performed by Vinnie Moore MD at [facility] MAIN OR Current Facility-Administered Medications: Cholecalciferol (Vitamin D3) 250 mcg (10,000 unit) capsule 50,000 Units, 50,000 Units, Oral, every 7 days, Beryl Duke NP, 50,000 Units at 05/12/251747 sodium chloride 0.9 % infusion, , IV, continuous, Myrtle Duncan MD, Last Rate: 100 mL/hr at 05/12/252115, New Bag at 05/12/252115 [COMPLETED] sodium chloride 0.9 % bolus solution 1,000 mL, 1,000 mL, IV, ONE time only, Myrtle Duncan MD, Stopped at 05/12/252032 aspirin (ECOTRIN EC) tablet 81 mg, 81 mg, Oral, daily, El Og MD, 81 mg at 05/12/251105 amiodarone (CORDARONE) tablet 200 mg, 200 mg, Oral, daily, El Og MD, 200 mg at 05/12/25 1106 metoprolol tartrate (LOPRESSOR) tablet 50 mg, 50 mg, Oral, BID, El Og MD, 50 mg at 05/12/25 1105 acetaminophen (TYLENOL) tablet 1,000 mg, 1,000 mg, Oral, every 8 hours, El Og MD, 1,000 mg at 05/12/25 1255 HYDROcodone-acetaminophen (NORCO) 5-325 mg per tablet 1 Tablet, 1 Tablet, Oral, every 4 hours PRN, El Og MD oxyCODONE (ROXICODONE) tablet 5 mg, 5 mg, Oral, every 4 hours PRN, El Og MD naloxone (NARCAN) 0.4 mg/mL injection 0.1 mg, 0.1 mg, IV, see admin instructions, El Og MD ondansetron (ZOFRAN) 4 mg/2 mL injection 4 mg, 4 mg, IV, every 6 hours PRN, El Og MD, 4 mg at 05/11/25 1704 ondansetron (ZOFRAN ODT) tablet 4 mg, 4 mg, Oral, every 6 hours PRN, El Og MD [COMPLETED] ceFAZolin (ANCEF,KEFZOL) 2,000 mg in sodium chloride 0.9% 50 mL IVPB (MBP), 2,000 mg, IV, pre-proc one time, Saleem Champagne PA, Stopped at 05/12/25 1105 [] sodium chloride 0.9 % infusion, , IV, continuous, El Og MD, Stopped at 05/12/25 0759 OLANZapine (ZyPREXA ZYDIS) rapid dissolve tablet 5 mg, 5 mg, Oral, BID, El Og MD, 5 mg at 05/12/25 2329 ceFAZolin (ANCEF,KEFZOL) 2,000 mg in sodium chloride 0.9% 50 mL IVPB (MBP), 2,000 mg, IV, every 12 hours, El Og MD, Stopped at 05/12/25 1544 heparin injection 5,000 Units, 5,000 Units, subCUT, every 8 hours, El Og MD, 5,000 Units at 05/12/25 1932 [DISCONTINUED] morphine 4 mg/mL injection 2 mg, 2 mg, IV, every 2 hours PRN, El Og MD [DISCONTINUED] HYDROmorphone (PF) (DILAUDID) injection 0.3 mg, 0.3 mg, IV, every 3 hours PRN, El Og MD PLAN Insert PIV Gregory Llanes RN * David Shields - 05/12/2025 7:49 AM CDTAssociated Order(s): IP CONSULT TO PASTORAL SERVICES Reason Visit: Referral - Scraper Hand responded to a spiritual care consult order for this patient to pray with her. - The patient was awake, alert, communicative and pleasantly confused. - Stayed with the patient, held her hand, listened to her, talked to her, offered support and care. - Patient values js and prayer, and she continued to pray for this rn intern after the visit was done. - Communicated to the RN that the patient requested glasses and help with her denture. Spiritual Intervention: Provided emotional/spiritual support through ministry of presence, supportive listening, words of blessings and prayer. Outcome: The patient expressed gratitude for prayer and care. Future plan: Scraper Hand remains available for patient and family. - Scraper Hand David Shields - Phone: [phone] * Speedy Bush RN - 05/11/2025 11:22 AM CDTAssociated Order(s): IP CONSULT TO WOUND/SKIN CARE TEAM Images from the original note were not included. Skin/Wound/Ulcer/Pressure Injury Consult [facility] Patient Information Today's Date: 05/11/2025 Name: Esthela Billings Age: 89 y.o. Date of : 1935 CSN: [id number] Date/time of admission: 05/11/2025 1:39 AM Hospital day: LOS: 0 days Room: [facility] Physical Assessment Wound Details: Wound 02/22/25 0100 Right;upper arm (Active) Wound 05/11/25 1000 Bilateral gluteal moisture associated skin damage (Active) Pictures Taken (Date) 05/11/25 05/11/25 1020 Wound Shape irregular 05/11/25 1020 Wound Base reddened;moist 05/11/25 1020 Periwound Area blanchable erythema 05/11/25 1020 Topical Agent hydrophilic wound dressing 05/11/25 1020 Periwound Topical Application moisture barrier paste 05/11/25 1020 Pressure Injury 05/11/25 1000 midline sacral spine Stage 2 (Active) Pictures Taken (Date) 05/11/25 05/11/25 1020 Pressure Injury Wound Shape oval 05/11/25 1020 Pressure Injury Wound Base reddened;moist 05/11/25 1020 Periwound Area blanchable erythema;satellite lesions 05/11/25 1020 Wound Length-cm. 1.5 cm. 05/11/25 1020 Wound Width-cm. 1.8 cm. 05/11/25 1020 Wound Depth-cm. 0.1 cm. 05/11/25 1020 Wound Surface Area (cm^2) 2.7 cm^2 05/11/25 1020 Wound Volume (cm^3) 0.27 cm. 05/11/25 1020 Drainage Characteristics/Odor serous 05/11/25 1020 Drainage Amount scant 05/11/25 1020 Topical Agent hydrophilic wound dressing 05/11/25 1020 Periwound Topical Application moisture barrier paste 05/11/25 1020 Wound 05/11/25 1020 Left elbow skin tear (Active) Drainage Characteristics/Odor serosanguineous 05/11/25 1020 Wound Shape irregular 05/11/25 1020 Wound Base beefy red;moist 05/11/25 1020 Periwound Area ecchymotic 05/11/25 1020 Wound Care: Cleansed w/ normal saline 05/11/25 1020 Dressing Application Other (comment);silicone border dressing 05/11/25 1020 Mattress/surface type: Waffle mattress overlay Oxymat Change surface area to: [place] 6000 Low Air Loss ordered from [employer] NOTES: Skin team received consult for sacral spine and left elbow. Left elbow skin tear cleaned and Mepitel one and Mepilex border were applied. Triad paste was applied to sacral and gluteal wounds. Focusedskin assessment per consult order. Nutrition BMI: Body mass index is 22.22 kg/m??. Current diet order: DIET NPO Sips w/Meds, Pressure Injury Prevention Recommendations Turn / reposition at minimum of every 2 hours or more frequently as determined by patient condition When in chair reposition at minimum every 1 hour or more frequently as determined by patient Condition Keep skin clean and free of excess moisture Frequent perineal care for excess moisture and with any soiling Protect and float heels when in bed --as condition allows HOB at lowest level tolerated by patient and medical condition. Do not massage bony prominences. Prevent shearing by utilizing lift sheets and appropriate lift equipment based on patient needs. Skin Assessment every shift ? Wound/Dressing Recommendations Recommendations: Sacral and gluteal wounds- Apply Triad Paste Daily to the wound area. Place on nickel thick. DO NOTintentionally wipe the Triad Paste off except to remove stool. Remove outer layer soiled triad withwound cleanser from [employer] (purple bottle). Reapply to maintain nickel thickness. Keep the surroundingareas as dry as possible. Left arm skin tear- Leave Mepitel one in place for 7 days. Clean skin tear with normal saline and cover with Mepitel one and Mepilex silicone border. Follow skin/pressure injury prevention recommendations as listed above. Skin team will not follow general wounds. Pressure injuries to be followed weekly unless otherwise specified. Will need to be re-consulted for new skin concerns. Total time spent: 35 min. Speedy Bush RN Skin/Wound/Ostomy Please call hospital rapid extractor operator to have skin team paged with questions or needs. [phone] Cosigned by Myrtle Duncan MD at 05/11/2025 2:33 PM CDT documented in this encounter OR Notes * Operative Report - El Og MD - 05/11/2025 5:10 PM CDT PATIENT: Esthela Billings DATE OF : 1935 CSN: [id number] DATE OF SURGERY: 05/11/2025 Surgeon: El Og MD Assistants: Saleem Champagne PA-C - They assisted with positioning, prepping, draping, wound closure, andbandage application. The use of a physician driller's assistant was required due to the complexity of the case and the lack of similarly qualified assistants. Anesthesia: General endotracheal anesthesia Preoperative Diagnosis: Left spiral femoral shaft fracture below previous total hip arthroplasty Osteoperosis Postoperative Diagnosis: Left spiral femoral shaft fracture below previous total hip arthroplasty Osteoperosis Procedure: Left femur fracture ORIF with plates and screws CPT 19015 Procedure Indications The patient is a 89 y.o. year-old female who presented to [facility] with the above diagnosis. The risks and benefits were discussed with the patient and/or their designate. Benefits discussed were decreased pain and increased mobility and improved healing and limb alignment. The risks discussed were infection, wound healing problems, need for further surgery, implant problems, dislocation, limb length inequality, limb rotation inequality, nerve damage, vascular damage, anesthetic complications, and other unanticipated complications. The risk of post traumatic knee arthritis was discussed. The importance of range of motion exercises to prevent stiffness and the requirement to remain non weightbearing for 12 weeks was discussed. The patient and/or their designate concurred with the proposed plan, giving informed consent. The site of surgery was marked. All questions were answered to their visually indicated satisfaction. Procedure Description The patient was identified in the holding area and the operative site was marked. They were taken to the operating room, where the operative site and the procedure were confirmed. They were positioned in the lateral position after being placed under general anesthesia. Their bony prominences were well padded. Preoperative antibiotics were administered. Their leg was then prepped and draped in thesterile fashion. Preincisional timeout was held. A lateral approach to the femur was performed. The IT band was split and the vastus was elevated from the vastus ridge proximally to the lateral knee. Good hemostasis was maintained. The fracture wasreduced with reduction clamps, the reduction was temporarily bone clamps and and compression wires were placed. A long femoral locking plate was applied to span the entire femur. Two bicortical screws were placed distal to the fracture to pull the plate to the bone. Two compression wires were placed proximal to the fracture to pull the plate to the bone. Three locking screws were placed distally to secure the plate distal to the fracture. Nine locking screws were placed proximally adjacent to the total hip component. Final films confirmed the adequacy of the reduction and the placement of thehardware. The wounds were then irrigated with dilute betadine and sterile saline. Closure was performed in layers. The patient was reversed from anesthesia and transferred to the recovery room in stable condition. Estimated blood loss for this procedure was 150 mL. Anticipated Post Operative Plan The patient will be non weight bearing with assistive device to the left lower extremity. * Brief Op Note - El Og MD - 05/11/2025 5:09 PM CDT Brief Postoperative Note Esthela Billings [id number] Pre-operative Diagnosis: Femur fracture, left (CMS/[facility]) Post-Op Diagnosis: Post-Op Diagnosis Codes: * Femur fracture, left (CMS/[facility]) [S72.92XA] Procedure-Anesthesia: FEMUR OPEN REDUCTION INTERNAL FIXATION, Left Anesthesia Type: General Surgeons and Role: * El Og MD - Primary Additional CPT Codes: 14907 - [place] OPTX FEM SHFT FX W/PLATE/SCREWS W/WO CERCLAGE Procedure Start: 155 Procedure End: 1706 Findings: Long spiral femoral shaft fracture below previous total hip arthroplasty Specimens: * No specimens in log * Implants: * No implants in log * Estimated Blood Loss: 150 mL Complications: None El Og MD documented in this encounter Miscellaneous Notes * Therapy Progress Note - Rae Sims Exercise Scientist - 05/14/2025 9:03 AM CDT Attempted to see patient for PT treatment. Will hold therapy due to unable to wake patient. Attempted several name calls and sternal rubs with no reactions. Adjusted patient in bed which caused her to cry out in pain but no further reaction with more attempts to wake her. Discussed with nursing. Will continue with attempts for evaluation/established plan of care. 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 Awaiting EMS strip picker to transfer [facility]. Expected Discharge Date May 13, 2025 Plan Discharge To: [facility] (05/13/25799) Plan Discharge To - Alternate: [facility] (05/12/25799) Referrals Status: Facility Referrals - Accepted Preferred Pharmacy: [facility] - [place], [place] - [address] [place], [place] - [address] Patient / Family Communications: Patient/Family Communications: Expected Discharge Date Update (05/12/25799) Discharge Plan Agreed Upon: Patient;Family member (05/12/25799) Resources Provided Transportation Plan: Transportation Provider: Joleen ALCAZAR (05/12/25799) Follow Up Appointments Scheduled Zaira Cruz RN * Care Plan - Reema Leonard LPN - 05/14/2025 5:52 AM CDT Shift Summary OxyCODONE was administered for pain, resulting in the patient appearing content and relaxed. No suspected infection was documented throughout the shift. Cognitive deficits and delirium remained consistent, with no change in the Nursing Delirium SymptomChecklist Total Score. Skin integrity issues were noted with ecchymosis on the right upper extremity and moisture-associated skin damage on the bilateral gluteal area. Peripheral neurovascular assessments indicated consistent warmth and redness in both lower extremities. Verbalizes/displays acceptable comfort level or baseline comfort level: Pain levels increased slightly as indicated by the PAINAD score, but the patient appeared content and relaxed after oxyCODONE administration. Infection Risk/Actual: Infection prevention, control, or resolution by discharge: No suspected infection was documented throughout the shift. Achieve optimal cognitive/perceptual/neurological function by discharge or maintain baseline function: Cognitive deficits and delirium remained consistent, with no change in the Nursing Delirium Symptom Checklist Total Score. Maintain skin integrity and/or promote wound healing by discharge: Skin integrity issues were notedwith ecchymosis on the right upper extremity and moisture-associated skin damage on the bilateral gluteal area. Achieve optimal peripheral neurovascular function by discharge or maintain baseline function: Peripheral neurovascular assessments indicated consistent warmth and redness in both lower extremities. * Care Plan - Fernanda Bhagat, FOUR H AGENT - 05/14/2025 2:30 AM CDT Images from the original note were not included. Respiratory Patient Care Assessment S- Patient unable to verbalize any respiratory complaints at this time. Matteo- Esthela Billings is a 89 y.o. female admitted for Spiral Fracture to the Left Femur on 05/11/2025 1:39 AM. Here for left femur fracture. History of dementia, no noted pulmonary diagnoses. No noted DEEP SEA DIVER respiratory meds Social History Tobacco Use Smoking status: Never Vaping Use Vaping status: Never Used Substance Use Topics Alcohol use: Never Prior to Admission medications Medication Sig Start Date End Date Taking? Authorizing Provider acetaminophen (TYLENOL) 500 mg tablet Take 2 Tablets (1,000 mg) by mouth every 8 hours. 05/13/25 Yes Myrtle Duncan MD OLANZapine (ZyPREXA ZYDIS) 5 mg Tablet, Rapid Dissolve Take 1 Tablet (5 mg) by mouth 2 times daily.05/13/25 Yes Myrtle Duncan MD bethanechol (URECHOLINE) 10 mg tablet Take 1 Tablet (10 mg) by mouth 4 times daily before meals andat bedtime. 05/13/25 Yes Myrtle Duncan MD tamsulosin (FLOMAX) 0.4 mg capsule Take 1 Capsule (0.4 mg) by mouth daily after supper. 05/13/25 Yes Myrtle Duncan MD metoprolol tartrate (LOPRESSOR) 50 mg tablet Take 1 Tablet by mouth 2 times daily. 12/24/24 Yes Provider, Historical aspirin (ECOTRIN EC) 81 mg Tablet, Delayed Release (E.C.) Take 81 mg by mouth daily. Hold 5 days tosurgery Yes Provider, Historical oxyCODONE-acetaminophen (Percocet) 5-325 mg tablet Take 1 Tablet by mouth every 4 hours as needed for Pain, Moderate. Max Daily Amount: 6 Tablets 02/21/25 Vinnie Moore MD amiodarone (CORDARONE) 200 mg tablet Take 1 Tablet by mouth daily. 12/24/24 Provider, Historical ascorbic acid, vitamin C, (VITAMIN C) 1,000 mg Tablet Take 1,000 mg by mouth daily. Provider, Historical magnesium oxide 400 mg magnesium Capsule Take 400 mg by mouth daily. Provider, Historical cyanocobalamin 1,000 mcg Tablet Take 1,500 mcg by mouth. Provider, Historical Xarelto 15 mg Tablet take 1 tablet by mouth every day with evening meal 11/16/24 Provider, Historical Lab Results Component Value Date/Time WBC 6.5 05/13/2025 04:39 PM HGB 10.1 (L) 05/13/2025 04:39 PM HCT 30.8 (L) 05/13/2025 04:39 PM PLT 288 05/13/2025 04:39 PM MCV 90.6 05/13/2025 04:39 PM Lab Results Component Value Date/Time NA 131 (L) 05/14/2025 02:07 AM K 4.2 05/14/2025 02:07 AM CL 102 05/14/2025 02:07 AM CO2 18 (L) 05/14/2025 02:07 AM CA 8.7 (L) 05/14/2025 02:07 AM BUN 47 (H) 05/14/2025 02:07 AM CREAT 1.45 (H) 05/14/2025 02:07 AM GLUCOSE 76 05/14/2025 02:07 AM ANIONGAP 11 05/14/2025 02:07 AM No results found for: CPK , CKMB , TROPONIN , TROPONIINT , TROPINTR Breath sounds reveal clear at this time, previous assessment was forced expiratory wheezes throughout . Last chest x-ray reveals Mild pulmonary vascular congestive changes. Exam Ended: 05/13/25 15:59 CDT Last Resulted: 05/13/25 16:04 CDT Latest spirometry reveals: Unable to perform at this time A- potential bronchospasm. P- Patient educated on purpose and technique of therapy. Based on above, patient will be placed on albuterol neb Q6 and prn. Will reassess patient status as needed . 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 Shannon, Adm Coordinator with [facility], notified. She states their pharmacy is not open today d/t the May 13 holiday. She is able to admit tomorrow. Network Pharmacy changed in Epic. She requested AVS assoon as possible to start admission process. 1013: Spoke with daughter, Evi, by phone. She approves of facility and transportation tomorrow. 1025: Arranged transportation via [place] with [facility] for non emergent transport at 0700, first available tomorrow morning. PCS form completed. Staff updated. Report # [phone] Expected Discharge Date May 13, 2025 Plan Discharge To: [facility] (05/13/25 08) Plan Discharge To - Alternate: [facility] (05/12/25 08) Referrals Status: Facility Referrals - Accepted Preferred Pharmacy: [facility] - [place], [place] - [address] [facility] [place], [place] - [address] Patient / Family Communications: Patient/Family Communications: Expected Discharge Date Update (05/12/25799) Discharge Plan Agreed Upon: Patient;Family member (05/12/25799) Resources Provided Transportation Plan: Transportation Provider: Joleen [facility] (05/12/25 08) Follow Up Appointments Scheduled Misty Munoz RN * Care Plan - Gregory Llanes RN - 05/13/2025 12:53 AM CDT Problem: Infection, Risk/Actual (Adult) Goal: Infection, Risk/Actual: Infection Prevention/Resolution/Control Description: Patient will demonstrate the desired outcomes. Note: Esthela 's peripheral IV will remain free from infection. * Care Plan - Areli Elizalde RN - 05/12/2025 8:32 AM CDT Tubing Mill Operator Discharge Planning CARE MANAGEMENT NOTE: Problem:Referral received for SNF level of care at discharge. Education: Met with patient. Discussed skilled criteria, insurance benefits, choice of facilities. Skilled needs PT,OT. Patient has [employer] insurance. Provided duughter with list of facilities per Medicare Compare 5 star ratings web page, Patient Choice Form, as well as, facilities in their preferred county and insurance network. Also provided themwith covered days and copays. Plan: Patient/family agree with skilled placement and plan of care. Patient Choice Disclosure Statement signed and documented, placed in paper light chart. Daughter would like referral sent to 1) [facility] 2) [facility]. Faxed information thru EPICto selected facilities. Awaiting follow-up of facility acceptance. Auth: pending # [id number] code: [id number] Goal: Provide a safe discharge plan and seamless transition from the hospital to the next level of care. 8:33 AM Patient has been accepted to both facilities. Will verify with patient and daughter which facility they prefer. Will send therapy notes when available. 8:49 AM Call to Daughter Evi. She chooses [facility]. Message left with admission coordinator Shannon with patient's Social Security number. 1:39 PM Await OT eval/note to begin insurance auth. OT will be here later this afternoon to see patient. Authorization Request for completion: Accepting Facility: [facility] Facility Accepting Physician: Mic Salomon NPI: Admit Coord:Shannon Is pt returning to facility? no Is pt on SNF bed? no Is pt on LTC bed? no Does patient have an intellectual disability that could delay learning? no Anticipated DC date: 05/13 Ready for DC now? no Skilled need: PT and OT If IV what antibiotic, frequency and stop date: ICD 10 Codes: ICD-10-CM: M97.8XXA, Z96.649 Living Setting DEEP SEA DIVER: Living arrangements - the patient lives with their family. Mobility DEEP SEA DIVER: Mod Indep with walker PT/OT Recommend: SNF Community Amb? yes Current Ambulation: 0 ft. Device/Assist: Assistive Device: Walker Sit to Stand: yes Referrals Status: Facility Referrals - Accepted Preferred Pharmacy: [facility] [address] Patient / Family Communications Resources Provided Transportation Plan Follow Up Appointments Scheduled Areli Elizalde RN * Care Plan - Misty Munoz RN - 05/11/2025 11:17 AM CDT Care Management Initial Assessment Initial Discharge Planning Assessment completed. Discussed Care Management's role and Discharge planning. Does the patient have family and/or a caregiver that is willing, able and available to assist if needed? Yes - Name/Relation:Evi, daughter Comments:Spoke with patient's daughter, Evi, at bedside. She reports patient lives with her [facility] in 1 story home with 2 step entry. She has been mod independent, using a 2WW walker at home. Hx of dementia, poor historian. Hx of recent falls. [facility] providing nursing and PT currently. No dialysis, no VA. Awaiting OR. Education: Discussed skilled criteria, insurance benefits, choice of facilities. Provided daughter with list of facilities per Medicare Compare 5 star ratings web page, Patient Choice Form, as well as, facilities in their preferred county and insurance network. Also provided themwith covered days and copays. [facility] and [facility] only 2 SNFs in network. They will decide which order but verbally approve referrals being sent to facilities to start the discharge process. 1439: Shannon with [facility] accepted, pending therapy recommendations. #[phone] ext [phone]. They are able to admit on 7/4 and over the weekend, if auth approved. Patient Discharge Planning Goal: SNF Patient will potentially discharge to a SNF/NH? Yes Care Management visited with: Viktoria via in person. Prior to admission, patient resides at: friend/relative home. Patient resides in a 1 story home with 2 stairs to enter. Prior to admission, living arrangements: family/friend. Prior to admission, patient's functional level:requires assistance; uses wheeled walker for mobility; needs assistance with iADLs: meal preparation, transportation, shopping, running errands, medication management, housekeeping, and managing finances Community Ambulator: yes Prior to admission, the patient has the following DME? Yes wheeled walker Services in the home/community: home health care Serviced by [facility] in [place] Receives hemodialysis? No Emergency contact(s): Extended Emergency Contact Information Primary Emergency Contact: EVI CLARK Mobile Relation: Daughter Secondary Emergency Contact: KOREYKESHA Mobile Relation: Daughter Prescription coverage: yes Preferred Pharmacy verified: [facility] [address] [place] [address] Insurance coverage verified: Payor: [employer] MEDICARE ADVANTAGE / Plan: [employer] Ph[employer] PLUS HMO MCR / Product Type: HMO / Secondary Insurance:N/A Medicaid Status: NA Has VA Benefits: no Employment Status: retired PCP verified as: No primary care provider on file. Patient has not had a stay at an acute care hospital in the last 30 days. Recent Falls?: Last Known Fall: Within the last year Plan for transportation at discharge: tbd Care Management contact information provided. Care Management will continue to follow and assist asneeded. Misty Munoz RN, BRIAN Nurse Navigator [facility] documented in this encounter Plan of Treatment Upcoming Encounters Date Type Department Care Team (Late st Contact Info) Description 05/30/2025 10:20 AM CDT Office Visit [facility] Orthopedics Gricelda [address] [facility] [address] [place] [address] Saleem Champagne DAVIAN [address] [place] [phone] documented as of this encounter Procedures Procedure Name Priority Date/Time Associated Diagnosis Comments TELEMETRY REPORT 05/16/2025 1:37 AM CDT EXTRA TUBE (URINE NOGUERA) Stat 05/14/2025 9:52 AM CDT URINALYSIS W/REFLEX MICROSCOPIC Stat 05/14/2025 9:52 AM CDT BASIC METABOLIC PANEL Routine 05/14/2025 2:07 AM CDT DIFFERENTIAL, MANUAL Stat 05/13/2025 4:39 PM CDT CBC WITH DIFFERENTIAL Stat 05/13/2025 4:39 PM CDT BASIC METABOLIC PANEL Stat 05/13/2025 4:39 PM CDT XR CHEST PA OR AP 1 VW Stat 3:59 PM CDT C. DIFFICILE DETECTION Routine 3:31 PM CDT RT ASSESS AND TREAT Routine 05/13/2025 3 :28 PM CDT POC GLUCOSE Routine 05/13/2025 4:35 AM CDT POC GLUCOSE Routine 05/13/2025 3:24 AM CDT POC GLUCOSE Routine 05/13/2025 3:02 AM CDT POC GLUCOSE Routine 05/13/2025 2:42 AM CDT CBC WITH DIFFERENTIAL Routine 05/13/2025 1:27 AM CDT BASIC METABOLIC PANEL Routine 05/13/2025 1:27 AM CDT DIFFERENTIAL, MANUAL Stat 05/12/2025 9:53 AM CDT CBC WITH DIFFERENTIAL Stat 05/12/2025 9:53 AM CDT BASIC METABOLIC PANEL Stat 05/12/2025 9:53 AM CDT POC GLUCOSE Routine 05/11/2025 5:33 PM CDT XR FEMUR 2 VW LEFT Routine 05/11/2025 4: 52 PM CDT XR FLUORO LESS THAN 1 HOUR Routine 05/11/2025 4:50 PM CDT FEMUR OPEN REDUCTION INTERNAL FIXATION 05/11/2025 10:39 AM CDT Femur fracture, left ([facility]) EKG 12-LEAD Stat 05/11/2025 8:00 AM CDT XR CHEST PA OR AP 1 VW Stat 7:[address] FEMUR WO CONTRAST LEFT Stat 05/11/2025 7:21 AM CDT CBC WITH DIFFERENTIAL Routine 05/11/2025 6:53 AM CDT VITAMIN D 25 HYDROXY Routine 05/11/2025 5:28 AM CDT PROTIME-INR Routine 05/11/2025 5:28 AM CDT TYPE AND SCREEN Routine 05/11/2025 5:28 AM CDT COMPREHENSIVE METABOLIC PANEL Routine 05/11/2025 5:28 AM CDT documented in this encounter Results * TELEMETRY REPORT (05/16/2025 1:37 AM CDT) us Provider Scanning ECG ORDERABLES Final Result * EXTRA TUBE (URINE NOGUERA) (05/14/2025 9:52 AM CDT) Urine URINE SPECIMEN OBTAINED BY CLEAN CATCH PROCEDURE / Unknown Collection / Unknown 05/14/2025 9:52 AM CDT 05/14/2025 9:58 AM CDT Myrtle Duncan MD URINE ORDERABLES Final Result [facility] CLIA # [id number] [facility] [address] [address] [place] [address] * (ABNORMAL) URINALYSIS WITH REFLEX MICROSCOPIC (05/14/2025 9:52 AM CDT) COLOR UA Yellow Pale to Dark Yellow 05/14/2025 10:12 AM T [facility] CLARITY UA Cloudy(A) Clear 05/14/2025 10:12 AM T [facility] SPECIFIC GRAVITY UA 1.019 1.003 - 1.035 05/14/2025 10:12 AM T [facility] PH UA 6.0 5.0 - 8.0 05/14/2025 10:12 AM T [facility] LEUKOCYTE ESTERASE UA Negative Negative 05/14/2025 10:12 AM T [facility] NITRITE UA Negative Negative 05/14/2025 10:12 AM T [facility] PROTEIN UA 1+(A) Negative 05/14/2025 10:12 AM T [facility] GLUCOSE UA Negative Negative 05/14/2025 10:12 AM T [facility] KETONES UA Trace(A) Negative 05/14/2025 10:12 AM T [facility] UROBILINOGEN UA <2.0 <2.0 mg/dL 10:12 AM T [facility] BILIRUBIN UA Negative Negative 05/14/2025 10:12 AM T [facility] BLOOD UA 3+(A) Negative 05/14/2025 10:12 AM T [facility] WBC UA 0-2 0 - 2 /hpf 05/14/2025 10:12 AM CDT [facility] RBC UA 0-2 0 - 2 /hpf 05/14/2025 10:12 AM CDT [facility] BACTERIA UA Negative Negative /hpf 05/14/2025 10:12 AM CDT [facility] EPITHELIAL CELLS, URINE 0-5 0 - 5 /hpf 05/14/2025 10:12 AM CDT [facility] TRANSITIONAL EPI 0-2 0 - 2 /hpf 05/14/2025 10:12 AM CDT [facility] HYALINE CAST 6-10(A) None Seen, 0-2 /lpf 05/14/2025 10:12 AM CDT [facility] GRANULAR CAST 6-10(A) None Seen /lpf 05/14/2025 10:12 AM T [facility] AMORPHOUS CRYSTAL Present(A) Absent 05/14/2025 10:12 AM T [facility] Urine URINE SPECIMEN OBTAINED BY CLEAN CATCH PROCEDURE / Unknown Collection / Unknown 05/14/2025 9:52 AM CDT 05/14/2025 9:58 AM CDT Myrtle Duncan MD URINE ORDERABLES Final Result Performing Organization Address [facility]/State/ZIP Co de Phone Number [facility] CLIA # [id number] [address] [place] [address] * (ABNORMAL) BASIC METABOLIC PANEL (05/14/2025 2:07 AM CDT) SODIUM 131(L) 136 - 145 mmol/L 05/14/2025 3:05 AM CDT [facility] POTASSIUM 4.2 3.5 - 5.1 mmol/L 05/14/2025 3:05 AM T [facility] CHLORIDE 102 98 - 107 mmol/L 05/14/2025 3:05 AM CDT [facility] CO2 18(L) 22 - 29 mmol/L 05/14/2025 3:05 AM [facility] CALCIUM 8.7(L) 8.8 - 10.2 mg/dL 05/14/2025 3:05 AM [facility] BUN 47(H) 8 - 23 mg/dL 05/14/2025 3:05 AM [facility] CREATININE 1.45(H) 0.51 - 0.95 mg/dL 05/14/2025 3:05 AM [facility] Comment:The GFR result is no t clinically significant on patients <18 or >70 years of age. GLUCOSE 76 74 - 99 mg/dL 05/14/2025 3:05 AM [facility] GFR 35 mL/min/1. 73 sq meter 05/14/2025 3:05 AM [facility] Comment:eGFR calculated with 2020 CKD-EPI equation. Vegetarian diet, extremely high or low muscle mass, and may affect results. Cystatin C with Glomerular Filtration Rate is a suitable alternative for these patients. ANION GAP 11 9 - 20 mmol/L 05/14/2025 3:05 AM [facility] Blood Venipuncture / Unknown 05/14/2025 2:07 AM CDT 05/14/2025 2:28 AM CDT Myrtle Duncan MD CHEMISTRY ORDERAB LES Final Result [facility] CLIA # [id number] [address] [place] [address] * MANUAL DIFFERENTIAL (05/13/2025 4:39 PM CDT) PLATELET EST. Adequate 05/13/2025 5:08 PM CDT [facility] ANISOCYTOSIS 1+ /hpf 05/13/2025 5:08 PM CDT [facility] POIKILOCYTES 1+ /hpf 05/13/2025 5:08 PM T [facility] CARLOS CELLS 1+ /hpf 05/13/2025 5:08 PM CDT [facility] Blood Venipuncture / Unknown 05/13/2025 4:39 PM CDT 05/13/2025 4:42 PM CDT Narrative [facility] - 05/13/2025 5:08 PM CDT Smear reviewed. No WBC morphology abnormality noted. Myrtle Duncan MD HEMATOLOGY ORDERA BLES COM Final Result [facility] CLIA # [id number] [address] [address] * (ABNORMAL) BASIC METABOLIC PANEL (05/13/2025 4:39 PM CDT) SODIUM 134(L) 136 - 145 mmol/L 05/13/2025 5:09 PM CDT [facility] POTASSIUM 4.1 3.5 - 5.1 mmol/L 05/13/2025 5:09 PM [facility] CHLORIDE 103 98 - 107 mmol/L 05/13/2025 5:09 PM T [facility] CO2 19(L) 22 - 29 mmol/L 05/13/2025 5:09 PM T [facility] CALCIUM 8.6(L) 8.8 - 10.2 mg/dL 05/13/2025 5:09 PM T [facility] BUN 39(H) 8 - 23 mg/dL 05/13/2025 5:09 PM T [facility] CREATININE 1.18(H) 0.51 - 0.95 mg/dL 05/13/2025 5:09 PM T [facility] Comment:The GFR result is no t clinically significant on patients <18 or >70 years of age. GLUCOSE 84 74 - 99 mg/dL 05/13/2025 5:09 PM CDT [facility] GFR 44 mL/min/1. 73 sq meter 05/13/2025 5:09 PM CDT [facility] Comment:eGFR calculated with 2020 CKD-EPI equation. Vegetarian diet, extremely high or low muscle mass, and may affect results. Cystatin C with Glomerular Filtration Rate is a suitable alternative for these patients. ANION GAP 12 9 - 20 mmol/L 05/13/2025 5:09 PM CDT [facility] Blood Venipuncture / Unknown 05/13/2025 4:39 PM CDT 05/13/2025 4:42 PM CDT Myrtle Duncan MD CHEMISTRY ORDERAB LES Final Result [facility] CLIA # [id number] [address] [place] [address] * (ABNORMAL) CBC WITH DIFFERENTIAL (05/13/2025 4:39 PM CDT) [facility] WBC 6.5 4.8 - 10.8 K/uL 05/13/2025 5:08 PM CDT [facility] RBC 3.40(L) 4.20 - 5.40 M/uL 05/13/2025 5:08 PM CDT [facility] HEMOGLOBIN 10.1(L) 12.0 - 16.0 g/dL 05/13/2025 5:08 PM CDT [facility] HEMATOCRIT 30.8(L) 36.0 - 46.0 % 05/13/2025 5:08 PM CDT [facility] MCV 90.6 84.0 - 103.0 fL 05/13/2025 5:08 PM CDT [facility] MCH 29.7 27.0 - 34.0 pg 05/13/2025 5:08 PM CDT [facility] MCHC 32.8 30.0 - 35.0 g/dL 05/13/2025 5:08 PM CDT [facility] PLATELETS 288 140 - 440 K/uL 05/13/2025 5:08 PM [facility] MPV 9.5 8.9 - 12.8 fL 05/13/2025 5:08 PM [facility] RDW 15.8(H) 11.0 - 14.5 % 05/13/2025 5:08 PM [facility] RDW-STDEV 52.5 37.0 - 54.0 fL 05/13/2025 5:08 PM [facility] NEUTROPHILS 90(H) 42 - 75 % 05/13/2025 5:08 PM [facility] LYMPHOCYTES 5(L) 24 - 44 % 05/13/2025 5:08 PM [facility] MONOCYTES 4 2 - 10 % 05/13/2025 5:08 PM [facility] EOSINOPHILS 0 0 - 7 % 05/13/2025 5:08 PM [facility] BASOPHILS 0 0 - 1 % 05/13/2025 5:08 PM [facility] IMMATURE GRANULOCYTES 1 0 - 2 % 05/13/2025 5:08 PM [facility] NEUTROPHIL ABSOLUTE 5.87 2.00 - 8.00 K/uL 05/13/2025 5:08 PM [facility] LYMPHOCYTE ABSOLUTE 0.31(L) 1.20 - 4.00 K/uL 05/13/2025 5:08 PM [facility] MONOCYTE ABSOLUTE 0.25 0.10 - 0.60 K/uL 05/13/2025 5:08 PM [facility] EOSINOPHIL ABSOLUTE 0.00 0.00 - 0.70 K/uL 05/13/2025 5:08 PM [facility] BASOPHILS ABSOLUTE 0.02 0.00 - 0.20 K/uL 05/13/2025 5:08 PM [facility] IMMATURE GRANULOCYTES ABSOLUTE 0.04 0.00 - 0.10 K/uL 05/13/2025 5:08 PM [facility] SMEAR REVIEWED: SR - See Smear Review on Manual Diff. 05/13/2025 5:08 PM CDT [facility] Blood Venipuncture / Unknown 05/13/2025 4:39 PM CDT 05/13/2025 4:42 PM CDT Myrtle Duncan MD HEMATOLOGY ORDERA BLES Final Result [facility] CLIA # [id number] [address] [facility] [place] [address] * XR CHEST PA OR AP 1 VW (05/13/2025 3:59 PM CDT) Anatomical Region Laterality Modality Chest Computed Radiogr aphy 05/13/2025 3:59 PM CDT Impressions 05/13/2025 4:04 PM CDT IMPRESSION: Mild pulmonary vascular congestive changes. Narrative 05/13/2025 4:04 PM CDT Exam: XR CHEST PA OR AP 1 VW Date/Time of Exam: 05/13/2025 3:59 PM Reason For Exam: Congestion. Diagnosis: See Reason for Exam. Comparison: 05/11/2025. Findings: The cardiac silhouette is enlarged. An ICD is present. The lung volumes are decreased. There are mild suspected central pulmonary vascular congestive changes. There is a mild degree of atelectasis within the right mid and lower lung zones. There is no focal consolidation, pleural effusion or appreciable pneumothorax. The osseous structures appear grossly intact. Procedure Note Rebel Pickett, - 05/13/2025 Exam: XR CHEST PA OR AP 1 VW Date/Time of Exam: 05/13/2025 3:59 PM Reason For Exam: Congestion. Diagnosis: See Reason for Exam. Comparison: 05/11/2025. Findings: The cardiac silhouette is enlarged. An ICD is present. The lung volumes are decreased. There are mild suspected central pulmonary vascular congestive changes. There is a mild degree of atelectasis within the right mid and lower lung zones. There is no focal consolidation, pleural effusion or appreciable pneumothorax. The osseous structures appear grossly intact. IMPRESSION: Mild pulmonary vascular congestive changes. Myrtle Duncan MD DIAGNOSTIC IMAGIN G ORDERABLES Final Result * C. DIFFICILE DETECTION (05/13/2025 3:31 PM CDT) [facility] TOXIGENIC C DIFFICILE NOT DETECTED Not Detected 05/13/2025 4:27 PM CDT [facility] Stool STOOL SPECIMEN / Unknown Collection / Unknown 05/13/2025 3:31 PM CDT 05/13/2025 3:36 PM CDT Narrative [facility] - 05/13/2025 4:27 PM CDT This assay is used to detect Toxigenic C. difficile target(B gene) DNA sequences in unformed stool specimens. If toxigenic C. difficile is not detected, but clinical suspicion is high please consult ID for consultation and potential repeat testing. This test should not be used as a test of cure. Myrtle Duncan MD MICROBIOLOGY - NERAL ORDERABLES Final Result [facility] CLIA # [id number] [address] [place] [address] * POC GLUCOSE (05/13/2025 4:35 AM CDT) Pathologist [facility] GLUCOSE POC 98 74 - 99 mg/dL 05/13/2025 4:35 AM CDT [facility] SPECIMEN SOURCE, GLUCOSE POC Capillary 05/13/2025 4:35 AM CDT [facility] Blood, whole 05/13/2025 4:35 AM CDT 05/13/2025 4:42 AM CDT Myrtle Duncan MD POINT OF CARE CHEN TING Final Result [facility] CLIA # [id number] [address] [address] [place] [address] * (ABNORMAL) POC GLUCOSE (05/13/2025 3:24 AM CDT) GLUCOSE POC 68(L) 74 - 99 mg/dL 05/13/2025 3:24 AM CDT [facility] SPECIMEN SOURCE, GLUCOSE POC Capillary 05/13/2025 3:24 AM CDT [facility] Blood, whole 05/13/2025 3:24 AM CDT 05/13/2025 3:31 AM CDT Myrtle Duncan MD POINT OF CARE CHEN COOLEY Final Result Performing Organization Address [facility]/ZIP Co de Phone Number [facility] CLIA # [id number] [address] [address] [place] [address] * POC GLUCOSE (05/13/2025 3:02 AM CDT) GLUCOSE POC 74 74 - 99 mg/dL 05/13/2025 3:02 AM CDT [facility] SPECIMEN SOURCE, GLUCOSE POC Capillary 05/13/2025 3:02 AM CDT [facility] Blood, whole 05/13/2025 3:02 AM CDT 05/13/2025 3:10 AM CDT Myrtle Duncan MD POINT OF CARE CHEN TINViktor Final Result [facility] CLIA # [id number] [address] [address] [place] [address] * (ABNORMAL) POC GLUCOSE (05/13/2025 2:42 AM CDT) GLUCOSE POC 65(L) 74 - 99 mg/dL 05/13/2025 2:42 AM CDT [facility] SPECIMEN SOURCE, GLUCOSE POC Capillary 05/13/2025 2:42 AM CDT [facility] Blood, whole 05/13/2025 2:42 AM CDT 05/13/2025 2:57 AM CDT Myrtle Duncan MD POINT OF CARE CHEN TINViktor Final Result [facility] CLIA # [id number] [address] [address] [place] [address] * (ABNORMAL) BASIC METABOLIC PANEL (05/13/2025 1:27 AM CDT) SODIUM 134(L) 136 - 145 mmol/L 05/13/2025 2:12 AM T [facility] POTASSIUM 3.7 3.5 - 5.1 mmol/L 05/13/2025 2:12 AM T [facility] CHLORIDE 103 98 - 107 mmol/L 05/13/2025 2:12 AM T [facility] CO2 20(L) 22 - 29 mmol/L 05/13/2025 2:12 AM [facility] CALCIUM 8.5(L) 8.8 - 10.2 mg/dL 05/13/2025 2:12 AM T [facility] BUN 37(H) 8 - 23 mg/dL 05/13/2025 2:12 AM [facility] CREATININE 1.29(H) 0.51 - 0.95 mg/dL 05/13/2025 2:12 AM T [facility] Comment:The GFR result is no t clinically significant on patients <18 or >70 years of age. GLUCOSE 64(L) 74 - 99 mg/dL 05/13/2025 2:12 AM T [facility] GFR 40 mL/min/1. 73 sq meter 05/13/2025 2:12 AM T [facility] Comment:eGFR calculated with 2020 CKD-EPI equation. Vegetarian diet, extremely high or low muscle mass, and may affect results. Cystatin C with Glomerular Filtration Rate is a suitable alternative for these patients. ANION GAP 11 9 - 20 mmol/L 05/13/2025 2:12 AM T [facility] Blood Venipuncture / Unknown 05/13/2025 1:27 AM CDT 05/13/2025 1:39 AM CDT us Myrtle Duncan MD CHEMISTRY ORDERAB LES Final Result [facility] CLIA # [id number] [facility] [address] * (ABNORMAL) CBC WITH DIFFERENTIAL (05/13/2025 1:27 AM CDT) [facility] WBC 7.7 4.8 - 10.8 K/uL 05/13/2025 2:28 AM [facility] RBC 3.26(L) 4.20 - 5.40 M/uL 05/13/2025 2:28 AM [facility] HEMOGLOBIN 9.8(L) 12.0 - 16.0 g/dL 05/13/2025 2:28 AM [facility] HEMATOCRIT 30.9(L) 36.0 - 46.0 % 05/13/2025 2:28 AM T [facility] MCV 94.8 84.0 - 103.0 fL 05/13/2025 2:28 AM [facility] MCH 30.1 27.0 - 34.0 pg 05/13/2025 2:28 AM T [facility] MCHC 31.7 30.0 - 35.0 g/dL 05/13/2025 2:28 AM [facility] PLATELETS 296 140 - 440 K/uL 05/13/2025 2:28 AM [facility] MPV 9.8 8.9 - 12.8 fL 05/13/2025 2:28 AM [facility] RDW 15.9(H) 11.0 - 14.5 % 05/13/2025 2:28 AM [facility] RDW-STDEV 55.9(H) 37.0 - 54.0 fL 05/13/2025 2:28 AM [facility] NEUTROPHILS 86(H) 42 - 75 % 05/13/2025 2:28 AM [facility] LYMPHOCYTES 11(L) 24 - 44 % 05/13/2025 2:28 AM [facility] MONOCYTES 3 2 - 10 % 05/13/2025 2:28 AM [facility] EOSINOPHILS 0 0 - 7 % 05/13/2025 2:28 AM [facility] BASOPHILS 0 0 - 1 % 05/13/2025 2:28 AM [facility] IMMATURE GRANULOCYTES 0 0 - 2 % 05/13/2025 2:28 AM [facility] NEUTROPHIL ABSOLUTE 6.60 2.00 - 8.00 K/uL 05/13/2025 2:28 AM [facility] LYMPHOCYTE ABSOLUTE 0.82(L) 1.20 - 4.00 K/uL 05/13/2025 2:28 AM [facility] MONOCYTE ABSOLUTE 0.19 0.10 - 0.60 K/uL 05/13/2025 2:28 AM [facility] EOSINOPHIL ABSOLUTE 0.02 0.00 - 0.70 K/uL 05/13/2025 2:28 AM [facility] BASOPHILS ABSOLUTE 0.03 0.00 - 0.20 K/uL 05/13/2025 2:28 AM [facility] IMMATURE GRANULOCYTES ABSOLUTE 0.03 0.00 - 0.10 K/uL 05/13/2025 2:28 AM [facility] SMEAR REVIEWED: WBC - Automated differential confirmed. 05/13/2025 2:28 AM [facility] Blood Venipuncture / Unknown 05/13/2025 1:27 AM CDT 05/13/2025 1:39 AM CDT Myrtle Duncan MD HEMATOLOGY ORDERA BLES Final Result Performing Organization Address [facility] Co de Phone Number [facility] CLIA # [id number] [address] [place], [place] [id number] * MANUAL DIFFERENTIAL (05/12/2025 9:53 AM CDT) PLATELET EST. Adequate 05/12/2025 11:02 AM CDT [facility] ANISOCYTOSIS 1+ /hpf 05/12/2025 11:02 AM CDT [facility] POIKILOCYTES 3+ /hpf 05/12/2025 11:02 AM CDT [facility] POLYCHROMASIA 1+ /hpf 05/12/2025 11:02 AM CDT [facility] OVALOCYTES 2+ /hpf 05/12/2025 11:02 AM CDT [facility] ACANTHOCYTES 1+ /hpf 05/12/2025 11:02 AM CDT [facility] CARLOS CELLS 1+ /hpf 05/12/2025 11:02 AM CDT [facility] Blood Venipuncture / Unknown 05/12/2025 9:53 AM CDT 05/12/2025 10:34 AM CDT Myrtle Duncan MD HEMATOLOGY ORDERA BLES COM Final Result Performing Organization Address [facility]/ZIP Co de Phone Number [facility] CLIA # [id number] [id number] [place], [place] [address] * (ABNORMAL) BASIC METABOLIC PANEL (05/12/2025 9:53 AM CDT) SODIUM 137 136 - 145 mmol/L 05/12/2025 11:16 AM [facility] POTASSIUM 4.3 3.5 - 5.1 mmol/L 05/12/2025 11:16 AM [facility] CHLORIDE 104 98 - 107 mmol/L 05/12/2025 11:16 AM [facility] CO2 21(L) 22 - 29 mmol/L 05/12/2025 11:16 AM [facility] CALCIUM 8.8 8.8 - 10.2 mg/dL 05/12/2025 11:16 AM [facility] BUN 30(H) 8 - 23 mg/dL 05/12/2025 11:16 AM [facility] CREATININE 1.08(H) 0.51 - 0.95 mg/dL 05/12/2025 11:16 AM [facility] Comment:The GFR result is no t clinically significant on patients <18 or >70 years of age. GLUCOSE 72(L) 74 - 99 mg/dL 05/12/2025 11:16 AM [facility] GFR 49 mL/min/1. 73 sq meter 05/12/2025 11:16 AM [facility] Comment:eGFR calculated with 2020 CKD-EPI equation. Vegetarian diet, extremely high or low muscle mass, and may affect results. Cystatin C with Glomerular Filtration Rate is a suitable alternative for these patients. ANION GAP 12 9 - 20 mmol/L 05/12/2025 11:16 AM [facility] Blood Venipuncture / Unknown 05/12/2025 9:53 AM CDT 05/12/2025 10:33 AM T us Myrtle Duncan MD CHEMISTRY ORDERAB LES Final Result [facility] CLIA # [id number] [facility] [address] [address] [place] [address] * (ABNORMAL) CBC WITH DIFFERENTIAL (05/12/2025 9:53 AM CDT) [facility] WBC 7.0 4.8 - 10.8 K/uL 05/12/2025 11:02 AM [facility] RBC 3.65(L) 4.20 - 5.40 M/uL 05/12/2025 11:02 AM [facility] HEMOGLOBIN 11.0(L) 12.0 - 16.0 g/dL 05/12/2025 11:02 AM [facility] HEMATOCRIT 36.3 36.0 - 46.0 % 05/12/2025 11:02 AM [facility] MCV 99.5 84.0 - 103.0 fL 05/12/2025 11:02 AM [facility] MCH 30.1 27.0 - 34.0 pg 05/12/2025 11:02 AM [facility] MCHC 30.3 30.0 - 35.0 g/dL 05/12/2025 11:02 AM [facility] PLATELETS 307 140 - 440 K/uL 05/12/2025 11:02 AM [facility] MPV 9.7 8.9 - 12.8 fL 05/12/2025 11:02 AM [facility] RDW 15.9(H) 11.0 - 14.5 % 05/12/2025 11:02 AM [facility] RDW-STDEV 59.0(H) 37.0 - 54.0 fL 05/12/2025 11:02 AM [facility] NEUTROPHILS 89(H) 42 - 75 % 05/12/2025 11:02 AM [facility] LYMPHOCYTES 7(L) 24 - 44 % 05/12/2025 11:02 AM [facility] [facility] MONOCYTES 3 2 - 10 % 05/12/2025 11:02 AM [facility] EOSINOPHILS 0 0 - 7 % 05/12/2025 11:02 AM CDT [facility] BASOPHILS 1 0 - 1 % 05/12/2025 11:02 AM T [facility] IMMATURE GRANULOCYTES 0 0 - 2 % 05/12/2025 11:02 AM CDT [facility] NEUTROPHIL ABSOLUTE 6.23 2.00 - 8.00 K/uL 05/12/2025 11:02 AM T [facility] LYMPHOCYTE ABSOLUTE 0.47(L) 1.20 - 4.00 K/uL 05/12/2025 11:02 AM CDT [facility] MONOCYTE ABSOLUTE 0.20 0.10 - 0.60 K/uL 05/12/2025 11:02 AM CDT [facility] EOSINOPHIL ABSOLUTE 0.00 0.00 - 0.70 K/uL 05/12/2025 11:02 AM CDT [facility] BASOPHILS ABSOLUTE 0.06 0.00 - 0.20 K/uL 05/12/2025 11:02 AM [facility] IMMATURE GRANULOCYTES ABSOLUTE 0.01 0.00 - 0.10 K/uL 05/12/2025 11:02 AM [facility] SMEAR REVIEWED: SR - See Smear Review on Manual Diff. 05/12/2025 11:02 AM [facility] Blood Venipuncture / Unknown 05/12/2025 9:53 AM CDT 05/12/2025 10:34 AM CDT Myrtle Duncan MD HEMATOLOGY ORDERA BLES Final Result [facility] CLIA # [id number] [address] [place] [address] [place] [address] * POC GLUCOSE (05/11/2025 5:33 PM CDT) GLUCOSE POC 96 74 - 99 mg/dL 05/11/2025 5:33 PM CDT [facility] SPECIMEN SOURCE, GLUCOSE POC Capillary 05/11/2025 5:33 PM CDT [facility] [facility] Blood, whole 05/11/2025 5:33 PM CDT 05/11/2025 5:40 PM CDT Myrtle Duncan MD POINT OF CARE CHEN TING Final Result [facility] CLIA # [id number] [address] [facility] [place] [address] * XR FEMUR 2 VW LEFT (05/11/2025 4:52 PM CDT) Anatomical Region Laterality Modality Lower Extremity Computed Radiogr aphy 05/11/2025 5:04 PM CDT Impressions 05/11/2025 5:04 PM CDT IMPRESSION: Internally fixed fracture shows excellent anatomic alignment. Narrative 05/11/2025 5:04 PM CDT Exam: XR FEMUR 2 VW LEFT Date/Time of Exam: 05/11/2025 3:52 PM Reason For Exam: Other - Please see comments Diagnosis: See Reason for Exam Intraoperative images of the left femur taken with a mobile C-arm unit are submitted. An internal fixation devices present spanning a fracture of the femoral shaft. The fracture fragments show excellent anatomic alignment. No dislocation is seen. Procedure Note Speedy Walters MD - 05/11/2025 Exam: XR FEMUR 2 VW LEFT Date/Time of Exam: 05/11/2025 3:52 PM Reason For Exam: Other - Please see comments Diagnosis: See Reason for Exam Intraoperative images of the left femur taken with a mobile C-arm unit are submitted. An internal fixation devices present spanning a fracture of the femoral shaft. The fracture fragments show excellent anatomic alignment. No dislocation is seen. IMPRESSION: Internally fixed fracture shows excellent anatomic alignment. El Og MD DIAGNOSTIC IMAGING ORDERAB LES Final Result * XR FLUORO LESS THAN 1 HOUR (05/11/2025 4:50 PM CDT) Narrative 05/11/2025 4:56 PM CDT Order information only. Exam was auto-finalized. us El Og MD DIAGNOSTIC IMAGING ORDERAB LES Final Result * EKG 12-LEAD (05/11/2025 8:00 AM CDT) 05/11/2025 8:00 AM CDT Narrative INTERFACE SYSTEM - 05/11/2025 3:07 [place] [address] Test Date: 2025-05-11 Pat Name: [facility] Department: 12 Room: [facility] 02 Gender: Female Manager Asset: [id number] : 1935 Requested By: Order Number: [id number] Reading MD: Pelon Castro Measurements Intervals [place] Rate: 73 P: 0 IL: 0 QRS: -79 QRSD: 100 T: -19 QT: 432 QTc: 475 Interpretive Statements Atrial fibrillation with occasional ventricular-paced complexes Left axis deviation Anteroseptal infarct, age undetermined T wave abnormality, consider lateral ischemia Abnormal ECG Electronically Signed On 05-11-2025 15:07:16 CDT by Pelon Castro Procedure Note Pelon Castro MD - 05/11/2025 [place] [address] Test Date: 2025-05-11 Pat Name: [facility] Department: 12 Room: [facility] 02 Gender: Female Manager Asset: [id number] : 1935 Requested By: Order Number: [id number] Marcy NETTLES: Pelon Castro Measurements Intervals [place] Rate: 73 P: 0 IL: 0 QRS: -79 QRSD: 100 T: -19 QT: 432 QTc: 475 Interpretive Statements Atrial fibrillation with occasional ventricular-paced complexes Left axis deviation Anteroseptal infarct, age undetermined T wave abnormality, consider lateral ischemia Abnormal ECG Electronically Signed On 05-11-2025 15:07:16 CDT by Pelon Castro us Myrtle Duncan MD ECG ORDERABLES F inal Result INTERFACE SYSTEM Refer to clinic/hospital department * XR CHEST PA OR AP 1 VW (05/11/2025 7:34 AM CDT) Anatomical Region Laterality Modality Chest Computed Radiogr aphy 05/11/2025 7:34 AM CDT Impressions 05/11/2025 8:21 AM CDT IMPRESSION: Please see below. Exam: XR CHEST PA OR AP 1 VW Date/Time of Exam: 05/11/2025 7:34 AM Reason For Exam: Congestion. Diagnosis: See Reason for Exam. Comparison: None. Findings: Suboptimal inspiratory effort is present. Dual lead left subclavian CCD. A normal cardiomediastinal silhouette without acute airspace disease, pleural effusion, or pneumothorax is identified. Diffuse osteopenia. Marked narrowing of the acromiohumeral distance is present bilaterally consistent with underlying rotator cuff insufficiency. Old healed left rib fracture deformities present. Impression: 1. Negative for acute cardiopulmonary process. Narrative Procedure Note Viktor Ilsas MD - 05/11/2025 IMPRESSION: Please see below. Exam: XR CHEST PA OR AP 1 VW Date/Time of Exam: 05/11/2025 7:34 AM Reason For Exam: Congestion. Diagnosis: See Reason for Exam. Comparison: None. Findings: Suboptimal inspiratory effort is present. Dual lead left subclavian CCD. A normal cardiomediastinal silhouette without acute airspace disease, pleural effusion, or pneumothorax is identified. Diffuse osteopenia. Marked narrowing of the acromiohumeral distance is present bilaterally consistent with underlying rotator cuff insufficiency. Old healed left rib fracture deformities present. Impression: 1. Negative for acute cardiopulmonary process. Myrtle Duncan MD DIAGNOSTIC DENNISE Hoang ORDERABLES Final Result * CT FEMUR WO CONTRAST LEFT (05/11/2025 7:21 AM CDT) Anatomical Region Laterality Modality Lower Extremity Computed Tomogra phy 05/11/2025 7:13 AM CDT Impressions 05/11/2025 7:35 AM CDT IMPRESSION: Please see below. Exam: CT FEMUR WO CONTRAST LEFT Date/Time of Exam: 05/11/2025 7:21 AM Reason For Exam: Fracture, femur. Diagnosis: See Reason for Exam. Technique: CT of the left femur was performed without the administration of intravenous contrast. Comparison: None. Findings: There are postsurgical changes of hip arthroplasty with grossly intact-appearing hardware resulting in beam hardening artifact which limits detail. There is an acute obliquely oriented mid to distal femoral diaphyseal fracture beginning just below the level of the arthroplasty stem with displacement measuring up to 2.4 cm. There are subacute healing nondisplaced fractures involving the left pubic body and the left distal femoral metaphysis which may be insufficiency related. The bone density is prominently diminished. The joints are anatomically aligned. There is a large knee joint effusion. There is a moderate to large degree of edema and hemorrhage within the soft tissues and musculature about the femoral diaphyseal fracture site. There is no definitive evidence of a discrete fluid collection or measurable hematoma. IMPRESSION: Fractures involving the femoral diaphysis, distal femoral metaphysis and the left pubic body as above. Narrative Procedure Note Rebel Pickett, DO - 05/11/2025 IMPRESSION: Please see below. Exam: CT FEMUR WO CONTRAST LEFT Date/Time of Exam: 05/11/2025 7:21 AM Reason For Exam: Fracture, femur. Diagnosis: See Reason for Exam. Technique: CT of the left femur was performed without the administration of intravenous contrast. Comparison: None. Findings: There are postsurgical changes of hip arthroplasty with grossly intact-appearing hardware resulting in beam hardening artifact which limits detail. There is an acute obliquely oriented mid to distal femoral diaphyseal fracture beginning just below the level of the arthroplasty stem with displacement measuring up to 2.4 cm. There are subacute healing nondisplaced fractures involving the left pubic body and the left distal femoral metaphysis which may be insufficiency related. The bone density is prominently diminished. The joints are anatomically aligned. There is a large knee joint effusion. There is a moderate to large degree of edema and hemorrhage within the soft tissues and musculature about the femoral diaphyseal fracture site. There is no definitive evidence of a discrete fluid collection or measurable hematoma. IMPRESSION: Fractures involving the femoral diaphysis, distal femoral metaphysis and the left pubic body as above. us Marlon Quiñones MD CT ORDERABLES Final Re sult * (ABNORMAL) CBC WITH DIFFERENTIAL (05/11/2025 6:53 AM CDT) WBC 12.3(H) 4.8 - 10.8 K/uL 05/11/2025 7:06 AM [facility] RBC 3.47(L) 4.20 - 5.40 M/uL 05/11/2025 7:06 AM [facility] HEMOGLOBIN 10.5(L) 12.0 - 16.0 g/dL 05/11/2025 7:06 AM [facility] HEMATOCRIT 32.4(L) 36.0 - 46.0 % 05/11/2025 7:06 AM [facility] MCV 93.4 84.0 - 103.0 fL 05/11/2025 7:06 AM [facility] MCH 30.3 27.0 - 34.0 pg 05/11/2025 7:06 AM [facility] MCHC 32.4 30.0 - 35.0 g/dL 05/11/2025 7:06 AM [facility] PLATELETS 392 140 - 440 K/uL 05/11/2025 7:06 AM [facility] MPV 9.3 8.9 - 12.8 fL 05/11/2025 7:06 AM [facility] RDW 15.5(H) 11.0 - 14.5 % 05/11/2025 7:06 AM [facility] RDW-STDEV 53.2 37.0 - 54.0 fL 05/11/2025 7:06 AM [facility] NEUTROPHILS 91(H) 42 - 75 % 05/11/2025 7:06 AM [facility] LYMPHOCYTES 4(L) 24 - 44 % 05/11/2025 7:06 AM [facility] MONOCYTES 4 2 - 10 % 05/11/2025 7:06 AM [facility] EOSINOPHILS 0 0 - 7 % 05/11/2025 7:06 AM CDT [facility] BASOPHILS 0 0 - 1 % 05/11/2025 7:06 AM T [facility] IMMATURE GRANULOCYTES 1 0 - 2 % 05/11/2025 7:06 AM T [facility] NEUTROPHIL ABSOLUTE 11.18(H) 2.00 - 8.00 K/uL 05/11/2025 7:06 AM T [facility] LYMPHOCYTE ABSOLUTE 0.52(L) 1.20 - 4.00 K/uL 05/11/2025 7:06 AM CDT [facility] MONOCYTE ABSOLUTE 0.51 0.10 - 0.60 K/uL 05/11/2025 7:06 AM CDT [facility] EOSINOPHIL ABSOLUTE 0.01 0.00 - 0.70 K/uL 05/11/2025 7:06 AM [facility] BASOPHILS ABSOLUTE 0.03 0.00 - 0.20 K/uL 05/11/2025 7:06 AM CDT [facility] IMMATURE GRANULOCYTES ABSOLUTE 0.07 0.00 - 0.10 K/uL 05/11/2025 7:06 AM [facility] SMEAR REVIEWED: NA - Not Applicable 05/11/2025 7:06 AM [facility] Blood Venipuncture / Unknown 05/11/2025 6:53 AM CDT 05/11/2025 7:02 AM CDT us Marlon Quiñones MD HEMATOLOGY ORDERABLES Fi nal Result [id number] [address] [place] [address] [place], [place] [id number] * PROTIME-INR (05/11/2025 5:28 AM CDT) PROTIME 14.1 12.7 - 14.9 Seconds 05/11/2025 6:16 AM CDT [facility] INR 1.0 0.8 - 1.2 05/11/2025 6:16 AM T [facility] Blood Venipuncture / Unknown 05/11/2025 5:28 AM CDT 05/11/2025 5:58 AM CDT [facility] - 05/11/2025 6:16 AM CDT Expected Values for INR: DVT/PE Goal INR 2.5; range 2.0 - 3.0 Valve Replacement Tissue Goal INR 2.5; range 2.0 - 3.0 Valve Replacement Mechanical Goal INR 3.0; range 2.5 - 3.5 POST-NV Goal INR 2.5; range 2.0 - 3.0 or Goal INR 3.0; range 2.5 - 3.5 Atrial Fibrillation Goal INR 2.5; range 2.0 - 3.0 Ischemic Stroke Goal INR 2.5; range 2.0 - 3.0 us Marlon Quiñones MD HEMATOLOGY ORDERABLES nal Result [facility] CLIA # [id number] [address] [place] [id number] * (ABNORMAL) COMPREHENSIVE METABOLIC PANEL (05/11/2025 5:28 AM CDT) SODIUM 135(L) 136 - 145 mmol/L 05/11/2025 6:33 AM [facility] POTASSIUM 4.2 3.5 - 5.1 mmol/L 05/11/2025 6:33 AM [facility] CHLORIDE 100 98 - 107 mmol/L 05/11/2025 6:33 AM [facility] CO2 24 22 - 29 mmol/L 05/11/2025 6:33 AM T [facility] CALCIUM 8.5(L) 8.8 - 10.2 mg/dL 05/11/2025 6:33 AM T [facility] BUN 26(H) 8 - 23 mg/dL 05/11/2025 6:33 AM [facility] CREATININE 1.02(H) 0.51 - 0.95 mg/dL 05/11/2025 6:33 AM [facility] Comment:The GFR result is no t clinically significant on patients <18 or >70 years of age. GLUCOSE 157(H) 74 - 99 mg/dL 05/11/2025 6:33 AM [facility] TOTAL PROTEIN 5.2(L) 6.4 - 8.3 g/dL 05/11/2025 6:33 AM [facility] ALBUMIN 3.1(L) 3.5 - 5.2 g/dL 05/11/2025 6:33 AM [facility] BILIRUBIN TOTAL 0.4 0.0 - 1.0 mg/dL 05/11/2025 6:33 AM [facility] ALKALINE PHOSPHATASE 133(H) 35 - 104 U/L 05/11/2025 6:33 AM [facility] AST 16 10 - 35 U/L 05/11/2025 6:33 AM [facility] Comment:Hemolysis present. R esult may be falsely elevated. ALT 12 <=35 U/L 05/11/2025 6:33 AM [facility] GFR 53 mL/min/1. 73 sq meter 05/11/2025 6:33 AM [facility] Comment:eGFR calculated with 2020 CKD-EPI equation. Vegetarian diet, extremely high or low muscle mass, and may affect results. Cystatin C with Glomerular Filtration Rate is a suitable alternative for these patients. ANION GAP 11 9 - 20 mmol/L 05/11/2025 6:33 AM [facility] Blood Venipuncture / Unknown 05/11/2025 5:28 AM CDT 05/11/2025 5:58 AM CDT us Marlon Quiñones MD CHEMISTRY ORDERABLES Fin al Result [facility] CLIA # [id number] [address] [facility] [place] [address] * TYPE AND SCREEN (05/11/2025 5:28 AM CDT) Pathologist [facility] ABO GROUP O 05/11/2025 6:58 AM CDT [facility] RH (D) TYPE Positive 05/11/2025 6:58 AM CDT [facility] ANTIBODY SCREEN Negative 05/11/2025 6:58 AM CDT [facility] Blood Venipuncture / Unknown 05/11/2025 5:28 AM CDT 05/11/2025 5:56 AM CDT Marlon Quiñones MD BLOOD BANK ORDERABLES Ed ited Result - Final [facility] CLIA#[id number] [address] [place] [address], [place] [phone] * (ABNORMAL) VITAMIN D 25 HYDROXY (05/11/2025 5:28 AM CDT) Pathologist [facility] VITAMIN D TOTAL (25OH) 21(L) 30 - 100 ng/mL 05/11/2025 6:48 AM CDT [facility] Blood Venipuncture / Unknown 05/11/2025 5:28 AM CDT 05/11/2025 5:58 AM CDT Narrative [facility] - 05/11/2025 6:48 AM CDT Interpretive Data Chart: Deficient: 0 - 20 ng/mL Insufficient: 21 - 29 ng/mL Sufficient: 30 - 100 ng/mL Increased Risk of Hypercalciuria: >100 ng/ml Toxic: >150 ng/ml Marlon Qiuñones MD CHEMISTRY ORDERABLES Fin al Result [facility] CLIA # [id number] [address] [place], [place] [address] [place] [address] documented in this encounter Visit Diagnoses Diagnosis Periprosthetic fracture of shaft of Lt femur- Primary S/P Lt hip hemiarthroplasty Atrial fibrillation, not on chronic anticoagulation, on rivaroxaban/Xarelto in the past Atrial fibrillation Cardiac pacemaker in situ SSS (sick sinus syndrome) (CMS/HCC) Sinoatrial node dysfunction Essential hypertension Unspecified essential hypertension CKD 3 (chronic kidney disease) Chronic kidney disease, unspecified documented in this encounter Administered Medications Inactive Administered Medications - up to 3 most recent administrations Medication Order MAR Action Action Date Dose Rate Site acetaminophen (TYLENOL) tablet 1,000 mg 1,000 mg, Oral, EVERY 8 HOURS, First dose on Fri05/11/25 at 0500, Until Discontinued, Routine Given 05/13/2025 9:04 PM CDT 1,000 mg Given 05/13/2025 12:35 PM CDT 1,000 mg Given 05/13/2025 4:30 AM CDT 1,000 mg albuterol (PROVENTIL,VENTOLIN) 2.5 mg /3 mL (0.083 %) inhalation solution 2.5 mg 2.5 mg, Inhalation, EVERY 6 HOURS RESPIRATORY, 12 doses, First dose on Fri05/13/25 at 1500, Last dose on Fri05/16/25 at 0700, Routine Given 05/14/2025 7:07 AM CDT 2.5 mg Given 05/14/2025 2:31 AM CDT 2.5 mg Given 05/13/2025 9:41 PM CDT 2.5 mg albuterol (PROVENTIL,VENTOLIN) 2.5 mg /3 mL (0.083 %) inhalation solution 2.5 mg 2.5 mg, Inhalation, EVERY 4 HOURS PRN RESPIRATORY, Starting on 05/14/25 at 0343, Until 05/14/25 at 1229, Shortness of Breath, Routine amiodarone (CORDARONE) tablet 200 mg 200 mg, Oral, DAILY, First dose on Fri05/11/25 at 0900, Until Discontinued, Routine, Previous Med: amiodarone (CORDARONE) 200 mg tablet - Orig Sig - Take 1 Tablet by mouth daily. Given 05/13/2025 9:10 AM CDT 200 mg Given 05/12/2025 11:06 AM CDT 200 mg aspirin (ECOTRIN EC) tablet 81 mg 81 mg, Oral, DAILY, First dose on Fri05/11/25 at 0900, Until Discontinued, Routine, Previous Med: aspirin (ECOTRIN EC) 81 mg Tablet, Delayed Release (E.C.) - Orig Sig - Take 81 mg by mouth daily. Hold 5 days to surgery Given 05/13/2025 9:10 AM CDT 81 mg Given 05/12/2025 11:06 AM CDT 81 mg Given 05/11/2025 8:57 AM CDT 81 mg bethanechol (URECHOLINE) tablet 10 mg 10 mg, Oral, FOUR TIMES DAILY BEFORE MEALS AND AT BEDTIME, First dose on Fri05/13/25 at 1630, Until Discontinued, Routine Given 05/13/2025 9:06 PM CDT 10 mg Given 05/13/2025 4:44 PM CDT 10 mg ceFAZolin (ANCEF,KEFZOL) 2,000 mg in sodium chloride 0.9% 50 mL IVPB (MBP) 2,000 mg, IV, EVERY 12 HOURS, 3 doses, First dose on Fri05/12/25 at 0300, Last dose on Fri05/13/25 at 0300, Routine, Antibiotic Indication: Surgical prophylaxis New Bag 05/13/2025 2:40 AM CDT 2,000 mg 118 mL/hr New Bag 05/12/2025 3:14 PM CDT 2,000 mg 118 mL/hr New Bag 05/12/2025 2:30 AM CDT 2,000 mg 118 mL/hr cefTRIAXone (ROCEPHIN) 2,000 mg in sodium chloride 0.9% 50 mL IVPB (MBP) 2,000 mg, IV, EVERY 24 HOURS (DAILY), First dose on Fri05/14/25 at 0930, Until Discontinued, Stat, Antibiotic Indication: Urinary Tract Infection(UTI) / Infection New Bag 05/14/2025 9:55 AM CDT 2,000 mg 1 18 mL/hr Cholecalciferol (Vitamin D3) 250 mcg (10,000 unit) capsule 50,000 Units 50,000 Units, Oral, EVERY 7 DAYS, 8 doses, First dose on Fri05/12/25 at 1430, Last dose on Fri06/30/25 at 1430, Routine Given 05/12/2025 5:48 PM CDT 50,000 Units dextrose 10% infusion IV, at 25 mL/hr, CONTINUOUS, Starting on Fri05/13/25 at 0330, Until Fri05/14/25 at 1229, Routine New Bag 05/14/2025 12:50 AM CDT 25 mL/hr New Bag 05/13/2025 4:32 AM CDT 25 mL/hr dextrose 50% (D50) syringe 25 Gram 25 Gram, IV, ONE TIME ONLY, 1 dose, On Fri05/13/25 at 0300, Stat Given 05/13/2025 3:00 AM CDT 25 Grams 999 mL/hr fosfomycin tromethamine (MONUROL) powder 3 Gram 3 Gram, Oral, ONE TIME ONLY, 1 dose, On Fri05/15/25 at 0000, Routine, Antibiotic Indication: Urinary Tract Infection(UTI) / Infection heparin injection 5,000 Units 5,000 Units, subCUT, EVERY 8 HOURS, First dose on Fri05/12/25 at 0130, Until Discontinued, Routine Given 05/14/2025 2:10 AM CDT 5,000 Units Abdomen, Right Upper Quadrant Given 05/13/2025 6:48 PM CDT 5,000 Units A bdomen, Right Upper Quadrant Given 05/13/2025 12:35 PM CDT 5,000 Units Abdomen, Left Lower Quadrant loperamide (IMODIUM) capsule 2 mg 2 mg, Oral, FOUR TIMES DAILY PRN, Starting on Fri05/13/25 at 1655, Until Fri05/14/25 at 1229, Diarrhea/Loose Stools, Routine metoprolol tartrate (LOPRESSOR) tablet 50 mg 50 mg, Oral, TWO TIMES DAILY, First dose on Fri05/11/25 at 0900, Until Discontinued, Routine, Previous Med: metoprolol tartrate (LOPRESSOR) 50 mg tablet - Orig Sig - Take 1 Tablet by mouth 2 times daily. Given 05/13/2025 9:10 AM CDT 50 mg Given 05/12/2025 11:05 AM CDT 50 mg OLANZapine (ZyPREXA ZYDIS) rapid dissolve tablet 5 mg 5 mg, Oral, TWO TIMES DAILY, First dose on Fri05/11/25 at 1500, Until Discontinued, Routine Given 05/13/2025 8:52 PM CDT 5 mg Given 05/13/2025 2:09 PM CDT 5 mg Given 05/12/2025 11:29 PM CDT 5 mg ondansetron (ZOFRAN) 4 mg/2 mL injection 4 mg 4 mg, IV, EVERY 6 HOURS PRN, Starting on Fri05/11/25 at 0232, Until 05/14/25 at 1229, Nausea/Emesis, Routine Given 05/11/2025 5:04 PM CDT 4 mg oxyCODONE (ROXICODONE) tablet 5 mg 5 mg, Oral, EVERY 4 HOURS PRN, Starting on Fri05/11/25 at 0232, Until 05/14/25 at 1229, Pain (See admin instructions), Routine Given 05/13/2025 9:09 PM CDT 5 mg saccharomyces boulardii (FLORASTOR) capsule 250 mg 250 mg, Oral, TWO TIMES DAILY, First dose on Fri05/13/25 at 2100, Until Discontinued, Routine sodium chloride 0.9 % bolus solution 1,000 mL 1,000 mL, IV, ONE TIME ONLY, 1 dose, On Fri05/11/25 at 0815, at 2,000 mL/hr, Administer over 30 Minutes, Routine New Bag 05/11/2025 8:58 AM CDT 1,000 mL 2000 mL/hr sodium chloride 0.9 % bolus solution 1,000 mL 1,000 mL, IV, ONE TIME ONLY, 1 dose, On Fri05/12/25 at 2000, at 2,000 mL/hr, Administer over 30 Minutes, Routine New Bag 05/12/2025 8:03 PM CDT 1,000 mL 2000 mL/hr sodium chloride 0.9 % infusion IV, at 80 mL/hr, PRE-PROCEDURE CONTINUOUS, Starting on Fri05/11/25 at 0245, Until Fri05/11/25 at 0758, Routine New Bag 05/11/2025 2:50 AM CDT 80 mL/hr sodium chloride 0.9 % infusion IV, at 100 mL/hr, CONTINUOUS, Starting on Fri05/11/25 at 0800, Until Fri05/12/25 at 0759, Routine New Bag 05/12/2025 5:54 AM CDT 100 mL/hr New Bag 05/11/2025 7:49 PM CDT 100 mL/hr Rate Change 05/11/2025 8:00 AM CDT 100 mL/hr sodium chloride 0.9 % infusion IV, at 100 mL/hr, CONTINUOUS, Starting on Fri05/12/25 at 2000, Until Fri05/13/25 at 1511, Routine New Bag 05/13/2025 9:45 AM CDT 100 mL/hr Restarted 05/13/2025 12:50 AM CDT 100 mL/hr New Bag 05/12/2025 9:16 PM CDT 100 mL/hr sodium chloride 0.9 % infusion IV, at 100 mL/hr, CONTINUOUS, Starting on Fri05/13/25 at 1515, Until Fri05/13/25 at 1655, Routine New Bag 05/13/2025 3:57 PM CDT 100 mL/hr sodium chloride flush injection 10 mL 10 mL, IV, TWO TIMES DAILY, First dose on Fri05/13/25 at 0900, Until Discontinued, Routine Given 05/13/2025 9:10 PM CDT 10 mL Given 05/13/2025 9:10 AM CDT 10 mL sodium chloride flush injection 10 mL 10 mL, IV, SEE ADMIN INSTRUCTIONS, Starting on Fri05/13/25 at 0053, Until Fri05/14/25 at 1229, Routine tamsulosin (FLOMAX) SR 24 hour capsule 0.4 mg 0.4 mg, Oral, DAILY AFTER SUPPER, First dose on Fri05/13/25 at 1800, Until Discontinued, Routine documented in this encounter Active and Recently Administered Medications Times are shown in CDT. Scheduled Medication Order 05/12/2025 05/13/2025 05/14/2025 acetaminophen (TYLENOL) tablet 1,000 mg 1,000 mg, Oral, EVERY 8 HOURS, First dose on Fri05/11/25 at 0500, Until Discontinued, Routine 0500 (Not Given - Provider: RENZO Mccartney - Reason: Patient asleep)1255 (Given - Provider: Jennifer Zamora RN)2100 (Refused - Provider: RENZO Mccartney) 0430 (Given - Provider: RENZO Mccartney)1235 (Given - Provider: Elisa Franklin RN)2104 (Given - Provider: Reema Leonard LPN) 0500 (Refused - Provider: Reema Leonard LPN) albuterol (PROVENTIL,VENTOLIN) 2.5 mg /3 mL (0.083 %) inhalation solution 2.5 mg 2.5 mg, Inhalation, EVERY 6 HOURS RESPIRATORY, 12 doses, First dose on Fri05/13/25 at 1500, Last dose on Fri05/16/25 at 0700, Routine 1557 (Given - Provider: Robinson Mcmahon RCP)2141 (Given - Provider: Areli Fletcher RCP) 0231 (Given - Provider: Areli Fletcher RCP)0707 (Given - Provider: Dennise Genao RCP) amiodarone (CORDARONE) tablet 200 mg 200 mg, Oral, DAILY, First dose on Fri05/11/25 at 0900, Until Discontinued, Routine, Previous Med: amiodarone (CORDARONE) 200 mg tablet - Orig Sig - Take 1 Tablet by mouth daily. 1106 (Given - Provider: Jennifer Zamora RN) 0910 (Given - Provider: Elisa Franklin RN) 0900 (Due) aspirin (ECOTRIN EC) tablet 81 mg 81 mg, Oral, DAILY, First dose on Fri05/11/25 at 0900, Until Discontinued, Routine, Previous Med: aspirin (ECOTRIN EC) 81 mg Tablet, Delayed Release (E.C.) - Orig Sig - Take 81 mg by mouth daily. Hold 5 days to surgery 1106 (Given - Provider: Jennifer Zamora RN) 0910 (Given - Provider: Elisa Franklin RN) 0900 (Due) bethanechol (URECHOLINE) tablet 10 mg 10 mg, Oral, FOUR TIMES DAILY BEFORE MEALS AND AT BEDTIME, First dose on Fri05/13/25 at 1630, Until Discontinued, Routine 1644 (Given - Provider: RENZO Robles)2106 (Given - Provider: Reema Leonard LPN) 0730 (Refused - Provider: RENZO Robles) ceFAZolin (ANCEF,KEFZOL) 2,000 mg in sodium chloride 0.9% 50 mL IVPB (MBP) (COMPLETED) 2,000 mg, IV, EVERY 12 HOURS, 3 doses, First dose on Fri05/12/25 at 0300, Last dose on Fri05/13/25 at 0300, Routine, Antibiotic Indication: Surgical prophylaxis 0230 (New Bag - Provider: RENZO Mccartney)0300 (Stopped - Provider: RENZO Mccartney)1514 (New Bag - Provider: Jennifer Zamora RN)1544 (Stopped - Provider: Jennifer Zamora RN) 0240 (New Bag - Provider: RENZO Mccartney)0310 (Stopped - Provider: RENZO Mccartney) cefTRIAXone (ROCEPHIN) 2,000 mg in sodium chloride 0.9% 50 mL IVPB (MBP) 2,000 mg, IV, EVERY 24 HOURS (DAILY), First dose on Fri05/14/25 at 0930, Until Discontinued, Stat, Antibiotic Indication: Urinary Tract Infection(UTI) / Infection 0955 (New Bag - Provider: RENZO Robles)1025 (Due: Stopped - Provider: RENZO Robles) Cholecalciferol (Vitamin D3) 250 mcg (10,000 unit) capsule 50,000 Units 50,000 Units, Oral, EVERY 7 DAYS, 8 doses, First dose on Jacque 05/12/25 at 1430, Last dose on Jacque 06/30/25 at 1430, Routine 1748 (Given - Provider: Jennifer Zamora RN) dextrose 50% (D50) syringe 25 Gram (COMPLETED) 25 Gram, IV, ONE TIME ONLY, 1 dose, On Fri05/13/25 at 0300, Stat 0300 (Given - Provider: RENZO Mccartney) fosfomycin tromethamine (MONUROL) powder 3 Gram 3 Gram, Oral, ONE TIME ONLY, 1 dose, On Fri05/15/25 at 0000, Routine, Antibiotic Indication: Urinary Tract Infection(UTI) / Infection heparin injection 5,000 Units 5,000 Units, subCUT, EVERY 8 HOURS, First dose on Jacque 05/12/25 at 0130, Until Discontinued, Routine 0055 (Given - Provider: RENZO Mccartney)1106 (Given - Provider: Jennifer Zamora RN)1932 (Given - Provider: RENZO Mccartney) 0239 (Given - Provider: RENZO Mccartney)1235 (Given - Provider: Elisa Franklin RN)1848 (Given - Provider: RENZO Robles) 0210 (Given - Provider: Reema Leonard LPN) metoprolol tartrate (LOPRESSOR) tablet 50 mg 50 mg, Oral, TWO TIMES DAILY, First dose on Fri05/11/25 at 0900, Until Discontinued, Routine, Previous Med: metoprolol tartrate (LOPRESSOR) 50 mg tablet - Orig Sig - Take 1 Tablet by mouth 2 times daily. 1105 (Given - Provider: Jennifer Zamora RN)2100 (Not Given - Provider: RENZO Mccartney - Reason: Lab results / vitals) 0910 (Given - Provider: Elisa Franklin RN)2099 (Refused - Provider: Reema Leonard LPN) 0900 (Due) naloxone (NARCAN) 0.4 mg/mL injection 0.1 mg 0.1 mg, IV, SEE ADMIN INSTRUCTIONS, Starting on Fri05/11/25 at 0232, Until Fri05/14/25 at 1229, Routine OLANZapine (ZyPREXA ZYDIS) rapid dissolve tablet 5 mg 5 mg, Oral, TWO TIMES DAILY, First dose on Fri05/11/25 at 1500, Until Discontinued, Routine 151 (Canceled Entry - Provider: Jennifer Zamora RN - Comment: dropped by pt)1517 (Given - Provider: Jennifer Zamora RN)2329 (Given - Provider: RENZO Mccartney) 1409 (Given - Provider: Elisa Franklin RN)2051 (Given - Provider: Reema Leonard LPN) saccharomyces boulardii (FLORASTOR) capsule 250 mg 250 mg, Oral, TWO TIMES DAILY, First dose on Fri05/13/25 at 2100, Until Discontinued, Routine 2099 (Refused - Provider: Reema Leonard LPN) 0900 (Due) sodium chloride 0.9 % bolus solution 1,000 mL (COMPLETED) 1,000 mL, IV, ONE TIME ONLY, 1 dose, On Jacque 05/12/25 at 2000, at 2,000 mL/hr, Administer over 30 Minutes, Routine 2002 (New Bag - Provider: RENZO Mccartney)2032 (Stopped - Provider: RENZO Mccartney) sodium chloride flush injection 10 mL 10 mL, IV, TWO TIMES DAILY, First dose on Fri05/13/25 at 0900, Until Discontinued, Routine 09 (Given - Provider: Elisa Franklin RN)211 (Given - Provider: Reema Leonard LPN) 0900 (Due) sodium chloride flush injection 10 mL 10 mL, IV, SEE ADMIN INSTRUCTIONS, Starting on Fri05/13/25 at 0053, Until 05/14/25 at 1229, Routine tamsulosin (FLOMAX) SR 24 hour capsule 0.4 mg 0.4 mg, Oral, DAILY AFTER SUPPER, First dose on Fri05/13/25 at 1800, Until Discontinued, Routine 1800 (Refused - Provider: RENZO Robles) Continuous Medication Order 05/12/2025 05/13/2025 05/14/2025 dextrose 10% infusion IV, at 25 mL/hr, CONTINUOUS, Starting on Fri05/13/25 at 0330, Until 05/14/25 at 1229, Routine 0432 (New Bag - Provider: RENZO Mccartney) 0050 (New Bag - Provider: Reema Leonard LPN)1229 (Due: Order Ending - Provider: PROVIDER, DISCHARGE PATIENT - Comment: [Order ends at this time. Document the following action when infusion is complete: Stopped]) sodium chloride 0.9 % infusion () IV, at 100 mL/hr, CONTINUOUS, Starting on Fri05/11/25 at 0800, Until Fri05/12/25 at 0759, Routine 0554 (New Bag - Provider: RENZO Mccartney)0759 (Stopped - Provider: Jennifer Zamora RN - Comment: [Order ends at this time. Document the following action when infusion is complete: Stopped]) sodium chloride 0.9 % infusion (CANCELED) IV, at 100 mL/hr, CONTINUOUS, Starting on Fri05/12/25 at 2000, Until Fri05/13/25 at 1511, Routine 2116 (New Bag - Provider: RENZO Mccartney) 0050 (Restarted - Provider: RENZO Mccartney)0945 (New Bag - Provider: Elisa Franklin RN - Comment: [Order ends at this time. Document the following action when infusion is complete: Stopped])1511 (Stopped - Provider: RENZO Robles - Comment: [Order ends at this time. Document the following action when infusion is complete: Stopped]) sodium chloride 0.9 % infusion (CANCELED) IV, at 100 mL/hr, CONTINUOUS, Starting on Fri05/13/25 at 1515, Until Fri05/13/25 at 1655, Routine 1557 (New Bag - Provider: RENZO Robles)1655 (Stopped - Provider: RENZO Robles - Comment: [Order ends at this time. Document the following action when infusion is complete: Stopped]) PRN Medication Order 05/12/2025 05/13/2025 05/14/2025 albuterol (PROVENTIL,VENTOLIN) 2.5 mg /3 mL (0.083 %) inhalation solution 2.5 mg 2.5 mg, Inhalation, EVERY 4 HOURS PRN RESPIRATORY, Starting on 05/14/25 at 0343, Until 05/14/25 at 1229, Shortness of Breath, Routine HYDROcodone-acetaminophen (NORCO) 5-325 mg per tablet 1 Tablet 1 Tablet, Oral, EVERY 4 HOURS PRN, Starting on Fri05/11/25 at 0232, Until 05/14/25 at 1229, Pain (See admin instructions), Routine loperamide (IMODIUM) capsule 2 mg 2 mg, Oral, FOUR TIMES DAILY PRN, Starting on Fri05/13/25 at 1655, Until 05/14/25 at 1229, Diarrhea/Loose Stools, Routine ondansetron (ZOFRAN ODT) tablet 4 mg 4 mg, Oral, EVERY 6 HOURS PRN, Starting on Fri05/11/25 at 0232, Until 05/14/25 at 1229, Nausea/Emesis, Routine ondansetron (ZOFRAN) 4 mg/2 mL injection 4 mg 4 mg, IV, EVERY 6 HOURS PRN, Starting on Fri05/11/25 at 0232, Until 05/14/25 at 1229, Nausea/Emesis, Routine oxyCODONE (ROXICODONE) tablet 5 mg 5 mg, Oral, EVERY 4 HOURS PRN, Starting on Fri05/11/25 at 0232, Until 05/14/25 at 1229, Pain (See admin instructions), Routine 2108 (Given - Provider: Priscilla Mabry LPN) documented in this encounter Additional Health Concerns Infection Onset Date Last Indicated Resolved Time R/O C. diff 05/13/2025 05/13/2025 05/13/2025 4:27 PM CDT documented as of this encounter
--- OUTSIDE RECORDS SUMMARY | 2025-05-11 10:39 | XMS_ITS | Encounter Summary ---
Author Organization [facility] Address [address] [place] [address] Care Team Providers Care Laser Cutter Name Role Phone Unavailable Primary Care Provider Unavailabl e Reason for Visit * Auth/Cert Specialty Diagnoses / Procedures Referred By Gennaro t Referred To Contact Neurology Diagnoses Spiral Fracture to the Left Femur Marlon Quiñones MD [address] [address] Phone: tel: fax: [facility] 3C Ortho Neuro [address] [place] [address] Phone: tel: fax: Referral ID Status Reason Start Date Expiration Date Visits Re quested Visits Authorized [id number] 1 1 Encounter Details Date Type Department Care Team (Late st Contact Info) Description 05/11/2025 10:39 AM CDT - 05/11/2025 1:35 PM CDT Surgery [facility] Operating Room [address] [place] [address] El Og MD [address] [address] FEMUR OPEN REDUCTION INTERNAL FIXATION Surgery Details Date/Time Status Location OR Service Patient Class Case Class Case Type Trauma Case? 05/11/2025 10:39 AM Posted [facility] MAIN OR OR 17 Orthopedics Inpatient Elective No Panel 1 Procedure LRB Anes Op Region Wound Class Comments FEMUR OPEN REDUCTION INTERNAL FIXATION Left General L eg Upper Clean-I Surgeon Surgeon Role Service Panel El Og MD Primary Orthopedics 1 documented in this encounter Social History Tobacco Use Types Packs/Day Years [...] Sign Reading Time Taken Comments Blood Pressure 96/64 05/11/2025 9:23 AM CDT Pulse 79 05/11/2025 11:43 AM CDT Temperature 36.4 C (97.6 F) 05/11/2025 11:43 AM CDT Respiratory Rate 17 05/11/2025 11:4 3 AM CDT Oxygen Saturation 93% 05/11/2025 11: 43 AM CDT Inhaled Oxygen Concentration - - Weight 51.6 kg (113 lb 12.1 oz) 05/11/2025 2:40 AM CDT Height 152.4 cm (5') 05/11/2025 2:40 AM CDT Body Mass Index 27.61 05/11/2025 2:40 AM CDT documented in this encounter Discharge Summaries * Myrtle Duncan MD - 05/14/2025 7:12 AM CDT [facility] ORTHOPEDIC HOSPITALIST- Discharge Summary Omaira Billings 89 y.o. female 1935 CSN: [id number] Date of Admission: 05/11/2025 Date of Discharge: [...] of the above directions to avoid infections. Sutures/[place]: To be removed at clinic follow up [...] Follow up with Saleem MARCELO in the [facility] Orthopedic Trauma office on May 30 at 10:20am . Please arrive 15 minutes early for xrays. Clinic offices located in the [facility] Orthopedics at the [facility] at [address] in [place] [address]. *DO NOT GO TO THE ORTHOPEDIC HOSPITAL* [...] pacemaker in situ SSS (sick sinus syndrome) ([facility]) S/P Lt hip hemiarthroplasty HOSPITAL COURSE: [...] Your Medications These medications were sent to [place], [place] [address] [facility] [address] [place] [address] Cholecalciferol (Vitamin D3) 250 mcg (10,000 unit) [...] This documentation was created by an artificial liquor stores and agencies supervisor software. Effort has been done to assure accuracy of liquor stores and agencies supervisor. Any obvious errors or omissions should be [...] of the above directions to avoid infections. Sutures/[place]ger: To be removed at clinic follow up [...] Follow up with Saleem MARCELO in the [facility] Orthopedic Trauma office on May 30 at 10:20am . Please arrive 15 minutes early for xrays. Clinic offices located in the [facility] Orthopedics at the [facility] at [address] in [place] [address]. Call office if you have temperature greater than 101.5 or increased redness and/or drainage from wound. If you have any questions or concerns prior to your follow up visit, please do no hesitate to call the Orthopedic Trauma Surgery office at [phone]. MEDICINE DISCHARGE INSTRUCTIONS 1. OUTPATIENT follow up [...] referral can be made 5. Malnutrition: [facility] Discharge Instructions Discharge & Transfer patient to: Name of Facility: [facility] Transfer care to Attending Provider at [facility] Symptoms/Diagnosis: Periprosthetic fracture of shaft of femur Procedures Performed, if any: 05/13 45 Note By: Gregory Llanes, BK 05/11 1301 Note By: Liane Mathis PCA [...] Lt hip hemiarthroplasty SSS (sick sinus syndrome) ([facility]) Atrial fibrillation, not on chronic anticoagulation, [...] urine or bowel output, Contact hospitalist office [phone] for questions if patients are [facility] by [facility]. Contact [facility] Transfer Hub at [phone] if patient needs a direct admission. Tell [...] for 6 doses. 20 Capsule 1 05/19/2025 saccharomyces boulardii (FLORASTOR) 250 mg Capsule Take [...] this encounter Progress Notes * Jennifer Calderon, Scalp Treatment Operator - 05/14/2025 8:53 AM CDT Attempted to see patient for OT treatment. Will hold therapy due to pt unable to arose with sternalrubs or to her name, no reaction. Pt was readjusted in bed. Discussed with nursing. Will continue with attempts for evaluation/established plan of care. Thank you, Jennifer Calderon, Scalp Treatment Operator * Myrtle Duncan MD - 05/14/2025 8:[address] [facility] TRAUMA [facility] Progress note Patient name: Omaira Billings Date of : 1935 Room/Bed: 3210/ LOS: LOS: 3 days HOSPITAL COURSE SUMMARY: [...] pacemaker in situ SSS (sick sinus syndrome) ([facility]) S/P Lt hip hemiarthroplasty HIGH risk of readmission/co-morbidities including transfusion/infection/increased mortality. Left femur fracture, -defer to ORTHO TRAUMA team management -s/p OR repair 05/11 Atrial Fibrillation, remains rate controlled as per baseline -NOT on anticoagulation AUTO DAMAGE TRAINEE, has been on rivaroxaban in the past -Lovenox bridging if prolonged perioperative course -continue AUTO DAMAGE TRAINEE rate control Rx: amiodarone, metoprolol CKD, ~stable as per patient baseline, -urine output appropriate for patient -continue AUTO DAMAGE TRAINEE Rx except ACEi which will be held for the time being -continue current monitoring/Rx -avoid NSAIDS/ACEI/ARB/other known nephrotoxins HTN, currently clinically asx/stable as per patient baseline -continue current monitoring -continue AUTO DAMAGE TRAINEE Rx: metoprolol + pacemaker/SSS, currently clinically asx/stable as per patient baseline -continue current monitoring -continue AUTO DAMAGE TRAINEE Rx -further work up to proceed as indicated based on the results of the above. DVT/Gastritis/GIB prevention: as per appropriate protocol TOBACCO COUNSELING She is not a tobacco/nicotine user. Anticipated Disposition AVOIDABLE DAYS: 1 Location: SNF Timeframe: 05/13/2025, yesterday Criteria: optimized on PO [...] This documentation was created by an artificial liquor stores and agencies supervisor software. Effort has been done to assure accuracy of liquor stores and agencies supervisor. Any obvious errors or omissions should be [...] situ Essential hypertension SSS (sick sinus syndrome) ([facility]) S/P Lt hip hemiarthroplasty Orthopedic Injury [...] Duncan MD - 05/13/2025 8:[address] [facility] TRAUMA [facility] Progress note Patient name: Omaira Billings Date of : 1935 Room[facility]Bed: [facility]/ LOS: LOS: 2 days HOSPITAL COURSE SUMMARY: [...] pacemaker in situ SSS (sick sinus syndrome) ([facility]) S/P Lt hip hemiarthroplasty HIGH risk of readmission/co-morbidities including transfusion/infection/increased mortality. Left femur fracture, -defer to ORTHO TRAUMA team management -s/p OR repair 05/11 Atrial Fibrillation, remains rate controlled as per baseline -NOT on anticoagulation AUTO DAMAGE TRAINEE, has been on rivaroxaban in the past -Lovenox bridging if prolonged perioperative course -continue AUTO DAMAGE TRAINEE rate control Rx: amiodarone, metoprolol HTN, currently clinically asx/stable as per patient baseline -continue current monitoring -continue AUTO DAMAGE TRAINEE Rx: metoprolol + pacemaker/SSS, currently clinically asx/stable as per patient baseline -continue current monitoring -continue AUTO DAMAGE TRAINEE Rx -further work up to proceed as [...] This documentation was created by an artificial liquor stores and agencies supervisor software. Effort has been done to assure accuracy of liquor stores and agencies supervisor. Any obvious errors or omissions should be clarified with the author of the document. This document is intended for communication between health care team staff and physician author of the document. * Riya Lema - 05/13/2025 8:41 AM CDT 05/13/25 0800 Discharge Plan Plan [facility] Care Facility Name [facility] Post-Acute Ins Auth Information Level of Care SNF Submission Type Home & Community Care Transitions ([facility]) Insurance Type Medicare [employer] Date Auth Requested 05/12/25 Time Auth Requested 1630 Date of Initiation 05/13/25 Time of Initiation 0830 Escalation N Date of Initial Detemination 05/13/25 Time of Initial Detemination 0841 Initial determination Approved Pending Insurance Auth#/Ref# [id number] Ins Auth Approval # [id number] Avoidable Days N Comments/Barriers approved 05/13-05/17 * Claudia Becerra, Occupational Therapist - 05/12/2025 3:40 PM CDT [facility] - Therapy Services [address]. Acute Occupational Therapy Evaluation 05/12/2025 Room: [address] [place] [address] Name: Omaira Billings Age: 89 y.o. Patient Class: Inpatient [...] Activities of Daily Living Feeding: supervision for [id number] excursion Grooming: minimal assistance in bed for [...] status, initiation of task, and command following. [facility] Daily Activity How much help from [...] weight bearing ASSESSMENT & PLAN Evaluation Details Omaira Billings is a 89 y.o. female referred [...] Score, anticipated discharge disposition, once medically ready: jail facility (05/12/25 154). Rationale: Patient needs daily (weekday) skilled OT services. Anticipate tolerance is limited for intensive or adapted intensive rehab program. * The final discharge location is determined through physician, case management, and patient/caregiver input along with insurance authorization of skilled services when appropriate. Plan of care and discharge recommendations shared with patient, home health care worker, and PT OT recommended DME and AE upon discharge: No new DME recommended (05/12/25 1540) No new additional adaptive equipment necessary (05/12/25 3780) Education provided to patient regarding OT recommendations [...] Claudia Becerra, Occupational Therapist * Beryl Duke ALGORITHM DEVELOPER - 05/12/2025 2:23 PM CDT ORTHOPEDIC TRAUMA [...] situ Essential hypertension SSS (sick sinus syndrome) ([facility]) S/P Lt hip hemiarthroplasty Orthopedic Injury [...] Physical Therapist - 05/12/2025 12:24 PM CDT [facility] - Therapy Services [facility]K Ph. Acute Physical Therapy Evaluation 05/12/2025 Room: [address] [place] [address] Name: Omaira Billings Age: 89 y.o. Date of : 1935 Insurance: Payor: [employer] MEDICARE ADVANTAGE / Plan: [employer] PLUS HMO MCR / Product Type: HMO [...] and balance. Vitals Patient on room air [facility] AM-PAC Basic Mobility How much [...] patient report, observation or professional expertise Assessment/Plan Omaira Billings is a 89 y.o. female is [...] patient discharges from facility. Anticipated discharge disposition: jail facility (05/12/25 1200). PT Recommended DME: To be determined (05/12/25 1200). Plan of care and/or discharge recommendations shared with: Patient, Manager Food Beverage, and Nurse Daily activity recommendations: Up with [...] has a past medical history of A-fib ([facility]), Dyspnea on exertion, and Essential hypertension (09/14/2020). She has no past medical history of Anesthesia complication, Asthma, Blood clotting disorder, Clostridium difficile enterocolitis, Congestive heart failure ([facility]), Coronary artery disease, CRI (chronic renal insufficiency), Deep vein thrombosis (DVT) ([facility]), Diabetes mellitus ([facility]), Emphysema of lung ([facility]), GERD (gastroesophageal reflux disease), Hyperlipidemia, Hyperthyroidism, [...] Duncan MD - 05/12/2025 9:[address] [facility] TRAUMA [facility] Progress note Patient name: Omaira Billings Date of : 1935 Room/Bed: [address] [place] [address] LOS: LOS: 1 day HOSPITAL COURSE SUMMARY: 05/11/2025 : admitted for further evaluation of left femur periprosthetic fracture due to mechanical fall , no LOC/dizziness associated with event. She denies recent CP, SOB, palpitations. 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 PMH+ Atrial fibrillation/NOT on chronic anticoagulation at this time, + pacemaker/SSS, chronic anemia, HTN 7/2: to OR for repair 7/3: POD#1, hemodynamics/oxygenation adequate, renal indices stable for [...] pacemaker in situ SSS (sick sinus syndrome) ([facility]) S/P Lt hip hemiarthroplasty HIGH risk of readmission/co-morbidities including transfusion/infection/increased mortality. Left femur fracture, -defer to ORTHO TRAUMA team management -s/p OR repair 05/11 Atrial Fibrillation, rate controlled as per baseline -NOT on anticoagulation AUTO DAMAGE TRAINEE, has been on rivaroxaban in the past -Lovenox bridging if prolonged perioperative course -continue AUTO DAMAGE TRAINEE rate control Rx: amiodarone, metoprolol HTN, currently clinically asx/stable as per patient baseline -continue current monitoring -continue AUTO DAMAGE TRAINEE Rx: metoprolol + pacemaker/SSS, currently clinically asx/stable as per patient baseline -continue current monitoring -continue AUTO DAMAGE TRAINEE Rx -further work up to proceed as indicated based on the results of the above. DVT/Gastritis/GIB prevention: as per appropriate protocol TOBACCO COUNSELING She is not a tobacco/nicotine user. Anticipated Disposition AVOIDABLE DAYS: 0 Location: SNF Timeframe: 1 day(s) Criteria: optimized on PO [...] AM This documentation was created by an [employer] liquor stores and agencies supervisor software. Effort has been done to assure accuracy of liquor stores and agencies supervisor. Any obvious errors or omissions should be clarified with the author of the document. This document is intended for communication between health care team staff and physician author of the document. * Linda Ryan, PHARMACIST - 05/11/2025 6:26 PM CDT RX ANTICOAG MONITORING ORDERS Pharmacy to order, review, and report clinically significant changes in lab per [facility] Anticoagulation Protocol as follows: Orders for dosing changes and follow-up labs will be signed ???Per Protocol?? in Epic. The name ofthe provider signed on the follow-up orders for cosignature will be assigned as follows: Orders placed by members of the Yardage Control Operator Forming or Hospitalist physician groups: If the original [...] order appropriate labs as indicated by the [facility] Anticoagulation Monitoring policy located on [facility] intranet, unless already ordered. The medications that [...] Safety Goal 3E and authorized by the [facility] Pharmacy and Therapeutics Committee. Cosigned by El Og MD at 05/12/2025 8:17 AM CDT documented in this encounter H&P Notes * Saleem Champagne PA - 05/11/2025 7:12 AM CDT Images from the original note were not included. ORTHO TRAUMA HISTORY AND PHYSICAL 05/11/2025 PATIENT NAME: Omaira Billings (female) : 1935 (89 y.o.) CSN: [id number] TIME AT BEDSIDE: 0657 SUBJECT ADRI CC: Left leg injury HPI: Omaira Billings is a 89 y.o. female who reportedly sustained a fall at home yesterday. She was taken to an outlying emergency department where workup identified a left femoral shaft fracture below a right hip hemiarthroplasty. She is a poor historian due to dementia, there is no family present at this time, and [facility]. She [...] 09/14/2020 Past Surgical History: Procedure Laterality Date IN EXC RCT PROCIDENTIA W/ANAST PERINEAL APPROACH N/A 02/21/2025 PERINEAL ALTEMEIER PROCTECTOMY performed by Vinnie Moore MD at [facility] MAIN OR No [...] Duncan MD - 05/11/2025 7:09 AM CDT [facility] ORTHOPEDIC TRAUMA [facility] - Myrtle Gastelum MD History and Physical- Date of admission: 05/11/2025 Patient name: Omaira Billings Date of : 1935 CSN number: [id number] PCP: No primary care provider on file. Chief Complaint: No chief complaint on file. History of Present Illness: Pt seen and examined at the bedside. 05/11/2025 : Omaira Billings is a 89 y.o. female admitted [...] History: Past Medical History: Diagnosis Date A-fib ([facility]) Dyspnea on exertion Essential hypertension 09/14/2020 [...] tricuspid insufficiency I07.1 SSS (sick sinus syndrome) ([facility]) I49.5 S/P Lt hip hemiarthroplasty Z96.649 Femur fracture, left ([facility]) S72.92XA Past Surgical History: Past Surgical History: Procedure Laterality Date IN EXC RCT PROCIDENTIA W/ANAST PERINEAL APPROACH N/A 02/21/2025 PERINEAL ALTEMEIER PROCTECTOMY performed by Vinnie Moore MD at [facility] MAIN OR Current [...] pacemaker in situ SSS (sick sinus syndrome) ([facility]) S/P Lt hip hemiarthroplasty PLAN: Admit to INPATIENT status. Left femur fracture -defer to ORTHO TRAUMA team management -tentatively plan OR repair 05/11 -this patient is currently medically optimized for operative repair/intervention as planned based on information/data currently available. Atrial Fibrillation, rate controlled as per baseline -NOT on anticoagulation AUTO DAMAGE TRAINEE, has been on rivaroxaban in the past -Lovenox bridging if prolonged perioperative course -continue AUTO DAMAGE TRAINEE rate control Rx: amiodarone, metoprolol -no evident recent change/increase in clinically significant CV symptoms, denies any change/increase in peripheral edema, denies any change in exercise tolerance -EPIC charting does not show any recent titration/addition of new cardiac meds/symptom management HTN, stable as per patient baseline -continue current monitoring -continue AUTO DAMAGE TRAINEE Rx : metoprolol + pacemaker/SSS, currently clinically asx/stable as per patient baseline -continue current monitoring -continue AUTO DAMAGE TRAINEE Rx -further work up to proceed as [...] spent counseling and /or coordinating ongoing patientcare. Myrtle Duncan MD 05/11/2025 4:16 PM This documentation was created by an artificial liquor stores and agencies supervisor software. Effort has been done to assure accuracy of liquor stores and agencies supervisor. Any obvious errors or omissions should be clarified with the author of the document. This document is intended for communication between health care team staff and physician author of the document. documented in this encounter Procedure Notes * Gregory Llanes RN - 05/13/2025 12:45 AM CDT VASCULAR ACCESS TEAM Peripheral IV insertion PATIENT NAME: Omaira Billings DATE OF : 1935 CSN: [id number] DATE: 05/13/2025 Room: [address] [place] [address] Admit Date: 05/11/2025 Hospital day: LOS: 2 [...] ACCESS TEAM Peripheral IV insertion PATIENT NAME: Omaira Billings DATE OF : 1935 CSN: [id number] DATE: 05/11/2025 Room: [address] [place] [address] Admit Date: 05/11/2025 Hospital day: LOS: 0 [...] IV TEAM VASCULAR ACCESS CONSULT PATIENT NAME: Omaira Billings DATE OF : 1935 CSN: [id number] DATE: 05/13/2025 Room: [address] [place] [address] Admit Date: 05/11/2025 Hospital day: LOS: 2 days INDICATION: Poor Access EXCLUSIONS/CONSIDERATIONS: this will be the fifth PIV placed in less than 48 hours LAST RECORDED TEMP: Temp: 97.8 ??F (36.6 ??C) (05/12/25 8223)] Assessment Allergies Allergen Reactions Adhesive Tape-Silicones Other [...] 09/14/2020 Past Surgical History: Procedure Laterality Date IN EXC RCT PROCIDENTIA W/ANAST PERINEAL APPROACH N/A 02/21/2025 PERINEAL ALTEMEIER PROCTECTOMY performed by Vinnie Moore MD at [facility] MAIN OR Current Facility-Administered Medications: Cholecalciferol (Vitamin D3) 250 mcg (10,000 unit) capsule 50,000 Units, 50,000 Units, Oral, every 7 days, Beryl Duke NP, 50,000 Units at 05/12/25 174 sodium chloride 0.9 % infusion, , IV, continuous, Myrtle Duncan MD, Last Rate: 100 mL/hr at 05/12/252115, New Bag at 05/12/252115 [COMPLETED] sodium chloride 0.9 % bolus solution 1,000 mL, 1,000 mL, IV, ONE time only, Myrtle Duncan MD, Stopped at 05/12/252032 aspirin (ECOTRIN EC) tablet 81 mg, 81 mg, Oral, daily, El Og MD, 81 mg at 05/12/25 110 amiodarone (CORDARONE) tablet 200 mg, 200 mg, [...] El Og MD PLAN Insert PIV Gregory Shraddha, RN * David Shields - 05/12/2025 7:49 AM CDTAssociated Order(s): IP CONSULT TO PASTORAL SERVICES Reason Visit: Referral - Pastoral Ministries Professor responded to a spiritual care consult order for this patient to pray with her. - The patient was awake, alert, communicative and pleasantly confused. - Stayed with the patient, held her hand, listened to her, talked to her, offered support and care. - Patient values js and prayer, and she continued to pray for this hoop flaring machine operator helper after the visit was done. - Communicated to the RN that the patient requested glasses and help with her denture. Spiritual Intervention: Provided emotional/spiritual support through ministry of presence, supportive listening, words of blessings and prayer. Outcome: The patient expressed gratitude for prayer and care. Future plan: Pastoral Ministries Professor remains available for patient and family. - Pastoral Ministries Professor David Shields - Phone: [phone] * Speedy Bush RN - 05/11/2025 11:22 AM CDTAssociated Order(s): IP CONSULT TO WOUND/SKIN CARE TEAM Images from the original note were not included. Skin/Wound/Ulcer/Pressure Injury Consult [facility] Patient Information Today's Date: 05/11/2025 Name: Omaira Billings Age: 89 y.o. Date of : 1935 [facility]: [id number] Date/time of admission: 05/11/2025 1:39 AM Hospital day: LOS: 0 days Room: [address] [place] [address] Physical Assessment Wound Details: Wound 02/22/25 0100 [...] mattress overlay Oxymat Change surface area to: [place] 6000 Low Air Loss ordered from [employer] NOTES: Skin team received consult for sacral [...] outer layer soiled triad withwound cleanser from [facility] (purple bottle). Reapply to maintain nickel thickness. [...] Speedy Bush RN Skin/Wound/Ostomy Please call hospital jewel lathe operator to have skin team paged with questions or needs. Cosigned by Myrtle Duncan MD at 05/11/2025 2:33 PM CDT documented in this encounter OR Notes * Operative Report - El Og MD - 05/11/2025 5:10 PM CDT PATIENT: Omaira Billings DATE OF : 1935 CSN: [id number] DATE OF SURGERY: 05/11/2025 Surgeon: El Og MD Assistants: Saleem Champagne PA-C - They assisted with positioning, prepping, draping, wound closure, andbandage application. The use of a physician dental chairside assistant was required due to the complexity of the case and the lack of similarly qualified assistants. Anesthesia: General endotracheal anesthesia Preoperative Diagnosis: Left spiral femoral shaft fracture below previous total hip arthroplasty Osteoperosis Postoperative Diagnosis: Left spiral femoral shaft fracture below previous total hip arthroplasty Osteoperosis Procedure: Left femur fracture ORIF with plates and screws CPT 00838 Procedure Indications The patient is a 89 y.o. year-old female who presented to [facility] with the above diagnosis. The risks and [...] 05/11/2025 5:09 PM CDT Brief Postoperative Note Omaira Billings [id number] Pre-operative Diagnosis: Femur fracture, left (CMS/HCC) Post-Op Diagnosis: Post-Op Diagnosis Codes: * Femur fracture, left (CMS/HCC) [S72.92XA] Procedure-Anesthesia: FEMUR OPEN REDUCTION INTERNAL FIXATION, Left Anesthesia Type: General Surgeons and Role: * El Og MD - Primary Additional CPT Codes: 43783 - IN OPTX FEM SHFT FX W/PLATE/SCREWS W/WO CERCLAGE Procedure Start: 1552 Procedure End: 1707 Findings: Long spiral femoral shaft fracture below previous total hip arthroplasty Specimens: * No specimens in log * Implants: * No implants in log * Estimated Blood Loss: 150 mL Complications: None El Og MD documented in this encounter Miscellaneous Notes * Therapy Progress Note - Rae Sims Tile Power Shear Operator - 05/14/2025 9:03 AM CDT Attempted to [...] evaluation/established plan of care. Thank you, Rae Sims Tile Power Shear Operator * Care Plan - Zaira Cruz RN - 05/14/2025 9:03 AM CDT Manager Food Beverage Discharge Planning 902: EMS transport arranged by [facility] on 05/13 for 0700 today (05/14). Awaiting EMS pharmacy picking tech to transfer [facility]. Expected Discharge Date May 13, 2025 Plan Discharge To: [facility] (05/13/25799) Plan Discharge To - Alternate: [facility] Facility (05/12/25799) Referrals Status: Facility Referrals - Accepted Preferred Pharmacy: [facility] - [place], [place] - [address] [place], [place] - [address] Patient / [...] extremities. * Care Plan - Fernanda Bhagat, AGRICULTURAL EQUIPMENT DESIGN ENGINEER - 05/14/2025 2:30 AM CDT Images from the original note were not included. Respiratory Patient Care Assessment S- Patient unable to verbalize any respiratory complaints at this time. Matteo- Omaira Billings is a 89 y.o. female admitted for Spiral Fracture to the Left Femur on 05/11/2025 1:39 AM. Here for left femur fracture. History of dementia, no noted pulmonary diagnoses. No noted AUTO DAMAGE TRAINEE respiratory meds Social History Tobacco Use Smoking [...] Bhagat RCP * Care Plan - Misty Munoz, RN - 05/13/2025 10:01 AM CDT Manager Food Beverage Discharge Planning 1001: Joleen Cordero Team received ins auth approval. Shannon, Adm Coordinator with [facility], notified. She states their pharmacy is not open today d/t the May 13 holiday. She is able to admit tomorrow. Network Pharmacy changed in Epic. She requested AVS assoon as possible to start admission process. 1013: Spoke with daughter, Evi, by phone. She approves of facility and transportation tomorrow. 1025: Arranged transportation via [facility] with [facility] for non emergent transport at 0700, first available tomorrow morning. PCS form completed. Staff updated. Report # [phone] Expected Discharge Date May 13, 2025 Plan Discharge To: [facility] (05/13/25799) Plan Discharge To - Alternate: [facility] (05/12/25799) Referrals Status: Facility Referrals - Accepted Preferred Pharmacy: [facility] - [place], [place] - [address] [facility] [address] Patient / Family Communications: Patient/Family Communications: Expected Discharge Date Update (05/12/25799) Discharge Plan Agreed Upon: Patient;Family member (05/12/25799) Resources Provided Transportation Plan: Transportation Provider: Joleen ALCAZAR (05/12/25799) Follow Up Appointments Scheduled Misty Munoz RN * Care Plan - Gregory Llanes, BK - 05/13/2025 12:53 AM CDT Problem: Infection, Risk/Actual (Adult) Goal: Infection, Risk/Actual: Infection Prevention/Resolution/Control Description: Patient will demonstrate the desired outcomes. Note: Omaira 's peripheral IV will remain free from infection. * Care Plan - Areli Elizalde RN - 05/12/2025 8:32 AM CDT Manager Food Beverage Discharge Planning CARE MANAGEMENT NOTE: Problem:Referral received for SNF level of care at discharge. Education: Met with patient. Discussed skilled criteria, insurance benefits, choice of facilities. Skilled needs PT,OT. Patient has [employer] insurance. Provided duughter with list of facilities [...] referral sent to 1) [facility] 2) [facility]. Faxed information thru EPICto selected facilities. Awaiting follow-up of facility acceptance. Auth: pending # [id number] code: [id number] Goal: Provide a safe discharge plan and seamless transition from the hospital to the next level of care. 8:33 AM Patient has been accepted to both facilities. Will verify with patient and daughter which facility they prefer. Will send therapy notes when available. 8:49 AM Call to Daughter Evi. She chooses [facility]. Message left with admission coordinator Shannon with patient's Social Security number. 1:39 PM Await OT eval/note to begin insurance auth. OT will be here later this afternoon to see patient. Authorization Request for completion: Accepting Facility: [facility] Facility Accepting Physician: Mic Salomon NPI: [...] 10 Codes: ICD-10-CM: M97.8XXA, Z96.649 Living Setting AUTO DAMAGE TRAINEE: Living arrangements - the patient lives with their family. Mobility AUTO DAMAGE TRAINEE: Mod Indep with walker PT/OT Recommend: SNF Community Amb? yes Current Ambulation: 0 ft. Device/Assist: Assistive Device: Walker Sit to Stand: yes Referrals Status: Facility Referrals - Accepted Preferred Pharmacy: [facility] [address] [place] [address] Patient / Family Communications [...] She reports patient lives with her [facility] in 1 story home with 2 step entry. She has been mod independent, using a 2WW walker at home. Hx of dementia, poor historian. Hx of recent falls. [facility] providing nursing and PT currently. No dialysis, no VA. Awaiting OR. Education: Discussed skilled criteria, insurance benefits, choice of facilities. Provided daughter with list of facilities per Medicare Compare 5 star ratings web page, Patient Choice Form, as well as, facilities in their preferred county and insurance network. Also provided themwith covered days and copays. [facility] and [facility] only 2 SNFs in network. They will decide which order but verbally approve referrals being sent to facilities to start the discharge process. 1439: Shannon with [facility] accepted, pending therapy recommendations. #[phone] ext [phone]. They are able to admit on 05/13 and over the weekend, if auth approved. [...] the home/community: home health care Serviced by [facility] in [place] Receives hemodialysis? No Emergency contact(s): Extended Emergency Contact Information Primary Emergency Contact: EVI CLARK Mobile Relation: Daughter Secondary Emergency Contact: KESHA CRANDALL Mobile Relation: Daughter Prescription coverage: yes Preferred Pharmacy verified: [facility] [address] [place] [address] Insurance coverage verified: Payor: [employer] MEDICARE ADVANTAGE / Plan: [employer] August PLUS HMO MCR / Product Type: HMO [...] asneeded. Misty Munoz RN, BRIAN Nurse Navigator [facility] documented in this encounter Plan of Treatment Upcoming Encounters Date Type Department Care Team (Late st Contact Info) Description 05/30/2025 10:20 AM CDT Office Visit [facility] [place] [address] [place] [address] Saleem Champagne, PA [address] [place] [address] documented as of this encounter Procedures Procedure [...] 05/11/2025 10:39 AM CDT Femur fracture, left ([facility]) EKG 12-LEAD Stat 05/11/2025 8:00 AM [...] Myrtle Duncan MD URINE ORDERABLES Final Result [facility] CLIA # [id number] [address] [place] [address] [place] [address] * (ABNORMAL) URINALYSIS WITH REFLEX MICROSCOPIC (05/14/2025 9:52 AM CDT) COLOR UA Yellow Pale to Dark Yellow 05/14/2025 10:12 AM T [facility] CLARITY UA Cloudy(A) Clear 05/14/2025 10:12 AM T [facility] SPECIFIC GRAVITY UA 1.019 1.003 - 1.035 05/14/2025 10:12 AM T [facility] PH UA 6.0 5.0 - 8.0 05/14/2025 10:12 AM T [facility] LEUKOCYTE ESTERASE UA Negative Negative 05/14/2025 10:12 AM T [facility] NITRITE UA Negative Negative 05/14/2025 10:12 AM T [facility] PROTEIN UA 1+(A) Negative 05/14/2025 10:12 AM T [facility] GLUCOSE UA Negative Negative 05/14/2025 10:12 AM T [facility] KETONES UA Trace(A) Negative 05/14/2025 10:12 AM T [facility] UROBILINOGEN UA <2.0 <2.0 mg/dL 10:12 AM T [facility] BILIRUBIN UA Negative Negative 05/14/2025 10:12 AM T [facility] BLOOD UA 3+(A) Negative 05/14/2025 10:12 AM T [facility] WBC UA 0-2 0 - 2 /hpf 05/14/2025 10:12 AM CDT [facility] RBC UA 0-2 0 - 2 /hpf 05/14/2025 10:12 AM CDT [facility] BACTERIA UA Negative Negative /hpf 05/14/2025 10:12 AM CDT [facility] EPITHELIAL CELLS, URINE 0-5 0 - 5 /hpf 05/14/2025 10:12 AM CDT [facility] TRANSITIONAL EPI 0-2 0 - 2 /hpf 05/14/2025 10:12 AM CDT [facility] HYALINE CAST 6-10(A) None Seen, 0-2 /lpf 05/14/2025 10:12 AM CDT [facility] GRANULAR CAST 6-10(A) None Seen /lpf 05/14/2025 10:12 AM CDT [facility] AMORPHOUS CRYSTAL Present(A) Absent 05/14/2025 10:12 AM T [facility] Urine URINE SPECIMEN OBTAINED BY CLEAN CATCH PROCEDURE / Unknown Collection / Unknown 05/14/2025 9:52 AM CDT 05/14/2025 9:58 AM CDT Myrtle Duncan MD URINE ORDERABLES Final Result [facility] CLIA # [id number] [address] [place] [address] * (ABNORMAL) BASIC METABOLIC PANEL (05/14/2025 2:07 AM CDT) SODIUM 131(L) 136 - 145 mmol/L 05/14/2025 3:05 AM CDT [facility] POTASSIUM 4.2 3.5 - 5.1 mmol/L 05/14/2025 3:05 AM CDT [facility] CHLORIDE 102 98 - 107 mmol/L 05/14/2025 3:05 AM CDT [facility] CO2 18(L) 22 - 29 mmol/L 05/14/2025 3:05 AM [facility] CALCIUM 8.7(L) 8.8 - 10.2 mg/dL 05/14/2025 3:05 AM [facility] BUN 47(H) 8 - 23 mg/dL 05/14/2025 3:05 AM [facility] CREATININE 1.45(H) 0.51 - 0.95 mg/dL 05/14/2025 3:05 AM [facility] Comment:The GFR result is no t clinically significant on patients <18 or >70 years of age. GLUCOSE 76 74 - 99 mg/dL 05/14/2025 3:05 AM [facility] GFR 35 mL/min/1. 73 sq meter 05/14/2025 3:05 AM [facility] Comment:eGFR calculated with 2020 CKD-EPI equation. Vegetarian diet, extremely high or low muscle mass, and may affect results. Cystatin C with Glomerular Filtration Rate is a suitable alternative for these patients. ANION GAP 11 9 - 20 mmol/L 05/14/2025 3:05 AM [facility] Blood Venipuncture / Unknown 05/14/2025 2:07 AM CDT 05/14/2025 2:28 AM CDT Myrtle Duncan MD CHEMISTRY ORDERAB LES Final Result [facility] CLIA # [id number] [address] [place] [address] [place] [address] * MANUAL DIFFERENTIAL (05/13/2025 4:39 PM CDT) PLATELET EST. Adequate 05/13/2025 5:08 PM CDT [facility] ANISOCYTOSIS 1+ /hpf 05/13/2025 5:08 PM CDT [facility] POIKILOCYTES 1+ /hpf 05/13/2025 5:08 PM CDT [facility] CARLOS CELLS 1+ /hpf 05/13/2025 5:08 PM CDT [facility] Blood Venipuncture / Unknown 05/13/2025 4:39 PM CDT 05/13/2025 4:42 PM CDT Narrative [facility] - 05/13/2025 5:08 PM CDT Smear reviewed. No WBC morphology abnormality noted. Myrtle Duncan MD HEMATOLOGY ORDERA BLES COM Final Result [facility] CLIA # [id number] [address] [place] [address] * (ABNORMAL) BASIC METABOLIC PANEL (05/13/2025 4:39 PM CDT) SODIUM 134(L) 136 - 145 mmol/L 05/13/2025 5:09 PM CDT [facility] POTASSIUM 4.1 3.5 - 5.1 mmol/L 05/13/2025 5:09 PM [facility] CHLORIDE 103 98 - 107 mmol/L 05/13/2025 5:09 PM [facility] CO2 19(L) 22 - 29 mmol/L 05/13/2025 5:09 PM T [facility] CALCIUM 8.6(L) 8.8 - 10.2 mg/dL 05/13/2025 5:09 PM [facility] BUN 39(H) 8 - 23 mg/dL 05/13/2025 5:09 PM T [facility] CREATININE 1.18(H) 0.51 - 0.95 mg/dL 05/13/2025 5:09 PM T [facility] Comment:The GFR result is no t clinically significant on patients <18 or >70 years of age. GLUCOSE 84 74 - 99 mg/dL 05/13/2025 5:09 PM CDT [facility] GFR 44 mL/min/1. 73 sq meter 05/13/2025 5:09 PM CDT [facility] Comment:eGFR calculated with 2020 CKD-EPI equation. Vegetarian diet, extremely high or low muscle mass, and may affect results. Cystatin C with Glomerular Filtration Rate is a suitable alternative for these patients. ANION GAP 12 9 - 20 mmol/L 05/13/2025 5:09 PM T [facility] Blood Venipuncture / Unknown 05/13/2025 4:39 PM CDT 05/13/2025 4:42 PM CDT Myrtle Duncan MD CHEMISTRY ORDERAB LES Final Result [facility] CLIA # [id number] [address] [place] [address] * (ABNORMAL) CBC WITH DIFFERENTIAL (05/13/2025 4:39 PM CDT) WBC 6.5 4.8 - 10.8 K/uL 05/13/2025 5:08 PM [facility] RBC 3.40(L) 4.20 - 5.40 M/uL 05/13/2025 5:08 PM [facility] HEMOGLOBIN 10.1(L) 12.0 - 16.0 g/dL 05/13/2025 5:08 PM T [facility] HEMATOCRIT 30.8(L) 36.0 - 46.0 % 05/13/2025 5:08 PM [facility] MCV 90.6 84.0 - 103.0 fL 05/13/2025 5:08 PM T [facility] MCH 29.7 27.0 - 34.0 pg 05/13/2025 5:08 PM T [facility] MCHC 32.8 30.0 - 35.0 g/dL 05/13/2025 5:08 PM [facility] PLATELETS 288 140 - 440 K/uL 05/13/2025 5:08 PM [facility] MPV 9.5 8.9 - 12.8 fL 05/13/2025 5:08 PM [facility] RDW 15.8(H) 11.0 - 14.5 % 05/13/2025 5:08 PM [facility] RDW-STDEV 52.5 37.0 - 54.0 fL 05/13/2025 5:08 PM [facility] NEUTROPHILS 90(H) 42 - 75 % 05/13/2025 5:08 PM [facility] LYMPHOCYTES 5(L) 24 - 44 % 05/13/2025 5:08 PM [facility] MONOCYTES 4 2 - 10 % 05/13/2025 5:08 PM [facility] EOSINOPHILS 0 0 - 7 % 05/13/2025 5:08 PM [facility] BASOPHILS 0 0 - 1 % 05/13/2025 5:08 PM [facility] IMMATURE GRANULOCYTES 1 0 - 2 % 05/13/2025 5:08 PM [facility] NEUTROPHIL ABSOLUTE 5.87 2.00 - 8.00 K/uL 05/13/2025 5:08 PM [facility] LYMPHOCYTE ABSOLUTE 0.31(L) 1.20 - 4.00 K/uL 05/13/2025 5:08 PM [facility] MONOCYTE ABSOLUTE 0.25 0.10 - 0.60 K/uL 05/13/2025 5:08 PM [facility] EOSINOPHIL ABSOLUTE 0.00 0.00 - 0.70 K/uL 05/13/2025 5:08 PM [facility] BASOPHILS ABSOLUTE 0.02 0.00 - 0.20 K/uL 05/13/2025 5:08 PM [facility] IMMATURE GRANULOCYTES ABSOLUTE 0.04 0.00 - 0.10 K/uL 05/13/2025 5:08 PM [facility] SMEAR REVIEWED: SR - See Smear Review on Manual Diff. 05/13/2025 5:08 PM CDT [facility] Blood Venipuncture / Unknown 05/13/2025 4:39 PM CDT 05/13/2025 4:42 PM CDT Myrtle Duncan MD HEMATOLOGY ORDERA BLES Final Result [facility] CLIA # [id number] [address] [facility] [place] [address] * XR CHEST PA OR AP 1 [...] C. DIFFICILE DETECTION (05/13/2025 3:31 PM CDT) Pathologist [facility] TOXIGENIC C DIFFICILE NOT DETECTED Not Detected 05/13/2025 4:27 PM CDT [facility] Stool STOOL SPECIMEN / Unknown Collection / Unknown 05/13/2025 3:31 PM CDT 05/13/2025 3:36 PM CDT Narrative [facility] - 05/13/2025 4:27 PM CDT This assay is used to detect Toxigenic C. difficile target(B gene) DNA sequences in unformed stool specimens. If toxigenic C. difficile is not detected, but clinical suspicion is high please consult ID for consultation and potential repeat testing. This test should not be used as a test of cure. Myrtle Duncan MD MICROBIOLOGY - NERAL ORDERABLES Final Result [facility] CLIA # [id number] [address] [place] [address] * POC GLUCOSE (05/13/2025 4:35 AM CDT) Pathologist [facility] GLUCOSE POC 98 74 - 99 mg/dL 05/13/2025 4:35 AM CDT [facility] SPECIMEN SOURCE, GLUCOSE POC Capillary 05/13/2025 4:35 AM CDT [facility] Blood, whole 05/13/2025 4:35 AM CDT 05/13/2025 4:42 AM CDT Myrtle Duncan MD POINT OF CARE CHEN TING Final Result [facility] CLIA # [id number] [address] [place] [address] * (ABNORMAL) POC GLUCOSE (05/13/2025 3:24 AM CDT) GLUCOSE POC 68(L) 74 - 99 mg/dL 05/13/2025 3:24 AM CDT [facility] SPECIMEN SOURCE, GLUCOSE POC Capillary 05/13/2025 3:24 AM CDT [facility] Blood, whole 05/13/2025 3:24 AM CDT 05/13/2025 3:31 AM CDT Myrtle Duncan MD POINT OF CARE CHEN COOLEY Final Result Performing Organization Address [facility]/ZIP Co de Phone Number [facility] CLIA # [id number] [address] [place] [address] * POC GLUCOSE (05/13/2025 3:02 AM CDT) GLUCOSE POC 74 74 - 99 mg/dL 05/13/2025 3:02 AM CDT [facility] SPECIMEN SOURCE, GLUCOSE POC Capillary 05/13/2025 3:02 AM CDT [facility] Blood, whole 05/13/2025 3:02 AM CDT 05/13/2025 3:10 AM CDT Myrtle Duncan MD POINT OF CARE CHEN TING Final Result [facility] CLIA # [id number] [address] [place] [address] * (ABNORMAL) POC GLUCOSE (05/13/2025 2:42 AM CDT) GLUCOSE POC 65(L) 74 - 99 mg/dL 05/13/2025 2:42 AM CDT [facility] SPECIMEN SOURCE, GLUCOSE POC Capillary 05/13/2025 2:42 AM CDT [facility] Blood, whole 05/13/2025 2:42 AM CDT 05/13/2025 2:57 AM CDT Myrtle Duncan MD POINT OF CARE CHEN LENORA Final Result [facility] CLNV # [id number] [address] [place] [address] * (ABNORMAL) BASIC METABOLIC PANEL (05/13/2025 1:27 AM CDT) Pathologist [facility] SODIUM 134(L) 136 - 145 mmol/L 05/13/2025 2:12 AM T [facility] POTASSIUM 3.7 3.5 - 5.1 mmol/L 05/13/2025 2:12 AM [facility] CHLORIDE 103 98 - 107 mmol/L 05/13/2025 2:12 AM T [facility] CO2 20(L) 22 - 29 mmol/L 05/13/2025 2:12 AM [facility] CALCIUM 8.5(L) 8.8 - 10.2 mg/dL 05/13/2025 2:12 AM T [facility] BUN 37(H) 8 - 23 mg/dL 05/13/2025 2:12 AM [facility] CREATININE 1.29(H) 0.51 - 0.95 mg/dL 05/13/2025 2:12 AM T [facility] Comment:The GFR result is no t clinically significant on patients <18 or >70 years of age. GLUCOSE 64(L) 74 - 99 mg/dL 05/13/2025 2:12 AM T [facility] GFR 40 mL/min/1. 73 sq meter 05/13/2025 2:12 AM CDT [facility] Comment:eGFR calculated with 2020 CKD-EPI equation. Vegetarian diet, extremely high or low muscle mass, and may affect results. Cystatin C with Glomerular Filtration Rate is a suitable alternative for these patients. ANION GAP 11 9 - 20 mmol/L 05/13/2025 2:12 AM CDT [facility] Blood Venipuncture / Unknown 05/13/2025 1:27 AM CDT 05/13/2025 1:39 AM CDT us Myrtle Duncan MD CHEMISTRY ORDERAB LES Final Result [facility] CLIA # [id number] [address] [place] [address] * (ABNORMAL) CBC WITH DIFFERENTIAL (05/13/2025 1:27 AM CDT) Pathologist [facility] WBC 7.7 4.8 - 10.8 K/uL 05/13/2025 2:28 AM CDT [facility] RBC 3.26(L) 4.20 - 5.40 M/uL 05/13/2025 2:28 AM CDT [facility] HEMOGLOBIN 9.8(L) 12.0 - 16.0 g/dL 05/13/2025 2:28 AM CDT [facility] HEMATOCRIT 30.9(L) 36.0 - 46.0 % 05/13/2025 2:28 AM CDT [facility] MCV 94.8 84.0 - 103.0 fL 05/13/2025 2:28 AM CDT [facility] MCH 30.1 27.0 - 34.0 pg 05/13/2025 2:28 AM CDT [facility] MCHC 31.7 30.0 - 35.0 g/dL 05/13/2025 2:28 AM CDT [facility] PLATELETS 296 140 - 440 K/uL 05/13/2025 2:28 AM [facility] MPV 9.8 8.9 - 12.8 fL 05/13/2025 2:28 AM [facility] RDW 15.9(H) 11.0 - 14.5 % 05/13/2025 2:28 AM [facility] RDW-STDEV 55.9(H) 37.0 - 54.0 fL 05/13/2025 2:28 AM [facility] NEUTROPHILS 86(H) 42 - 75 % 05/13/2025 2:28 AM [facility] LYMPHOCYTES 11(L) 24 - 44 % 05/13/2025 2:28 AM [facility] MONOCYTES 3 2 - 10 % 05/13/2025 2:28 AM [facility] EOSINOPHILS 0 0 - 7 % 05/13/2025 2:28 AM [facility] BASOPHILS 0 0 - 1 % 05/13/2025 2:28 AM [facility] IMMATURE GRANULOCYTES 0 0 - 2 % 05/13/2025 2:28 AM [facility] NEUTROPHIL ABSOLUTE 6.60 2.00 - 8.00 K/uL 05/13/2025 2:28 AM [facility] LYMPHOCYTE ABSOLUTE 0.82(L) 1.20 - 4.00 K/uL 05/13/2025 2:28 AM [facility] MONOCYTE ABSOLUTE 0.19 0.10 - 0.60 K/uL 05/13/2025 2:28 AM [facility] EOSINOPHIL ABSOLUTE 0.02 0.00 - 0.70 K/uL 05/13/2025 2:28 AM [facility] BASOPHILS ABSOLUTE 0.03 0.00 - 0.20 K/uL 05/13/2025 2:28 AM [facility] IMMATURE GRANULOCYTES ABSOLUTE 0.03 0.00 - 0.10 K/uL 05/13/2025 2:28 AM [facility] SMEAR REVIEWED: WBC - Automated differential confirmed. 05/13/2025 2:28 AM CDT [facility] Blood Venipuncture / Unknown 05/13/2025 1:27 AM CDT 05/13/2025 1:39 AM CDT Myrtle Duncan MD HEMATOLOGY ORDERA BLES Final Result Performing Organization Address City/[facility]/ZIP Co de Phone Number [facility] CLIA # [id number] [address] [place], [place] [address] * MANUAL DIFFERENTIAL (05/12/2025 9:53 AM CDT) PLATELET EST. Adequate 05/12/2025 11:02 AM CDT [facility] ANISOCYTOSIS 1+ /hpf 05/12/2025 11:02 AM CDT [facility] POIKILOCYTES 3+ /hpf 05/12/2025 11:02 AM CDT [facility] POLYCHROMASIA 1+ /hpf 05/12/2025 11:02 AM CDT [facility] OVALOCYTES 2+ /hpf 05/12/2025 11:02 AM CDT [facility] ACANTHOCYTES 1+ /hpf 05/12/2025 11:02 AM CDT [facility] CARLOS CELLS 1+ /hpf 05/12/2025 11:02 AM CDT [facility] Blood Venipuncture / Unknown 05/12/2025 9:53 AM CDT 05/12/2025 10:34 AM CDT Myrtle Duncan MD HEMATOLOGY ORDERA BLES COM Final Result Performing Organization Address [facility]/ZIP Co de Phone Number [facility] 4vets [facility] CLIA # [id number] [id number] [place] [address] * (ABNORMAL) BASIC METABOLIC PANEL (05/12/2025 9:53 AM CDT) SODIUM 137 136 - 145 mmol/L 05/12/2025 11:16 AM [facility] POTASSIUM 4.3 3.5 - 5.1 mmol/L 05/12/2025 11:16 AM T [facility] CHLORIDE 104 98 - 107 mmol/L 05/12/2025 11:16 AM T [facility] CO2 21(L) 22 - 29 mmol/L 05/12/2025 11:16 AM T [facility] CALCIUM 8.8 8.8 - 10.2 mg/dL 05/12/2025 11:16 AM [facility] BUN 30(H) 8 - 23 mg/dL 05/12/2025 11:16 AM [facility] CREATININE 1.08(H) 0.51 - 0.95 mg/dL 05/12/2025 11:16 AM [facility] Comment:The GFR result is no t clinically significant on patients <18 or >70 years of age. GLUCOSE 72(L) 74 - 99 mg/dL 05/12/2025 11:16 AM [facility] GFR 49 mL/min/1. 73 sq meter 05/12/2025 11:16 AM [facility] Comment:eGFR calculated with 2020 CKD-EPI equation. Vegetarian diet, extremely high or low muscle mass, and may affect results. Cystatin C with Glomerular Filtration Rate is a suitable alternative for these patients. ANION GAP 12 9 - 20 mmol/L 05/12/2025 11:16 AM T [facility] Blood Venipuncture / Unknown 05/12/2025 9:53 AM CDT 05/12/2025 10:33 AM CDT us Myrtle Duncan MD CHEMISTRY ORDERAB LES Final Result [facility] CLIA # [id number] [address] [address] [place] [address] * (ABNORMAL) CBC WITH DIFFERENTIAL (05/12/2025 9:53 AM CDT) [facility] WBC 7.0 4.8 - 10.8 K/uL 05/12/2025 11:02 AM [facility] RBC 3.65(L) 4.20 - 5.40 M/uL 05/12/2025 11:02 AM [facility] HEMOGLOBIN 11.0(L) 12.0 - 16.0 g/dL 05/12/2025 11:02 AM [facility] HEMATOCRIT 36.3 36.0 - 46.0 % 05/12/2025 11:02 AM [facility] MCV 99.5 84.0 - 103.0 fL 05/12/2025 11:02 AM [facility] MCH 30.1 27.0 - 34.0 pg 05/12/2025 11:02 AM [facility] MCHC 30.3 30.0 - 35.0 g/dL 05/12/2025 11:02 AM [facility] PLATELETS 307 140 - 440 K/uL 05/12/2025 11:02 AM [facility] MPV 9.7 8.9 - 12.8 fL 05/12/2025 11:02 AM [facility] RDW 15.9(H) 11.0 - 14.5 % 05/12/2025 11:02 AM [facility] RDW-STDEV 59.0(H) 37.0 - 54.0 fL 05/12/2025 11:02 AM [facility] NEUTROPHILS 89(H) 42 - 75 % 05/12/2025 11:02 AM [facility] LYMPHOCYTES 7(L) 24 - 44 % 05/12/2025 11:02 AM [facility] MONOCYTES 3 2 - 10 % 05/12/2025 11:02 AM [facility] EOSINOPHILS 0 0 - 7 % 05/12/2025 11:02 AM [facility] BASOPHILS 1 0 - 1 % 05/12/2025 11:02 AM [facility] IMMATURE GRANULOCYTES 0 0 - 2 % 05/12/2025 11:02 AM [facility] NEUTROPHIL ABSOLUTE 6.23 2.00 - 8.00 K/uL 05/12/2025 11:02 AM T [facility] LYMPHOCYTE ABSOLUTE 0.47(L) 1.20 - 4.00 K/uL 05/12/2025 11:02 AM [facility] MONOCYTE ABSOLUTE 0.20 0.10 - 0.60 K/uL 05/12/2025 11:02 AM [facility] EOSINOPHIL ABSOLUTE 0.00 0.00 - 0.70 K/uL 05/12/2025 11:02 AM [facility] BASOPHILS ABSOLUTE 0.06 0.00 - 0.20 K/uL 05/12/2025 11:02 AM [facility] IMMATURE GRANULOCYTES ABSOLUTE 0.01 0.00 - 0.10 K/uL 05/12/2025 11:02 AM [facility] SMEAR REVIEWED: SR - See Smear Review on Manual Diff. 05/12/2025 11:02 AM [facility] Blood Venipuncture / Unknown 05/12/2025 9:53 AM CDT 05/12/2025 10:34 AM CDT Myrtle Duncan MD HEMATOLOGY ORDERA BLES Final Result [facility] CLIA # [id number] [address] [place] [address] * POC GLUCOSE (05/11/2025 5:33 PM CDT) [facility] Signature GLUCOSE POC 96 74 - 99 mg/dL 05/11/2025 5:33 PM CDT [facility] SPECIMEN SOURCE, GLUCOSE POC Capillary 05/11/2025 5:33 PM CDT [facility] Blood, whole 05/11/2025 5:33 PM CDT 05/11/2025 5:40 PM CDT Myrtle Duncan MD POINT OF CARE [place] Final Result [facility] CLIA # [id number] [id number] [place] [address] * XR FEMUR 2 VW LEFT (05/11/2025 [...] Internally fixed fracture shows excellent anatomic alignment. us El Og MD DIAGNOSTIC IMAGING ORDERAB LES Final Result * XR FLUORO LESS THAN 1 HOUR (05/11/2025 4:50 PM CDT) Narrative 05/11/2025 4:56 PM CDT Order information only. Exam was auto-finalized. us El Og MD DIAGNOSTIC IMAGING ORDERAB LES Final Result * EKG 12-LEAD (05/11/2025 8:00 AM CDT) 05/11/2025 8:00 AM CDT Narrative INTERFACE SYSTEM - 05/11/2025 3:07 [place] [address] Test Date: 2025-05-11 Pat Name: OMAIRA PEREZ Department: 12 Room: [address] [place] [address] Gender: Female [employer]: [id number] : 1935 Requested By: Order Number: [id number] Reading : Pelon Castro Measurements Intervals [place] Rate: 73 P: 0 IN: 0 QRS: -79 QRSD: 100 T: -19 QT: 432 QTc: 475 Interpretive Statements Atrial fibrillation with occasional ventricular-paced complexes Left axis deviation Anteroseptal infarct, age undetermined T wave abnormality, consider lateral ischemia Abnormal ECG Electronically Signed On 05-11-2025 15:07:16 CDT by Pelon Castro Procedure Note Pelon Castro MD - 05/11/2025 [place] [address] Test Date: 2025-05-11 Pat Name: OMAIRA PEREZRETT Department: 12 Room: [facility] 02 Gender: Female [employer] Supervisor: [id number] : 1935 Requested By: Order Number: [id number] Reading : Pelon Castro Measurements Intervals [place] Rate: 73 P: 0 IN: 0 QRS: -79 QRSD: 100 T: -19 QT: 432 QTc: 475 Interpretive Statements Atrial fibrillation with occasional ventricular-paced complexes Left axis deviation Anteroseptal infarct, age undetermined T wave abnormality, consider lateral ischemia Abnormal ECG Electronically Signed On 05-11-2025 15:07:16 CDT by Pelon Castro Myrtle Duncan MD ECG ORDERABLES F inal [...] acute cardiopulmonary process. Narrative Procedure Note Viktor Islas MD - 05/11/2025 IMPRESSION: Please see below. [...] acute cardiopulmonary process. Myrtle Duncan MD DIAGNOSTIC IMAGIN G ORDERABLES Final Result * CT FEMUR WO [...] 4.8 - 10.8 K/uL 05/11/2025 7:06 AM [facility] RBC 3.47(L) 4.20 - 5.40 M/uL 05/11/2025 7:06 AM [facility] HEMOGLOBIN 10.5(L) 12.0 - 16.0 g/dL 05/11/2025 7:06 AM [facility] HEMATOCRIT 32.4(L) 36.0 - 46.0 % 05/11/2025 7:06 AM [facility] MCV 93.4 84.0 - 103.0 fL 05/11/2025 7:06 AM [facility] MCH 30.3 27.0 - 34.0 pg 05/11/2025 7:06 AM [facility] MCHC 32.4 30.0 - 35.0 g/dL 05/11/2025 7:06 AM [facility] PLATELETS 392 140 - 440 K/uL 05/11/2025 7:06 AM [facility] MPV 9.3 8.9 - 12.8 fL 05/11/2025 7:06 AM [facility] 4vets [facility] RDW 15.5(H) 11.0 - 14.5 % 05/11/2025 7:06 AM [facility] RDW-STDEV 53.2 37.0 - 54.0 fL 05/11/2025 7:06 AM [facility] 4vets [facility] NEUTROPHILS 91(H) 42 - 75 % 05/11/2025 7:06 AM [facility] 4vets [facility] LYMPHOCYTES 4(L) 24 - 44 % 05/11/2025 7:06 AM [facility] 4vets [facility] MONOCYTES 4 2 - 10 % 05/11/2025 7:06 AM CDT [facility] EOSINOPHILS 0 0 - 7 % 05/11/2025 7:06 AM T [facility] BASOPHILS 0 0 - 1 % 05/11/2025 7:06 AM T [facility] IMMATURE GRANULOCYTES 1 0 - 2 % 05/11/2025 7:06 AM T [facility] NEUTROPHIL ABSOLUTE 11.18(H) 2.00 - 8.00 K/uL 05/11/2025 7:06 AM T [facility] LYMPHOCYTE ABSOLUTE 0.52(L) 1.20 - 4.00 K/uL 05/11/2025 7:06 AM CDT [facility] MONOCYTE ABSOLUTE 0.51 0.10 - 0.60 K/uL 05/11/2025 7:06 AM CDT [facility] EOSINOPHIL ABSOLUTE 0.01 0.00 - 0.70 K/uL 05/11/2025 7:06 AM CDT [facility] BASOPHILS ABSOLUTE 0.03 0.00 - 0.20 K/uL 05/11/2025 7:06 AM [facility] IMMATURE GRANULOCYTES ABSOLUTE 0.07 0.00 - 0.10 K/uL 05/11/2025 7:06 AM [facility] SMEAR REVIEWED: NA - Not Applicable 05/11/2025 7:06 AM [facility] Blood Venipuncture / Unknown 05/11/2025 6:53 AM CDT 05/11/2025 7:02 AM CDT us Marlon Quiñones MD HEMATOLOGY ORDERABLES Fi nal Result [facility] CLIA # [id number] [address] [place] [address] [place] [address] * PROTIME-INR (05/11/2025 5:28 AM CDT) PROTIME 14.1 12.7 - 14.9 Seconds 05/11/2025 6:16 AM CDT [facility] INR 1.0 0.8 - 1.2 05/11/2025 6:16 AM CDT [facility] Blood Venipuncture / Unknown 05/11/2025 5:28 AM CDT 05/11/2025 5:58 AM CDT [facility] - 05/11/2025 6:16 AM CDT Expected Values for INR: DVT/PE Goal INR 2.5; range 2.0 - 3.0 Valve Replacement Tissue Goal INR 2.5; range 2.0 - 3.0 Valve Replacement Mechanical Goal INR 3.0; range 2.5 - 3.5 POST-LA Goal INR 2.5; range 2.0 - 3.0 or Goal INR 3.0; range 2.5 - 3.5 Atrial Fibrillation Goal INR 2.5; range 2.0 - 3.0 Ischemic Stroke Goal INR 2.5; range 2.0 - 3.0 us Marlon Quiñones MD HEMATOLOGY ORDERABLES Fi nal Result [facility] CLIA # [id number] [address] [place] [address] * (ABNORMAL) COMPREHENSIVE METABOLIC PANEL (05/11/2025 5:28 AM CDT) SODIUM 135(L) 136 - 145 mmol/L 05/11/2025 6:33 AM T [facility] POTASSIUM 4.2 3.5 - 5.1 mmol/L 05/11/2025 6:33 AM T [facility] CHLORIDE 100 98 - 107 mmol/L 05/11/2025 6:33 AM T [facility] CO2 24 22 - 29 mmol/L 05/11/2025 6:33 AM CDT [facility] CALCIUM 8.5(L) 8.8 - 10.2 mg/dL 05/11/2025 6:33 AM T [facility] BUN 26(H) 8 - 23 mg/dL 05/11/2025 6:33 AM [facility] CREATININE 1.02(H) 0.51 - 0.95 mg/dL 05/11/2025 6:33 AM [facility] Comment:The GFR result is no t clinically significant on patients <18 or >70 years of age. GLUCOSE 157(H) 74 - 99 mg/dL 05/11/2025 6:33 AM [facility] TOTAL PROTEIN 5.2(L) 6.4 - 8.3 g/dL 05/11/2025 6:33 AM [facility] ALBUMIN 3.1(L) 3.5 - 5.2 g/dL 05/11/2025 6:33 AM [facility] BILIRUBIN TOTAL 0.4 0.0 - 1.0 mg/dL 05/11/2025 6:33 AM [facility] ALKALINE PHOSPHATASE 133(H) 35 - 104 U/L 05/11/2025 6:33 AM [facility] AST 16 10 - 35 U/L 05/11/2025 6:33 AM [facility] Comment:Hemolysis present. R esult may be falsely elevated. ALT 12 <=35 U/L 05/11/2025 6:33 AM [facility] GFR 53 mL/min/1. 73 sq meter 05/11/2025 6:33 AM [facility] Comment:eGFR calculated with 2020 CKD-EPI equation. Vegetarian diet, extremely high or low muscle mass, and may affect results. Cystatin C with Glomerular Filtration Rate is a suitable alternative for these patients. ANION GAP 11 9 - 20 mmol/L 05/11/2025 6:33 AM [facility] Blood Venipuncture / Unknown 05/11/2025 5:28 AM CDT 05/11/2025 5:58 AM CDT us Marlon Quiñones MD CHEMISTRY ORDERABLES Fin al Result [facility] CLIA # [id number] [address] [address] * TYPE AND SCREEN (05/11/2025 5:28 AM CDT) ABO GROUP O 05/11/2025 6:58 AM CDT [facility] RH (D) TYPE Positive 05/11/2025 6:58 AM CDT [facility] ANTIBODY SCREEN Negative 05/11/2025 6:58 AM CDT [facility] Blood Venipuncture / Unknown 05/11/2025 5:28 AM CDT 05/11/2025 5:56 AM CDT Marlon Quiñones MD BLOOD BANK ORDERABLES Ed ited Result - Final Performing Organization Address City/[facility] Co de Phone Number [facility] CLIA#[id number] [address] [place] [address], * (ABNORMAL) VITAMIN D 25 HYDROXY (05/11/2025 5:28 AM CDT) VITAMIN D TOTAL (25OH) 21(L) 30 - 100 ng/mL 05/11/2025 6:48 AM CDT [facility] Blood Venipuncture / Unknown 05/11/2025 5:28 AM CDT 05/11/2025 5:58 AM CDT Narrative [facility] - 05/11/2025 6:48 AM CDT Interpretive Data Chart: Deficient: 0 - 20 ng/mL Insufficient: 21 - 29 ng/mL Sufficient: 30 - 100 ng/mL Increased Risk of Hypercalciuria: >100 ng/ml Toxic: >150 ng/ml Marlon Quiñones MD CHEMISTRY ORDERABLES Fin al Result [id number] [address] [place] [address] documented in this encounter Visit Diagnoses Diagnosis Periprosthetic fracture of shaft of Lt femur- Primary S/P Lt hip hemiarthroplasty Atrial fibrillation (CMS/HCC) Atrial fibrillation Cardiac pacemaker in situ SSS (sick sinus syndrome) (CMS/HCC) Sinoatrial node dysfunction Essential hypertension Unspecified essential hypertension Chronic anticoagulation Encounter for long-term (current) use of anticoagulants Femur fracture, left (CMS/HCC) Closed fracture of unspecified part of femur documented in this encounter Administered Medications Inactive [...] Given 05/13/2025 4:44 PM CDT 10 mg cefTRIAXone (ROCEPHIN) 2,000 mg in sodium chloride [...] Bag 05/13/2025 4:32 AM CDT 25 mL/hr fosfomycin tromethamine (MONUROL) powder 3 Gram [...] Until 05/14/25 at 1229, Diarrhea/Loose Stools, Routine metoprolol tartrate [...] at 2100, Until Discontinued, Routine sodium chloride flush injection 10 mL 10 [...] Last dose on Fri06/30/25 at 1430, Routine 1748 (Given - Provider: [...] on Fri05/12/25 at 0130, Until Discontinued, Routine 0055 (Given [...] INSTRUCTIONS, Starting on Fri05/11/25 at 0232, Until 05/14/25 at 1229, Routine OLANZapine (ZyPREXA ZYDIS) rapid dissolve tablet 5 mg 5 mg, Oral, TWO TIMES DAILY, First dose on Fri05/11/25 at 1500, Until Discontinued, Routine 1513 (Canceled Entry - Provider: Jennifer Zamora RN - Comment: dropped by pt)151 (Given - Provider: Jennifer Zamora RN)2328 (Given - Provider: RENZO Mccartney) 140 (Given - Provider: Elisa Franklin RN)2051 (Given - Provider: Reema Leonard LPN) saccharomyces boulardii (FLORASTOR) capsule 250 mg 250 mg, Oral, TWO TIMES DAILY, First dose on Fri05/13/25 at 2100, Until Discontinued, Routine 2099 (Refused - Provider: Reema Leonard LPN) 899 (Due) sodium chloride 0.9 % bolus solution [...] on Fri05/13/25 at 0900, Until Discontinued, Routine 909 (Given - Provider: Elisa Franklin RN)2109 (Given - Provider: Reema Leonard LPN) 0900 [...] at 0330, Until Fri05/14/25 at 1229, Routine 0432 (New Bag - [...] at 1229, Pain (See admin instructions), Routine 210 (Given - Provider: Priscilla Mabry LPN) documented in this encounter Additional Health Concerns Infection Onset Date Last Indicated Resolved Time R/O C. diff 05/13/2025 05/13/2025 05/13/2025 4:27 PM CDT documented as of this encounter
--- OUTSIDE RECORDS SUMMARY | 2025-05-11 15:13 | XMS_ITS | Encounter Summary ---
Author Organization [facility] Address [address] [place] [address] Care Team Providers Care Beater Worker Helper Name Role Phone Unavailable Primary Care Provider Unavailabl e Reason for Visit * Auth/Cert Specialty Diagnoses / Procedures Referred By Gennaro t Referred To Contact Neurology Diagnoses Spiral Fracture to the Left Femur Marlon Quiñones MD [address] [place] [address] Phone: tel: fax: [facility] 3[address] Ortho Neuro [address] [place] [address] Phone: tel: fax: Referral ID Status Reason Start Date Expiration Date Visits Re quested Visits Authorized [id number] 1 1 Encounter Details Date Type Department Care Team (Late st Contact Info) Description 05/11/2025 3:13 PM CDT Anesthesia Event [facility] Operating Room [address] [place] [address] Jerry Kc MD [address] [place] [address] Aurelio Shepard MD [address] [place] [address] Anesthesia Record Procedure Summary Procedure Name Responsible Anesthesiologist Anesthesia Start Time Anesthesia Stop Time FEMUR OPEN REDUCTION INTERNAL FIXATION (Left: Leg Upper) Jerry Kc MD 05/11/25 1513 05/11/25 1725 Events Date Time Event Comment 05/11/2025 1420 1441 AN Equip Check Anesthesia eq uipment and materials checked in accordance with local policy. 1509 In Room This event disp lays the In Room time documented in the Surgical Log. Deleting this event will not remove it from the log but will remove it from the Grid and Graph timeline. 1513 An Start 1513 An Start Data 1513 Pre-Induction Immediate pre- induction anesthetic assessment performed. Vital signs as noted on graphic. 1522 An Induction 1524 An Intubation 1526 Anesthesia Ready 1552 Procedure Start This event d isplays the Procedure Start time documented in the Surgical Log. Deleting this event will not remove it from the log but will remove it from the Grid and Graph timeline. 1707 Procedure Stop This event di splays the Procedure Stop time documented in the Surgical Log. Deleting this event will not remove it from the log but will remove it from the Grid and Graph timeline. 1717 An Extubation Emergence unev entful Awake, spontaneous respirations. Adequate muscle strength demonstrated Adequate tidal volume. Orapharynx suctioned. Extubated with positive pressure ventilation. 1720 an stop data 1720 Out of Room This event disp lays the Out of Room time documented in the Surgical Log. Deleting this event will not remove it from the log but will remove it from the Grid and Graph timeline. 1725 An Stop 1725 Hand-off to Receiving Clinic cesar Medhoward Name Total fentaNYL (SUBLIMAZE) PF 50 mcg/mL injection 100 mcg phenylephrine 10 mg in sodium chloride 0 .9 % 250 mL infusion 2.39 mg lidocaine PF (XYLOCAINE MPF) 2% injectio n 2.5 mL propofol (DIPRIVAN) 10 mg/mL injection 60 mg ceFAZolin (ANCEF,KEFZOL) 2,000 mg in sod ium chloride 0.9% 50 mL IVPB (MBP) 2,000 mg rocuronium (ZEMURON) 10mg/mL injection 5 0 mg phenylephrine 100 mcg/mL injection 300 m cg vasopressin (VASOSTRICT) 20 unit/mL intr avenous solution 7 Units tranexamic acid (CYKLOKAPRON) 1,000 mg i n sodium chloride 0.9 % 100 mL IVPB 1,000 mg dexamethasone (DECADRON) 4 mg/mL injecti on 4 mg ondansetron (ZOFRAN) 4 mg/2 mL injection 4 mg 4 mg sugammadex (BRIDION) 100 mg/mL injection 200 mg lactated ringers infusion 1,400 mL * Agents Name Air Sevoflurane % Sevoflurane O2 N2O Inspired N2O O2 * Blood No blood administrations on file. Lines, Drains, and Airways Type Details Placement Removal Pressure Injury 05/11/25; 1000; Yes; midline; sacral spine; Stage 2 05/11/25 1000 by Speedy Bush RN Wound 05/11/25; 1000; Yes; Bilateral; gluteal; moisture associated skin damage 05/11/25 1000 by Speedy Bush RN Wound 05/11/25; 1020; Yes; Left; elbow; skin tear 05/11/25 1020 by Speedy Bush RN Indwelling Urethral Catheter 05/11/25; Yes; Indwelling double lumen catheter; 16 Fr; in place; 05/12/25; 0555 05/11/25 0000 by 05/12/25 0555 by Norris Pang GN Peripheral IV Orientation: Anterio r, Left, Lower, Proximal; Location: Arm; Gauge: 20 gauge; Removal Indication: observed not present 05/11/25 0004 by José Miguel Flynn RN 05/12/25 0000 by Norris Pang GN Peripheral IV Pre-Hospital Start: Yes; Orientation: Anterior, Lower, Proximal, Right; Location: Arm; Gauge: 20 gauge; Removal Indication: site symptomatic; Removal Interventions: pressure dressing, direct pressure 05/11/25 0004 by José Miguel Flynn RN 05/12/252008 by Norris Pang GN Peripheral IV Pre-Hospital Start: No; Orientation: Anterior, Right, Upper; Location: Arm; Device: Angiocath; Gauge: 20 gauge; Needle Length: 1.25 in length; Insertion Attempts: 1; Patient Tolerance: tolerated well, appears comfortable; Pain Prevention: distraction; Power Injectable Compatible: Yes; Removal Indication: site symptomatic; Removal Interventions: pressure dressing, direct pressure 05/11/25 1300 by Liane Mathis TIMBER SKIDDER 05/12/252008 by Norris Pang GN Endotracheal Airway Type: ETT; Size: 7; Attempts: 1; Verification: Auscultated bilateral breath sounds, Equal chest movement, Continuous waveform capnography 05/11/25 1524 by Andrew Ferraro AA-C 05/11/25 1717 by Maximino Flannery CRNA Incision 05/11/25; 1724; surgical incision; other (comment); leg; 05/14/25; 2229 05/11/25 1724 by Lashonda Miller GN 05/14/25 222 by PROVIDER, DISCHARGE PATIENT documented in this encounter Social History Tobacco [...] on file documented as of this encounter OR Notes * Anesthesia Postprocedure Evaluation - Jorden Rodriguez MD - 05/11/2025 5:52 PM CDT Post Anesthesia Evaluation Vitals: Vitals Value Taken Time BP 118/67 05/11/25 1745 Temp 36.6 ??C 05/11/25 1721 Resp 14 05/11/25 1745 SpO2 99 % 05/11/25 1745 Pulse 83 05/11/25 1745 Heart Rate 83 bpm 05/11/25 1745 Pain Rating: Presence of Pain: denies pain/discomfort (05/11/25 1100) Score: FLACC (rest): 0 (05/11/25 1721) Anesthesia Post Evaluation Patient location during evaluation: PACU Patient participation: patient was able to participate in the post op evaluation Level of consciousness: 0 = alert, responsive, answers simple questions appropriately, able to perform simple tasks (age appropriate or baseline) Pain management: adequate Airway patency: patent Nausea or Vomiting: none No notable events documented. Jorden Rodriguez MD * Anesthesia Handoff - Maximino Flannery CRNA - 05/11/2025 5:25 PM CDT Post-Anesthetic transfer of care report elements to appropriate post-anesthesia recovery environment completed in accordance with procedure. I completed my handoff to the receiving nurse during which we: 1. Identified the patient 2. Identified the responsible provider 3. Reviewed the pertinent medical history 4. Discussed the surgical course 5. Reviewed intra-op anesthesia management and issues during anesthesia 6. Set expectations for post-procedure period 7. Orders as necessary and appropriate for continuation of care are present in Epic. 8. Allowed opportunity for questions and acknowledgement of understanding. Vital Signs: Vitals Value Taken Time BP 111/76 05/11/25 1721 Temp 36.6 ??C 05/11/25 1721 Resp 13 05/11/25 1721 SpO2 100 % 05/11/25 1721 Pulse 89 05/11/25 1721 Heart Rate 87 bpm 05/11/25 1724 Vitals shown include unfiled device data. 5:25 PM Maximino Flannery CRNA * Anesthesia Procedure Notes - Andrew Ferraro AA-C - 05/11/2025 4:10 PM CDT Associated Order(s): Airway Airway Date/Time: 05/11/2025 3:24 PM Location: OR Plan: elective intubation Patient Identity Confirmed by: Armband Airway: not difficult Staffing Performed: WET PROCESS MILLER HEAD/CAA Authorized by: Aurelio Shepard MD Performed by: Andrew Ferraro AA-C Indications and Patient Condition: Indications for Airway Management: Anesthesia Sedation Level: general anesthesia Preoxygenated: yes Patient Position: Sniffing Mask Difficulty Assessment: 2 - vent by mask + OA or adjuvant +/- NMBA Oral Airway: 90mm Plan to extubate at end of case: Yes Final Airway Details: Final Airway Type: Endotracheal airway ETT Cuffed: Yes Technique Used for Successful ETT Placement: Direct laryngoscopy Devices/Methods Used in Placement: Cricoid pressure Blade Type: curved blade Blade Size: 3 ETT Size (mm): 7.0 Measured from: Teeth ETT to Teeth (cm): 22 Tube secured with: Tape Placement Verified by: auscultation, end tidal CO2 and chest rise Cormack-Lehane Classification: Grade I - full view of glottis Number of Attempts at Approach: 1 Additional Procedure Information: atraumatic and dentition unchanged * Anesthesia Preprocedure Evaluation - Aurelio Shepard MD - 05/11/2025 2:02 PM CDT Preanesthesia Evaluation Esthela Billings is a 89 y.o. female Date: 05/11/2025 Time: 2:02 PM Interview: Holding Discussed with: patient Preoperative Diagnosis @ORPREDX@ Scheduled Procedure FEMUR OPEN REDUCTION INTERNAL FIXATION NPO:LSF 2300 LLF 2300 89 yo female, here for above after fall. Pt with dementia and is poor historian. Per record, Pt hasAF/SSS and a PPM. No records available. Appears to be biotronik based on CXR. EKG today does not show pacing. EKG: Atrial fibrillation with occasional ventricular-paced complexes Left axis deviation Anteroseptal infarct, age undetermined T wave abnormality, consider lateral ischemia Abnormal ECG Allergies Allergen Reactions Adhesive Tape-Silicones Other (See Comments) Skin torn easily Past Medical History: Diagnosis Date A-fib (CMS/HCC) Dyspnea on exertion Essential hypertension 09/14/2020 GERD no Past Surgical History: Procedure Laterality Date SC EXC RCT PROCIDENTIA W/ANAST PERINEAL APPROACH N/A 02/21/2025 PERINEAL ALTEMEIER PROCTECTOMY performed by Vinnie Moore MD at [facility] MAIN OR No apparent individual or familial history of anesthetic complications No current facility-administered medications on file prior to encounter. Current Outpatient Medications on File Prior to Encounter Medication Sig Dispense Refill metoprolol tartrate (LOPRESSOR) 50 mg tablet Take 1 Tablet by mouth 2 times daily. aspirin (ECOTRIN EC) 81 mg Tablet, Delayed Release (E.C.) Take 81 mg by mouth daily. Hold 5 days tosurgery oxyCODONE-acetaminophen (Percocet) 5-325 mg tablet Take 1 [...] Capsule Take 400 mg by mouth daily. cyanocobalamin 1,000 mcg Tablet Take 1,500 mcg by mouth. Xarelto 15 mg Tablet take 1 tablet by mouth every day with evening meal Physical Exam: Airway Class: II (soft palate, uvula, fauces visible), Edentulous Pulmonary: clear to auscultation, no wheezes or rales, and unlabored breathing Cardiac: regular rate and rhythm, S1, S2 normal, no murmur, click, rub or gallop Vitals: 05/11/25 1143 BP: Pulse: 79 Resp: 17 Temp: 36.4 ??C SpO2: 93% Pertinent lab: Lab Results Component Value Date CREAT 1.02 (H) 05/11/2025 Lab Results Component Value Date CREAT 1.02 (H) 05/11/2025 BUN 26 (H) 05/11/2025 NA 135 (L) 05/11/2025 K 4.2 05/11/2025 CL 100 05/11/2025 CO2 24 05/11/2025 GFR 53 05/11/2025 Lab Results Component Value Date WBC 12.3 (H) 05/11/2025 HGB 10.5 (L) 05/11/2025 HCT 32.4 (L) 05/11/2025 PLT 392 05/11/2025 MCV 93.4 05/11/2025 Lab Results Component Value Date ALT 12 05/11/2025 AST 16 05/11/2025 ALKPHOS 133 (H) 05/11/2025 BILITOTAL 0.4 05/11/2025 Lab Results Component Value Date INR 1.0 05/11/2025 PT 14.1 05/11/2025 ASA Class: ASA 3 - Patient with moderate systemic disease with functional limitations Emergency: no The risks and benefits of the proposed anesthetic have been discussed with patient. The patient/designee has agreed to GEN/GETA with GEN/LMA as a backup. Anesthesia guideline orders initiated. Is patient on a beta bam? yes Has patient received beta bam within 24 hours? yes Discussed code status with family/Pt/DPOA. Penny-operatively, Pt will be limited rescuc. Paperwork signed to that effect. Aurelio Shepard MD Anesthesia Evaluation Anesthesia Plan ASA Final: 3 General Intravenous induction Oral ETT airway maintenance NPO status > 8 hours Anesthetic plan and risks discussed with Patient and Healthcare Power of Scanning Clerk. Use of blood products: consented to blood products. Plan discussed with Vice President Education. Post-op Pain Control Plan to use Per surgeon for post-op pain control. Plan for postoperative opioid use Smoking Compliance patient did not smoke on day of surgery documented in this encounter Plan of Treatment Upcoming Encounters Date Type Department Care Team (Late st Contact Info) Description 05/30/2025 10:20 AM CDT Office Visit [facility]3] Orthopedics [facility] [address] [place] [address] Saleem Champagne PA [address] [place] [id number] documented as of this encounter Procedures Procedure Name Priority Date/Time Associated Diagnosis Comments SC ANES INSERT ENDOTRACHEAL AIRWAY Routine 05/11/2025 3:24 PM CDT documented in this encounter Results * SC ANES INSERT ENDOTRACHEAL AIRWAY (05/11/2025 3:24 PM CDT) Narrative Andrew Ferraro AA-C - 05/11/2025 3:24 PM CDT Andrew Ferraro AA-C 05/11/2025 4:11 PM Airway Date/Time: 05/11/2025 3:24 PM Location: OR Plan: elective intubation Patient Identity Confirmed by: Armband Airway: not difficult Staffing Performed: WET PROCESS MILLER HEAD/CAA Authorized by: Aurelio Shepard MD Performed by: Andrew Ferraro, CLARISSA Indications and Patient Condition: Indications for Airway Management: Anesthesia Sedation Level: general anesthesia Preoxygenated: yes Patient Position: Sniffing Mask Difficulty Assessment: 2 - vent by mask + OA or adjuvant +/- NMBA Oral Airway: 90mm Plan to extubate at end of case: Yes Final Airway Details: Final Airway Type: Endotracheal airway ETT Cuffed: Yes Technique Used for Successful ETT Placement: Direct laryngoscopy Devices/Methods Used in Placement: Cricoid pressure Blade Type: curved blade Blade Size: 3 ETT Size (mm): 7.0 Measured from: Teeth ETT to Teeth (cm): 22 Tube secured with: Tape Placement Verified by: auscultation, end tidal CO2 and chest rise Cormack-Lehane Classification: Grade I - full view of glottis Number of Attempts at Approach: 1 Additional Procedure Information: atraumatic and dentition unchanged Aurelio Shepard MD PROCEDURE/MINOR SURGICAL ORDER MARIANNA Final Result documented in this encounter Visit Diagnoses Not on filedocumented in this encounter Administered Medications Inactive Administered Medications - up to 3 most recent administrations Medication Order MAR Action Action Date Dose Rate Site ceFAZolin (ANCEF,KEFZOL) 2,000 mg in sodium chloride 0.9% 50 mL IVPB (MBP) 2,000 mg, IV, PRE-PROCEDURE ONCE, 1 dose, Starting on Fri05/11/25 at 0701, Until Jacque 05/12/25 at 1105, Routine, Pre-op, Antibiotic Indication: Surgical prophylaxis New Bag 05/11/2025 3:28 PM CDT 2,000 mg dexAMETHasone (DECADRON) injection IV, INTRA-PROCEDURE PRN, Starting on Fri05/11/25 at 1603, Until Fri05/11/25 at 1725, Routine, Anesthesia Intra-op Given 05/11/2025 4:03 PM CDT 4 mg fentaNYL PF (SUBLIMAZE) 50 mcg/mL injection IV, INTRA-PROCEDURE PRN, Starting on Fri05/11/25 at 1522, Until Fri05/11/25 at 1725, Routine, Anesthesia Intra-op Given 05/11/2025 4:30 PM CDT 25 mcg Given 05/11/2025 3:49 PM CDT 25 mcg Given 05/11/2025 3:22 PM CDT 50 mcg lactated ringers infusion IV, INTRA-PROCEDURE CONTINUOUS PRN, Starting on Fri05/11/25 at 1513, Until Fri05/11/25 at 1725, Routine, Anesthesia Intra-op New Bag 05/11/2025 3:13 PM CDT lidocaine PF 2% (XYLOCAINE MPF) injection IV, INTRA-PROCEDURE PRN, Starting on Fri05/11/25 at 1522, Until Fri05/11/25 at 1725, Routine, Anesthesia Intra-op Given 05/11/2025 3:22 PM CDT 2.5 mL ondansetron (ZOFRAN) 4 mg/2 mL injection 4 mg 4 mg, IV, EVERY 6 HOURS PRN, Starting on Fri05/11/25 at 0232, Until Fri05/14/25 at 1229, Nausea/Emesis, Routine Given 05/11/2025 5:04 PM CDT 4 mg phenylephrine 10 mg in sodium chloride 0.9 % 250 mL infusion IV, INTRA-PROCEDURE CONTINUOUS PRN, Starting on Fri05/11/25 at 1522, Until Fri05/11/25 at 1725, Anesthesia Intra-op Rate Change 05/11/2025 4:41 PM CDT 0.6 mcg/kg/min 46.44 mL/hr Rate Change 05/11/2025 4:27 PM CDT 0.4 mcg/kg/min 30.96 mL /hr Rate Change 05/11/2025 3:50 PM CDT 0.2 mcg/kg/min 15.48 mL /hr phenylephrine syringe IV, INTRA-PROCEDURE PRN, Starting on Fri05/11/25 at 1640, Until Fri05/11/25 at 1725, Routine, Anesthesia Intra-op Given 05/11/2025 5:08 PM CDT 150 mcg Given 05/11/2025 4:40 PM CDT 150 mcg propofoL (DIPRIVAN) injection IV, INTRA-PROCEDURE PRN, Starting on Fri05/11/25 at 1522, Until Fri05/11/25 at 1725, Anesthesia Intra-op Given 05/11/2025 3:22 PM CDT 60 mg rocuronium injection IV, INTRA-PROCEDURE PRN, Starting on Fri05/11/25 at 1522, Until Fri05/11/25 at 1725, Routine, Anesthesia Intra-op Given 05/11/2025 4:36 PM CDT 10 mg Given 05/11/2025 3:22 PM CDT 40 mg sugammadex (BRIDION) 100 mg/mL injection IV, INTRA-PROCEDURE PRN, Starting on Fri05/11/25 at 1714, Until Fri05/11/25 at 1725, Routine, Anesthesia Intra-op Given 05/11/2025 5:14 PM CDT 200 mg tranexamic acid (CYKLOKAPRON) 1,000 mg in sodium chloride 0.9 % 100 mL IVPB IV, INTRA-PROCEDURE CONTINUOUS PRN, Starting on Fri05/11/25 at 1555, Until Fri05/11/25 at 1725, Routine, 1 gram infuse over 10 minutes, 2 grams infuse over 20 minutes, Anesthesia Intra-op New Bag 05/11/2025 3:55 PM CDT 1,000 mg vasopressin (VASOSTRICT) 20 unit/mL intravenous solution IV, INTRA-PROCEDURE PRN, Starting on Fri05/11/25 at 1526, Until Fri05/11/25 at 1725, Routine, Anesthesia Intra-op Given 05/11/2025 4:46 PM CDT 2 Units Given 05/11/2025 4:20 PM CDT 1 Units Given 05/11/2025 3:43 PM CDT 2 Units documented in this encounter
[2025-05-16 21:17] VITALS: BP 100/62; PULSE 113; RESP 22; TEMP 36.7; O2SAT 92; BMI 22.4
--- OUTSIDE RECORDS SUMMARY | 2025-05-16 21:23 | XMS_ITS | Encounter Summary ---
Author Organization [facility] Address [address] Attn: [place] [address] Care Team Providers Care Apartment Assistant Manager Name Role Phone Unavailable Primary Care Provider Unavailabl e Encounter Details Date Type Department Care Team (Latest Contact Info) Description 05/11/2025 Travel Social History Tobacco Use Types Packs/Day Years [...] as of this encounter Plan of Treatment Upcoming Encounters Date Type Department Care Team (Late st Contact Info) Description 05/30/2025 10:20 AM CDT Office Visit [facility] Orthopedics [place] [address] [place] [address] Saleem Champagne PA [address] [place] [address] documented as of this encounter Visit Diagnoses Not on filedocumented in this encounter
--- OUTSIDE RECORDS SUMMARY | 2025-05-16 21:23 | XMS_ITS | Encounter Summary ---
Author Organization [facility] Address [address] [place] [address] Care Team Providers Care Funeral Service Manager Name Role Phone Unavailable Primary Care Provider Unavailabl e Encounter Details Date Type Department Care Team (Late st Contact Info) Description 05/10/2025 External Device Data STL ABSTRACTION Provider, Abstract [...] Description 05/30/2025 10:20 AM CDT Office Visit [facility] Orthopedics [place] [address] [place] [address] Saleem Champagne PA [address] [place] [address] documented as of this encounter Visit Diagnoses Not on filedocumented in this encounter
--- OUTSIDE RECORDS SUMMARY | 2025-05-16 21:24 | XMS_ITS | Clinical Summary ---
Author Organization [facility] Address [address] [place] [address] Care Team Providers Care Over Hauler Helper Name Role Phone Unavailable Primary Care Provider Unavailabl e Allergies Active Allergy Reactions Criticality Noted Date Comments Adhesive Tape-Silicones Other (See Comments) 09/14/2020 Skin torn easily Medications amiodarone (CORDARONE) 200 mg tablet Take 1 Tablet by mouth daily. 12/24/19 25 Active ascorbic acid, vitamin C, (VITAMIN C) 1,000 mg Tablet Take 1,000 mg by mouth daily. Active magnesium oxide 400 mg magnesium Capsule Take 400 mg by mouth daily. Active metoprolol tartrate (LOPRESSOR) 50 mg tablet Take 1 Tablet by mouth 2 times daily. 12/24/19 25 Active cyanocobalamin 1,000 mcg Tablet Take 1,500 mcg by mouth. Active oxyCODONE-acetam inophen (Percocet) 5-325 mg tabletIndication s:Rectal prolapse Take 1 Tablet by mouth every 4 hours as needed for Pain, Moderate. Max Daily Amount: 6 Tablets 30 Tablet 5 2:41 PM CDT 02/22/20 25 Active acetaminophen (TYLENOL) 500 mg tablet Take 2 Tablets (1,000 mg) by mouth every 8 hours. 05/13/20 25 Active OLANZapine (ZyPREXA ZYDIS) 5 mg Tablet, Rapid Dissolve Take 1 Tablet (5 mg) by mouth 2 times daily. 05/13/20 25 Active bethanechol (URECHOLINE) 10 mg tablet Take 1 Tablet (10 mg) by mouth 4 times daily before meals and at bedtime. 05/13/20 25 Active tamsulosin (FLOMAX) 0.4 mg capsule Take 1 Capsule (0.4 mg) by mouth daily after supper. 05/13/20 25 Active Cholecalciferol, Vitamin D3, 250 mcg (10,000 unit) Capsule Take 5 Capsules (50,000 Units) by mouth every 7 days for 6 doses. 20 Capsule 1 05/19/20 25 025 Active saccharomyces boulardii (FLORASTOR) 250 mg Capsule Take 1 Capsule (250 mg) by mouth 2 times daily. 05/14/20 25 Active aspirin (ECOTRIN EC) 81 mg Tablet, Delayed Release (E.C.) Take 1 Tablet (81 mg) by mouth daily. Take aspirin 81 mg two times daily for three weeks. When done, on August 10 resume taking aspirin 81 mg daily as before surgery. 05/14/20 25 Active Xarelto 15 mg Tablet take 1 tablet by mouth every day with evening meal 11/16/19 25 025 Discontinued aspirin (ECOTRIN EC) 81 mg Tablet, Delayed Release (E.C.) Take 81 mg by mouth daily. Hold 5 days to surgery 025 Discontinued fosfomycin tromethamine (MONUROL) 3 gram Packet Take 3 Grams by mouth one time only for 1 dose. 3 Gram 05/15/20 25 025 Active Problems Problem Noted Date Diagnosed Date CKD 3 (chronic kidney disease) 05/14/2025 Periprosthetic fracture of shaft of Lt femur 12/2024 Mild aortic stenosis 05/11/2025 Mild tricuspid insufficiency 05/11/2025 SSS (sick sinus syndrome) 05/11/2025 S/P Lt hip hemiarthroplasty 05/11/2025 Femur fracture, left 05/10/2025 s/p perineal procetectomy 02/21/2025 for rectal p rolapse 02/22/2025 Atrial fibrillation, not on chronic anticoagulation, on rivaroxaban/Xarelto in the past 09/14/2020 Essential hypertension 09/14/2020 Cardiac pacemaker in situ 11/10/2010 Encounters Date Type Department Care Team Description 05/11/2025 3:13 PM CDT Anesthesia Event [facility] Operating Room [address] [place] [phone] Jerry Kc MD Slotto, James G, MD 05/11/2025 10:39 AM CDT - 05/11/2025 1:35 PM CDT Surgery [facility] Operating Room [address] [place] [phone] El Og MD FEMUR OPEN REDUCTION INTERNAL FIXATION 05/11/2025 1:39 AM CDT - 05/14/2025 10:29 AM CDT Hospital Encounter [facility] 3C Ortho Neuro [address] [place] [phone] Marlon Quiñones MD Crockett-Maples, Melinda Ann, MD Periprosthetic fracture of shaft of femur Discharge Disposition: Longterm Fac(SNF) with Medicare Certification in Anticipation of Skilled Care 05/11/2025 Travel 05/10/2025 External Device Data ST[facility] ABSTRACTION Provider, Abstract 05/03/2025 External Device Data STL ABSTRACTION Provider, Abstract 04/26/2025 External Device Data ST[facility] ABSTRACTION Provider, Abstract 03/31/2025 External Device Data [facility] ABSTRACTION Provider, Abstract 03/31/2025 External Device Data ST[facility] ABSTRACTION Provider, Abstract 03/30/2025 External Device Data STL ABSTRACTION Provider, Abstract 03/30/2025 External Device Data STL ABSTRACTION Provider, Abstract 03/29/2025 External Device Data STL ABSTRACTION Provider, Abstract 03/15/2025 9:00 AM CDT Office Visit [facility] Gen Spec Surg [place] [address] [place] [phone] Kenna Spencer NP Rectal prolapse (Primary Dx) 03/15/2025 External Device Data STL ABSTRACTION Provider, Abstract 03/08/2025 Telephone [facility] 3A Surgical [address] [place] [address] Vinnie Moore MD Nurse Navigation 02/28/2025 Telephone [facility] 3A Surgical [address] [place] [phone] Vinnie Moore MD Nurse Navigation 02/23/2025 Results Follow-Up [facility] Gen Spec Surg [place] [address] [place] [phone] Vinnie Moore MD PATHOLOGY 02/22/2025 External Device Data STL ABSTRACTION Provider, Abstract 02/22/2025 External Device Data STL ABSTRACTION Provider, Abstract 02/22/2025 External Device Data STL ABSTRACTION Provider, Abstract 02/21/2025 1:26 PM CDT Anesthesia Event [facility] Operating Room [address] [place] [phone] Shaji Nolen MD Bokov, Denis, [facility] 02/21/2025 12:45 PM CDT - 02/21/2025 2:28 PM CDT Surgery [facility] Operating Room [address] [place] [phone] Vinnie Moore MD PERINEAL ALTEMEIER PROCTECTOMY 02/21/2025 9:00 AM CDT - 02/22/2025 3:31 PM CDT Hospital Encounter [facility] 3B Surgical [address] [place] [phone] Vinnie Moore MD Complete rectal prolapse Discharge Disposition: Home or Self Care 02/21/2025 Travel 02/18/2025 Telephone [facility] Gen Spec Surg [place] [address] [place] [phone] Vinnie Moore MD Surgery 02/18/2025 Telephone [facility] 3A Surgical [address] [place] [phone] Vinnie Moore MD Nurse Navigation 02/18/2025 Telephone [facility] Gen Spec Surg [place] [address] [place] [phone] Vinnie Moore MD Surgery (Arrival time) 02/14/2025 Telephone [facility] Gen Spec Surg [place] [address] [place] [address] [address] [place] [address] Vinnie Moore MD Surgery from Last 3 Months Social History Tobacco [...] Mass Index 27.61 05/11/2025 2:40 AM CDT Plan of Treatment Upcoming Encounters Date Type Department Care Team (Late st Contact Info) Description 05/30/2025 10:20 AM CDT Office Visit [facility] Orthopedics [place] [address] [place] [address] Saleem Champagne PA [address] [place] [address] Health Maintenance Due Date Last Done Comments DTAP/TDAP/TD VACCINES (1 - Tdap) 1955 PNEUMOCOCCAL VACCINE 50+ YEA RS (1 of 1 - PCV) 1986 ZOSTER VACCINE (1 of 2) 1986 RSV VACCINE (60+ or ) (1 - 1-dose 75+ series) 2011 [place] Prev entative Visit/Annual Wellness Visit 11/10/2024 OSTEOPOROSIS SCREENING 05/01/2025 05/01/2020, 2017 INFLUENZA VACCINE (#1) 2025 Medical Devices Implanted Type Area Animal Ecologist Device Identifier Shelf Expiration Date Model / Serial / Lot Cable W/Crimp Ss 1.7 X 750mm 298.801.01s - [id number] Implanted:Qty: 1 on 05/11/2025 by El Og MD at [facility] Left: Femur [employer] SYN[employer]ES [id number] 298.801. 01S / / Cable W/Crimp Ss 1.7 X 750mm 298.801.01s - [id number] Implanted:Qty: 1 on 05/11/2025 by El Og MD at [facility] Left: Femur [employer]ES [id number] 298.801. 01S / / Cable W/Crimp Ss 1.7 X 750mm 298.801.01s - [id number] Implanted:Qty: 1 on 05/11/2025 by El Og MD at [facility] Left: Femur [employer] SY[employer]ES [id number] 298.801. 01S / / Cable W/Crimp Ss 1.7 X 750mm 298.801.01s - [id number] Implanted:Qty: 1 on 05/11/2025 by El Og MD at [facility] Left: Femur [employer] SY[employer]ES [id number] 298.801. 01S / / Pacemaker Pacemaker [employer] Plate 3.5/4.5mm Va Ppfx Prox Fem 11hl Lt 02.221.125 - [id number] Implanted:Qty: 1 on 05/11/2025 by El Og MD at [facility] Plate Left: Femur [employer]- [employer]PU[employer] SYNTHES 02.221.1 25 / / Screw St Va 3.5x42mm 02.127.142 - [id number] Implanted:Qty: 1 on 05/11/2025 by El Og MD at [facility] Screw Left: Femur [employer]- [employer] SY[employer]ES 02.127.1 42 / / Screw Lcp T15 3.5x44mm 02.127.144 - [id number] Implanted:Qty: 1 on 05/11/2025 by El Og MD at [facility] Screw Left: Femur [employer] SY[employer]ES 02.127.1 44 / / Screw Va Slftp 5.0x16mm Strdrv .231.016 - [id number] Implanted:Qty: 1 on 05/11/2025 by El Og MD at [facility] Screw Left: Femur [employer] SYNTHES 02.231.0 16 / / Screw Va Slftp 5.0x16mm Strdrv .231.016 - [id number] Implanted:Qty: 1 on 05/11/2025 by El Og MD at [facility] Screw Left: Femur [employer]- [employer] SYNTHES 02.231.0 16 / / Screw Va Slftp 5.0x18mm Strdrv 02.231.018 - [id number] Implanted:Qty: 1 on 05/11/2025 by El Og MD at [facility] Screw Left: Femur [employer]- [employer] SYNTHES 02.231.0 18 / / Screw Va Slftp 4.0x50mm Strdrv 02.231.250 - [id number] Implanted:Qty: 1 on 05/11/2025 by El Og MD at [facility] Screw Left: Femur [employer]- [employer] SYN[employer]ES 02.231.2 50 / / Screw Va Slftp 5.0x55mm Strdrv 02.231.255 - [id number] Implanted:Qty: 1 on 05/11/2025 by El Og MD at [facility] Screw Left: Femur [employer]- [employer] SYN[employer]ES 02.231.2 55 / / Screw Va Slftp 5.0x75mm Strdrv .231.275 - [id number] Implanted:Qty: 1 on 05/11/2025 by El Og MD at [facility] Screw Left: Femur J[employer]- DEPUY SYNTHES .231.2 75 / / Screw St 4.5x46mm 214.846 - [id number] Implanted:Qty: 1 on 05/11/2025 by El Og MD at [facility] Screw Left: Femur [employer]- DEPUY SYNTHES 214.846 / / Screw St 4.5x48mm 214.848 - [id number] Implanted:Qty: 1 on 05/11/2025 by El Og MD at [facility] Screw Left: Femur J[employer]- DEPUY SYNTHES 214.848 / / Screw St Va 3.5x30mm 02.127.130 - [id number] Implanted:Qty: 1 on 05/11/2025 by El Og MD at [facility] Screw Left: Femur J[employer]- DEPUY SYNTHES 02.127.1 30 / / Screw St Va 3.5x30mm 02.127.130 - [id number] Implanted:Qty: 1 on 05/11/2025 by El Og MD at [facility] Screw Left: Femur [employer]- DEPUY SYNTHES 02.127.1 30 / / Screw St Va 3.5x34mm 02.127.134 - [id number] Implanted:Qty: 1 on 05/11/2025 by El Og MD at [facility] Screw Left: Femur [employer]- DEPU[employer] SYNTHES 02.127.1 34 / / Screw St Va 3.5x36mm 02.127.136 - [id number] Implanted:Qty: 1 on 05/11/2025 by El Og MD at [facility] Screw Left: Femur [employer]- DEPUY SYNTHES 02.127.1 36 / / Procedures Procedure Name Priority Date/Time Associated Diagnosis Comments TELEMETRY REPORT 05/16/2025 1:37 AM CDT EXTRA TUBE (URINE NOGUERA) Stat 05/14/2025 9:52 AM CDT URINALYSIS W/REFLEX MICROSCOPIC Stat 05/14/2025 9:52 AM CDT BASIC METABOLIC PANEL Routine 05/14/2025 2:07 AM CDT DIFFERENTIAL, MANUAL Stat 05/13/2025 4:39 PM CDT BASIC METABOLIC PANEL Stat 05/13/2025 4:39 PM CDT CBC WITH DIFFERENTIAL Stat 05/13/2025 4:39 PM CDT XR CHEST PA OR AP 1 VW Stat 05/13/2025 3:59 PM CDT C. DIFFICILE DETECTION Routine 05/13/2025 3:31 PM CDT RT ASSESS AND TREAT Routine 05/13/2025 3 :28 PM CDT POC GLUCOSE Routine 05/13/2025 4:35 AM CDT POC GLUCOSE Routine 05/13/2025 3:24 AM CDT POC GLUCOSE Routine 05/13/2025 3:02 AM CDT POC GLUCOSE Routine 05/13/2025 2:42 AM CDT BASIC METABOLIC PANEL Routine 05/13/2025 1:27 AM CDT CBC WITH DIFFERENTIAL Routine 05/13/2025 1:27 AM CDT DIFFERENTIAL, MANUAL Stat 05/12/2025 9:53 AM CDT BASIC METABOLIC PANEL Stat 05/12/2025 9:53 AM CDT CBC WITH DIFFERENTIAL Stat 05/12/2025 9:53 AM CDT POC GLUCOSE Routine 05/11/2025 5:33 PM CDT XR FEMUR 2 VW LEFT Routine 05/11/2025 4: 52 PM CDT XR FLUORO LESS THAN 1 HOUR Routine 05/11/2025 4:50 PM CDT CO ANES INSERT ENDOTRACHEAL AIRWAY Routine 05/11/2025 3:24 PM CDT FEMUR OPEN REDUCTION INTERNAL FIXATION 05/11/2025 10:39 AM CDT Femur fracture, left ([facility]) EKG 12-LEAD Stat 05/11/2025 8:00 AM CDT XR CHEST PA OR AP 1 VW Stat 05/11/2025 7:[address] FEMUR WO CONTRAST LEFT Stat 05/11/2025 7:21 AM CDT CBC WITH DIFFERENTIAL Routine 05/11/2025 6:53 AM CDT TYPE AND SCREEN Routine 05/11/2025 5:28 AM CDT PROTIME-INR Routine 05/11/2025 5:28 AM CDT COMPREHENSIVE METABOLIC PANEL Routine 05/11/2025 5:28 AM CDT VITAMIN D 25 HYDROXY Routine 05/11/2025 5:28 AM CDT TELEMETRY REPORT 02/23/2025 1:59 AM CDT POC GLUCOSE Routine 02/22/2025 7:57 AM CDT BASIC METABOLIC PANEL Routine 02/22/2025 6:39 AM CDT CBC WITH DIFFERENTIAL Routine 02/22/2025 6:39 AM CDT XR HUMERUS 2+ VW RIGHT Stat 02/22/2025 2:38 AM CDT POC GLUCOSE Routine 02/21/2025 2:55 PM CDT PATHOLOGY Pathology 02/21/2025 2:16 PM CDT Rectal prolapse CO EXC RCT PROCIDENTIA W/ANAST PERINEAL APPROACH 02/21/2025 12:45 PM CDT Rectal prolapse EKG 12-LEAD Pending Discharge 02/21/2025 11:04 AM CDT CBC WITHOUT DIFFERENTIAL Stat 02/21/2025 10:24 AM CDT from Last 3 Months Results * TELEMETRY REPORT (05/16/2025 1:37 AM CDT) Only the most recent of2 resultswithin the time period is included. us Provider Scanning ECG ORDERABLES Final Result * EXTRA TUBE (URINE NOGUERA) (05/14/2025 9:52 AM CDT) Urine URINE SPECIMEN OBTAINED BY CLEAN CATCH PROCEDURE / Unknown Collection / Unknown 05/14/2025 9:52 AM CDT 05/14/2025 9:58 AM CDT us Myrtle Duncan MD URINE ORDERABLES Final Result [facility] CLIA # [id number] [address] [place] [id number] * (ABNORMAL) URINALYSIS WITH REFLEX MICROSCOPIC (05/14/2025 9:52 AM CDT) COLOR UA Yellow Pale to Dark Yellow 05/14/2025 10:[address] [facility] CLARITY UA Cloudy(A) Clear 05/14/2025 10:[address] [facility] SPECIFIC GRAVITY UA 1.019 1.003 - 1.035 05/14/2025 10:[address] [facility] PH UA 6.0 5.0 - 8.0 05/14/2025 10:12 AM [facility] LEUKOCYTE ESTERASE UA Negative Negative 05/14/2025 10:12 AM [facility] NITRITE UA Negative Negative 05/14/2025 10:12 AM [facility] PROTEIN UA 1+(A) Negative 05/14/2025 10:12 AM [facility] GLUCOSE UA Negative Negative 05/14/2025 10:12 AM [facility] KETONES UA Trace(A) Negative 05/14/2025 10:12 AM [facility] UROBILINOGEN UA <2.0 <2.0 mg/dL 10:12 AM [facility] BILIRUBIN UA Negative Negative 05/14/2025 10:12 AM [facility] BLOOD UA 3+(A) Negative 05/14/2025 10:12 AM [facility] WBC UA 0-2 0 - 2 /hpf 05/14/2025 10:12 AM [facility] RBC UA 0-2 0 - 2 /hpf 05/14/2025 10:12 AM [facility] BACTERIA UA Negative Negative /hpf 05/14/2025 10:12 AM [facility] EPITHELIAL CELLS, URINE 0-5 0 - 5 /hpf 05/14/2025 10:12 AM [facility] TRANSITIONAL EPI 0-2 0 - 2 /hpf 05/14/2025 10:12 AM [facility] HYALINE CAST 6-10(A) None Seen, 0-2 /lpf 05/14/2025 10:12 AM [facility] GRANULAR CAST 6-10(A) None Seen /lpf 05/14/2025 10:12 AM [facility] AMORPHOUS CRYSTAL Present(A) Absent 05/14/2025 10:12 AM [facility] Urine URINE SPECIMEN OBTAINED BY CLEAN CATCH PROCEDURE / Unknown Collection / Unknown 05/14/2025 9:52 AM CDT 05/14/2025 9:58 AM CDT Myrtle Duncan MD URINE ORDERABLES Final Result [facility] CLLASHONDA # [id number] [address] [facility] [place] [address] * (ABNORMAL) BASIC METABOLIC PANEL (05/14/2025 2:07 AM CDT) Only the most recent of5 resultswithin the time period is included. SODIUM 131(L) 136 - 145 mmol/L 05/14/2025 3:05 AM [facility] POTASSIUM 4.2 3.5 - 5.1 mmol/L 05/14/2025 3:05 AM [facility] CHLORIDE 102 98 - 107 mmol/L 05/14/2025 3:05 AM [facility] CO2 18(L) 22 - 29 mmol/L 05/14/2025 3:05 AM [facility] CALCIUM 8.7(L) 8.8 - 10.2 mg/dL 05/14/2025 3:05 AM [facility] BUN 47(H) 8 - 23 mg/dL 05/14/2025 3:05 AM [facility] CREATININE 1.45(H) 0.51 - 0.95 mg/dL 05/14/2025 3:05 AM [facility] Comment:The GFR result is no t clinically significant on patients <18 or >70 years of age. GLUCOSE 76 74 - 99 mg/dL 05/14/2025 3:05 AM [facility] GFR 35 mL/min/1. 73 sq meter 05/14/2025 3:05 AM [facility] Comment:eGFR calculated with 2020 CKD-EPI equation. Vegetarian diet, extremely high or low muscle mass, and may affect results. Cystatin C with Glomerular Filtration Rate is a suitable alternative for these patients. ANION GAP 11 9 - 20 mmol/L 05/14/2025 3:[address] [facility] Blood Venipuncture / Unknown 05/14/2025 2:07 AM CDT 05/14/2025 2:28 AM CDT Myrtle Duncan MD CHEMISTRY ORDERAB LES Final Result Performing Organization Address City/[facility]/ZIP Co de Phone Number [facility] CLIA # [id number] [address] [address] [place], [place] [address] * MANUAL DIFFERENTIAL (05/13/2025 4:39 PM CDT) Only the most recent of2 resultswithin the time period is included. [facility] PLATELET EST. Adequate 05/13/2025 5:[address] [facility] ANISOCYTOSIS 1+ /hpf 05/13/2025 5:[address] [facility] POIKILOCYTES 1+ /hpf 05/13/2025 5:[address] [facility] CARLOS CELLS 1+ /hpf 05/13/2025 5:[address] [facility] Blood Venipuncture / Unknown 05/13/2025 4:39 PM CDT 05/13/2025 4:[address] [facility] - 05/13/2025 5:08 PM CDT Smear reviewed. No WBC morphology abnormality noted. Myrtle Duncan MD HEMATOLOGY ORDERA BLES COM Final Result Performing Organization Address City/[facility]/ZIP Co de Phone Number [facility] CLIA # [id number] [address] [address] [place] [address] * (ABNORMAL) CBC WITH DIFFERENTIAL (05/13/2025 4:39 PM CDT) Only the most recent of5 resultswithin the time period is included. [facility] WBC 6.5 4.8 - 10.8 K/uL 05/13/2025 5:08 PM [facility] RBC 3.40(L) 4.20 - 5.40 M/uL 05/13/2025 5:08 PM [facility] HEMOGLOBIN 10.1(L) 12.0 - 16.0 g/dL 05/13/2025 5:08 PM [facility] HEMATOCRIT 30.8(L) 36.0 - 46.0 % 05/13/2025 5:08 PM [facility] MCV 90.6 84.0 - 103.0 fL 05/13/2025 5:08 PM [facility] MCH 29.7 27.0 - 34.0 pg 05/13/2025 5:08 PM [facility] MCHC 32.8 30.0 - 35.0 g/dL 05/13/2025 5:08 PM [facility] PLATELETS 288 140 - 440 K/uL 05/13/2025 5:08 PM [facility] MPV 9.5 8.9 - 12.8 fL 05/13/2025 5:08 PM [facility] RDW 15.8(H) 11.0 - 14.5 % 05/13/2025 5:08 PM [facility] RDW-STDEV 52.5 37.0 - 54.0 fL 05/13/2025 5:08 PM [facility] NEUTROPHILS 90(H) 42 - 75 % 05/13/2025 5:08 PM [facility] LYMPHOCYTES 5(L) 24 - 44 % 05/13/2025 5:08 PM [facility] MONOCYTES 4 2 - 10 % 05/13/2025 5:08 PM [facility] EOSINOPHILS 0 0 - 7 % 05/13/2025 5:08 PM [facility] BASOPHILS 0 0 - 1 % 05/13/2025 5:08 PM [facility] IMMATURE GRANULOCYTES 1 0 - 2 % 05/13/2025 5:[address] [facility] NEUTROPHIL ABSOLUTE 5.87 2.00 - 8.00 K/uL 05/13/2025 5:[address] [facility] LYMPHOCYTE ABSOLUTE 0.31(L) 1.20 - 4.00 K/uL 05/13/2025 5:[address] [facility] MONOCYTE ABSOLUTE 0.25 0.10 - 0.60 K/uL 05/13/2025 5:[address] [facility] EOSINOPHIL ABSOLUTE 0.00 0.00 - 0.70 K/uL 05/13/2025 5:[address] [facility] BASOPHILS ABSOLUTE 0.02 0.00 - 0.20 K/uL 05/13/2025 5:[address] [facility] IMMATURE GRANULOCYTES ABSOLUTE 0.04 0.00 - 0.10 K/uL 05/13/2025 5:[address] [facility] SMEAR REVIEWED: SR - See Smear Review on Manual Diff. 05/13/2025 5:[address] [facility] Blood Venipuncture / Unknown 05/13/2025 4:39 PM CDT 05/13/2025 4:42 PM CDT us Myrtle Duncan MD HEMATOLOGY ORDERA BLES Final Result [facility] CLIA # [id number] [address] [place] [address] [place] [address] * XR CHEST PA OR AP 1 VW (05/13/2025 3:59 PM CDT) Only the most recent of2 resultswithin the time period is included. Anatomical Region Laterality Modality Chest Computed Radiogr [...] appear grossly intact. Procedure Note Rebel Pickett, DO - 05/13/2025 Exam: XR CHEST PA OR [...] C. DIFFICILE DETECTION (05/13/2025 3:31 PM CDT) TOXIGENIC C DIFFICILE NOT DETECTED Not Detected 05/13/2025 4:[address] [facility] Stool STOOL SPECIMEN / Unknown Collection / Unknown 05/13/2025 3:31 PM CDT 05/13/2025 3:[address] [facility] - 05/13/2025 4:27 PM CDT This assay is used to detect Toxigenic C. difficile target(B gene) DNA sequences in unformed stool specimens. If toxigenic C. difficile is not detected, but clinical suspicion is high please consult ID for consultation and potential repeat testing. This test should not be used as a test of cure. Myrtle Duncan MD MICROBIOLOGY - GE NERAL ORDERABLES Final Result Performing Organization Address [facility] Co de Phone Number [facility] CLIA # [id number] [address] [address] [place], [place] [id number] * POC GLUCOSE (05/13/2025 4:35 AM CDT) Only the most recent of7 resultswithin the time period is included. GLUCOSE POC 98 74 - 99 mg/dL 05/13/2025 4:[address] [facility] SPECIMEN SOURCE, GLUCOSE POC Capillary 05/13/2025 4:[address] [facility] Blood, whole 05/13/2025 4:35 AM CDT 05/13/2025 4:42 AM CDT Myrtle Duncan MD POINT OF CARE CHEN TING Final Result Performing Organization Address [facility] Co de Phone Number [facility] CLIA # [id number] [address] * XR FEMUR 2 VW LEFT (05/11/2025 [...] seen. Procedure Note Speedy Walters MD - 07/02/2025 Exam: XR FEMUR 2 VW LEFT Date/Time [...] CDT Order information only. Exam was auto-finalized. El Og MD DIAGNOSTIC IMAGING ORDERAB LES Final Result * CO ANES INSERT ENDOTRACHEAL AIRWAY (05/11/2025 3:24 PM CDT) Narrative Andrew Ferraro AA-C - 05/11/2025 3:24 PM CDT Andrew Ferraro AA-C 05/11/2025 4:11 PM Airway Date/Time: 05/11/2025 3:24 PM Location: OR Plan: elective intubation Patient Identity Confirmed by: Armband Airway: not difficult Staffing Performed: BABY NURSE/CAA Authorized by: Aurelio Shepard MD Performed by: [...] Additional Procedure Information: atraumatic and dentition unchanged us Aurelio Shepard MD PROCEDURE/MINOR SURGICAL ORDER MARIANNA Final Result * EKG 12-LEAD (05/11/2025 8:00 AM CDT) Only the most recent of2 resultswithin the time period is included. 05/11/2025 8:00 AM CDT Narrative INTERFACE SYSTEM - 05/11/2025 3:07 [place] [address] Test Date: 2025-05-11 Pat Name: OMAIRACASSIE PEREZRETT Department: 12 Room: [facility] 02 Gender: Female Poising Inspector: [id number] : 1935 Requested By: Order Number: [id number] Reading MD: Pelon Castro Measurements Intervals [place] Rate: 73 P: 0 CO: 0 QRS: -79 QRSD: 100 T: -19 QT: 432 QTc: 475 Interpretive Statements Atrial fibrillation with occasional ventricular-paced complexes Left axis deviation Anteroseptal infarct, age undetermined T wave abnormality, consider lateral ischemia Abnormal ECG Electronically Signed On 05-11-2025 15:07:16 CDT by Pelon Castro Procedure Note Pelon Castro MD - 05/11/2025 [place] [address] Test Date: 2025-05-11 Pat Name: OMAIRA PEREZRETT Department: 12 Room: [facility] 02 Gender: Female Poising Inspector: [id number] : 1935 Requested By: Order Number: [id number] Reading : Pelon Castro Measurements Intervals [place] Rate: 73 P: 0 CO: 0 QRS: -79 QRSD: 100 T: -19 QT: 432 QTc: 475 Interpretive Statements Atrial fibrillation with occasional ventricular-paced complexes Left axis deviation Anteroseptal infarct, age undetermined T wave abnormality, consider lateral ischemia Abnormal ECG Electronically Signed On 05-11-2025 15:07:16 CDT by Pelon Castro us Myrtle Duncan MD ECG ORDERABLES F inal Result INTERFACE SYSTEM Refer to clinic/hospital department * CT FEMUR WO CONTRAST LEFT (05/11/2025 [...] as above. Narrative Procedure Note Rebel Pickett, - 05/11/2025 IMPRESSION: Please see below. Exam: [...] and the left pubic body as above. Marlon Quiñones MD CT ORDERABLES Final Re sult * (ABNORMAL) VITAMIN D 25 HYDROXY (05/11/2025 5:28 AM CDT) VITAMIN D TOTAL (25OH) 21(L) 30 - 100 ng/mL 05/11/2025 6:[address] [facility] Blood Venipuncture / Unknown 05/11/2025 5:28 AM CDT 05/11/2025 5:[address] [facility] - 05/11/2025 6:48 AM CDT Interpretive Data Chart: Deficient: 0 - 20 ng/mL Insufficient: 21 - 29 ng/mL Sufficient: 30 - 100 ng/mL Increased Risk of Hypercalciuria: >100 ng/ml Toxic: >150 ng/ml Marlon Quiñones MD CHEMISTRY ORDERABLES Fin al Result [facility] CLIA # [id number] [address] [place] [address] * PROTIME-INR (05/11/2025 5:28 AM CDT) Pathologist [facility] PROTIME 14.1 12.7 - 14.9 Seconds 05/11/2025 6:[address] [facility] INR 1.0 0.8 - 1.2 05/11/2025 6:[address] [facility] Blood Venipuncture / Unknown 05/11/2025 5:28 AM CDT 05/11/2025 5:58 AM CDT Narrative [facility] - 05/11/2025 6:16 AM CDT Expected Values for INR: DVT/PE Goal INR 2.5; range 2.0 - 3.0 Valve Replacement Tissue Goal INR 2.5; range 2.0 - 3.0 Valve Replacement Mechanical Goal INR 3.0; range 2.5 - 3.5 POST-KS Goal INR 2.5; range 2.0 - 3.0 or Goal INR 3.0; range 2.5 - 3.5 Atrial Fibrillation Goal INR 2.5; range 2.0 - 3.0 Ischemic Stroke Goal INR 2.5; range 2.0 - 3.0 Marlon Quiñones MD HEMATOLOGY ORDERABLES Fi nal Result Performing Organization Address [facility] de Phone Number [facility] [employer] [facility] CLIA # [id number] [facility] [place] [address] * TYPE AND SCREEN (05/11/2025 5:28 AM CDT) ABO GROUP O 05/11/2025 6:58 AM CDT [facility] [place] RH (D) TYPE Positive 05/11/2025 6:58 AM CDT [facility] ANTIBODY SCREEN Negative 05/11/2025 6:58 AM CDT [facility] [place] Blood Venipuncture / Unknown 05/11/2025 5:28 AM CDT 05/11/2025 5:56 AM CDT Marlon Quiñones MD BLOOD BANK ORDERABLES Ed ited Result - Final Performing Organization Address [facility] Co de Phone Number [facility] [employer] [facility] CLIA#[id number] [facility] [phone] * (ABNORMAL) COMPREHENSIVE METABOLIC PANEL (05/11/2025 5:28 AM CDT) SODIUM 135(L) 136 - 145 mmol/L 05/11/2025 6:33 AM [facility] POTASSIUM 4.2 3.5 - 5.1 mmol/L 05/11/2025 6:33 AM [facility] CHLORIDE 100 98 - 107 mmol/L 05/11/2025 6:33 AM [facility] CO2 24 22 - 29 mmol/L 05/11/2025 6:33 AM [facility] CALCIUM 8.5(L) 8.8 - 10.2 mg/dL 05/11/2025 6:33 AM [facility] BUN 26(H) 8 - 23 mg/dL 05/11/2025 6:33 AM [facility] CREATININE 1.02(H) 0.51 - 0.95 mg/dL 05/11/2025 6:33 AM [facility] Comment:The GFR result is no t clinically significant on patients <18 or >70 years of age. GLUCOSE 157(H) 74 - 99 mg/dL 05/11/2025 6:33 AM [facility] TOTAL PROTEIN 5.2(L) 6.4 - 8.3 g/dL 05/11/2025 6:33 AM [facility] ALBUMIN 3.1(L) 3.5 - 5.2 g/dL 05/11/2025 6:33 AM [facility] BILIRUBIN TOTAL 0.4 0.0 - 1.0 mg/dL 05/11/2025 6:33 AM [facility] ALKALINE PHOSPHATASE 133(H) 35 - 104 U/L 05/11/2025 6:33 AM [facility] AST 16 10 - 35 U/L 05/11/2025 6:33 AM [facility] Comment:Hemolysis present. R esult may be falsely elevated. ALT 12 <=35 U/L 05/11/2025 6:33 AM [facility] GFR 53 mL/min/1. 73 sq meter 05/11/2025 6:33 AM CDT [facility] Comment:eGFR calculated with 2020 CKD-EPI equation. Vegetarian diet, extremely high or low muscle mass, and may affect results. Cystatin C with Glomerular Filtration Rate is a suitable alternative for these patients. ANION GAP 11 9 - 20 mmol/L 05/11/2025 6:[address] [facility] Blood Venipuncture / Unknown 05/11/2025 5:28 AM CDT 05/11/2025 5:58 AM CDT us Marlon Quiñones MD CHEMISTRY ORDERABLES Fin al Result [facility] CLIA # [id number] [address] [place] [address] * XR HUMERUS 2+ VW RIGHT (02/22/2025 [...] CDT) CASE REPORT Surgical Pathology Report Case: [id number] Authorizing Provider: Vinnie Moore MD Collected: 02/21/2025 02:16 PM Ordering Location: [facility] Received: 02/21/2025 04:09 PM Operating Room Pathologist: Rylee Hines MD Specimen: Colon, sigmoid, and rectum 5 2:[address] [facility] FINAL DIAGNOSIS A. Colon, sigmoid and rectum, proctectomy - Segment of colon (clinically rectum and sigmoid) showing mucosal changes consistent with prolapse including mild chronic inflammation, reactive hyperplasia, and subepithelial edema - Grossly identified diverticuli; no acute diverticulitis identified - Viable resection margins - No dysplasia or malignancy Rylee Hines MD [id number] 2:[address] [facility] at 1400 CDT GROSS DESCRIPTION A. [...] other masses or lesions are grossly identified. Collet Maker sections are submitted as follows: A1: Possible margin, en face A2: Distal margin with prolapse mucosa, perpendicular A3: Collet Maker diverticulum A4: Collet Maker uninvolved mucosa Valerie Rogel 5 2:[address] [facility] OPERATIVE PROCEDURE 1: PERINEAL ALTEMEIER PROCTECTOMY 5 2:[address] [facility] CLINICAL INFORMATION K62.3-Rectal prolapse 5 2:[address] [facility] COMMENT The [employer] voice-activated dictation system may have been used [...] determined by the Diagnostic Immunohistochemistry Laboratory of [facility] in compliance with CLIA'88 regulations. Some of these tests rely on the use of analyte specific reagents and are subject to specific labeling requirements by the FDA. All controls show appropriate reactivity. This testing was developed by the Diagnostic Immunohistochemistry Laboratory of [facility]. It has not been cleared or approved by the FDA. The FDA has determined that such clearance or approval is not necessary. 5 2:[address] [facility] Tissue SIGMOID COLON STRUCTURE / Unknown Collection / Unknown 02/21/2025 2:16 PM CDT 02/21/2025 4:09 PM CDT Vinnie Moore MD PATHOLOGY/CYTOLOGY ORDERABLES F inal Result [facility] CLIA # [id number] [address] [place] [address] * (ABNORMAL) CBC WITHOUT DIFFERENTIAL (02/21/2025 10:24 AM CDT) WBC 13.4(H) 4.8 - 10.8 K/uL 02/21/2025 10:[address] [facility] RBC 4.04(L) 4.20 - 5.40 M/uL 02/21/2025 10:44 AM [facility] HEMOGLOBIN 12.7 12.0 - 16.0 g/dL 02/21/2025 10:[address] [facility] HEMATOCRIT 40.2 36.0 - 46.0 % 02/21/2025 10:[address] [facility] MCV 99.5 84.0 - 103.0 fL 02/21/2025 10:[address] [facility] MCH 31.4 27.0 - 34.0 pg 02/21/2025 10:[address] [facility] MCHC 31.6 30.0 - 35.0 g/dL 02/21/2025 10:[address] [facility] PLATELETS 439 140 - 440 K/uL 02/21/2025 10:44 AM [facility] MPV 9.6 8.9 - 12.8 fL 02/21/2025 10:[address] [facility] RDW 14.9(H) 11.0 - 14.5 % 02/21/2025 10:44 AM [facility] RDW-STDEV 55.3(H) 37.0 - 54.0 fL 02/21/2025 10:44 AM [facility] Blood Venipuncture / Unknown 02/21/2025 10:24 AM CDT 02/21/2025 10:36 AM CDT us Vinnie Moore MD HEMATOLOGY ORDERABLES Final Res ult [facility] CLIA # [id number] [address] [address] [place], [place] [address] from Last 3 Months Insurance [employer] [facility] [facility] RX [place] Medicare Part D Advance Directives For more information, please contact: [phone] * Default Full Code - Needs Discussion (Latest Code Status on File) Date Activated Date Inactivated Comments 05/12/2025 6:54 PM 05/14/2025 12:29 PM * Full Code Date Activated Date Inactivated Comments 05/11/2025 2:26 PM 05/11/2025 2:30 PM * Default Full Code - Needs Discussion Date Activated Date Inactivated Comments 05/11/2025 2:36 AM 05/11/2025 2:26 PM * Full Code Date Activated Date Inactivated Comments 02/21/2025 3:05 PM 02/22/2025 5:31 PM * Full Code Date Activated Date Inactivated Comments 02/21/2025 9:37 AM 02/21/2025 3:05 PM
--- OUTSIDE RECORDS SUMMARY | 2025-05-16 21:24 | XMS_ITS | Patient Health Record ---
Author Organization [facility] Address [address] [place] [id number] Care Team Providers Care Aviation Program Manager Name Role Phone Melva Bo DO Primary Care Provider Tatiana e Mike Johnson Unavailable [phone] Reason For Referral No Information Medications Medication [...] Problem Benign neoplasm of skin of face (77529924) Benign neoplasm of skin of other and unspecified parts of face (216.3) Active confirmed Problem Benign neoplasm of scalp and skin of neck (216.4) Active confirmed Problem Benign neoplasm of skin of trunk, except scrotum (216.5) Active confirmed Problem Benign neoplasm of skin of upper limb (disorder) (26960667) Benign neoplasm of skin of upper limb, including shoulder (216.6) Active confirmed Problem Actinic keratosis (622464) Actinic keratosis (702.0) Active confirmed Problem Seborrheic keratosis (77660656) Other seborrheic keratosis (702.19) Active confirmed Problem Sebaceous cyst (048491365) Sebaceous cyst (706.2) Active confirmed Plan Of Treatment No Information Insurance Providers Payer Name Payer Address Payer Phone Subscriber Number Group Number Insured Name Patient Relationship to Insured Coverage Start Date Coverage End Date Medicare Attn Part B Claims [address] [facility] [address] [id number] Esthela Billings Self - patient is the insured [employer] [address] [address] [place], [place] [phone] [id number] Esthela Billings Self - patient is the insured Medical (General) History Medical History History ICD Code HTN pacemaker sinus arrhythmia Surgical History Surgery Date(Month/Year) broken right knee broken left knee fractured left shoulder hysterectomy with bladder reposition gallbladder removed appendectomy tonsillectomy fractured left wrist pacemaker
--- NOTE | 2025-05-16 21:26 | ECG_ITS ---
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 Measurements Intervals [place] Rate: 113 P: 0 MT: 0 QRS: -36 QRSD: 115 T: 120 QT: 343 QTc: 471 Interpretive Statements ATRIAL FIBRILLATION WITH RAPID VENTRICULAR RESPONSE LEFT AXIS DEVIATION [QRS AXIS < -30] POSSIBLE ANTERIOR MYOCARDIAL INFARCTION , OF INDETERMINATE AGE [30 ms Q WAVE IN V3/V4, OR R < 0.2 mV IN V4] MODERATE T-WAVE ABNORMALITY, CONSIDER LATERAL ISCHEMIA [-0.1+ mV T-WAVE IN I/aVL/V5/V6] Compared to ECG 05/10/2025 20:43:58 Left-axis deviation now present Myocardial infarct finding now present Possible ischemia now present Intraventricular conduction delay no longer present T-wave abnormality still present Electronically Signed On 05-17-2025 08:18:01 CDT by Mahesh Scott M.D. [email or web address]
--- NOTE | 2025-05-16 21:35 | XRR_ITS ---
PROCEDURE INFORMATION: Exam: XR Chest Exam date and time: 05/16/2025 9:46 PM Age: 89 years old Clinical indication: Other: Altered mental status; Prior surgery; Surgery date: 6+ months; Surgery type: Pacemaker; Additional info: AMS TECHNIQUE: Imaging protocol: Radiologic exam of the chest. Views: 1 view. COMPARISON: CR (CHEST, ) 05/10/2025 8:22 PM FINDINGS: Tubes, catheters and devices: Single lead cardiac AICD via left subclavian approach is stable in position with the lead tip in the expected location of the right ventricle. Lungs: Interval development of right middle lobe and right lower lobe atelectasis and/or pneumonia. Pleural spaces: No pleural effusion. No pneumothorax. Heart/Mediastinum: Stable moderate enlargement of the cardiac silhouette. Mediastinal contours are unremarkable. Vasculature: Stable vascular calcifications in the aorta. Bones/joints: Bones are diffusely osteopenic. Degenerative changes in the spine and shoulders. Moderate scoliosis in the visualized spine. Osseous findings are stable. Organs: Stable findings consistent with a previous cholecystectomy with surgical clips in the right upper quadrant. XR/XR chest 1V portable [id number] IMPRESSION: 1. Interval development of right middle lobe and right lower lobe atelectasis and/or pneumonia. Recommend followup chest imaging to insure resolution of these findings. 2. Incidental/nonacute findings are listed in the report.
[2025-05-16 21:43] LABS: Hematocrit 30.1 % (36-47); Hemoglobin 9.90 g/dL (11.27-16.99); Mean Corpuscular HGB Conc 32.9 g/dL (30-55); Mean Corpuscular Hemoglobin 29.5 pg (27-33); Mean Corpuscular Volume 89.6 fl (85-98); Nucleated Red Blood Cells % 0 %; Platelet Count 186 10^3/cmm (157-399); Red Blood Count 3.36 10^6/uL (3.85-5.65); White Blood Count 18.25 10^3/uL (3.29-11.43)
--- NOTE | 2025-05-16 21:46 | ED_ITS ---
HPI - Altered Mental Status 2 General: Chief Complaint: Abdominal Pain Stated Complaint: ABD PAIN Time Seen by Provider: 05/16/25 21:29 History of Present Illness: Patient is an elderly female who recently underwent surgery for a left femur spiral fracture at [facility] in [place]. The fracture occurred when she fell at home on Friday evening while from her walker. Surgery was performed the following day. Post-operatively, the patient developed multiple complications including edema, urinary tract infection, and agitation. She was given mood stabilizers during her hospital stay. The patient was transferred to [facility] for rehabilitation on Friday (two days ago), but according to her family, she was not ready for rehabilitation. Family reports the patient has hardly eaten, has been attempting to remove her urinary catheter, and has a distended abdomen. The patient has been less responsive than her baseline, which family attributes to medications including oxycodone, Tylenol, and Percocet, as well as lingering effects of anesthesia. Today, the patient began drinking fluids eagerly but experienced some choking initially and coughing afterward. She attempted but failed to have a bowel movement. Family notes that the patient's condition has been fluctuating - a roller coaster - with periods of improvement followed by decline. The patient also has a history of cancer. Family's primary goal is for the patient to be comfortable. Related Data Home Medications ?Medication ?Instructions ?Recorded ?Confirmed naproxen sodium 220 mg tablet 220 mg PO Q12H PRN Fever Or Pain 01/18/25 04/28/25 (Aleve) aspirin 325 mg tablet 325 mg PO QAM 03/03/2504/28 Previous Rx's ?Medication ?Instructions ?Recorded mupirocin 2 % topical ointment 1 applic topical BID #5 0 grams 03/03/25 (Centany) amiodarone 200 mg tablet 200 mg PO DAILY #90 tabs furosemide 20 mg tablet 20 mg PO BID #180 tabs 04/21 metoprolol tartrate 25 mg tablet 25 mg PO BID #180 tab s 04/21/25 potassium chloride 20 mEq 20 meq PO DAILY #90 tabs 11/03 tablet,extended release(part/cryst) (Klor-Con M) Fast form splint, right wrist #1 ea 04/27/25 wheelchair #1 ea 04/29/25 Allergies Allergy/AdvReac Type Severity Reaction Status Date / Time adhesive tape Allergy Unknown Verified 04/28/25 15:48 Review of Systems 2 General: Reports: ROS unobtainable due to medical condition PFSH ED 2 PFSH: Medical History Unsteady gait Mitral valve regurgitation Bilateral edema of lower extremity History of colon polyps colonoscopy 01/29/2021 Dr. 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 Exam 2 Const: COMMON NORMALS: negative for patient oriented x3 and limitations G ENERAL APPEARANCE: frail appearing; not well hydrated NUTRITIONAL APPEARANCE: cachectic O RIENTATION/CONSCIOUSNESS: Yes patient obtunded HENMT: COMMON NORMALS: normocephalic; oral mucous membranes not moist HEAD & SCALP: normocephalic Resp: COMMON NORMALS: normal respiratory effort; negative for No use of accessory muscles and negative for clear to auscultation bilaterally AUSCULTATION: not clear to auscultation bilaterally Cardio: COMMON NORMALS: regular rhythm RATE: tachycardic RHYTHM: regular rhythm GI: INSPECTION: Yes abdominal distension Neuro: COMMON NORMALS: negative for patient oriented x3 Skin: OTHER: [place] in place over the lateral left upper leg. Course 2 Vital Signs: Vital signs: Vital Signs Temperature 98.1 F 05/16/25 21:17 Pulse Rate 104 H 05/17/25 01:00 Respiratory Rate 13 05/17/25 01:00 Blood Pressure 102/58 05/17/25 01:00 Pulse Oximetry 93 05/17/25 01:00 Oxygen Delivery Me thod Room Air 05/17/25 01:00 MDM - Altered Mental Status Medical Decision Making 1. Sepsis secondary to healthcare-associated pneumonia, possibly aspiration pneumonia: - Admit to hospital for aggressive IV antibiotic therapy - Monitor respiratory status and oxygenation - Consider chest physiotherapy if appropriate - Elevate head of bed to reduce aspiration risk 2. Post-operative status, left femur fracture repair: - Orthopedic consultation for post-operative evaluation - Pain management with consideration of delirium risk - Physical therapy evaluation when medically stable -Per hospitalist will get a CT scan of the leg to rule out any deep-seated fluid collection or signs of infection 3. Urinary tract infection: - Continue antibiotic coverage - Maintain urinary catheter for now given patient's condition - Monitor urine output and characteristics 4. Delirium/Altered mental status: - Discontinue unnecessary medications that may contribute to delirium - Implement non-pharmacological delirium prevention strategies - Monitor mental status 5. Dehydration and poor nutritional status: - IV fluid resuscitation - Nutritional consultation - Monitor electrolytes and renal function 7. Goals of care: - Family agrees with aggressive medical management but no heroic measures - No CPR, no intubation, no feeding tube - Focus on comfort if patient does not respond to treatment - Document code status as DNR/DNI Lab Data 05/16/25 21:35 05/16/25 21:35 Radiology Impressions Chest X-Ray 05/16/25 21:35 IMPRESSION: 1. Interval development of right middle lobe and right lower lobe atelectasis and/or pneumonia. Recommend followup chest imaging to insure resolution of these findings. 2. Incidental/nonacute findings are listed in the report. Femur CT 05/16/25 23:39 IMPRESSION: 1. Stable changes consistent with a previous left hip arthroplasty. Patient has had an interval closed reduction of a periprosthetic fracture extending inferiorly from the distal tip of the femoral component of the left hip prosthesis. Alignment is now anatomic. There is a lateral fixation plate with multiple cerclage wires around the femoral component of the prosthesis and 5 cannulated fixation screws inferior to the prosthesis. Few foci of soft tissue emphysema medial to the proximal femoral metaphysis and the foci of intra osseous air in the mid diaphysis of the left femur, likely postsurgical in nature. 2. Increasing sclerosis at an H-type fracture of the visualized sacrum. The fracture extends across the midline at the S2 segment. Faint fracture lines are still visible at the sacrum. 3. Increasing sclerosis at an nondisplaced fracture of the left pubic bone. A fracture line is still visualized bone left the left pubic bone. 4. Diffuse, marked subcutaneous edema in the visualized subcutaneous tissues. 5. Incidental/nonacute findings are listed in the report. Laboratory Results WBC 18.25 10^3/uL (3.29-11.43) H 05/16/25 21:35 RBC 3.36 10^6/uL (3.85-5.65) L 05/16/25 21:35 Hgb 9.90 g/dL (11.27-16.99) L 05/16/25 21:35 Hct 30.1 % (36-47) L 05/16/25 21:35 MCV 89.6 fl (85-98) 05/16/25 21:35 MCH 29.5 pg (27-33) 05/16/25 21:35 MCHC 32.9 g/dL (30-55) 05/16/25 21:35 RDW 16.4 % (12.1-15.1) H 05/16/25 21:35 Plt Count 186 10^3/cmm (157-399) 05/16/25 21:35 MPV 9.9 fL (7.4-10.4) 05/16/25 21:35 Neut % (Auto) 91.2 % 05/16/25 21:35 Lymph % (Auto) 3.7 % 05/16/25 21:35 [place] % (Auto) 3.8 % 05/16/25 21:35 Eos % (Auto) 0.1 % 05/16/25 21:35 Baso % (Auto) 0.5 % 05/16/25 21:35 Neut # (Auto) 16.62 10^3/uL (1.8-7.7) H 05/16/25 21:35 Lymph # (Auto) 0.7 10^3/uL (0.8-4.8) L 05/16/25 21:35 [place] # (Auto) 0.7 10^3/uL (0.2-0.9) 05/16/25 21:35 Eos # (Auto) 0.0 10^3/uL (0.0-0.8) 05/16/25 21:35 Baso # (Auto) 0.1 10^3/uL (0.0-0.1) 05/16/25 21:35 Nucleated RBC % (auto) 0 % 05/16/25 21:35 Nucleated RBCs # 0.0 /100WBC 05/16/25 21:35 Sodium 137 mmol/L (136-145) 05/16/25 21:35 Potassium 3.9 mmol/L (3.5-5.1) 05/16/25 21:35 Chloride 105 mmol/L (98-107) 05/16/25 21:35 Carbon Dioxide 19 mmol/L (22-29) L 05/16/25 21:35 Anion Gap 16.9 (5-19) 05/16/25 21:35 BUN 51 mg/dL (8-23) H 05/16/25 21:35 Creatinine 1.3 mg/dL (0.5-0.9) H 05/16/25 21:35 GFR Calculation Not Reportable 05/16/25 21:35 Glucose 91 mg/dL (65-115) 05/16/25 21:35 Calculated Osmolality 297 mOsm/kg (285-295) H 05/16/25 21:35 Lactic Acid 1.1 mmol/L (0.5-2.2) 05/16/25 21:35 Calcium 9.1 mg/dL (8.5-10.5) 05/16/25 21:35 Total Bilirubin 0.5 mg/dL (0.15-1.2) 05/16/25 21:35 AST 18 U/L (0-32) 05/16/25 21:35 ALT < 5 U/L (0-33) 05/16/25 21:35 Alkaline Phosphatase 100 U/L (35-105) 05/16/25 21:35 C-Reactive Protein 224.4 mg/L (0.0-4.9) H 05/16/25 21:35 Total Protein 5.0 g/dL (6.6-8.7) L 05/16/25 21:35 Albumin 2.4 g/dL (3.5-5.2) L 05/16/25 21:35 Globulin 2.6 g/dL (1.3-4.6) 05/16/25 21:35 Urine Color Yellow (Yellow) 05/16/25 21:45 Urine Appearance Clear (CLEAR) 05/16/25 21:45 Urine pH 5.5 (5-7) 05/16/25 21:45 Ur Specific [place] 1.020 (1.005-1.030) 05/16/25 21:45 Urine Protein 2+ (Negative) A 05/16/25 21:45 Urine Glucose (UA) Negative (Normal) 05/16/25 21:45 Urine Ketones 1+ (Negative) H 05/16/25 21:45 Urine Blood 2+ (Negative) A 05/16/25 21:45 Urine Nitrate Negative (Negative) 05/16/25 21:45 Urine Bilirubin Negative (Negative) 05/16/25 21:45 Urine Urobilinogen 1.0 mg/dL (Negative) 05/16/25 21:45 Ur Leukocyte Esterase Negative (Negative) 05/16/25 21:45 Urine RBC 0-2 /hpf (0-2) 05/16/25 21:45 Urine WBC 0-5 /hpf (0-5) 05/16/25 21:45 Ur Squamous Epith Cells 0-5 /hpf (0-5) 05/16/25 21:45 Amorphous Sediment Not Reportable 05/16/25 21:45 Urine Bacteria None seen /hpf (NONE) 05/16/25 21:45 Hyaline Casts 7.42 /lpf 05/16/25 21:45 Urine Mucus 1+ /hpf 05/16/25 21:45 All radiology interpretation(s) finalized by discharge Other Data Patient's CT did not reveal any concerns of significant abscess or unexpected findings. May go ahead and admit her in the hospital for concerns of pneumonia and sepsis. We bryan a lactic which was normal I hesitated to give her the complete fluid bolus given her CHF history. Further orders after bridge orders placed will be performed by the hospitalist. Discharge Plan Discharge Patient Disposition: Admitted As Inpatient Clinical Impression: Sepsis, RLL pneumonia Condition: Stable Coding Level of Care Code ED Residential Manager for Callie Guevara
[2025-05-16 22:00] VITALS: BP 112/66; PULSE 111; RESP 16; O2SAT 94
[2025-05-16 22:00] LABS: Alanine Aminotransferase < 5 U/L (0-33); Albumin Level 2.4 g/dL (3.5-5.2); Alkaline Phosphatase 100 U/L (35-105); Anion Gap 16.9 (5-19); Aspartate Amino Transferase 18 U/L (0-32); Blood Urea Nitrogen 51 mg/dL (8-23); Calcium 9.1 mg/dL (8.5-10.5); Carbon Dioxide 19 mmol/L (22-29); Chloride 105 mmol/L (98-107); Creatinine Clr Calc Pharmacy 26.7223; Globulin 2.6 g/dL (1.3-4.6); Glucose 91 mg/dL (65-115); Osmolality Calculated 297 mOsm/kg (285-295); Potassium 3.9 mmol/L (3.5-5.1); Sodium 137 mmol/L (136-145); Total Protein 5.0 g/dL (6.6-8.7)
[2025-05-16 22:01] LABS: Lactic Sepsis W/Reflex 1.1 mmol/L (0.5-2.2)
[2025-05-16 22:02] LABS: Glucose Urine UA Negative (Normal); Nitrate Urine Negative (Negative); Specific Gravity, Urine 1.020 (1.005-1.030)
[2025-05-16 22:04] LABS: Slide Review Slide Review Perform
[2025-05-16 22:08] LABS: Add Urine Microscopic? YES
[2025-05-16 22:20] LABS: UA Slide Review UA Slide Review Perf
[2025-05-16 23:00] VITALS: BP 98/67; PULSE 100; RESP 15; O2SAT 94
[2025-05-16] MEDS: piperacillin-tazobactam 3.375 GM in sodium chloride 0.9% (plus) 50 ML IV (23:36)
--- NOTE | 2025-05-16 23:39 | CTR_ITS ---
PROCEDURE INFORMATION: Exam: CT Left Lower Extremity Without Contrast, Thigh Exam date and time: 05/16/2025 11:57 PM Age: 89 years old Clinical indication: Pain; Thigh; Prior surgery; Surgery date: 3-7 days post-operative; Surgery type: Left femur repair 05/12/25; Additional info: ? Post op infection TECHNIQUE: Imaging protocol: CT of the left lower extremity without contrast was performed. Exam focused on the thigh. Radiation optimization: All CT scans at this facility use at least one of these dose optimization techniques: automated exposure control; mA and/or kV adjustment per patient size (includes targeted exams where dose is matched to clinical indication); or iterative reconstruction. COMPARISON: CR (LOW EXM, ) 05/10/2025 8:27 PM RADIATION DOSE METRICS: Total DLP (mGy-cm): 632.83 FINDINGS: Bones/joints: Increasing sclerosis at an H-type fracture of the visualized sacrum. The fracture extends across the midline at the S2 segment. Faint fracture lines are still visible at the sacrum. Increasing sclerosis at an nondisplaced fracture of the left pubic bone. A fracture line is still visualized bone left the left pubic bone. Stable diffuse, marked osteopenia of the visualized bones. Stable changes consistent with a previous left hip arthroplasty. Patient has had an interval closed reduction of a periprosthetic fracture extending inferiorly from the distal tip of the femoral component of the left hip prosthesis. Alignment is now anatomic. There is a lateral fixation plate with multiple cerclage wires around the femoral component of the prosthesis and 5 cannulated fixation screws inferior to the prosthesis. Few foci of soft tissue emphysema medial to the proximal femoral metaphysis and the foci of intra osseous air in the mid diaphysis of the left femur, likely postsurgical in nature. No dislocation. No joint effusion. Soft tissues: Diffuse, marked subcutaneous edema in the visualized subcutaneous tissues. Skin elida at the lateral aspect of the left thigh. Vasculature: Moderate atherosclerotic changes in the visualized arteries. Intestine: No acute abnormality in the visualized bowel. Urinary bladder: The bladder is decompressed by a Garcias catheter. Reproductive: Patient has had a previous hysterectomy. CT/CT femur LT wo con* [id number] IMPRESSION: 1. Stable changes consistent with a previous left hip arthroplasty. Patient has had an interval closed reduction of a periprosthetic fracture extending inferiorly from the distal tip of the femoral component of the left hip prosthesis. Alignment is now anatomic. There is a lateral fixation plate with multiple cerclage wires around the femoral component of the prosthesis and 5 cannulated fixation screws inferior to the prosthesis. Few foci of soft tissue emphysema medial to the proximal femoral metaphysis and the foci of intra osseous air in the mid diaphysis of the left femur, likely postsurgical in nature. 2. Increasing sclerosis at an H-type fracture of the visualized sacrum. The fracture extends across the midline at the S2 segment. Faint fracture lines are still visible at the sacrum. 3. Increasing sclerosis at an nondisplaced fracture of the left pubic bone. A fracture line is still visualized bone left the left pubic bone. 4. Diffuse, marked subcutaneous edema in the visualized subcutaneous tissues. 5. Incidental/nonacute findings are listed in the report.
[2025-05-17] VITALS (13 sets, daily range): BP systolic 92–148; BP diastolic 58–94; PULSE 84–120; RESP 13–23; TEMP 36.1–37.1; O2SAT 90–96; BMI 23.4
--- NOTE | 2025-05-17 03:00 | PM.HP ---
Providers/Chief Complaint Admitting Physician: Aaliyah Chan MD Primary Care Provider: Nelly Robertson MD Chief Complaint: ABD PAIN History of Present Illness Esthela Billings is a 89 year old female with a past medical history of dementia, hypertension, history of A-fib not on any anticoagulation due to a history of recurrent falls. Most recently her falls have resulted in a right wrist fracture in early April. She was in the emergency room on May 10, 2025 after having sustained a ground-level fall at home following which she developed a fracture of the femur and pubic ramus fracture of pelvis. She was transferred to [facility] from the ER on this day due to anticipated higher level of care. She underwent surgery at [facility]. Reportedly her postop course was notable for urinary retention therefore patient still has a Garcias catheter in place, she had edema and agitation additionally. She was transferred to alf for rehabilitation where she presented on Friday. skilled nursing transferred patient to emergency room today due to altered mental status. Patient was less responsive than her baseline, she is typically able to state a few words and recognizes family members but has not been able to do that recently. She was additionally noted to have some hypoxia at the alf therefore sent to the emergency room. Chest x-ray here shows right lower lobe infiltrate concerning for pneumonia. In the emergency room she was noted to have an aspiration event after attempting to drink water. Patient appears to be clinically dehydrated. Her incision site is draining dark yellow discharge, dressing was soaked through and needed to be changed in the emergency room. Review of Systems General: Reports: ROS unobtainable due to mental status Medications/Allergies Home Medications ?Medication ?Instructions ?Recorded ?Confirmed ?Last Taken ?Type naproxen sodium 220 mg tablet 220 mg PO Q12H PRN Fever Or Pain 01/18/25 04/28/25 01/18/25 09:00 History (Aleve) aspirin 325 mg tablet 325 mg PO QAM 03/03/25 04/28/25 04/14/25 History mupirocin 2 % topical ointment 1 applic topical BID #50 grams 03/03/25 04/28/25 Unknown Rx (Centany) amiodarone 200 mg tablet 200 mg PO DAILY #90 tabs 03/22/25 04/28/25 04/14/25 Rx furosemide 20 mg tablet 20 mg PO BID #180 tabs 04/21/25 04/28/25 Unknown Rx metoprolol tartrate 25 mg tablet 25 mg PO BID #180 tabs 04/21/25 04/28/25 Unknown Rx potassium chloride 20 mEq 20 meq PO DAILY #90 tabs 04/21/25 04/28/25 Unknown Rx tablet,extended release(part/cryst) (Klor-Con M) Fast form splint, right wrist #1 ea 04/27/25 04/28/25 Unknown Rx wheelchair #1 ea 04/29/25 Unknown Rx Allergies Allergy/AdvReac Type Severity Reaction Status Date / Time adhesive tape Allergy Unknown Verified 04/28/25 15:48 PFSH Acute PFSH: Medical History Unsteady gait Mitral valve regurgitation Bilateral edema of lower extremity History of colon polyps colonoscopy 01/29/2021 Dr. 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 Vitals/I&O/Wt Last Vital Signs Temp 98.5 F 05/17/25 04:51 Pulse 108 H 05/17/25 04:44 Resp 14 05/17/25 04:51 BP 92/58 05/17/25 04:51 Pulse Ox 93 05/17/25 02:54 O2 Del Method Room Air 05/17/25 04:51 05/16/25 05/16/25 05/17/25 14:59 22:59 06:59 Intake Total 1050 / 1050 Balance 1050 / 1050 Weight last 48 hrs Weight 62 kg Weight 59.421 kg Physical Exam Narrative: General: confused, dehydrated, AO x1 HEENT: PERRLA, pupils bilaterally equal and reactive, pallors not present Chest: Normal vesicular breath sounds, no added sounds, equal good air entry bilaterally CVS: S1-S2 regular, no murmurs, no tachycardia, no gallops, no rubs Abdomen: Soft, nontender, non distended Neuro: confused, moves B/L upper extremities while laying in bed Extremities: Surgical dressing over left lateral femur, serosanginous discharge at this time with mild oozing. Data 05/16/25 21:35 05/16/25 21:35 Micro: Microbiology 05/16/25 22:07 Blood Culture - Preliminary Blood SPECIMEN COLLECTED 05/16/25 22:00 Blood Culture - Preliminary Blood SPECIMEN COLLECTED Other data: Radiology Impressions Chest X-Ray 05/16/25 21:35 IMPRESSION: 1. Interval development of right middle lobe and right lower lobe atelectasis and/or pneumonia. Recommend followup chest imaging to insure resolution of these findings. 2. Incidental/nonacute findings are listed in the report. Femur CT 05/16/25 23:39 IMPRESSION: 1. Stable changes consistent with a previous left hip arthroplasty. Patient has had an interval closed reduction of a periprosthetic fracture extending inferiorly from the distal tip of the femoral component of the left hip prosthesis. Alignment is now anatomic. There is a lateral fixation plate with multiple cerclage wires around the femoral component of the prosthesis and 5 cannulated fixation screws inferior to the prosthesis. Few foci of soft tissue emphysema medial to the proximal femoral metaphysis and the foci of intra osseous air in the mid diaphysis of the left femur, likely postsurgical in nature. 2. Increasing sclerosis at an H-type fracture of the visualized sacrum. The fracture extends across the midline at the S2 segment. Faint fracture lines are still visible at the sacrum. 3. Increasing sclerosis at an nondisplaced fracture of the left pubic bone. A fracture line is still visualized bone left the left pubic bone. 4. Diffuse, marked subcutaneous edema in the visualized subcutaneous tissues. 5. Incidental/nonacute findings are listed in the report. Laboratory Results WBC 18.25 10^3/uL (3.29-11.43) H 05/16/25 21:35 RBC 3.36 10^6/uL (3.85-5.65) L 05/16/25 21:35 Hgb 9.90 g/dL (11.27-16.99) L 05/16/25 21:35 Hct 30.1 % (36-47) L 05/16/25 21:35 MCV 89.6 fl (85-98) 05/16/25 21:35 MCH 29.5 pg (27-33) 05/16/25 21: MCHC 32.9 g/dL (30-55) 05/16/25 21:35 RDW 16.4 % (12.1-15.1) H 05/16/25 21:35 Plt Count 186 10^3/cmm (157-399) 05/16/25 21:35 MPV 9.9 fL (7.4-10.4) 05/16/25 21:35 Neut % (Auto) 91.2 % 05/16/25 21:35 Lymph % (Auto) 3.7 % 05/16/25 21:35 Chase % (Auto) 3.8 % 05/16/25 21:35 Eos % (Auto) 0.1 % 05/16/25 21:35 Baso % (Auto) 0.5 % 05/16/25 21:35 Neut # (Auto) 16.62 10^3/uL (1.8-7.7) H 05/16/25 21:35 Lymph # (Auto) 0.7 10^3/uL (0.8-4.8) L 05/16/25 21:35 Chase # (Auto) 0.7 10^3/uL (0.2-0.9) 05/16/25 21:35 Eos # (Auto) 0.0 10^3/uL (0.0-0.8) 05/16/25 21:35 Baso # (Auto) 0.1 10^3/uL (0.0-0.1) 05/16/25 21:35 Nucleated RBC % (auto) 0 % 05/16/25 21:35 Nucleated RBCs # 0.0 /100WBC 05/16/25 21:35 Sodium 137 mmol/L (136-145) 05/16/25 21:35 Potassium 3.9 mmol/L (3.5-5.1) 05/16/25 21:35 Chloride 105 mmol/L (98-107) 05/16/25 21:35 Carbon Dioxide 19 mmol/L (22-29) L 05/16/25 21:35 Anion Gap 16.9 (5-19) 05/16/25 21:35 BUN 51 mg/dL (8-23) H 05/16/25 21:35 Creatinine 1.3 mg/dL (0.5-0.9) H 05/16/25 21:35 GFR Calculation Not Reportable 05/16/25 21:35 Glucose 91 mg/dL (65-115) 05/16/25 21:35 Calculated Osmolality 297 mOsm/kg (285-295) H 05/16/25 21:35 Lactic Acid 1.1 mmol/L (0.5-2.2) 05/16/25 21:35 Calcium 9.1 mg/dL (8.5-10.5) 05/16/25 21:35 Total Bilirubin 0.5 mg/dL (0.15-1.2) 05/16/25 21:35 AST 18 U/L (0-32) 05/16/25 21:35 ALT < 5 U/L (0-33) 05/16/25 21:35 Alkaline Phosphatase 100 U/L (35-105) 05/16/25 21:35 C-Reactive Protein 224.4 mg/L (0.0-4.9) H 05/16/25 21:35 Total Protein 5.0 g/dL (6.6-8.7) L 05/16/25 21:35 Albumin 2.4 g/dL (3.5-5.2) L 05/16/25 21:35 Globulin 2.6 g/dL (1.3-4.6) 05/16/25 21:35 Urine Color Yellow (Yellow) 05/16/25 21:45 Urine Appearance Clear (CLEAR) 05/16/25 21:45 Urine pH 5.5 (5-7) 05/16/25 21:45 Ur Specific Hubert 1.020 (1.005-1.030) 05/16/25 21:45 Urine Protein 2+ (Negative) A 05/16/25 21:45 Urine Glucose (UA) Negative (Normal) 05/16/25 21:45 Urine Ketones 1+ (Negative) H 05/16/25 21:45 Urine Blood 2+ (Negative) A 05/16/25 21:45 Urine Nitrate Negative (Negative) 05/16/25 21:45 Urine Bilirubin Negative (Negative) 05/16/25 21:45 Urine Urobilinogen 1.0 mg/dL (Negative) 05/16/25 21:45 Ur Leukocyte Esterase Negative (Negative) 05/16/25 21:45 Urine RBC 0-2 /hpf (0-2) 05/16/25 21:45 Urine WBC 0-5 /hpf (0-5) 05/16/25 21:45 Ur Squamous Epith Cells 0-5 /hpf (0-5) 05/16/25 21:45 Amorphous Sediment Not Reportable 05/16/25 21:45 Urine Bacteria None seen /hpf (NONE) 05/16/25 21:45 Hyaline Casts 7.42 /lpf 05/16/25 21:45 Urine Mucus 1+ /hpf 05/16/25 21:45 A&P Assessment and plan (1) Altered mental status: Patient presenting with altered mental status, appears mentation has been waxing and waning since her most recent hospital stay at [facility] and then post discharge. Per history this appears to be metabolic encephalopathy, likely precipitated by surgery, pain and infection. Will obtain CT of the head without contrast to rule out any stroke or bleeding. Records requested from [facility] with regards to recent hospitalization. (2) Pneumonia: Chest x-ray showing right lower lobe pneumonia. Start empiric piperacillin/tazobactam and vancomycin for HCAP. Sputum culture and Gram stain if patient able to expectorate Blood culture taken in the emergency room, currently pending Patient is clinically dehydrated. Started on normal saline at 75 cc an hour. (3) Wound infection after surgery: Noted to have soaked dressing, dark yellow discharge noted. No gross pus encountered at this time. CT of the limb/left femur was requested and has now been completed, shows interval closed reduction of a periprosthetic fracture with anatomic alignment. Few foci of soft tissue emphysema medial to the proximal femoral meta physis, expected postsurgical changes. Empiric piperacillin/tazobactam and vancomycin to provide adequate coverage for potentially developing infection at the site. (4) Atrial fibrillation with RVR: A-fib with RVR, currently heart rate ranging between 108-120. Patient is unable to take p.o. amiodarone or metoprolol at this time. Will give amiodarone bolus 150 mg IV over 10 minutes and monitor for response. Once more awake will attempt a dysphagia screen and a formal swallow eval. (5) Sacral fracture: Incidentally noted sacral fracture on CT imaging today. Nondisplaced fracture of the left pubic bone, sustained a week ago again noted. (6) Acute kidney injury: Creatinine at 1.3 Normal saline at 75 cc an hour. Patient has a Garcias catheterization from her recent hospital admission. We will maintain this for now. Plan DVT prophylaxis heparin 5000 subcutaneous every 12 hours DNR/DNI PDMP PDMP Reviewed: Not Reviewed Attestations Medical Necessity Statement*: > 2 midnight stay is anticipated Coding Level of Care Code Acute Code for Chg Fwd High MDM includes number and complexity of problems actively addressed during encounter, amount and/or complexity of data reviewed/ordered and described risk of complication, morbidity or mortality of management as documented Diagnoses Altered mental status R41.82 Pneumonia J18.9 Wound infection after surgery T81.49XA Atrial fibrillation with RVR I48.91 Sacral fracture S32.10XA Acute kidney injury N17.9
[2025-05-17] MEDS: heparin 5,000 unit/mL INJ 1 mL 5000 UNIT SUBCUT (04:07)
--- NOTE | 2025-05-17 06:10 | PC.NURSE ---
Notified Dr. Chan regarding drainage from femur fracture repair that was saturated through the bed and starting to saturate after drsg change. Patient HR also climbing into the [address] Chan at bedside discussing access and IVF. Per MD hold PO dose of amiodarone instead give bolus. MD to adjust IVF and possibly of midline placement as well as ordering CT of head.
[2025-05-17] MEDS: amiodarone 150 MG/100 ML PREMIX 400 MG IV (06:20)
[2025-05-17] MEDS: piperacillin-tazobactam 3.375 GM in sodium chloride 0.9% (plus) 50 ML IV (06:20)
--- NOTE | 2025-05-17 06:55 | CT_ITS ---
WS: [email or web address] Exam: CT head wo con* [id number] Date/Time of Exam: 05/17/2025 10:01 AM Reason For Exam: assess for stroke DLP: 1080.[address] scans at [facility] use at least one of these dose optimization techniques: automated exposure control; mA and/or kV adjustment per patient size (includes targeted exams where dose is matched to clinical indication); or iterative reconstruction. Comparison 12/23/2024. No evidence of space-occupying mass or acute intracranial bleed. There is diffuse atrophy and microvascular ischemic changes in the cerebral white matter substance. The ventricles and basal cisterns are unremarkable in appearance. No extra-axial fluid collections are seen. The skull and scalp are intact. The mastoids and facial sinuses are clear. Leftward nasal septal deviation. Again noted are postop changes of the LEFT optic globe. CT/CT head wo con* [id number] IMPRESSION: 1. No acute intracranial finding. 2. Atrophy and microvascular ischemic changes.
[2025-05-17 07:31] LABS: Thyroid Stimulating Hormone 2.12 uIU/mL (0.27-4.20)
--- NOTE | 2025-05-17 08:21 | USCV_ITS ---
Esthela Billings Age: 89 Gender: F : 1935 Exam Date: 05/17/2025 14:00 Ordering Phys: Javan Stoddard MD Technologist: [place] [facility] [place]: swelling PROCEDURES: The venous duplex Doppler examination of both lower extremities was performed in the standard fashion. The following venous structures were evaluated: common femoral vein, profunda vein, proximal portion of the greater saphenous vein, superficial femoral vein, and the popliteal vein. In addition, the posterior tibial and peroneal trunk were evaluated. FINDINGS: Normal 2-D Doppler and augmentation and compressibility throughout the lower extremity venous structures. Additional imaging through the proximal calf veins also reveals no thrombus. Limited evaluation of the greater saphenous vein is patent with no thrombus. CONCLUSIONS No evidence of right lower extremity DVT. No evidence of left lower extremity DVT. Mandeep Schmitz MD (Electronically Signed) Final Date: 17 May 2025 15:48 S
--- NOTE | 2025-05-17 08:52 | ECG_ITS ---
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 Measurements Intervals [place] Rate: 106 P: 0 MO: 0 QRS: -23 QRSD: 118 T: 108 QT: 368 QTc: 489 Interpretive Statements ATRIAL FIBRILLATION WITH RAPID VENTRICULAR RESPONSE LOW QRS VOLTAGE IN EXTREMITY LEADS [QRS DEFLECTION < 0.5 mV IN LIMB LEADS] ANTERIOR MYOCARDIAL INFARCTION , PROBABLY RECENT [40+ ms Q WAVE AND/OR ST/T ABNORMALITY IN V3/V4] ACUTE [place] Compared to ECG 05/16/2025 21:28:29 Low QRS voltage now present Left-axis deviation no longer present Myocardial infarct finding still present Electronically Signed On 05-17-2025 17:17:23 CDT by Tracey Meza M.D. [email or web address]
--- NOTE | 2025-05-17 10:19 | PHA.VACGOAL ---
Vancomycin Goal - Goal Vancomycin Goal:: 10-15 mg/L Vancomycin Indication:: SSTI - Therapy Current therapy:: Pip/Tazo Day of therpy:: Day []of [] . Actual body weight (kg): 136 lb 10.986 oz - Data Labs: WBC 18.25 10^3/uL (3.29-11.43) H 05/16/25 21:35 RBC 3.36 10^6/uL (3.85-5.65) L 05/16/25 21:35 Hgb 9.90 g/dL (11.27-16.99) L 05/16/25 21:35 Hct 30.1 % (36-47) L 05/16/25 21:35 MCV 89.6 fl (85-98) 05/16/25 21:35 MCH 29.5 pg (27-33) 05/16/25 21:35 MCHC 32.9 g/dL (30-55) 05/16/25 21:35 RDW 16.4 % (12.1-15.1) H 05/16/25 21:35 Sodium 137 mmol/L (136-145) 05/16/25 21:35 Potassium 3.9 mmol/L (3.5-5.1) 05/16/25 21:35 Chloride 105 mmol/L (98-107) 05/16/25 21:35 Carbon Dioxide 19 mmol/L (22-29) L 05/16/25 21:35 Anion Gap 16.9 (5-19) 05/16/25 21:35 BUN 51 mg/dL (8-23) H 05/16/25 21:35 Creatinine 1.3 mg/dL (0.5-0.9) H 05/16/25 21:35 GFR Calculation Not Reportable 05/16/25 21:35 Last dialysis session:: N/A Treatment plan:: new consult Regimen:: INITIAL LOADING DOSE OF 1250 MG X 1. PLAN TO PULSE DOSE DUE TO DECREASED RENAL FUNCTION. Follow up:: LEVEL 24 HOURS POST LOADING DOSE
[2025-05-17 10:26] LABS: Troponin(5th) Baseline 40 ng/L (0-10)
--- NOTE | 2025-05-17 10:33 | XR_ITS ---
WS: [email or web address] Exam: XR chest 1V portable [id number] Date/Time of Exam: 05/17/2025 11:03 AM Reason For Exam: Post PICC insertion Comparison with the latest exam 05/16/2025. A right-sided PICC line has been placed and appears to end at the cavoatrial junction in satisfactory position. Again noted is atelectasis and consolidation in the RIGHT lower lung zone unchanged. No pneumothorax noted. No pleural effusion. Mild cardiac enlargement unchanged. The mediastinum is normal in contour. Permanent cardiac pacer superimposes the LEFT chest. XR/XR chest 1V portable [id number] IMPRESSION: 1. Right-sided PICC line ending at the cavoatrial junction in satisfactory posi tion. The chest is otherwise essentially unchanged since the last exam.
--- NOTE | 2025-05-17 11:41 | PICC.NOTE ---
Douoble lumen PICC placed to right basilic vein. Referred to vascular access nurse for PICC placement due to poor access. Risks and benefits discussed and informed consent obtained from pt daughter, Nicolas, via phone. Right arm assessed with right basilic vein measuring 4.5 mm, straight, and apparent best choice for placement. Using sterile technique and MST, right basilic vein accessed x 1 stick. Mid-arm circumference measured 10 cm from right AC 26 cm. Trimmed cath 34 cm with 1 cm external length noted. CXR shows tip in cavoatrial junction, in good position for use per radiologist. Line secured with stat-lock. Insertion site covered with Biopatch and TSM. Report given to bedside nurse, Lee RN.
--- NOTE | 2025-05-17 12:01 | CT_ITS ---
WS: [email or web address] Exam: CT angio chest w abd pel w con Date/Time of Exam: 05/17/2025 12:24 PM Reason For Exam: shortness of breath DLP: 867.[address] scans at [facility] use at least one of these dose optimization techniques: automated exposure control; mA and/or kV adjustment per patient size (includes targeted exams where dose is matched to clinical indication); or iterative reconstruction. CT angio of the chest. There are acute pulmonary emboli involving lobar branches to the upper and lower lobes of the LEFT lung and the RIGHT lower lobe. No central pulmonary emboli are identified. Bilateral pleural effusions are noted with compressive atelectasis of the RIGHT middle and lower lobes and also of the LEFT lower lobe. The thoracic aorta is normal in caliber. The airway is patent. There are areas of plaque atelectasis in the RIGHT and LEFT lungs. No pericardial effusion. Heart size top limits normal. No lymphadenopathy in the chest. Permanent cardiac pacer is noted over the LEFT chest. Advanced degenerative changes of the T-spine with several insufficiency compression fractures of the mid and lower T-spine. The chest wall is intact. Mild anasarca. CT/CT angio chest w abd pel w con IMPRESSION: 1. Exam positive for acute pulmonary emboli involving the lobar arteries to the upper and lower lobes of the LEFT lung and also of the RIGHT lower lobe. No ce ntral pulmonary emboli seen. 2. Moderate pleural effusions noted bilaterally with compressive atelectasis of the lungs as detailed above. CT scan of the abdomen and pelvis with IV contrast. The liver is not enlarged. Pneumobilia again noted near the adilene hepatis. The gallbladder is surgically absent. The pancreas is unremarkable. The abdominal a erendira is not dilated. The IVC is patent. Large amount of fluid and food debris i n the stomach. Surgically absent gallbladder. Bilateral renal cysts. No renal o bstruction noted. Unremarkable adrenal glands. Edema and stranding noted throug hout the mesenteric fat. A RIGHT retroperitoneal abscess is noted which is visu alized near the upper pole of the RIGHT kidney and extends in the retroperitone al space into the RIGHT pelvis. Small bowel loops are not dilated. Moderate deneen unt of stool in the colon. Postsurgical changes noted in the region of the rect um. Appendix not seen. Subacute fracture of the LEFT pubis. Bilateral insuffici ency sacral fractures. Advanced degenerative changes of the thoracic and lumbar spine. Several old lower thoracic compression fractures. LEFT total hip replac ement. Anasarca. IMPRESSION: 1. Right-sided retroperitoneal abscess which begins at about the level of the u pper pole of the RIGHT kidney and extends in the retroperitoneal space into the RIGHT pelvis along the anterior margin of the RIGHT iliac wing. 2. Large amount of fluid and food debris in the stomach which might indicate ga stric outlet obstruction. 3. Pneumobilia, 4. Fractures of the sacrum and pelvis which are subacute.
[2025-05-17] MEDS: iohexol 350 mg/mL 500 mL Btl (per mL) IV (12:25)
--- NOTE | 2025-05-17 12:41 | ECG_ITS ---
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 Measurements Intervals [place] Rate: 103 P: 0 IA: 0 QRS: -1 QRSD: 120 T: 150 QT: 362 QTc: 475 Interpretive Statements ATRIAL FIBRILLATION WITH RAPID VENTRICULAR RESPONSE MODERATE INTRAVENTRICULAR CONDUCTION DELAY [105+ ms QRS DURATION, 80+ ms Q/S IN V1/V2, NO Q AND 60+ ms R IN I/aVL/V5/V6] NONSPECIFIC T-WAVE ABNORMALITY Compared to ECG 05/17/2025 08:52:56 Intraventricular conduction delay now present T-wave abnormality now present Myocardial infarct finding no longer present Electronically Signed On 05-17-2025 17:19:12 CDT by Tracey Meza M.D. [id number] [email or web address]
--- NOTE | 2025-05-17 13:04 | PC.PHAR ---
[facility] faxed over Med list . Patient was taken off some of her previous medication . Patient was added a few supplements and a few new medications. Patient was also put on Oxycodone 5mg , to be taken with a 325 Tylenol.
--- NOTE | 2025-05-17 14:22 | ECG_ITS ---
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 Measurements Intervals [place] Rate: 115 P: 0 CA: 0 QRS: -7 QRSD: 119 T: 137 QT: 357 QTc: 494 Interpretive Statements ATRIAL FIBRILLATION WITH RAPID VENTRICULAR RESPONSE LOW QRS VOLTAGE IN EXTREMITY LEADS [QRS DEFLECTION < 0.5 mV IN LIMB LEADS] POSSIBLE ANTERIOR MYOCARDIAL INFARCTION , OF INDETERMINATE AGE [30 ms Q WAVE IN V3/V4, OR R < 0.2 mV IN V4] Compared to ECG 05/17/2025 12:41:02 Low QRS voltage now present Myocardial infarct finding now present Intraventricular conduction delay no longer present T-wave abnormality no longer present Electronically Signed On 05-17-2025 17:18:03 CDT by Tracey Meza M.D. [email or web address]
[2025-05-17 14:55] LABS: Troponin 5 6HR 39.49 ng/L (0-10)
[2025-05-17 14:56] LABS: Troponin 5 6HR Delta -0.51 ng/L (0-12)
--- NOTE | 2025-05-17 15:36 | PM.MISC ---
Miscellaneous Note Note: Full consult note to follow Patient with multiple comorbidities including PE on xarelto. Recently had left hip replacement. Scanned for abdominal pain. CT scan shows pneumatosis of the stomach and portal vein gas, as well as large amount of right retroperitoneal gas reported by radiology as consistent with a retroperitoneal abscess. This amount of gastric pneumatosis has a really bad prognosis. Etiology is unknown, however, she does have a lot of atherosclerosis at the take off of the celiac trunk. I am highly suspicious of gastric ischemia. She is not a surgical candidate due to her multiple comorbidities, as well as severe atherosclerosis of the celiac trunk. I do not think she would survive a total gastrectomy with a reconstruction. Discussed with hospitalist.
--- NOTE | 2025-05-17 15:42 | PM.CONSULT ---
Providers/Reason For Consult Consulting Physician/Specialty*: dr cutler general surgery Reason for Consult*: pneumatosis intestinalis Attending Physician: Javan Stoddard MD Primary Care Provider: Nelly Robertson MD History of Present Illness History of Present Illness Esthela Billings is a 89 year old female. Patient with multiple comorbidities including PE on xarelto. Recently had left hip replacement. Scanned for abdominal pain. CT scan shows pneumatosis of the stomach and portal vein gas, as well as large amount of right retroperitoneal gas reported by radiology as consistent with a retroperitoneal abscess. Medications/Allergies Home Medications ?Medication ?Instructions ?Recorded ?Confirmed ?Last Taken ?Type aspirin 325 mg tablet 325 mg PO QAM 03/03/25 05/17/25 04/14/25 History amiodarone 200 mg tablet 200 mg PO DAILY #90 tabs 03/22/25 05/17/25 04/14/25 Rx Fast form splint, right wrist #1 ea 04/27/25 05/17/25 Unknown Rx wheelchair #1 ea 04/29/25 05/17/25 Unknown Rx acetaminophen 325 mg tablet 650 mg PO QID PRN Fever Or Pain 05/17/25 05/17/25 Unknown History (Tylenol) ascorbic acid (vitamin C) 500 mg 1,000 mg PO DAILY 05/17/25 05/17/25 Unknown History tablet bisacodyl 10 mg rectal suppository 10 mg OH DAILY PRN Constipation 05/17/25 05/17/25 Unknown History (Dulcolax (bisacodyl)) cyanocobalamin (vitamin B-12) 500 1,500 mcg PO DAILY 05/17/25 05/17/25 Unknown History mcg tablet magnesium oxide 400 mg (241.3 mg 400 mg PO DAILY 05/17/25 05/17/25 Unknown History magnesium) tablet metoprolol tartrate 50 mg tablet 50 mg PO BID 05/17/25 05/17/25 05/14/25 22:15 History oxycodone 5 mg tablet See Rx Instructions .Route 05/17/25 05/17/25 05/16/25 17:00 History .COMPLEX PRN Pain oxycodone-acetaminophen 5 mg-325 1 tab PO Q6H PRN Pain 05/17/25 05/17/25 Unknown History mg tablet rivaroxaban 15 mg tablet (Xarelto) 15 mg PO QPM 05/17/25 05/17/25 05/16/25 17:00 History Allergies Allergy/AdvReac Type Severity Reaction Status Date / Time adhesive tape Allergy Unknown Verified 04/28/25 15:48 Current Medications Generic Name Dose Route Start Last Admin Trade Name Freq PRN Reason Stop Dose Admin Piperacillin Sod/Tazobactam 50 mls @ 12.5 mls/hr 05/17/25 05:30 05/17/25 10:28 Sod 3.375 gm/ Sodium Chloride IV Infused Q8H NANCI Infusion Sodium Chloride 1,000 mls @ 75 mls/hr 05/17/25 06:00 05/17/25 06:19 Sodium Chloride 0.9% IV 75 mls/hr .[id number] NANCI Administration Pantoprazole Sodium 40 mg 05/17/25 09:00 05/17/25 08:[address] 40 Mg Tablet PO Not Given DAILY NANCI PFSH Acute PFSH: Medical History (Updated 05/18/25 @ 21:32 by Alexander Cutler MD) Unsteady gait Mitral valve regurgitation Bilateral edema of lower extremity History of colon polyps colonoscopy 01/29/2021 Dr. 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 Vitals/I&O/Wt Last Vital Signs Temp 98.3 F 05/17/25 08:00 Pulse 112 H 05/17/25 08:00 Resp 15 05/17/25 08:00 BP 118/81 05/17/25 08:00 Pulse Ox 96 05/17/25 08:00 O2 Del Method Room Air 05/17/25 04:51 05/17/25 05/17/25 05/17/25 06:59 14:59 22:59 Intake Total 1400 / 1400 50 / 50 Balance 1400 / 1400 50 / 50 Weight last 48 hrs Weight 136 lb 10.986 oz Weight 131 lb Physical Exam Narrative: rrr unlabored breathing ra abdomen soft, mildly ttp, mildly distended Data 05/16/25 21:35 05/16/25 21:35 Micro: Microbiology 05/16/25 22:07 Blood Culture - Preliminary Blood SPECIMEN COLLECTED 05/16/25 22:00 Blood Culture - Preliminary Blood SPECIMEN COLLECTED A&P Assessment and plan 1. Pneumatosis intestinalis: Plan: 89 yo female with pneumatosis of the stomach. Portal vein gas. Multiple comorbidities. Suspect gastric ischemia which is of bad prognosis. Not a surgical candidate. Would not tolerate total gastrectomy with reconstruction. PDMP PDMP Reviewed: Not Reviewed Coding Level of Care Code Acute Code for [facility] Diagnoses Pneumatosis intestinalis K63.89
--- NOTE | 2025-05-17 17:00 | PM.PN ---
Subjective Subjective: Patient was examined multiple times throughout the the day -Early in the morning she was seen, she is alert to person, not to place, not to time, she appears comfortable, she is on room air, she is tachycardic heart rates in the 120s, appears to be A-fib, she is normotensive, on examination she does have abdominal distention, abdominal pain, abdomen is soft, distended, no bowel sounds heard she does have crackles in all lung aguila - Spoke to daughters at bedside she had rectal prolapse surgery about a month ago - She recently had her left femur surgery at [facility] and was discharged to the intermediate on , also had pubic rami fracture, she had surgery in [facility] in [place] - Her postop course was complicated with urinary retention, Garcias catheter in place - Since getting to the intermediate she has had increased drainage from the surgical elida and surgical site - She has had a poor appetite she has felt nauseous, family has been noticing that her abdomen has been more distended, they are worried about decreased bowel sounds, she has not had a bowel movement - She has been more confused - Discussed with them the femur CT scan findings, nothing acute, but on examination, surgical elida look clean and dry, but she does have seepage which is serous around the surgical site from the elida, and some edema - She had her surgery in [facility], discussed with family we will reach out to her orthopedic surgeon in [facility] - Just chest with family that certainly with her pneumonia, her tachycardia her shortness of breath or abdominal findings I am concerned for something going in her chest and her belly so we will do a CT scan chest abdomen pelvis, evaluate for possible hypercoagulable and such as pulmonary emboli, possible ileus after her surgery or bowel obstruction - Discussed with family continue IV antibiotics and clinically monitoring and awaiting for some of the test results to come back - I spoke to [facility] orthopedics, spoke to their on-call orthopedic physician, he was in the operating room during my discussion, he advised me to continue medical management and outpatient follow-up, nothing acute, recommended that seepage from his surgical site is expected CT scan findings as below - CT/CT angio chest w abd pel w con IMPRESSION: 1. Exam positive for acute pulmonary emboli involving the lobar arteries to the upper and lower lobes of the LEFT lung and also of the RIGHT lower lobe. No central pulmonary emboli seen. 2. Moderate pleural effusions noted bilaterally with compressive atelectasis of the lungs as detailed above. CT scan of the abdomen and pelvis with IV contrast. The liver is not enlarged. Pneumobilia again noted near the adilene hepatis. The gallbladder is surgically absent. The pancreas is unremarkable. The abdominal aorta is not dilated. The IVC is patent. Large amount of fluid and food debris in the stomach. Surgically absent gallbladder. Bilateral renal cysts. No renal obstruction noted. Unremarkable adrenal glands. Edema and stranding noted throughout the mesenteric fat. A RIGHT retroperitoneal abscess is noted which is visualized near the upper pole of the RIGHT kidney and extends in the retroperitoneal space into the RIGHT pelvis. Small bowel loops are not dilated. Moderate amount of stool in the colon. Postsurgical changes noted in the region of the rectum. Appendix not seen. Subacute fracture of the LEFT pubis. Bilateral insufficiency sacral fractures. Advanced degenerative changes of the thoracic and lumbar spine. Several old lower thoracic compression fractures. LEFT total hip replacement. Anasarca. IMPRESSION: 1. Right-sided retroperitoneal abscess which begins at about the level of the upper pole of the RIGHT kidney and extends in the retroperitoneal space into the RIGHT pelvis along the anterior margin of the RIGHT iliac wing. 2. Large amount of fluid and food debris in the stomach which might indicate gastric outlet obstruction. 3. Pneumobilia, 4. Fractures of the sacrum and pelvis which are subacute. -I discussed findings with [facility] in [place], spoke to the IR interventional radiologist -Interventional radiologist advised me that he is worried about pneumatosis, air in the wall of the stomach, there is also air in the portal vein, there is also air in the mesentery, he also feels that the description above is here around the right kidney, indicated of possible abdominal catastrophe, patient does have extensive arthrosclerosis on celiac plaque could be acute ischemia - I discussed findings with our surgeon Dr. Cutler - Dr. Cutler is also seeing gastric pneumatosis, which is a broad prognostic indicator, there is also a lot of arthrosclerosis of the celiac trunk highly suspicious for gastric ischemia, also portal vein gas, large amount of right retroperitoneal air and gas, he also sees possible retroperitoneal abscess -Discussed with Dr. Cutler findings are poor prognostic indicator, patient's prognosis is poor I had called patient's daughter about abdominal CT scan findings, including findings of PE, plan for family meeting this afternoon - Family meeting this afternoon - Patient's 2 daughters were present who are patient's healthcare power of juice bar team member - Discussed CT scan findings of bilateral pulmonary emboli, likely hypercoagulable event after patient's recent surgery, discussed morbidity and mortality associate with bilateral PEs - Discussed CT scan findings - Discussed first the retroperitoneal findings - Findings are hard to discern but there is retroperitoneal air, there is also findings of retroperitoneal abscess versus retroperitoneal bleed - Offered transfer to tertiary level center for IR intervention, IR drainage, IR evaluation, but discussed my findings with the interventional radiology at [facility], who felt that this was most likely air rather than an abscess - Discussed further findings of pneumatosis of the stomach, portal vein gas, findings highly consistent and concerning for intra-abdominal catastrophe possibility ischemia related to celiac trunk, gastric ischemia - Ultimately this is a poor prognosis - Ideally patient should be taken to the OR immediately she would potentially require a total gastrectomy with reconstruction - But with her history of dementia, her deconditioned state or recent surgery of bilateral PEs, her DNR/DNI status, interventions including transfer to tertiary level centers and any surgery would carry significant morbidity mortality, and the surgery that she would require for her CT scan findings would carry additional increased risk of morbidity and mortality - Discussed options of continued medical management versus comfort care - I discussed with daughter all the options available - After discussing risk and benefits of all options, patient's daughters who are patient's healthcare power of juice bar team member voiced understanding, all questions answered, shared decision making - Agreed to proceed with comfort care - Patient is alert to person, not place, time she cannot make informed decision - We will proceed with daughters wishes of comfort care - Stop antibiotics, stop all interventions and proceed with comfort care Vitals/I&O/Wt Last Vital Signs Temp 98.0 F 05/17/25 16:00 Pulse 109 H 05/17/25 16:00 Resp 19 H 05/17/25 16:00 BP 126/83 05/17/25 16:00 Pulse Ox 90 05/17/25 16:00 O2 Del Method Room Air 05/17/25 15:47 05/17/25 05/17/25 05/17/25 06:59 14:59 22:59 Intake Total 1400 / 1400 50 / 50 Balance 1400 / 1400 50 / 50 Weight last 48 hrs Weight 62 kg Weight 59.421 kg Physical Exam Const: COMMON NORMALS: no acute distress ORIENTATION/CONSCIOUSNESS: Yes awake, Yes oriented to person and Yes confused; not oriented to place and not oriented to time Resp: COMMON NORMALS: normal respiratory effort, No retractions and No use of accessory muscles AUSCULTATION: crackles and wheezes Cardio: COMMON NORMALS: regular rhythm, S1 normal heart sound present and S2 normal heart sound present RATE: tachycardic RHYTHM: regular rhythm HEART SOUNDS: S1 normal heart sound present and S2 normal heart sound present GI: OTHER: Abdomen is soft, distended, no good bowel sounds heard in all 4 quads, no guarding, no rebound, rigidity Extremity: COMMON NORMALS: no calf tenderness and no pedal edema Neuro: SENSORIUM/ORIENTATION: Yes oriented to person, No oriented to place and No oriented to time Skin: NARRATIVE SKIN EXAM: , DP PT pulses diminished bilateral, cap refill greater than 3 seconds Data 05/16/25 21:35 05/16/25 21:35 Micro: Microbiology 05/16/25 22:07 Blood Culture - Preliminary Blood SPECIMEN COLLECTED 05/16/25 22:00 Blood Culture - Preliminary Blood SPECIMEN COLLECTED A&P Assessment and plan 1. Altered mental status: 2. Pneumonia: 3. Wound infection after surgery: 4. Atrial fibrillation with RVR: 5. Sacral fracture: 6. Acute kidney injury: 7. Bilateral pulmonary embolism: 8. Retroperitoneal abscess: 9. Pneumatosis coli: 10. Pneumobilia: Plan: Patient with bilateral pulmonary emboli, with pneumatosis of the stomach, portal vein gas, large amount of right retroperitoneal gas, near or around right kidney, concerns for retroperitoneal abscess versus retroperitoneal bleed,, with pneumonia, with SUMAN, with anemia, - Proceeding with comfort care PDMP PDMP Reviewed: Not Reviewed Attestations Medical Necessity Statement*: Patient requires hospitalization for comfort care Coding Level of Care Code Critical Care >/= 30 minutes Critical care time (in minutes): 45 The high probability of a clinically significant, sudden or life threatening deterioration, as referenced in this documentation, required my full and direct attention, intervention and personal management. The critical care time shown is in addition to time spent performing any reported separately billable procedures and includes the following: [x] Data and vital sign review and interpretation [x] Patient assessment, examination and intervention [x] Medication orders and management [x] Patient/Family updates as able [x] Care Coordination and Documentation. Diagnoses Altered mental status R41.82 Pneumonia J18.9 Wound infection after surgery T81.49XA Atrial fibrillation with RVR I48.91 Sacral fracture S32.10XA Acute kidney injury N17.9 Bilateral pulmonary embolism I26.99 Retroperitoneal abscess K68.19 Pneumatosis coli K63.89 Pneumobilia K83.8
[2025-05-17] MEDS: morphine 4 mg/mL SDV 1 mL IVP (22:45)
--- NOTE | 2025-05-18 00:16 | PC.NURSE ---
Report called to CRISTINA Pierson Patient moved up to room 264 at approx midnight Called and updated Nicolas on the move upstairs and provided the room number.
[2025-05-18 00:25] VITALS: BP 115/69; PULSE 122; RESP 19; TEMP 37.1; O2SAT 92
[2025-05-18 07:34] VITALS: BP 125/86; PULSE 91; RESP 16; TEMP 36.6; O2SAT 92
[2025-05-18 08:00] VITALS: BP 125/86; PULSE 91; RESP 16; TEMP 36.6
[2025-05-18] MEDS: LORazepam 1 MG/0.5 ML injection IVP ×2 (16:05→22:56)
[2025-05-18 20:00] VITALS: BP 115/67; PULSE 70; RESP 18; TEMP 36.7; O2SAT 97
[2025-05-18] MEDS: glycopyrrolate 0.2 mg/mL SDV 2 mL IV (21:04)
[2025-05-19] MEDS: morphine 10 mg/0.5 mL oral liq UD SUBLINGUAL ×2 (02:23→08:25)
[2025-05-19 04:00] VITALS: BP 121/63; PULSE 66; RESP 17; TEMP 36.9; O2SAT 95
[2025-05-19] MEDS: LORazepam 1 MG/0.5 ML injection IVP (06:05)
--- NOTE | 2025-05-19 07:00 | PC.NURSE ---
Patient was unable to return home yesterday as the ambulance was unavailable to transport patient until 2 o'clcock this morning. Patient and family would like to wait until later today.
[2025-05-19 08:00] VITALS: BP 121/63; PULSE 66; RESP 17; TEMP 36.9
--- NOTE | 2025-05-19 08:59 | PC.NURSE ---
Notified Beatriz BOURGEOIS with [address] [place] [address] that patient was discharged and in route at this time.
[2025-05-19 09:03] VITALS: BP 120/68; PULSE 60; RESP 16; TEMP 37; O2SAT 94
--- NOTE | 2025-05-19 09:06 | PC.NURSE ---
Patient's PICC Line removed by Flor BOURGEOIS prior to discharge. Patient daughter at bedside at time of discharge.
--- NOTE | 2025-05-31 13:32 | PM.DCS ---
Discharge Providers Date of Admission: 05/17/25 02:46 Date of Discharge: May 31, 2025 Attending Provider at Admission: Aaliyah Chan MD Attending Provider at Discharge: Javan Stoddard MD Primary Care Provider: Nelly Robertson MD Diagnoses at Discharge Discharge Diagnosis 1. Pneumatosis intestinalis: Reason for Visit Reason for Visit: ABD PAIN Hospital Course Hospital Course Esthela Billings is a 89 year old female with a past medical history of dementia, hypertension, history of A-fib not on any anticoagulation due to a history of recurrent falls. [facility] status, Pneumonia,Atrial fibrillation with RVR , Sacral fracture, SUMAN Patient was examined multiple times throughout the the day -Early in the morning she was seen, she is alert to person, not to place, not to time, she appears comfortable, she is on room air, she is tachycardic heart rates in the 120s, appears to be A-fib, she is normotensive, on examination she does have abdominal distention, abdominal pain, abdomen is soft, distended, no bowel sounds heard she does have crackles in all lung aguila - Spoke to daughters at bedside she had rectal prolapse surgery about a month ago - She recently had her left femur surgery at [facility] and was [facility] to the [facility] on , also had pubic rami fracture, she had surgery in [facility] in [place] - Her postop course was complicated with urinary retention, Garcias catheter in place - Since getting to the [facility]dc she has had increased drainage from the surgical elida and surgical site - She has had a poor appetite she has felt nauseous, family has been noticing that her abdomen has been more distended, they are worried about decreased bowel sounds, she has not had a bowel movement - She has been more confused - Discussed with them the femur CT scan findings, nothing acute, but on examination, surgical elida look clean and dry, but she does have seepage which is serous around the surgical site from the elida, and some edema - She had her surgery in [facility], discussed with family we will reach out to her orthopedic surgeon in [facility] - Just chest with family that certainly with her pneumonia, her tachycardia her shortness of breath or abdominal findings I am concerned for something going in her chest and her belly so we will do a CT scan chest abdomen pelvis, evaluate for possible hypercoagulable and such as pulmonary emboli, possible ileus after her surgery or bowel obstruction - Discussed with family continue IV antibiotics and clinically monitoring and awaiting for some of the test results to come back - I spoke to [facility] orthopedics, spoke to their on-call orthopedic physician, he was in the operating room during my discussion, he advised me to continue medical management and outpatient follow-up, nothing acute, recommended that seepage from his surgical site is expectedCT scan findings as below - CT/CT angio chest w abd pel w conIMPRESSION: 1. Exam positive for acute pulmonary emboli involving the lobar arteries to the upper and lower lobes of the LEFT lung and also of the RIGHT lower lobe. No central pulmonary emboli seen. 2. Moderate pleural effusions noted bilaterally with compressive atelectasis of the lungs as detailed above. CT scan of the abdomen and pelvis with IV contrast. The liver is not enlarged. Pneumobilia again noted near the adilene hepatis. The gallbladder is surgically absent. The pancreas is unremarkable. The abdominal aorta is not dilated. The IVC is patent. Large amount of fluid and food debris in the stomach. Surgically absent gallbladder. Bilateral renal cysts. No renal obstruction noted. Unremarkable adrenal glands. Edema and stranding noted throughout the mesenteric fat. A RIGHT retroperitoneal abscess is noted which is visualized near the upper pole of the RIGHT kidney and extends in the retroperitoneal space into the RIGHT pelvis. Small bowel loops are not dilated. Moderate amount of stool in the colon. Postsurgical changes noted in the region of the rectum. Appendix not seen. Subacute fracture of the LEFT pubis. Bilateral insufficiency sacral fractures. Advanced degenerative changes of the thoracic and lumbar spine. Several old lower thoracic compression fractures. LEFT total hip replacement. Anasarca. IMPRESSION: 1. Right-sided retroperitoneal abscess which begins at about the level of the upper pole of the RIGHT kidney and extends in the retroperitoneal space into the RIGHT pelvis along the anterior margin of the RIGHT iliac wing. 2. Large amount of fluid and food debris in the stomach which might indicate gastric outlet obstruction. 3. Pneumobilia, 4. Fractures of the sacrum and pelvis which are subacute. -I discussed findings with 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 Cutler - Dr. Cutler is also seeing gastric pneumatosis, which is a broad prognostic indicator, there is also a lot of arthrosclerosis of the celiac trunk highly suspicious for gastric ischemia, also portal vein gas, large amount of right retroperitoneal air and gas, he also sees possible retroperitoneal abscess -Discussed with Dr. Cutler findings are poor prognostic indicator, patient's prognosis is poor I had called patient's daughter about abdominal CT scan findings, including findings of PE, plan for family meeting this afternoon - Family meeting this afternoon - Patient's 2 daughters were present who are patient's healthcare power of insurance defense attorney - Discussed CT scan findings of bilateral pulmonary emboli, likely hypercoagulable event after patient's recent surgery, discussed morbidity and mortality associate with bilateral PEs - Discussed CT scan findings - Discussed first the retroperitoneal findings - Findings are hard to discern but there is retroperitoneal air, there is also findings of retroperitoneal abscess versus retroperitoneal bleed - Offered transfer to tertiary level center for IR intervention, IR drainage, IR evaluation, but discussed my findings with the interventional radiology at [facility], who felt that this was most likely air rather than an abscess - Discussed further findings of pneumatosis of the stomach, portal vein gas, findings highly consistent and concerning for intra-abdominal catastrophe possibility ischemia related to celiac trunk, gastric ischemia - Ultimately this is a poor prognosis - Ideally patient should be taken to the OR immediately she would potentially require a total gastrectomy with reconstruction - But with her history of dementia, her deconditioned state or recent surgery of bilateral PEs, her DNR/DNI status, interventions including transfer to tertiary level centers and any surgery would carry significant morbidity mortality, and the surgery that she would require for her CT scan findings would carry additional increased risk of morbidity and mortality - Discussed options of continued medical management versus comfort care - I discussed with daughter all the options available - After discussing risk and benefits of all options, patient's daughters who are patient's healthcare power of insurance defense attorney voiced understanding, all questions answered, shared decision making - Agreed to proceed with comfort care - Patient is alert to person, not place, time she cannot make informed decision - We will proceed with daughters wishes of comfort care - Stop antibiotics, stop all interventions and proceed with comfort care -patient was discharged to [facility] on comfort care/hospice Physical Exam Const: COMMON NORMALS: no acute distress Resp: COMMON NORMALS: normal respiratory effort, No retractions and No use of accessory muscles AUSCULTATION: crackles and wheezes Cardio: COMMON NORMALS: regular rate, regular rhythm, S1 normal heart sound present and S2 normal heart sound present RATE: regular rate RHYTHM: regular rhythm HEART SOUNDS: S1 normal heart sound present and S2 normal heart sound present GI: AUSCULTATION: Yes Hypoactive bowel sounds present PALPATION: Yes Tenderness to palpation present (GI) Details: LLQ, RLQ, LUQ and RUQ Extremity: COMMON NORMALS: no pedal edema Psych: COMMON NORMALS: mental status grossly normal Urinary Catheter Management: Garcias Latex Free: Cath Placed During This Visit: no Reason for Continuing Indwelling Catheter: Hospice/Comfort/Palliative Care Discharge Data Studies Completed and Pending Completed Studies During Hospitalization Category Date Time Status CT Angio Chest + Abdomen Pelvis w/ contrast; 90517 + Cat Scan 05/17/25 12:[address] femur LT wo con* [id number] Stat Cat Scan 05/16/25 23:[address] head wo con* [id number] Routine Cat Scan 05/17/25 06:55 Completed CXRP [XR chest 1V portable [id number]] Routine Exams 05/17/25 10:33 Completed XR chest 1V portable [id number] Stat Exams 05/16/25 21:35 [place] [id number] Routine Ultrasound 05/17/25 08:21 Completed Radiology Impressions Femur CT 05/16/25 23:39 IMPRESSION: 1. Stable changes consistent with a previous left hip arthroplasty. Patient has had an interval closed reduction of a periprosthetic fracture extending inferiorly from the distal tip of the femoral component of the left hip prosthesis. Alignment is now anatomic. There is a lateral fixation plate with multiple cerclage wires around the femoral component of the prosthesis and 5 cannulated fixation screws inferior to the prosthesis. Few foci of soft tissue emphysema medial to the proximal femoral metaphysis and the foci of intra osseous air in the mid diaphysis of the left femur, likely postsurgical in nature. 2. Increasing sclerosis at an H-type fracture of the visualized sacrum. The fracture extends across the midline at the S2 segment. Faint fracture lines are still visible at the sacrum. 3. Increasing sclerosis at an nondisplaced fracture of the left pubic bone. A fracture line is still visualized bone left the left pubic bone. 4. Diffuse, marked subcutaneous edema in the visualized subcutaneous tissues. 5. Incidental/nonacute findings are listed in the report. Head CT 05/17/25 06:55 IMPRESSION: 1. No acute intracranial finding. 2. Atrophy and microvascular ischemic changes. Chest X-Ray 05/17/25 10:33 IMPRESSION: 1. Right-sided PICC line ending at the cavoatrial junction in satisfactory position. The chest is otherwise essentially unchanged since the last exam. Chest/Abdomen/Pelvis CT 05/17/25 12:01 IMPRESSION: 1. Exam positive for acute pulmonary emboli involving the lobar arteries to the upper and lower lobes of the LEFT lung and also of the RIGHT lower lobe. No central pulmonary emboli seen. 2. Moderate pleural effusions noted bilaterally with compressive atelectasis of the lungs as detailed above. CT scan of the abdomen and pelvis with IV contrast. The liver is not enlarged. Pneumobilia again noted near the adilene hepatis. The gallbladder is surgically absent. The pancreas is unremarkable. The abdominal aorta is not dilated. The IVC is patent. Large amount of fluid and food debris in the stomach. Surgically absent gallbladder. Bilateral renal cysts. No renal obstruction noted. Unremarkable adrenal glands. Edema and stranding noted throughout the mesenteric fat. A RIGHT retroperitoneal abscess is noted which is visualized near the upper pole of the RIGHT kidney and extends in the retroperitoneal space into the RIGHT pelvis. Small bowel loops are not dilated. Moderate amount of stool in the colon. Postsurgical changes noted in the region of the rectum. Appendix not seen. Subacute fracture of the LEFT pubis. Bilateral insufficiency sacral fractures. Advanced degenerative changes of the thoracic and lumbar spine. Several old lower thoracic compression fractures. LEFT total hip replacement. Anasarca. IMPRESSION: 1. Right-sided retroperitoneal abscess which begins at about the level of the upper pole of the RIGHT kidney and extends in the retroperitoneal space into the RIGHT pelvis along the anterior margin of the RIGHT iliac wing. 2. Large amount of fluid and food debris in the stomach which might indicate gastric outlet obstruction. 3. Pneumobilia, 4. Fractures of the sacrum and pelvis which are subacute. Laboratory Results WBC 18.25 10^3/uL (3.29-11.43) H 05/16/25 21:35 RBC 3.36 10^6/uL (3.85-5.65) L 05/16/25 21:35 Hgb 9.90 g/dL (11.27-16.99) L 05/16/25 21:35 Hct 30.1 % (36-47) L 05/16/25 21:35 MCV 89.6 fl (85-98) 05/16/25 21:35 MCH 29.5 pg (27-33) 05/16/25 21:35 MCHC 32.9 g/dL (30-55) 05/16/25 21:35 RDW 16.4 % (12.1-15.1) H 05/16/25 21:35 Plt Count 186 10^3/cmm (157-399) 05/16/25 21:35 MPV 9.9 fL (7.4-10.4) 05/16/25 21:35 Neut % (Auto) 91.2 % 05/16/25 21:35 Lymph % (Auto) 3.7 % 05/16/25 21:35 [place] % (Auto) 3.8 % 05/16/25 21:35 Eos % (Auto) 0.1 % 05/16/25 21:35 Baso % (Auto) 0.5 % 05/16/25 21:35 Neut # (Auto) 16.62 10^3/uL (1.8-7.7) H 05/16/25 21:35 Lymph # (Auto) 0.7 10^3/uL (0.8-4.8) L 05/16/25 21:35 [place] # (Auto) 0.7 10^3/uL (0.2-0.9) 05/16/25 21:35 Eos # (Auto) 0.0 10^3/uL (0.0-0.8) 05/16/25 21:35 Baso # (Auto) 0.1 10^3/uL (0.0-0.1) 05/16/25 21:35 Nucleated RBC % (auto) 0 % 05/16/25 21: Nucleated RBCs # 0.0 /100WBC 05/16/25 21:35 D-Dimer 10.64 ug/mLFEU (0-0.59) H 05/17/25 09:35 Sodium 137 mmol/L (136-145) 05/16/25 21:35 Potassium 3.9 mmol/L (3.5-5.1) 05/16/25 21:35 Chloride 105 mmol/L (98-107) 05/16/25 21:35 Carbon Dioxide 19 mmol/L (22-29) L 05/16/25 21:35 Anion Gap 16.9 (5-19) 05/16/25 21:35 BUN 51 mg/dL (8-23) H 05/16/25 21:35 Creatinine 1.3 mg/dL (0.5-0.9) H 05/16/25 21:35 GFR Calculation Not Reportable 05/16/25 21:35 Glucose 91 mg/dL (65-115) 05/16/25 21:35 Calculated Osmolality 297 mOsm/kg (285-295) H 05/16/25 21:35 Lactic Acid 1.1 mmol/L (0.5-2.2) 05/16/25 21:35 Calcium 9.1 mg/dL (8.5-10.5) 05/16/25 21:35 Total Bilirubin 0.5 mg/dL (0.15-1.2) 05/16/25 21:35 AST 18 U/L (0-32) 05/16/25 21:35 ALT < 5 U/L (0-33) 05/16/25 21:35 Alkaline Phosphatase 100 U/L (35-105) 05/16/25 21:35 Troponin T Baseline 40 ng/L (0-10) H 05/17/25 09:35 Troponin T Hi Sens 6Hr 39.49 ng/L (0-10) H 05/17/25 14:17 Troponin T Hi Sens 6Hr Delta -0.51 ng/L (0-12) L 05/17/25 14:17 C-Reactive Protein 224.4 mg/L (0.0-4.9) H 05/16/25 21:35 Total Protein 5.0 g/dL (6.6-8.7) L 05/16/25 21:35 Albumin 2.4 g/dL (3.5-5.2) L 05/16/25 21:35 Globulin 2.6 g/dL (1.3-4.6) 05/16/25 21:35 TSH 2.12 uIU/mL (0.27-4.20) 05/16/25 21:35 Urine Color Yellow (Yellow) 05/16/25 21:45 Urine Appearance Clear (CLEAR) 05/16/25 21:45 Urine pH 5.5 (5-7) 05/16/25 21:45 Ur Specific [place] 1.020 (1.005-1.030) 05/16/25 21:45 Urine Protein 2+ (Negative) A 05/16/25 21:45 Urine Glucose (UA) Negative (Normal) 05/16/25 21:45 Urine Ketones 1+ (Negative) H 05/16/25 21:45 Urine Blood 2+ (Negative) A 05/16/25 21:45 Urine Nitrate Negative (Negative) 05/16/25 21:45 Urine Bilirubin Negative (Negative) 05/16/25 21:45 Urine Urobilinogen 1.0 mg/dL (Negative) 05/16/25 21:45 Ur Leukocyte Esterase Negative (Negative) 05/16/25 21:45 Urine RBC 0-2 /hpf (0-2) 05/16/25 21:45 Urine WBC 0-5 /hpf (0-5) 05/16/25 21:45 Ur Squamous Epith Cells 0-5 /hpf (0-5) 05/16/25 21:45 Amorphous Sediment Not Reportable 05/16/25 21:45 Urine Bacteria None seen /hpf (NONE) 05/16/25 21:45 Hyaline Casts 7.42 /lpf 05/16/25 21:45 Urine Mucus 1+ /hpf 05/16/25 21:45 Vitals Last Vital Signs Temp 98.6 F 05/19/25 09:03 Pulse 60 05/19/25 09:03 Resp 16 05/19/25 09:03 BP 120/68 05/19/25 09:03 Pulse Ox 94 05/19/25 09:03 O2 Del Method Room Air 05/19/25 04:00 Discharge Plan Discharge Patient Disposition: Hospice - Home Condition: Stable Prescriptions: Continued (DME) Fast form splint, right wrist See Rx Instructions .Route .MEDSUPPLY Qty: 1 0RF Rx Instructions: As directed (DME) wheelchair See Rx Instructions .Route .MEDSUPPLY Qty: 1 0RF Rx Instructions: As directed acetaminophen [Tylenol] 325 mg Tablet 650 mg PO QID PRN (Reason: Fever Or Pain) magnesium oxide 400 mg (241.3 mg magnesium) tablet 400 mg PO DAILY cyanocobalamin (vitamin B-12) 500 mcg tablet 1,500 mcg PO DAILY ascorbic acid (vitamin C) 500 mg tablet 1,000 mg PO DAILY bisacodyl [Dulcolax (bisacodyl)] 10 mg Suppository 10 mg AL DAILY PRN (Reason: Constipation) Discontinued amiodarone 200 mg tablet 200 mg PO DAILY Qty: 90 3RF aspirin 325 mg tablet 325 mg PO QAM oxycodone-acetaminophen 5-325 mg tablet 1 tab PO Q6H PRN (Reason: Pain) metoprolol tartrate 50 mg tablet 50 mg PO BID oxycodone 5 mg Tablet See Rx Instructions .ROUTE .COMPLEX PRN (Reason: Pain) Rx Instructions: 5 mg orally as needed ;Give 1 tablet by mouth every 6hours as needed .Give Oxycodone with one 325 tablet of Tylenol Xarelto 15 mg tablet 15 mg PO QPM Discharge Order = DC NOW: Discharge Order (Routine); Ordered 05/18/25 Ordered By: Javan Stoddard Referrals: [facility] [Outside] Nelly Robertson MD [Primary Care Provider, [facility]] Discharge Diet: Regular Discharge Activity: Resume usual activity Patient Instructions: Opioid Safety, Patient Portal & Adelaida Instructions Discharge Attestations Time Spent in Discharge Care*: greater than 30 min Quality Metrics Clinical Quality Measures [ No reported AMI, CVA or VTE this stay] Coding Level of Care Code 99991 Total time (in minutes) for Discharge: 45 Diagnoses Pneumatosis intestinalis K63.89
== END 2025-05-19 09:07 | disposition hospice, home (50) | DRG 393 ==
LOC: ER 05-17 01:55 → CSU 05-17 02:46 → MEDSURG 05-17 23:56
PROVIDERS: Admitting Provider Student in an Organized Health Care Education/Training Program; Emergency Provider Family Medicine; PCP Family Medicine; Visit Provider Family Medicine
DX: K63.89 Other specified diseases of intestine (principal); I26.99 Other pulmonary embolism without acute cor pulmonale; J69.0 Pneumonitis due to inhalation of food and vomit; S32.509A Unspecified fracture of unspecified pubis, initial encounter for closed fracture; N17.9 Acute kidney failure, unspecified; J98.11 Atelectasis; N39.0 Urinary tract infection, site not specified; T81.42XA Infection following a procedure, deep incisional surgical site, initial encounter; F03.90 Unspecified dementia, unspecified severity, without behavioral disturbance, psychotic disturbance, mood disturbance, and anxiety; I10 Essential (primary) hypertension; I48.0 Paroxysmal atrial fibrillation; Z79.01 Long term (current) use of anticoagulants; X58.XXXA Exposure to other specified factors, initial encounter; R00.0 Tachycardia, unspecified; Z79.82 Long term (current) use of aspirin; Z79.891 Long term (current) use of opiate analgesic; R45.1 Restlessness and agitation; K68.19 Other retroperitoneal abscess; Z96.642 Presence of left artificial hip joint; B99.9 Unspecified infectious disease; E86.0 Dehydration; Z95.0 Presence of cardiac pacemaker; Z86.16 Personal history of COVID-19; I34.0 Nonrheumatic mitral (valve) insufficiency
CPT/HCPCS: 36415; 36573; 70450; 71045; 71275; 73700; 74177; 80053; 81001; 83605; 84443; 84484; 85025; 85378; 86140; 87040; 87070; 87077; 87186; 93005; 93970; 96365; 96367; 96372; 97167; 99285; J0283; J1644; J2060; J2270; J2543; J3373; J3490; J7030; J9999